=== PATIENT | female | born 1940 | race Caucasian/White ===

== ENCOUNTER → 2017-01-02 | Outpatient (CLI) | payer MEDICARE ==
[~2017-01-02] MED LIST: AC500T; BISO1TAB6; BISO1TAB6 PO; CHOL10003 PO; CLD600T; CLOT15CR4 TP; FISH OIL 1,2001 EAC1 PO; FLUT16SP22 NS; IRB150T PO; IRBE75TA31; LVT.1T PO; MELO-195 PO; MULT-608 PO; PSYL425P3 PO; SIMV20TA3 PO; TOLTA4 PO
--- NOTE | 2017-01-02 17:57 | Diagnostic Imaging Report ---
Bilateral screening mammogram The current study was also evaluated with a Computer Aided Detection (CAD) system. INDICATION: Screening. No current complaints stated on the questionnaire. COMPARISON: 12/02/15. FINDINGS: The breasts are composed of scattered fibroglandular densities. There are scattered benign-appearing calcifications. Allowing for technique and positional differences, no suspicious change is seen. IMPRESSION: No significant change. ACR BI-RADS Category 2: Benign findings. Result letter will be mailed to the patient. Note: At least 10% of breast cancer is not imaged by mammography. Dictated by: Dictated on workstation # [id number]
== END ==
LOC: RAD 09:44
PROVIDERS: ATTEND Family Medicine
DX: Z12.31 Encounter for screening mammogram for malignant neoplasm of breast (principal)
CPT/HCPCS: 77067

== ENCOUNTER → 2017-05-03 | Outpatient (CLI) | payer MEDICARE ==
--- NOTE | 2017-05-03 10:40 | Diagnostic Imaging Report ---
INDICATION: Right knee pain AP, oblique, and lateral views of the right knee are obtained and compared with 05/28/09. There is marked medial and lateral joint space narrowing with osteophyte formation as well as patellofemoral joint space narrowing and osteophyte formation. There is no acute fracture or overt joint effusion. These changes have markedly progressed compared with 05/28/09. IMPRESSION: Advanced osteoarthritic change of right knee as described above involving all 3 compartments. No acute bony abnormality. Dictated by: Dictated on workstation # [id number]
== END ==
LOC: RAD 08:27
PROVIDERS: ATTEND Family Medicine
DX: M17.11 Unilateral primary osteoarthritis, right knee (principal)
CPT/HCPCS: 73562

== ENCOUNTER 2017-10-26 19:05 | Inpatient (IN) | payer MEDICARE ==
[~2017-10-26] VITALS: Ht 175.3 cm; Wt 109.3 kg
--- OUTSIDE RECORDS SUMMARY | 2017-10-26 19:11 | XMS REPORT | CCD ---
Author Author [facility] Organization [facility] Address [address] [place] [address] Phone Care Team Providers Care Design Engineering Manager Name Role Phone PP Unavailable CCM Unavailable Summary Purpose Interface Exchange Insurance Providers Payer name Policy type / Coverage type Covered alliance party ID Effective Begin Date Effective End Date WPS Medicare Part B Medicare Part B [id number] Unknown Unknown [facility] Medicare Part B [id number] Unknown Unknown Family history Son Diagnosis Age At Onset Cancer Unknown Father Diagnosis Age At Onset Heart disease Unknown Mother Diagnosis Age At Onset Atrial fibrillation Unknown Stroke Unknown Social History Social History Element Codes Description Effective Dates Marital status Unknown 12/16/2014 Number of children Unknown 1 daughter and 1 son of pancreatic CA at 6 12/16/2014 Employment Unknown Retired 12/16/[address]: 965064701 Has never smoked or chewed tobacco 12/16/[address]: 032403359 Never drinks alcohol 12/16/2014 Allergies, Adverse Reactions, Alerts Allergies, Adverse Reactions, Alerts data not found Past Medical History Illness Codes Condition Status Onset Date Resolved Date Atrophy of thyroid (acquired) ICD-9: 244.8 ICD-10: E03.4 Active 06/28/2016 Unknown Bilateral primary osteoarthritis of knee ICD-9: 715.16 ICD-10: M17.0 Active 06/28/2015 Unknown Essential (primary) hypertension ICD-9: 401.9 ICD-10: I10 Active 12/15/2014 Unknown Mixed hyperlipidemia ICD-9: 272.4 ICD-10: E78.2 Active 12/15/2014 Unknown Mixed hyperlipidemia ICD-9: 272.2 ICD-10: E78.2 Active 10/26/2016 Unknown Encounter for other screening for malignant neoplasm of breast ICD-9: V76.10 ICD-10: Z12.39 Active 10/26/2016 Unknown Hypothyroidism, unspecified ICD-9: 244.9 ICD-10: E03.9 Active 12/15/2014 Unknown Encounter for screening mammogram for malignant neoplasm of breast ICD-9: V76.12 ICD-10: Z12.31 Active 12/01/2015 Unknown Other obesity due to excess calories ICD-9: 278.00 ICD-10: E66.09 Active 03/26/2015 Unknown Encounter for follow-up examination after completed treatment for conditions other than malignant neoplasm ICD-9: V67.9 ICD-10: Z09 Active 07/14/2015 Unknown Fall (on)(from) sidewalk curb, subsequent encounter ICD-9: V58.89 ICD-10: W10.1XXD Active 07/14/2015 Unknown Multiple fractures of ribs, right side, subsequent encounter for fracture with routine healing ICD-9: V54.19 ICD-10: S22.41XD Active 07/14/2015 Unknown 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 ICD-9: V65.3 Active 03/26/2015 Unknown OBESITY ICD-9: 278.00 Active 03/26/2015 Unknown Hyperlipidemia Unknown Active 12/16/2014 Unknown Hypertension Unknown Active 12/16/2014 Unknown Hypothryroidism Unknown Active 12/16/2014 Unknown Osteoarthritis Unknown Active 12/16/2014 Unknown ESSENTIAL HYPERTENSION ICD-9: 401.9 Active 12/15/2014 Unknown HYPERLIPIDEMIA ICD-9: 272.4 Active 12/15/2014 Unknown HYPOTHYROIDISM ICD-9: 244.9 Active 12/15/2014 Unknown Osteoarthritis ICD-9: 715.90 Active 12/15/2014 Unknown URGE INCONTINENCE ICD- 9: 788.31 Active 12/15/2014 Unknown Problems Condition Codes Effective Dates Condition Status Atrophy of thyroid (acquired) ICD-9: 244.8 ICD-10: E03.4 06/28/2016 Active Bilateral primary osteoarthritis of knee ICD-9: 715.16 ICD-10: M17.0 06/28/2015 Active Essential (primary) hypertension ICD-9: 401.9 ICD-10: I10 12/15/2014 Active Mixed hyperlipidemia ICD-9: 272.4 ICD-10: E78.2 12/15/2014 Active Mixed hyperlipidemia ICD-9: 272.2 ICD-10: E78.2 10/26/2016 Active Encounter for other screening for malignant neoplasm of breast ICD-9: V76.10 ICD-10: Z12.39 10/26/2016 Active Hypothyroidism, unspecified ICD-9: 244.9 ICD-10: E03.9 12/15/2014 Active Encounter for screening mammogram for malignant neoplasm of breast ICD-9: V76.12 ICD-10: Z12.31 12/01/2015 Active Other obesity due to excess calories ICD-9: 278.00 ICD-10: E66.09 03/26/2015 Active Encounter for follow-up examination after completed treatment for conditions other than malignant neoplasm ICD-9: V67.9 ICD-10: Z09 07/14/2015 Active Fall (on)(from) sidewalk curb, subsequent encounter ICD-9: V58.89 ICD-10: W10.1XXD 07/14/2015 Active Multiple fractures of ribs, right side, subsequent encounter for fracture with routine healing ICD-9: V54.19 ICD-10: S22.41XD 07/14/2015 Active 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 ICD-9: V65.3 03/26/2015 Active OBESITY ICD-9: 278.00 03/26/2015 Active Hyperlipidemia Unknown 12/16/2014 Active Hypertension Unknown 12/16/2014 Active Hypothryroidism Unknown 12/16/2014 Active Osteoarthritis Unknown 12/16/2014 Active ESSENTIAL HYPERTENSION ICD-9: 401.9 12/15/2014 Active HYPERLIPIDEMIA ICD-9: 272.4 12/15/2014 Active HYPOTHYROIDISM ICD-9: 244.9 12/15/2014 Active Osteoarthritis ICD-9: 715.90 12/15/2014 Active URGE INCONTINENCE ICD- 9: 788.31 12/15/2014 Active Medications Medication Codes Instructions Start Date Stop Date Status Fill Instructions Mobic 15 mg tablet RxNorm: 231618 1 Tablet(s) PO daily 201708/22/2018 Active Ziac 10 mg-6.25 mg tablet RxNorm: 059182 Tablet(s) TAKE ONE (1) TABLET BY MOUTH DAILY 08/02/2017 07/27/2018 Active levothyroxine 100 mcg tablet RxNorm: 011777 TAKE 1 TABLET BY MOUTH DAILY 07/10/2017 01/05/2018 Active Generic For:*SYNTHROID 100 MCG TABLET 07/10/2017 8:08:24 AM Avapro 75 mg tablet RxNorm: 330952 1 Tablet(s) PO daily 201607/04/2018 Active Detrol LA 4 mg capsule,extended release RxNorm: 871081 1 Capsule(s) PO daily 06/27/2017 06/21/2018 Active levothyroxine 100 mcg tablet RxNorm: 309145 1 Tablet(s) PO daily 01/17/2017 07/09/2017 Inactive Ziac 10 mg-6.25 mg tablet RxNorm: 098356 Tablet(s) TAKE ONE (1) TABLET BY MOUTH DAILY 06/29/2016 06/23/2017 Inactive Mobic 15 mg tablet RxNorm: 830933 1 Tablet(s) PO daily 201506/23/2017 Inactive Avapro 75 mg tablet RxNorm: 277957 1 Tablet(s) PO daily 201506/23/2017 Inactive Detrol LA 4 mg capsule,extended release RxNorm: 912584 1 Capsule(s) PO daily 06/29/2016 06/23/2017 Inactive levothyroxine 100 mcg tablet RxNorm: 161092 1 Tablet(s) PO daily 06/29/2016 12/25/2016 Inactive Lipitor 20 mg tablet RxNorm: 196802 1 Tablet(s) PO daily 201511/03/2015 Inactive Lipitor 20 mg tablet RxNorm: 025495 1 Tablet(s) PO daily 201511/03/2015 Inactive Lipitor 20 mg tablet RxNorm: 114920 1 Tablet(s) PO daily 201502/28/2016 Inactive DC SIMVASTATIN Ziac 10 mg-6.25 mg tablet RxNorm: 912688 TAKE ONE (1) TABLET BY MOUTH DAILY 08/17/2015 06/28/2016 Inactive Generic For:ZIAC 10-6.25 MG TABLET N O T I C E PRESCRIPTION PREVIOUSLY AUTHORIZED BY DOCTOR:MARLIN MARKS prednisone 10 mg tablet RxNorm: 837290 1 Tablet(s) PO daily 08/01/2015 Inactive Mobic 15 mg tablet RxNorm: 850070 1 Tablet(s) PO daily 201406/22/2016 Inactive Detrol LA 4 mg capsule,extended release RxNorm: 288777 1 Capsule(s) PO daily 1 Capsule, 1 time per Day 06/29/20152015 Inactive Avapro 75 mg tablet RxNorm: 235129 1 Tablet(s) PO daily 201406/28/2016 Inactive [SAVINGS FOR NON-COVERED DRUGS -- BIN:401206, PCN: ASPROD1, Group: XXXXX, ID # XXXXXXX, Questions: . THIS IS NOT INSURANCE.] levothyroxine 100 mcg tablet RxNorm: 813325 1 Tablet(s) PO daily 06/29/2015 06/28/2016 Inactive levothyroxine 100 mcg tablet RxNorm: 490337 1 Tablet(s) PO daily 05/01/2015 06/28/2015 Inactive Detrol LA 4 mg capsule,extended release RxNorm: 557896 1 Capsule(s) PO daily 1 Capsule, 1 time per Day 01/09/20152014 Inactive Avapro 75 mg tablet RxNorm: 403004 1 Tablet(s) PO daily 201406/28/2015 Inactive [SAVINGS FOR NON-COVERED DRUGS -- BIN:380921, PCN: ASPROD1, Group: XXXXX, ID # XXXXXXX, Questions: . THIS IS NOT INSURANCE.] Celebrex 200 mg capsule RxNorm: 196628 1 Capsule(s) PO daily 12/21/2014 Inactive [SAVINGS FOR NON-COVERED DRUGS -- BIN:186570, PCN: ASPROD1, Group: XXXXX , ID# [id number], Questions: . THIS IS NOT INSURANCE.] Ziac 10 mg-6.25 mg tablet RxNorm: 378017 1 Tablet(s) PO daily 12/16/2014 08/16/2015 Inactive [SAVINGS FOR NON-COVERED DRUGS -- BIN:512521, PCN: ASPROD1, Group: XXXXX, ID# XXXXXXX, Questions: . THIS IS NOT INSURANCE.] Avapro 75 mg tablet RxNorm: 304005 1 Tablet(s) PO daily 201412/16/2014 Inactive [SAVINGS FOR NON-COVERED DRUGS -- BIN:906195, PCN: ASPROD1, Group: XXXXX, ID # XXXXXXX, Questions: . THIS IS NOT INSURANCE.] multivitamin oral RxNorm: 63215 oral No Start Date Active Vitamin D3 1,000 unit capsule RxNorm: 087363 1 Capsule(s) PO daily No Start Date Active Tylenol Extra Strength 500 mg tablet RxNorm: 349181 Tablet(s) PO as needed No Start Date Active Avapro 150 mg tablet RxNorm: 758905 1 Tablet(s) PO daily No Start Date 12/15/2014 Inactive simvastatin 20 mg tablet RxNorm: 784812 1 Tablet(s) PO daily No Start Date 11/03/2015 Inactive levothyroxine 100 mcg tablet RxNorm: 236505 1 Tablet(s) PO daily No Start Date 06/28/2016 Inactive Ziac 10 mg-6.25 mg tablet RxNorm: 942410 1/2 Tablet(s) PO daily No Start Date 12/15/2014 Inactive Detrol LA 4 mg capsule,extended release RxNorm: 681754 1 Capsule(s) PO as needed No Start Date 01/09/2015 Inactive Mobic 15 mg tablet RxNorm: 024893 1 Tablet(s) PO daily No Start Date 12/15/2014 Inactive Flexeril 5 mg tablet RxNorm: 893786 1 Tablet(s) PO QHS No Start Date 02/28/2016 Inactive Medication Administered No Medication Administered data Immunizations Vaccine Codes Date Status Influenza CVX: 141 05/24/2017 completed Influenza CVX: 141 06/15/2015 completed Pneumococcal CVX: 133 06/15/2015 completed Assessments Condition Codes Effective Dates Mixed hyperlipidemia ICD-10: E78.2 ICD-9: 272.4 04/26/2017 Bilateral primary osteoarthritis of knee ICD-10: M17.0 ICD-9: 715.16 04/26/2017 Essential (primary) hypertension ICD-10: I10 ICD-9: 401.9 04/26/2017 Atrophy of thyroid (acquired) ICD-10: E03.4 ICD-9: 244.8 04/26/2017 Mixed hyperlipidemia ICD-10: E78.2 ICD-9: 272.2 04/24/2017 Encounter for other screening for malignant neoplasm of breast ICD-10: Z12.39 ICD-9: V76.10 10/26/2016 Hypothyroidism, unspecified ICD-10: E03.9 ICD-9: 244.9 02/29/2016 Encounter for screening mammogram for malignant neoplasm of breast ICD-10: Z12.31 ICD-9: V76.12 12/02/2015 Other obesity due to excess calories ICD-10: E66.09 ICD-9: 278.00 10/27/2015 Fall (on)(from) sidewalk curb, subsequent encounter ICD-10: W10.1XXD ICD-9: V58.89 07/15/2015 Multiple fractures of ribs, right side, subsequent encounter for fracture with routine healing ICD-10: S22.41XD ICD-9: V54.19 07/15/2015 Encounter for follow-up examination after completed treatment for conditions other than malignant neoplasm ICD-10: Z09 ICD-9: V67.9 07/15/2015 HYPOTHYROIDISM ICD-9: 244.9 03/27/2015 OBESITY ICD-9: 278.00 03/27/2015 OSTEOARTH NOS-UNSPEC ICD-9: 715.90 2014 ESSENTIAL HYPERTENSION ICD-9: 401.9 03/27 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 ICD-9: V65.3 HYPERLIPIDEMIA ICD-9: 272.4 12/16/2014 URGE INCONTINENCE ICD-9: 788.31 2014 Reason For Visit Reason For Visit Effective Dates Notes hypothyroid 04/26/2017 hypothyroid 10/26/2016 hypothyroid 06/29/2016 hypothyroid 02/29/2016 hypothyroid 10/27/2015 Hospital Follow Up 07/15/2015 knee pain 06/29/2015 urinary frequency 03/27/2015 urinary frequency 12/16/2014 Results Observation Observation Code Item Item Code Result Date Lipid Ord30 CHOL 186 mg/dL 09/04/2017 Lipid Ord30 HDL 38.0 mg/dl 09/04/2017 Lipid Ord30 TRIG 272 mg/dL 09/04/2017 Lipid Ord30 LDL 94 mg/dL 09/04/2017 Lipid Ord30 C/HDL 4.9 Ratio 09/04/2017 Cbc With Differential Ord2 WBC 5.90 K/ul 09/04/2017 Cbc With Differential Ord2 RBC 4.72 M/ul 09/04/2017 Cbc With Differential Ord2 HGB 14.0 g/dl 09/04/2017 Cbc With Differential Ord2 Neut% 59.0 % 09/04/2017 Cbc With Differential Ord2 HCT 43.4 % 09/04/2017 Cbc With Differential Ord2 MCV 91.9 fl 09/04/2017 Cbc With Differential Ord2 Lymph% 24.9 % 09/04/2017 Cbc With Differential Ord2 MCH 29.7 pg 09/04/2017 Cbc With Differential Ord2 Craven% 9.0 % 09/04/2017 Cbc With Differential Ord2 MCHC 32.3 pg 09/04/2017 Cbc With Differential Ord2 Eos% 6.8 % 09/04/2017 Cbc With Differential Ord2 PLT 194 K/ul 09/04/2017 Cbc With Differential Ord2 Baso% 0.3 % 09/04/2017 Cbc With Differential Ord2 RDW 14.3 % 09/04/2017 Cbc With Differential Ord2 Neut ABS# 3.48 K/ul 09/04/2017 Cbc With Differential Ord2 Lymph ABS# 1.47 K/ul 09/04/2017 Cbc With Differential Ord2 [place] ABS# 0.5 K/ul 09/04/2017 Cbc With Differential Ord2 Eos ABS# 0.4 K/ul 09/04/2017 Cbc With Differential Ord2 Baso ABS# 0.0 K/ul 09/04/2017 Comp Metabolic Sgy823 NA 138 mEq/L 09/04/2017 Comp Metabolic Isc420 K 4.8 mEq/L 09/04/2017 Comp Metabolic Ysz662 CL 103 mEq/L 09/04/2017 Comp Metabolic Kop756 CO2 24.0 mEq/L 09/04/2017 Comp Metabolic Onx198 ANION GAP 16 09/04/2017 Comp Metabolic Lli971 GLUCOSE 104 mg/dL 09/04/2017 Comp Metabolic Wsg034 Creat 1.2 mg/dL 09/04/2017 Comp Metabolic Hwn628 eGFR 45 ml/min/1.73m2 09/04/2017 Comp Metabolic Wio252 BUN 28 mg/dL 09/04/2017 Comp Metabolic Ais825 B/C Ratio 23.0 Ratio 09/04/2017 Comp Metabolic Csy413 CALCIUM 9.5 mg/dL 09/04/2017 Comp Metabolic Zff293 ALK PHOS 85 U/L 09/04/2017 Comp Metabolic Gqd050 AST(SGOT) 20 U/L 09/04/2017 Comp Metabolic Jsf478 ALT(SGPT) 12 U/L 09/04/2017 Comp Metabolic Cep168 BILI T 0.5 mg/dL 09/04/2017 Comp Metabolic Fvb071 ALBUMIN 4.2 g/dL 09/04/2017 Comp Metabolic Tko627 TPRO 6.7 g/dL 09/04/2017 Comp Metabolic Mky062 GLOB 2.5 g/dL 09/04/2017 Comp Metabolic Gig291 A/G Ratio 1.7 Ratio 09/04/2017 Comp Metabolic Gsq487 Osmo 281 mOsmo 09/04/2017 Tsh Ord6 hTSH II 1.74 uIU/mL 09/04/2017 Tsh Ord6 hTSH II 1.90 uIU/mL 04/25/2017 Cbc With Differential Ord2 WBC 6.54 K/ul 04/25/2017 Cbc With Differential Ord2 RBC 4.67 M/ul 04/25/2017 Cbc With Differential Ord2 HGB 13.9 g/dl 04/25/2017 Cbc With Differential Ord2 HCT 43.3 % 04/25/2017 Cbc With Differential Ord2 Neut% 63.0 % 04/25/2017 Cbc With Differential Ord2 MCV 92.7 fl 04/25/2017 Cbc With Differential Ord2 Lymph% 22.6 % 04/25/2017 Cbc With Differential Ord2 MCH 29.8 pg 04/25/2017 Cbc With Differential Ord2 Craven% 8.6 % 04/25/2017 Cbc With Differential Ord2 MCHC 32.1 pg 04/25/2017 Cbc With Differential Ord2 Eos% 5.5 % 04/25/2017 Cbc With Differential Ord2 Baso% 0.3 % 04/25/2017 Cbc With Differential Ord2 PLT 214 K/ul 04/25/2017 Cbc With Differential Ord2 Neut ABS# 4.12 K/ul 04/25/2017 Cbc With Differential Ord2 RDW 14.9 % 04/25/2017 Cbc With Differential Ord2 Lymph ABS# 1.48 K/ul 04/25/2017 Cbc With Differential Ord2 [place] ABS# 0.6 K/ul 04/25/2017 Cbc With Differential Ord2 Eos ABS# 0.4 K/ul 04/25/2017 Cbc With Differential Ord2 Baso ABS# 0.0 K/ul 04/25/2017 Free T4 Fkt903 FREE T4 1.21 ng/dL 04/25/2017 Comp Metabolic Cdc445 NA 141 mEq/L 04/25/2017 Comp Metabolic Ius189 K 5.1 mEq/L 04/25/2017 Comp Metabolic Haz734 CL 107 mEq/L 04/25/2017 Comp Metabolic Vpq414 CO2 23.0 mEq/L 04/25/2017 Comp Metabolic Wql530 ANION GAP 16 04/25/2017 Comp Metabolic Udv996 GLUCOSE 108 mg/dL 04/25/2017 Comp Metabolic Yub867 Creat 1.2 mg/dL 04/25/2017 Comp Metabolic Cku854 eGFR 47 ml/min/1.73m2 04/25/2017 Comp Metabolic Tgn394 BUN 34 mg/dL 04/25/2017 Comp Metabolic Kmv994 B/C Ratio 29.1 Ratio 04/25/2017 Comp Metabolic Anw727 CALCIUM 9.5 mg/dL 04/25/2017 Comp Metabolic Sme991 ALK PHOS 83 U/L 04/25/2017 Comp Metabolic Sdw071 AST(SGOT) 19 U/L 04/25/2017 Comp Metabolic Zxl612 ALT(SGPT) 12 U/L 04/25/2017 Comp Metabolic Dow657 BILI T 0.4 mg/dL 04/25/2017 Comp Metabolic Zqn120 ALBUMIN 4.2 g/dL 04/25/2017 Comp Metabolic Vgi351 TPRO 6.6 g/dL 04/25/2017 Comp Metabolic Fbw678 GLOB 2.4 g/dL 04/25/2017 Comp Metabolic Ixe884 A/G Ratio 1.8 Ratio 04/25/2017 Comp Metabolic Wav580 Osmo 289 mOsmo 04/25/2017 Lipid Ord30 CHOL 181 mg/dL 04/25/2017 Lipid Ord30 HDL 35.0 mg/dl 04/25/2017 Lipid Ord30 TRIG 257 mg/dL 04/25/2017 Lipid Ord30 LDL 95 mg/dL 04/25/2017 Lipid Ord30 C/HDL 5.2 Ratio 04/25/2017 Tsh Ord6 hTSH II 2.24 uIU/mL 10/25/2016 Comp Metabolic Obf172 NA 138 mEq/L 10/25/2016 Comp Metabolic Xyj882 K 4.8 mEq/L 10/25/2016 Comp Metabolic Amc540 CL 102 mEq/L 10/25/2016 Comp Metabolic Tqn672 CO2 27.0 mEq/L 10/25/2016 Comp Metabolic Qlu167 ANION GAP 14 10/25/2016 Comp Metabolic Bkc770 GLUCOSE 117 mg/dL 10/25/2016 Comp Metabolic Ezp991 Creat 1.1 mg/dL 10/25/2016 Comp Metabolic Rpq201 eGFR 51 ml/min/1.73m2 10/25/2016 Comp Metabolic Ifj016 BUN 34 mg/dL 10/25/2016 Comp Metabolic Jon206 B/C Ratio 30.9 Ratio 10/25/2016 Comp Metabolic Qob672 CALCIUM 9.8 mg/dL 10/25/2016 Comp Metabolic Zzg273 ALK PHOS 80 U/L 10/25/2016 Comp Metabolic Uic352 AST(SGOT) 21 U/L 10/25/2016 Comp Metabolic Hkv152 ALT(SGPT) 15 U/L 10/25/2016 Comp Metabolic Dll495 BILI T 0.7 mg/dL 10/25/2016 Comp Metabolic Jeq411 ALBUMIN 4.6 g/dL 10/25/2016 Comp Metabolic Xcu369 TPRO 7.0 g/dL 10/25/2016 Comp Metabolic Wzz475 GLOB 2.4 g/dL 10/25/2016 Comp Metabolic Cfq052 A/G Ratio 1.9 Ratio 10/25/2016 Comp Metabolic Tfj825 Osmo 284 mOsmo 10/25/2016 Free T4 Wcg270 FREE T4 1.21 ng/dL 10/25/2016 Cbc With Differential Ord2 WBC 6.38 K/ul 10/25/2016 Cbc With Differential Ord2 RBC 5.07 M/ul 10/25/2016 Cbc With Differential Ord2 HGB 15.5 g/dl 10/25/2016 Cbc With Differential Ord2 HCT 46.5 % 10/25/2016 Cbc With Differential Ord2 Neut% 63.2 % 10/25/2016 Cbc With Differential Ord2 MCV 91.7 fl 10/25/2016 Cbc With Differential Ord2 Lymph% 20.8 % 10/25/2016 Cbc With Differential Ord2 MCH 30.6 pg 10/25/2016 Cbc With Differential Ord2 Craven% 10.0 % 10/25/2016 Cbc With Differential Ord2 Eos% 5.5 % 10/25/2016 Cbc With Differential Ord2 MCHC 33.3 pg 10/25/2016 Cbc With Differential Ord2 PLT 208 K/ul 10/25/2016 Cbc With Differential Ord2 Baso% 0.5 % 10/25/2016 Cbc With Differential Ord2 RDW 14.0 % 10/25/2016 Cbc With Differential Ord2 Neut ABS# 4.03 K/ul 10/25/2016 Cbc With Differential Ord2 Lymph ABS# 1.33 K/ul 10/25/2016 Cbc With Differential Ord2 [place] ABS# 0.6 K/ul 10/25/2016 Cbc With Differential Ord2 Eos ABS# 0.4 K/ul 10/25/2016 Cbc With Differential Ord2 Baso ABS# 0.0 K/ul 10/25/2016 Lipid Ord30 CHOL 205 mg/dL 10/25/2016 Lipid Ord30 HDL 41.0 mg/dl 10/25/2016 Lipid Ord30 TRIG 209 mg/dL 10/25/2016 Lipid Ord30 LDL 122 mg/dL 10/25/2016 Lipid Ord30 C/HDL 5.0 Ratio 10/25/2016 Cbc With Differential Ord2 WBC 5.97 K/ul 02/25/2016 Cbc With Differential Ord2 RBC 4.96 M/ul 02/25/2016 Cbc With Differential Ord2 HGB 15.1 g/dl 02/25/2016 Cbc With Differential Ord2 Neut% 58.8 % 02/25/2016 Cbc With Differential Ord2 HCT 45.4 % 02/25/2016 Cbc With Differential Ord2 MCV 91.5 fl 02/25/2016 Cbc With Differential Ord2 Lymph% 26.5 % 02/25/2016 Cbc With Differential Ord2 MCH 30.4 pg 02/25/2016 Cbc With Differential Ord2 Craven% 9.4 % 02/25/2016 Cbc With Differential Ord2 MCHC 33.3 pg 02/25/2016 Cbc With Differential Ord2 Eos% 5.0 % 02/25/2016 Cbc With Differential Ord2 PLT 227 K/ul 02/25/2016 Cbc With Differential Ord2 Baso% 0.3 % 02/25/2016 Cbc With Differential Ord2 RDW 13.9 % 02/25/2016 Cbc With Differential Ord2 Neut ABS# 3.51 K/ul 02/25/2016 Cbc With Differential Ord2 Lymph ABS# 1.58 K/ul 02/25/2016 Cbc With Differential Ord2 [place] ABS# 0.6 K/ul 02/25/2016 Cbc With Differential Ord2 Eos ABS# 0.3 K/ul 02/25/2016 Cbc With Differential Ord2 Baso ABS# 0.0 K/ul 02/25/2016 Tsh Ord6 hTSH II 2.05 uIU/mL 02/25/2016 Comp Metabolic Ene163 NA 139 mEq/L 02/25/2016 Comp Metabolic Dxf566 K 4.8 mEq/L 02/25/2016 Comp Metabolic Fkf971 CL 102 mEq/L 02/25/2016 Comp Metabolic Qdn508 CO2 28.0 mEq/L 02/25/2016 Comp Metabolic Ujn207 ANION GAP 14 02/25/2016 Comp Metabolic Akz587 GLUCOSE 107 mg/dL 02/25/2016 Comp Metabolic Res590 Creat 1.0 mg/dL 02/25/2016 Comp Metabolic Cts546 eGFR 55 ml/min/1.73m2 02/25/2016 Comp Metabolic Dxe008 BUN 29 mg/dL 02/25/2016 Comp Metabolic Gui623 B/C Ratio 28.2 Ratio 02/25/2016 Comp Metabolic Vbu480 CALCIUM 9.7 mg/dL 02/25/2016 Comp Metabolic Mtj488 ALK PHOS 72 U/L 02/25/2016 Comp Metabolic Tfn473 AST(SGOT) 20 U/L 02/25/2016 Comp Metabolic Siy992 ALT(SGPT) 16 U/L 02/25/2016 Comp Metabolic Hhg612 BILI T 0.6 mg/dL 02/25/2016 Comp Metabolic Zjm523 ALBUMIN 4.5 g/dL 02/25/2016 Comp Metabolic Yti524 TPRO 6.8 g/dL 02/25/2016 Comp Metabolic Juw378 GLOB 2.4 g/dL 02/25/2016 Comp Metabolic Agn853 A/G Ratio 1.9 Ratio 02/25/2016 Comp Metabolic Jub009 Osmo 284 mOsmo 02/25/2016 Lipid Ord30 CHOL 214 mg/dL 10/28/2015 Lipid Ord30 HDL 40.0 mg/dl 10/28/2015 Lipid Ord30 TRIG 150 mg/dL 10/28/2015 Lipid Ord30 LDL 144 mg/dL 10/28/2015 Lipid Ord30 C/HDL 5.4 Ratio 10/28/2015 Tsh Ord6 hTSH II 2.37 uIU/mL 10/28/2015 Cbc With Differential Ord2 WBC 5.86 K/ul 10/28/2015 Cbc With Differential Ord2 RBC 5.08 M/ul 10/28/2015 Cbc With Differential Ord2 HGB 15.1 g/dl 10/28/2015 Cbc With Differential Ord2 Neut% 58.1 % 10/28/2015 Cbc With Differential Ord2 HCT 45.8 % 10/28/2015 Cbc With Differential Ord2 Lymph% 27.1 % 10/28/2015 Cbc With Differential Ord2 MCV 90.2 fl 10/28/2015 Cbc With Differential Ord2 MCH 29.7 pg 10/28/2015 Cbc With Differential Ord2 Craven% 8.7 % 10/28/2015 Cbc With Differential Ord2 Eos% 5.8 % 10/28/2015 Cbc With Differential Ord2 MCHC 33.0 pg 10/28/2015 Cbc With Differential Ord2 PLT 214 K/ul 10/28/2015 Cbc With Differential Ord2 Baso% 0.3 % 10/28/2015 Cbc With Differential Ord2 RDW 14.0 % 10/28/2015 Cbc With Differential Ord2 Neut ABS# 3.40 K/ul 10/28/2015 Cbc With Differential Ord2 Lymph ABS# 1.59 K/ul 10/28/2015 Cbc With Differential Ord2 [place] ABS# 0.5 K/ul 10/28/2015 Cbc With Differential Ord2 Eos ABS# 0.3 K/ul 10/28/2015 Cbc With Differential Ord2 Baso ABS# 0.0 K/ul 10/28/2015 Cbc With Differential Ord2 New Analyzer Notice Please note new ref ranges starting 08-26-2015 due to implemntation of new five part differential hematolgy analyzer. 10/28/2015 Comp Metabolic Czk417 NA 138 mEq/L 10/28/2015 Comp Metabolic Yhq760 K 4.4 mEq/L 10/28/2015 Comp Metabolic Mvv150 CL 103 mEq/L 10/28/2015 Comp Metabolic Tqa462 CO2 24.0 mEq/L 10/28/2015 Comp Metabolic Pdc358 ANION GAP 15 10/28/2015 Comp Metabolic Ddr805 GLUCOSE 105 mg/dL 10/28/2015 Comp Metabolic Tzb851 Creat 1.1 mg/dL 10/28/2015 Comp Metabolic Vqn868 eGFR 53 ml/min/1.73m2 10/28/2015 Comp Metabolic Zdh543 BUN 31 mg/dL 10/28/2015 Comp Metabolic Pdz406 B/C Ratio 29.0 Ratio 10/28/2015 Comp Metabolic Ewy060 CALCIUM 9.6 mg/dL 10/28/2015 Comp Metabolic Daf155 ALK PHOS 83 U/L 10/28/2015 Comp Metabolic Ryy165 AST(SGOT) 19 U/L 10/28/2015 Comp Metabolic Vbk660 ALT(SGPT) 16 U/L 10/28/2015 Comp Metabolic Xjg206 BILI T 0.6 mg/dL 10/28/2015 Comp Metabolic Sws017 ALBUMIN 4.4 g/dL 10/28/2015 Comp Metabolic Lzs750 TPRO 7.0 g/dL 10/28/2015 Comp Metabolic Tdc403 GLOB 2.6 g/dL 10/28/2015 Comp Metabolic Lsl774 A/G Ratio 1.7 Ratio 10/28/2015 Comp Metabolic Tho180 Osmo 283 mOsmo 10/28/2015 Free T4 Sij383 FREE T4 1.18 ng/dL 10/28/2015 Review of Systems System Result Effective Dates Constitutional No fatigue 04/26/2017 Constitutional No fever 04/26/2017 Constitutional No insomnia 04/26/2017 Eyes No eye discharge 04/26/2017 Eyes No eye erythema 04/26/2017 Ears/Nose/Throat/Neck No headache 2016 Cardiovascular No chest pain/pressure Cardiovascular No edema 04/26/2017 Cardiovascular No near-syncope/dizziness 04/26/2017 Cardiovascular No syncope 04/26/2017 Respiratory No productive sputum 2016 Respiratory No chest congestion 2016 Respiratory No chest tightness 2016 Respiratory No cough 04/26/2017 Respiratory No dyspnea 04/26/2017 Gastrointestinal No abdominal pain 2016 Gastrointestinal No constipation 2016 Gastrointestinal No diarrhea 04/26/2017 Genitourinary/Nephrology No breast complaint 04/26/2017 Genitourinary/Nephrology No dysuria 04/26 Genitourinary/Nephrology No hematuria Genitourinary/Nephrology No urinary urgency 04/26/2017 Genitourinary/Nephrology No vaginal discharge 04/26/2017 Musculoskeletal stiffness 04/26/2017 Musculoskeletal arthralgia(s) 04/26/2017 Musculoskeletal No joint complaint 2016 Dermatologic No rash 04/26/2017 Dermatologic No scar 04/26/2017 Neurologic No alteration of consciousness 04/26/2017 Psychiatric No anxiety 04/26/2017 Psychiatric No depression 04/26/2017 Constitutional No fatigue 10/26/2016 Constitutional No fever 10/26/2016 Constitutional No insomnia 10/26/2016 Eyes No eye discharge 10/26/2016 Eyes No eye erythema 10/26/2016 Ears/Nose/Throat/Neck No headache 2016 Cardiovascular No chest pain/pressure Cardiovascular No edema 10/26/2016 Cardiovascular No near-syncope/dizziness 10/26/2016 Cardiovascular No syncope 10/26/2016 Respiratory No productive sputum 2016 Respiratory No chest congestion 2016 Respiratory No chest tightness 2016 Respiratory No cough 10/26/2016 Respiratory No dyspnea 10/26/2016 Gastrointestinal No abdominal pain 2016 Gastrointestinal No constipation 2016 Gastrointestinal No diarrhea 10/26/2016 Genitourinary/Nephrology No breast complaint 10/26/2016 Genitourinary/Nephrology No dysuria 10/26 Genitourinary/Nephrology No hematuria Genitourinary/Nephrology No urinary urgency 10/26/2016 Genitourinary/Nephrology No vaginal discharge 10/26/2016 Musculoskeletal stiffness 10/26/2016 Musculoskeletal arthralgia(s) 10/26/2016 Musculoskeletal No joint complaint 2016 Dermatologic No rash 10/26/2016 Dermatologic No scar 10/26/2016 Neurologic No alteration of consciousness 10/26/2016 Psychiatric No anxiety 10/26/2016 Psychiatric No depression 10/26/2016 Constitutional No recent illness 2015 Constitutional No fatigue 06/29/2016 Constitutional No fever 06/29/2016 Constitutional No insomnia 06/29/2016 Eyes No eye discharge 06/29/2016 Eyes No eye erythema 06/29/2016 Ears/Nose/Throat/Neck No headache 2015 Cardiovascular No chest pain/pressure Cardiovascular No edema 06/29/2016 Cardiovascular No near-syncope/dizziness 06/29/2016 Cardiovascular No syncope 06/29/2016 Respiratory No productive sputum 2015 Respiratory No chest congestion 2015 Respiratory No chest tightness 2015 Respiratory No cough 06/29/2016 Respiratory No dyspnea 06/29/2016 Gastrointestinal No abdominal pain 2015 Gastrointestinal No constipation 2015 Gastrointestinal No diarrhea 06/29/2016 Genitourinary/Nephrology No breast complaint 06/29/2016 Genitourinary/Nephrology No dysuria 06/29 Genitourinary/Nephrology No hematuria Genitourinary/Nephrology No urinary urgency 06/29/2016 Genitourinary/Nephrology No vaginal discharge 06/29/2016 Musculoskeletal stiffness 06/29/2016 Musculoskeletal arthralgia(s) 06/29/2016 Musculoskeletal No joint complaint 2015 Dermatologic No rash 06/29/2016 Dermatologic No scar 06/29/2016 Neurologic No alteration of consciousness 06/29/2016 Psychiatric No anxiety 06/29/2016 Psychiatric No depression 06/29/2016 Constitutional No fatigue 02/29/2016 Constitutional No fever 02/29/2016 Constitutional No insomnia 02/29/2016 Eyes No eye discharge 02/29/2016 Eyes No eye erythema 02/29/2016 Ears/Nose/Throat/Neck No headache 2015 Cardiovascular No chest pain/pressure Cardiovascular No edema 02/29/2016 Cardiovascular No near-syncope/dizziness 02/29/2016 Cardiovascular No syncope 02/29/2016 Respiratory No productive sputum 2015 Respiratory No chest congestion 2015 Respiratory No chest tightness 2015 Respiratory No cough 02/29/2016 Respiratory No dyspnea 02/29/2016 Gastrointestinal No abdominal pain 2015 Gastrointestinal No constipation 2015 Gastrointestinal No diarrhea 02/29/2016 Genitourinary/Nephrology No breast complaint 02/29/2016 Genitourinary/Nephrology No dysuria 02/28 Genitourinary/Nephrology No hematuria Genitourinary/Nephrology No urinary urgency 02/29/2016 Genitourinary/Nephrology No vaginal discharge 02/29/2016 Musculoskeletal stiffness 02/29/2016 Musculoskeletal arthralgia(s) 02/29/2016 Musculoskeletal No joint complaint 2015 Dermatologic No rash 02/29/2016 Dermatologic No scar 02/29/2016 Neurologic No alteration of consciousness 02/29/2016 Psychiatric No anxiety 02/29/2016 Psychiatric No depression 02/29/2016 Constitutional No recent illness 2015 Constitutional No fatigue 10/27/2015 Constitutional No fever 10/27/2015 Constitutional No insomnia 10/27/2015 Eyes No eye discharge 10/27/2015 Eyes No eye erythema 10/27/2015 Ears/Nose/Throat/Neck No headache 2015 Cardiovascular No chest pain/pressure Cardiovascular No edema 10/27/2015 Cardiovascular No near-syncope/dizziness 10/27/2015 Cardiovascular No syncope 10/27/2015 Respiratory No productive sputum 2015 Respiratory No chest congestion 2015 Respiratory No chest tightness 2015 Respiratory No cough 10/27/2015 Respiratory No dyspnea 10/27/2015 Gastrointestinal No abdominal pain 2015 Gastrointestinal No constipation 2015 Gastrointestinal No diarrhea 10/27/2015 Genitourinary/Nephrology No breast complaint 10/27/2015 Genitourinary/Nephrology No dysuria 10/26 Genitourinary/Nephrology No hematuria Genitourinary/Nephrology No urinary urgency 10/27/2015 Genitourinary/Nephrology No vaginal discharge 10/27/2015 Musculoskeletal No joint complaint 2015 Dermatologic No rash 10/27/2015 Dermatologic No scar 10/27/2015 Neurologic No alteration of consciousness 10/27/2015 Psychiatric No anxiety 10/27/2015 Psychiatric No depression 10/27/2015 Musculoskeletal stiffness 10/27/2015 Musculoskeletal arthralgia(s) 10/27/2015 Constitutional No fatigue 07/15/2015 Constitutional No fever 07/15/2015 Constitutional No insomnia 07/15/2015 Eyes No eye discharge 07/15/2015 Eyes No eye erythema 07/15/2015 Ears/Nose/Throat/Neck No headache 2014 Cardiovascular No chest pain/pressure 09/2014 Cardiovascular No edema 07/15/2015 Cardiovascular No near-syncope/dizziness 07/15/2015 Respiratory No productive sputum 2014 Respiratory No chest congestion 2014 Respiratory No chest tightness 2014 Respiratory No cough 07/15/2015 Respiratory No dyspnea 07/15/2015 Gastrointestinal No abdominal pain 2014 Gastrointestinal No constipation 2014 Gastrointestinal No diarrhea 07/15/2015 Dermatologic No rash 07/15/2015 Dermatologic No scar 07/15/2015 Neurologic No alteration of consciousness 07/15/2015 Psychiatric No anxiety 07/15/2015 Psychiatric No depression 07/15/2015 Cardiovascular No syncope 07/15/2015 Cardiovascular No dyspnea 07/15/2015 Musculoskeletal bone fracture 07/15/2015 Dermatologic ecchymosis 07/15/2015 Neurologic No dizziness 07/15/2015 Neurologic No headache 07/15/2015 Neurologic No mental status change 2014 Neurologic No weakness 07/15/2015 Neurologic No vision change 07/15/2015 Neurologic No speech difficulties 2014 Constitutional No fatigue 06/29/2015 Constitutional No fever 06/29/2015 Constitutional No insomnia 06/29/2015 Eyes No eye discharge 06/29/2015 Eyes No eye erythema 06/29/2015 Ears/Nose/Throat/Neck No headache 2014 Cardiovascular No chest pain/pressure Cardiovascular No edema 06/29/2015 Cardiovascular No near-syncope/dizziness 06/29/2015 Cardiovascular No syncope 06/29/2015 Respiratory No productive sputum 2014 Respiratory No chest congestion 2014 Respiratory No chest tightness 2014 Respiratory No cough 06/29/2015 Respiratory No dyspnea 06/29/2015 Gastrointestinal No abdominal pain 2014 Gastrointestinal No constipation 2014 Gastrointestinal No diarrhea 06/29/2015 Genitourinary/Nephrology No breast complaint 06/29/2015 Genitourinary/Nephrology No dysuria 06/29 Genitourinary/Nephrology No hematuria Genitourinary/Nephrology No urinary urgency 06/29/2015 Genitourinary/Nephrology No vaginal discharge 06/29/2015 Musculoskeletal No joint complaint 2014 Dermatologic No rash 06/29/2015 Dermatologic No scar 06/29/2015 Neurologic No alteration of consciousness 06/29/2015 Psychiatric No anxiety 06/29/2015 Psychiatric No depression 06/29/2015 Constitutional No fatigue 03/27/2015 Constitutional No fever 03/27/2015 Constitutional No insomnia 03/27/2015 Eyes No eye discharge 03/27/2015 Eyes No eye erythema 03/27/2015 Ears/Nose/Throat/Neck No headache 2014 Cardiovascular No chest pain/pressure Cardiovascular No edema 03/27/2015 Cardiovascular No near-syncope/dizziness 03/27/2015 Cardiovascular No syncope 03/27/2015 Respiratory No productive sputum 2014 Respiratory No chest congestion 2014 Respiratory No chest tightness 2014 Respiratory No cough 03/27/2015 Respiratory No dyspnea 03/27/2015 Gastrointestinal No abdominal pain 2014 Gastrointestinal No constipation 2014 Gastrointestinal No diarrhea 03/27/2015 Genitourinary/Nephrology No breast complaint 03/27/2015 Genitourinary/Nephrology No dysuria 03/27 Genitourinary/Nephrology No hematuria Genitourinary/Nephrology No urinary urgency 03/27/2015 Genitourinary/Nephrology No vaginal discharge 03/27/2015 Musculoskeletal No joint complaint 2014 Dermatologic No rash 03/27/2015 Dermatologic No scar 03/27/2015 Neurologic No alteration of consciousness 03/27/2015 Psychiatric No anxiety 03/27/2015 Psychiatric No depression 03/27/2015 Constitutional No fatigue 12/16/2014 Constitutional No fever 12/16/2014 Constitutional No insomnia 12/16/2014 Eyes No eye discharge 12/16/2014 Eyes No eye erythema 12/16/2014 Ears/Nose/Throat/Neck No headache 2014 Cardiovascular No chest pain/pressure 12/2014 Cardiovascular No edema 12/16/2014 Cardiovascular No near-syncope/dizziness 12/16/2014 Cardiovascular No syncope 12/16/2014 Respiratory No productive sputum 2014 Respiratory No chest congestion 2014 Respiratory No chest tightness 2014 Respiratory No cough 12/16/2014 Respiratory No dyspnea 12/16/2014 Gastrointestinal No abdominal pain 2014 Gastrointestinal No constipation 2014 Gastrointestinal No diarrhea 12/16/2014 Genitourinary/Nephrology No breast complaint 12/16/2014 Genitourinary/Nephrology No dysuria 12/16 Genitourinary/Nephrology No hematuria 12/2014 Genitourinary/Nephrology No urinary urgency 12/16/2014 Genitourinary/Nephrology No vaginal discharge 12/16/2014 Musculoskeletal No joint complaint 2014 Neurologic No alteration of consciousness 12/16/2014 Psychiatric No anxiety 12/16/2014 Psychiatric No depression 12/16/2014 Dermatologic No rash 12/16/2014 Dermatologic No scar 12/16/2014 Physical Exam Exam Name System Name Item Name Status Result Effective Dates Notes Full Exam - General 1994 Constitutional general appearance Development: well developed 04/26/2017 None Full Exam - General 1994 Constitutional general appearance Development: appears stated age 0904/26/2017 None Full Exam - General 1994 Constitutional general appearance Hygiene/Attention to Grooming: good hygiene 04/26/2017 None Full Exam - General 1994 Eyes conjunctiva /eyelids Overall: conjunctiva clear 04/26/2017 None Full Exam - General 1994 Eyes conjunctiva /eyelids Overall: cornea clear 04/26/2017 None Full Exam - General 1994 Eyes conjunctiva /eyelids Overall: eyelids normal 04/26/2017 None Full Exam - General 1994 Eyes pupils and irises Overall: pupils equal, round, reactive to light and accomodation 04/26/2017 None Full Exam - General 1994 Ears/Nose/Throat otoscopic exam Overall: external auditory canals clear 04/26/2017 None Full Exam - General 1994 Ears/Nose/Throat otoscopic exam Overall: tympanic membranes clear 04/26/2017 None Full Exam - General 1994 Ears/Nose/Throat lips/teeth/gingiva Overall: benign lips 04/26/2017 None Full Exam - General 1994 Ears/Nose/Throat lips/teeth/gingiva Overall: normal dentition 04/26/2017 None Full Exam - General 1994 Ears/Nose/Throat oral cavity/pharynx/larynx Overall: oral mucosa clear 04/26/2017 None Full Exam - General 1994 Ears/Nose/Throat oral cavity/pharynx/larynx Overall: oropharyngeal mucosa clear 04/26/2017 None Full Exam - General 1994 Ears/Nose/Throat oral cavity/pharynx/larynx Overall: hypopharynx benign 04/26/2017 None Full Exam - General 1994 Ears/Nose/Throat oral cavity/pharynx/larynx Overall: no masses 04/26/2017 None Full Exam - General 1994 Respiratory auscultation Overall: breath sounds clear bilaterally 04/26/2017 None Full Exam - General 1994 Respiratory respiratory effort/rhythm Overall: no retractions 04/26/2017 None Full Exam - General 1994 Respiratory respiratory effort/rhythm Overall: normal rate 04/26/2017 None Full Exam - General 1994 Cardiovascular extremities Overall: no clubbing 04/26/2017 None Full Exam - General 1994 Cardiovascular extremities Edema present: pitting 04/26/2017 None Full Exam - General 1994 Cardiovascular extremities Edema present: severity 1+ - 4 +: 2+ 04/26/2017 None Full Exam - General 1994 Cardiovascular auscultation of heart Overall: regular rate 04/26/2017 None Full Exam - General 1994 Cardiovascular auscultation of heart Overall: normal heart sounds 04/26/2017 None Full Exam - General 1994 Abdomen abdominal exam Overall: no tenderness 04/26/2017 None Full Exam - General 1994 Abdomen abdominal exam Overall: normal bowel sounds 04/26/2017 None Full Exam - General 1994 Musculoskeletal lower extremity Palpation - knee: crepitus 04/26/2017 None Full Exam - General 1994 Neurologic deep tendon reflexes Overall: deep tendon reflexes intact 04/26/2017 None Full Exam - General 1994 Neurologic cranial nerves Overall: crainial nerves 2 - 12 grossly intact 04/26/2017 None Full Exam - General 1994 Psychiatric orientation/consciousness Overall: oriented to person, place and time 04/26/2017 None Full Exam - General 1994 Psychiatric mood and affect Overall: normal mood and affect 04/26/2017 None Full Exam - General 1994 Lymphatic neck nodes Overall: anterior cervical chain benign 04/26/2017 None Full Exam - General 1994 Lymphatic neck nodes Overall: posterior cervical chain benign 04/26/2017 None Full Exam - General 1994 Cardiovascular inspection of carotid pulses Overall: strong, bilaterally equal, no bruits 04/26/2017 None Full Exam - General 1994 Constitutional general appearance Development: well developed 10/26/2016 None Full Exam - General 1994 Constitutional general appearance Development: appears stated age 0310/26/2016 None Full Exam - General 1994 Constitutional general appearance Hygiene/Attention to Grooming: good hygiene 10/26/2016 None Full Exam - General 1994 Eyes conjunctiva /eyelids Overall: conjunctiva clear 10/26/2016 None Full Exam - General 1994 Eyes conjunctiva /eyelids Overall: cornea clear 10/26/2016 None Full Exam - General 1994 Eyes conjunctiva /eyelids Overall: eyelids normal 10/26/2016 None Full Exam - General 1994 Eyes pupils and irises Overall: pupils equal, round, reactive to light and accomodation 10/26/2016 None Full Exam - General 1994 Ears/Nose/Throat otoscopic exam Overall: external auditory canals clear 10/26/2016 None Full Exam - General 1994 Ears/Nose/Throat otoscopic exam Overall: tympanic membranes clear 10/26/2016 None Full Exam - General 1994 Ears/Nose/Throat lips/teeth/gingiva Overall: benign lips 10/26/2016 None Full Exam - General 1994 Ears/Nose/Throat lips/teeth/gingiva Overall: normal dentition 10/26/2016 None Full Exam - General 1994 Ears/Nose/Throat oral cavity/pharynx/larynx Overall: oral mucosa clear 10/26/2016 None Full Exam - General 1994 Ears/Nose/Throat oral cavity/pharynx/larynx Overall: oropharyngeal mucosa clear 10/26/2016 None Full Exam - General 1994 Ears/Nose/Throat oral cavity/pharynx/larynx Overall: hypopharynx benign 10/26/2016 None Full Exam - General 1994 Ears/Nose/Throat oral cavity/pharynx/larynx Overall: no masses 10/26/2016 None Full Exam - General 1994 Respiratory auscultation Overall: breath sounds clear bilaterally 10/26/2016 None Full Exam - General 1994 Respiratory respiratory effort/rhythm Overall: no retractions 10/26/2016 None Full Exam - General 1994 Respiratory respiratory effort/rhythm Overall: normal rate 10/26/2016 None Full Exam - General 1994 Cardiovascular extremities Overall: no clubbing 10/26/2016 None Full Exam - General 1994 Cardiovascular extremities Edema present: pitting 10/26/2016 None Full Exam - General 1994 Cardiovascular extremities Edema present: severity 1+ - 4 +: 2+ 10/26/2016 None Full Exam - General 1994 Cardiovascular auscultation of heart Overall: regular rate 10/26/2016 None Full Exam - General 1994 Cardiovascular auscultation of heart Overall: normal heart sounds 10/26/2016 None Full Exam - General 1994 Abdomen abdominal exam Overall: no tenderness 10/26/2016 None Full Exam - General 1994 Abdomen abdominal exam Overall: normal bowel sounds 10/26/2016 None Full Exam - General 1994 Musculoskeletal lower extremity Palpation - knee: crepitus 10/26/2016 None Full Exam - General 1994 Integument inspection of skin Overall: few scattered moles, no gross abnormalities 10/26/2016 None Full Exam - General 1994 Neurologic deep tendon reflexes Overall: deep tendon reflexes intact 10/26/2016 None Full Exam - General 1994 Neurologic cranial nerves Overall: crainial nerves 2 - 12 grossly intact 10/26/2016 None Full Exam - General 1994 Psychiatric orientation/consciousness Overall: oriented to person, place and time 10/26/2016 None Full Exam - General 1994 Psychiatric mood and affect Overall: normal mood and affect 10/26/2016 None Full Exam - General 1994 Constitutional general appearance Development: well developed 06/29/2016 None Full Exam - General 1994 Constitutional general appearance Development: appears stated age 1106/29/2016 None Full Exam - General 1994 Constitutional general appearance Hygiene/Attention to Grooming: good hygiene 06/29/2016 None Full Exam - General 1994 Eyes conjunctiva /eyelids Overall: conjunctiva clear 06/29/2016 None Full Exam - General 1994 Eyes conjunctiva /eyelids Overall: cornea clear 06/29/2016 None Full Exam - General 1994 Eyes conjunctiva /eyelids Overall: eyelids normal 06/29/2016 None Full Exam - General 1994 Eyes pupils and irises Overall: pupils equal, round, reactive to light and accomodation 06/29/2016 None Full Exam - General 1994 Ears/Nose/Throat otoscopic exam Overall: external auditory canals clear 06/29/2016 None Full Exam - General 1994 Ears/Nose/Throat otoscopic exam Overall: tympanic membranes clear 06/29/2016 None Full Exam - General 1994 Ears/Nose/Throat lips/teeth/gingiva Overall: benign lips 06/29/2016 None Full Exam - General 1994 Ears/Nose/Throat lips/teeth/gingiva Overall: normal dentition 06/29/2016 None Full Exam - General 1994 Ears/Nose/Throat oral cavity/pharynx/larynx Overall: oral mucosa clear 06/29/2016 None Full Exam - General 1994 Ears/Nose/Throat oral cavity/pharynx/larynx Overall: oropharyngeal mucosa clear 06/29/2016 None Full Exam - General 1994 Ears/Nose/Throat oral cavity/pharynx/larynx Overall: hypopharynx benign 06/29/2016 None Full Exam - General 1994 Ears/Nose/Throat oral cavity/pharynx/larynx Overall: no masses 06/29/2016 None Full Exam - General 1994 Respiratory auscultation Overall: breath sounds clear bilaterally 06/29/2016 None Full Exam - General 1994 Respiratory respiratory effort/rhythm Overall: no retractions 06/29/2016 None Full Exam - General 1994 Respiratory respiratory effort/rhythm Overall: normal rate 06/29/2016 None Full Exam - General 1994 Cardiovascular extremities Overall: no clubbing 06/29/2016 None Full Exam - General 1994 Cardiovascular extremities Edema present: pitting 06/29/2016 None Full Exam - General 1994 Cardiovascular extremities Edema present: severity 1+ - 4 +: 2+ 06/29/2016 None Full Exam - General 1994 Cardiovascular auscultation of heart Overall: regular rate 06/29/2016 None Full Exam - General 1994 Cardiovascular auscultation of heart Overall: normal heart sounds 06/29/2016 None Full Exam - General 1994 Abdomen abdominal exam Overall: no tenderness 06/29/2016 None Full Exam - General 1994 Abdomen abdominal exam Overall: normal bowel sounds 06/29/2016 None Full Exam - General 1994 Musculoskeletal lower extremity Palpation - knee: crepitus 06/29/2016 None Full Exam - General 1994 Integument inspection of skin Overall: few scattered moles, no gross abnormalities 06/29/2016 None Full Exam - General 1994 Neurologic deep tendon reflexes Overall: deep tendon reflexes intact 06/29/2016 None Full Exam - General 1994 Neurologic cranial nerves Overall: crainial nerves 2 - 12 grossly intact 06/29/2016 None Full Exam - General 1994 Psychiatric orientation/consciousness Overall: oriented to person, place and time 06/29/2016 None Full Exam - General 1994 Psychiatric mood and affect Overall: normal mood and affect 06/29/2016 None Full Exam - General 1994 Constitutional general appearance Development: well developed 02/29/2016 None Full Exam - General 1994 Constitutional general appearance Development: appears stated age 0702/29/2016 None Full Exam - General 1994 Constitutional general appearance Hygiene/Attention to Grooming: good hygiene 02/29/2016 None Full Exam - General 1994 Eyes conjunctiva /eyelids Overall: conjunctiva clear 02/29/2016 None Full Exam - General 1994 Eyes conjunctiva /eyelids Overall: cornea clear 02/29/2016 None Full Exam - General 1994 Eyes conjunctiva /eyelids Overall: eyelids normal 02/29/2016 None Full Exam - General 1994 Eyes pupils and irises Overall: pupils equal, round, reactive to light and accomodation 02/29/2016 None Full Exam - General 1994 Ears/Nose/Throat otoscopic exam Overall: external auditory canals clear 02/29/2016 None Full Exam - General 1994 Ears/Nose/Throat otoscopic exam Overall: tympanic membranes clear 02/29/2016 None Full Exam - General 1994 Ears/Nose/Throat lips/teeth/gingiva Overall: benign lips 02/29/2016 None Full Exam - General 1994 Ears/Nose/Throat lips/teeth/gingiva Overall: normal dentition 02/29/2016 None Full Exam - General 1994 Ears/Nose/Throat oral cavity/pharynx/larynx Overall: oral mucosa clear 02/29/2016 None Full Exam - General 1994 Ears/Nose/Throat oral cavity/pharynx/larynx Overall: oropharyngeal mucosa clear 02/29/2016 None Full Exam - General 1994 Ears/Nose/Throat oral cavity/pharynx/larynx Overall: hypopharynx benign 02/29/2016 None Full Exam - General 1994 Ears/Nose/Throat oral cavity/pharynx/larynx Overall: no masses 02/29/2016 None Full Exam - General 1994 Respiratory auscultation Overall: breath sounds clear bilaterally 02/29/2016 None Full Exam - General 1994 Respiratory respiratory effort/rhythm Overall: no retractions 02/29/2016 None Full Exam - General 1994 Respiratory respiratory effort/rhythm Overall: normal rate 02/29/2016 None Full Exam - General 1994 Cardiovascular extremities Overall: no clubbing 02/29/2016 None Full Exam - General 1994 Cardiovascular extremities Edema present: pitting 02/29/2016 None Full Exam - General 1994 Cardiovascular extremities Edema present: severity 1+ - 4 +: 2+ 02/29/2016 None Full Exam - General 1994 Cardiovascular auscultation of heart Overall: regular rate 02/29/2016 None Full Exam - General 1994 Cardiovascular auscultation of heart Overall: normal heart sounds 02/29/2016 None Full Exam - General 1994 Abdomen abdominal exam Overall: no tenderness 02/29/2016 None Full Exam - General 1994 Abdomen abdominal exam Overall: normal bowel sounds 02/29/2016 None Full Exam - General 1994 Musculoskeletal lower extremity Palpation - knee: crepitus 02/29/2016 None Full Exam - General 1994 Integument inspection of skin Overall: few scattered moles, no gross abnormalities 02/29/2016 None Full Exam - General 1994 Neurologic deep tendon reflexes Overall: deep tendon reflexes intact 02/29/2016 None Full Exam - General 1994 Neurologic cranial nerves Overall: crainial nerves 2 - 12 grossly intact 02/29/2016 None Full Exam - General 1994 Psychiatric orientation/consciousness Overall: oriented to person, place and time 02/29/2016 None Full Exam - General 1994 Psychiatric mood and affect Overall: normal mood and affect 02/29/2016 None Full Exam - General 1994 Constitutional general appearance Development: well developed 10/27/2015 None Full Exam - General 1994 Constitutional general appearance Development: appears stated age 0310/27/2015 None Full Exam - General 1994 Constitutional general appearance Hygiene/Attention to Grooming: good hygiene 10/27/2015 None Full Exam - General 1994 Eyes conjunctiva /eyelids Overall: conjunctiva clear 10/27/2015 None Full Exam - General 1994 Eyes conjunctiva /eyelids Overall: cornea clear 10/27/2015 None Full Exam - General 1994 Eyes conjunctiva /eyelids Overall: eyelids normal 10/27/2015 None Full Exam - General 1994 Eyes pupils and irises Overall: pupils equal, round, reactive to light and accomodation 10/27/2015 None Full Exam - General 1994 Ears/Nose/Throat otoscopic exam Overall: external auditory canals clear 10/27/2015 None Full Exam - General 1994 Ears/Nose/Throat otoscopic exam Overall: tympanic membranes clear 10/27/2015 None Full Exam - General 1994 Ears/Nose/Throat lips/teeth/gingiva Overall: benign lips 10/27/2015 None Full Exam - General 1994 Ears/Nose/Throat lips/teeth/gingiva Overall: normal dentition 10/27/2015 None Full Exam - General 1994 Ears/Nose/Throat oral cavity/pharynx/larynx Overall: oral mucosa clear 10/27/2015 None Full Exam - General 1994 Ears/Nose/Throat oral cavity/pharynx/larynx Overall: oropharyngeal mucosa clear 10/27/2015 None Full Exam - General 1994 Ears/Nose/Throat oral cavity/pharynx/larynx Overall: hypopharynx benign 10/27/2015 None Full Exam - General 1994 Ears/Nose/Throat oral cavity/pharynx/larynx Overall: no masses 10/27/2015 None Full Exam - General 1994 Respiratory auscultation Overall: breath sounds clear bilaterally 10/27/2015 None Full Exam - General 1994 Respiratory respiratory effort/rhythm Overall: no retractions 10/27/2015 None Full Exam - General 1994 Respiratory respiratory effort/rhythm Overall: normal rate 10/27/2015 None Full Exam - General 1994 Cardiovascular extremities Overall: no clubbing 10/27/2015 None Full Exam - General 1994 Cardiovascular extremities Edema present: pitting 10/27/2015 None Full Exam - General 1994 Cardiovascular extremities Edema present: severity 1+ - 4 +: 2+ 10/27/2015 None Full Exam - General 1994 Cardiovascular auscultation of heart Overall: regular rate 10/27/2015 None Full Exam - General 1994 Cardiovascular auscultation of heart Overall: normal heart sounds 10/27/2015 None Full Exam - General 1994 Abdomen abdominal exam Overall: no tenderness 10/27/2015 None Full Exam - General 1994 Abdomen abdominal exam Overall: normal bowel sounds 10/27/2015 None Full Exam - General 1994 Musculoskeletal lower extremity Palpation - knee: crepitus 10/27/2015 None Full Exam - General 1994 Integument inspection of skin Overall: few scattered moles, no gross abnormalities 10/27/2015 None Full Exam - General 1994 Neurologic deep tendon reflexes Overall: deep tendon reflexes intact 10/27/2015 None Full Exam - General 1994 Neurologic cranial nerves Overall: crainial nerves 2 - 12 grossly intact 10/27/2015 None Full Exam - General 1994 Psychiatric orientation/consciousness Overall: oriented to person, place and time 10/27/2015 None Full Exam - General 1994 Psychiatric mood and affect Overall: normal mood and affect 10/27/2015 None Full Exam - General 1994 Constitutional general appearance Development: well developed 07/15/2015 None Full Exam - General 1994 Constitutional general appearance Development: appears stated age 1207/15/2015 None Full Exam - General 1994 Constitutional general appearance Hygiene/Attention to Grooming: good hygiene 07/15/2015 None Full Exam - General 1994 Eyes conjunctiva /eyelids Overall: conjunctiva clear 07/15/2015 None Full Exam - General 1994 Eyes conjunctiva /eyelids Overall: cornea clear 07/15/2015 None Full Exam - General 1994 Eyes conjunctiva /eyelids Overall: eyelids normal 07/15/2015 None Full Exam - General 1994 Eyes pupils and irises Overall: pupils equal, round, reactive to light and accomodation 07/15/2015 None Full Exam - General 1994 Ears/Nose/Throat otoscopic exam Overall: external auditory canals clear 07/15/2015 None Full Exam - General 1994 Ears/Nose/Throat otoscopic exam Overall: tympanic membranes clear 07/15/2015 None Full Exam - General 1994 Ears/Nose/Throat lips/teeth/gingiva Overall: benign lips 07/15/2015 None Full Exam - General 1994 Ears/Nose/Throat lips/teeth/gingiva Overall: normal dentition 07/15/2015 None Full Exam - General 1994 Ears/Nose/Throat oral cavity/pharynx/larynx Overall: oral mucosa clear 07/15/2015 None Full Exam - General 1994 Ears/Nose/Throat oral cavity/pharynx/larynx Overall: oropharyngeal mucosa clear 07/15/2015 None Full Exam - General 1994 Ears/Nose/Throat oral cavity/pharynx/larynx Overall: no masses 07/15/2015 None Full Exam - General 1994 Respiratory auscultation Overall: breath sounds clear bilaterally 07/15/2015 None Full Exam - General 1994 Respiratory respiratory effort/rhythm Overall: no retractions 07/15/2015 None Full Exam - General 1994 Respiratory respiratory effort/rhythm Overall: normal rate 07/15/2015 None Full Exam - General 1994 Cardiovascular extremities Overall: no clubbing 07/15/2015 None Full Exam - General 1994 Cardiovascular auscultation of heart Overall: regular rate 07/15/2015 None Full Exam - General 1994 Cardiovascular auscultation of heart Overall: normal heart sounds 07/15/2015 None Full Exam - General 1994 Abdomen abdominal exam Overall: no tenderness 07/15/2015 None Full Exam - General 1994 Abdomen abdominal exam Overall: normal bowel sounds 07/15/2015 None Full Exam - General 1994 Neurologic cranial nerves Overall: crainial nerves 2 - 12 grossly intact 07/15/2015 None Full Exam - General 1994 Psychiatric orientation/consciousness Overall: oriented to person, place and time 07/15/2015 None Full Exam - General 1994 Psychiatric mood and affect Overall: normal mood and affect 07/15/2015 None Full Exam - General 1994 Integument inspection of skin Pigmentation: ecchymosis 07/15/2015 right hand, post fall, healing Full Exam - General 1994 Integument inspection of skin Rash/Lesions: skin tear 07/15/2015 right knee, scabbed over, healing Full Exam - General 1994 Constitutional general appearance Development: well developed 06/29/2015 None Full Exam - General 1994 Constitutional general appearance Development: appears stated age 1106/29/2015 None Full Exam - General 1994 Constitutional general appearance Hygiene/Attention to Grooming: good hygiene 06/29/2015 None Full Exam - General 1994 Eyes conjunctiva /eyelids Overall: conjunctiva clear 06/29/2015 None Full Exam - General 1994 Eyes conjunctiva /eyelids Overall: cornea clear 06/29/2015 None Full Exam - General 1994 Eyes conjunctiva /eyelids Overall: eyelids normal 06/29/2015 None Full Exam - General 1994 Eyes pupils and irises Overall: pupils equal, round, reactive to light and accomodation 06/29/2015 None Full Exam - General 1994 Ears/Nose/Throat otoscopic exam Overall: external auditory canals clear 06/29/2015 None Full Exam - General 1994 Ears/Nose/Throat otoscopic exam Overall: tympanic membranes clear 06/29/2015 None Full Exam - General 1994 Ears/Nose/Throat lips/teeth/gingiva Overall: benign lips 06/29/2015 None Full Exam - General 1994 Ears/Nose/Throat lips/teeth/gingiva Overall: normal dentition 06/29/2015 None Full Exam - General 1994 Ears/Nose/Throat oral cavity/pharynx/larynx Overall: oral mucosa clear 06/29/2015 None Full Exam - General 1994 Ears/Nose/Throat oral cavity/pharynx/larynx Overall: oropharyngeal mucosa clear 06/29/2015 None Full Exam - General 1994 Ears/Nose/Throat oral cavity/pharynx/larynx Overall: hypopharynx benign 06/29/2015 None Full Exam - General 1994 Ears/Nose/Throat oral cavity/pharynx/larynx Overall: no masses 06/29/2015 None Full Exam - General 1994 Respiratory auscultation Overall: breath sounds clear bilaterally 06/29/2015 None Full Exam - General 1994 Respiratory respiratory effort/rhythm Overall: no retractions 06/29/2015 None Full Exam - General 1994 Respiratory respiratory effort/rhythm Overall: normal rate 06/29/2015 None Full Exam - General 1994 Cardiovascular extremities Overall: no clubbing 06/29/2015 None Full Exam - General 1994 Cardiovascular extremities Edema present: pitting 06/29/2015 None Full Exam - General 1994 Cardiovascular extremities Edema present: severity 1+ - 4 +: 2+ 06/29/2015 None Full Exam - General 1994 Cardiovascular auscultation of heart Overall: regular rate 06/29/2015 None Full Exam - General 1994 Cardiovascular auscultation of heart Overall: normal heart sounds 06/29/2015 None Full Exam - General 1994 Abdomen abdominal exam Overall: no tenderness 06/29/2015 None Full Exam - General 1994 Abdomen abdominal exam Overall: normal bowel sounds 06/29/2015 None Full Exam - General 1994 Musculoskeletal lower extremity Palpation - knee: crepitus 06/29/2015 None Full Exam - General 1994 Integument inspection of skin Overall: few scattered moles, no gross abnormalities 06/29/2015 None Full Exam - General 1994 Neurologic deep tendon reflexes Overall: deep tendon reflexes intact 06/29/2015 None Full Exam - General 1994 Neurologic cranial nerves Overall: crainial nerves 2 - 12 grossly intact 06/29/2015 None Full Exam - General 1994 Psychiatric orientation/consciousness Overall: oriented to person, place and time 06/29/2015 None Full Exam - General 1994 Psychiatric mood and affect Overall: normal mood and affect 06/29/2015 None Full Exam - General 1994 Constitutional general appearance Development: well developed 03/27/2015 None Full Exam - General 1994 Constitutional general appearance Development: appears stated age 0803/27/2015 None Full Exam - General 1994 Constitutional general appearance Hygiene/Attention to Grooming: good hygiene 03/27/2015 None Full Exam - General 1994 Eyes conjunctiva /eyelids Overall: conjunctiva clear 03/27/2015 None Full Exam - General 1994 Eyes conjunctiva /eyelids Overall: cornea clear 03/27/2015 None Full Exam - General 1994 Eyes conjunctiva /eyelids Overall: eyelids normal 03/27/2015 None Full Exam - General 1994 Eyes pupils and irises Overall: pupils equal, round, reactive to light and accomodation 03/27/2015 None Full Exam - General 1994 Ears/Nose/Throat otoscopic exam Overall: external auditory canals clear 03/27/2015 None Full Exam - General 1994 Ears/Nose/Throat otoscopic exam Overall: tympanic membranes clear 03/27/2015 None Full Exam - General 1994 Ears/Nose/Throat lips/teeth/gingiva Overall: benign lips 03/27/2015 None Full Exam - General 1994 Ears/Nose/Throat lips/teeth/gingiva Overall: normal dentition 03/27/2015 None Full Exam - General 1994 Ears/Nose/Throat oral cavity/pharynx/larynx Overall: oral mucosa clear 03/27/2015 None Full Exam - General 1994 Ears/Nose/Throat oral cavity/pharynx/larynx Overall: oropharyngeal mucosa clear 03/27/2015 None Full Exam - General 1994 Ears/Nose/Throat oral cavity/pharynx/larynx Overall: hypopharynx benign 03/27/2015 None Full Exam - General 1994 Ears/Nose/Throat oral cavity/pharynx/larynx Overall: no masses 03/27/2015 None Full Exam - General 1994 Respiratory auscultation Overall: breath sounds clear bilaterally 03/27/2015 None Full Exam - General 1994 Respiratory respiratory effort/rhythm Overall: no retractions 03/27/2015 None Full Exam - General 1994 Respiratory respiratory effort/rhythm Overall: normal rate 03/27/2015 None Full Exam - General 1994 Cardiovascular extremities Overall: no clubbing 03/27/2015 None Full Exam - General 1994 Cardiovascular extremities Edema present: pitting 03/27/2015 None Full Exam - General 1994 Cardiovascular extremities Edema present: severity 1+ - 4 +: 2+ 03/27/2015 None Full Exam - General 1994 Cardiovascular auscultation of heart Overall: regular rate 03/27/2015 None Full Exam - General 1994 Cardiovascular auscultation of heart Overall: normal heart sounds 03/27/2015 None Full Exam - General 1994 Abdomen abdominal exam Overall: no tenderness 03/27/2015 None Full Exam - General 1994 Abdomen abdominal exam Overall: normal bowel sounds 03/27/2015 None Full Exam - General 1994 Musculoskeletal lower extremity Palpation - knee: crepitus 03/27/2015 None Full Exam - General 1994 Integument inspection of skin Overall: few scattered moles, no gross abnormalities 03/27/2015 None Full Exam - General 1994 Neurologic deep tendon reflexes Overall: deep tendon reflexes intact 03/27/2015 None Full Exam - General 1994 Neurologic cranial nerves Overall: crainial nerves 2 - 12 grossly intact 03/27/2015 None Full Exam - General 1994 Psychiatric orientation/consciousness Overall: oriented to person, place and time 03/27/2015 None Full Exam - General 1994 Psychiatric mood and affect Overall: normal mood and affect 03/27/2015 None Full Exam - General 1994 Constitutional general appearance Development: appears stated age 0512/16/2014 None Full Exam - General 1994 Constitutional general appearance Development: well developed 12/16/2014 None Full Exam - General 1994 Constitutional general appearance Hygiene/Attention to Grooming: good hygiene 12/16/2014 None Full Exam - General 1994 Eyes conjunctiva /eyelids Overall: conjunctiva clear 12/16/2014 None Full Exam - General 1994 Eyes conjunctiva /eyelids Overall: cornea clear 12/16/2014 None Full Exam - General 1994 Eyes conjunctiva /eyelids Overall: eyelids normal 12/16/2014 None Full Exam - General 1994 Eyes pupils and irises Overall: pupils equal, round, reactive to light and accomodation 12/16/2014 None Full Exam - General 1994 Ears/Nose/Throat otoscopic exam Overall: external auditory canals clear 12/16/2014 None Full Exam - General 1994 Ears/Nose/Throat otoscopic exam Overall: tympanic membranes clear 12/16/2014 None Full Exam - General 1994 Ears/Nose/Throat lips/teeth/gingiva Overall: benign lips 12/16/2014 None Full Exam - General 1994 Ears/Nose/Throat lips/teeth/gingiva Overall: normal dentition 12/16/2014 None Full Exam - General 1994 Ears/Nose/Throat oral cavity/pharynx/larynx Overall: hypopharynx benign 12/16/2014 None Full Exam - General 1994 Ears/Nose/Throat oral cavity/pharynx/larynx Overall: no masses 12/16/2014 None Full Exam - General 1994 Ears/Nose/Throat oral cavity/pharynx/larynx Overall: oral mucosa clear 12/16/2014 None Full Exam - General 1994 Ears/Nose/Throat oral cavity/pharynx/larynx Overall: oropharyngeal mucosa clear 12/16/2014 None Full Exam - General 1994 Respiratory auscultation Overall: breath sounds clear bilaterally 12/16/2014 None Full Exam - General 1994 Respiratory respiratory effort/rhythm Overall: no retractions 12/16/2014 None Full Exam - General 1994 Respiratory respiratory effort/rhythm Overall: normal rate 12/16/2014 None Full Exam - General 1994 Cardiovascular extremities Overall: no clubbing 12/16/2014 None Full Exam - General 1994 Cardiovascular auscultation of heart Overall: normal heart sounds 12/16/2014 None Full Exam - General 1994 Cardiovascular auscultation of heart Overall: regular rate 12/16/2014 None Full Exam - General 1994 Abdomen abdominal exam Overall: no tenderness 12/16/2014 None Full Exam - General 1994 Abdomen abdominal exam Overall: normal bowel sounds 12/16/2014 None Full Exam - General 1994 Integument inspection of skin Overall: few scattered moles, no gross abnormalities 12/16/2014 None Full Exam - General 1994 Neurologic deep tendon reflexes Overall: deep tendon reflexes intact 12/16/2014 None Full Exam - General 1994 Neurologic cranial nerves Overall: crainial nerves 2 - 12 grossly intact 12/16/2014 None Full Exam - General 1994 Psychiatric orientation/consciousness Overall: oriented to person, place and time 12/16/2014 None Full Exam - General 1994 Psychiatric mood and affect Overall: normal mood and affect 12/16/2014 None Full Exam - General 1994 Musculoskeletal lower extremity Palpation - knee: crepitus 12/16/2014 None Full Exam - General 1994 Cardiovascular extremities Edema present: pitting 12/16/2014 None Full Exam - General 1994 Cardiovascular extremities Edema present: severity 1+ - 4 +: 2+ 12/16/2014 None Procedures Procedure Codes Date URINALYSIS NONAUTO W/O SCOPE CPT-4: 19909 10/26/2016 Vital Signs Date Vital 04/26/2017 Blood Pressure 1: 128/82 Code : 8480-6 BMI: 38.3 Code : 26777-4 Heart Rate 1 : 76 bpm Height: 5'8" SpO2: 97% Weight: 252 lbs 10/26/2016 Blood Pressure 1: 150/78 Code : 8480-6 Blood Pressure 1: 132/72 Code: 8480-6 BMI: 39.4 Code: 75582-9 Heart Rate 1: 73 bpm Height: 5'8" SpO2: 98% Weight: 259 lbs 06/29/2016 Blood Pressure 1: 110/76 Code : 8480-6 BMI: 39.4 Code : 24687-6 Heart Rate 1 : 60 bpm Height: 5'8" SpO2: 97% Weight: 259 lbs 02/29/2016 Blood Pressure 1: 156/84 Code : 8480-6 Blood Pressure 1: 135/75 Code: 8480-6 BMI: 39.5 Code: 52489-9 Heart Rate 1: 71 bpm Height: 5'8" SpO2: 97% Weight: 260 lbs 10/27/2015 Blood Pressure 1: 132/82 Code : 8480-6 BMI: 38.3 Code : 16149-3 Heart Rate 1 : 70 bpm Height: 5'8" SpO2: 96% Weight: 252 lbs 07/15/2015 Blood Pressure 1: 142/80 Code : 8480-6 Heart Rate 1: 64 bpm Height: 5'8" SpO2: 97% Weight: 06/29/2015 Blood Pressure 1: 138/80 Code : 8480-6 BMI: 40.3 Code : 26115-7 Heart Rate 1 : 76 bpm Height: 5'8" SpO2: 93% Weight: 265 lbs 03/27/2015 Blood Pressure 1: 140/88 Code : 8480-6 BMI: 39.5 Code : 80237-2 Heart Rate 1 : 70 bpm Height: 5'8" SpO2: 97% Weight: 260 lbs 12/16/2014 Blood Pressure 1: 130/88 Code : 8480-6 BMI: 40.6 Code : 53241-0 Heart Rate 1 : 64 bpm Height: 5'8" Weight: 267 lbs Functional Status No Functional Status data History of Present Illness Symptom Name Status Result Effective Date Notes hypothyroid Onset and Resolution ongoing 04/26/2017 None hypothyroid Alleviating Factors medication 04/26/2017 None hyperlipidemia Onset and Resolution gradual in onset 04/26/2017 None hyperlipidemia Onset and Resolution ongoing 04/26/2017 None hyperlipidemia Onset of Symptom during adulthood 04/26/2017 None hyperlipidemia Exacerbating Factors diet 04/26/2017 None hypertension Onset and Resolution ongoing 04/26/2017 None hypertension Onset of Symptom during adulthood 04/26/2017 None hypertension Blood Pressure Values patient checking blood pressure at home - did not bring in readings 04/26/2017 None hypertension Alleviating Factors medication 04/26/2017 None hypertension Pertinent Findings Denies dizziness 04/26/2017 None hypertension Pertinent Findings Denies dyspnea 04/26/2017 None hypertension Pertinent Findings edema 04/26/2017 mildly hypertension Quality primary hypertension 04/26/2017 None hyperlipidemia Quality increased TG 04/26/2017 None hypothyroid Onset and Resolution ongoing 10/26/2016 None hypothyroid Alleviating Factors medication 10/26/2016 None hyperlipidemia Onset and Resolution gradual in onset 10/26/2016 None hyperlipidemia Onset and Resolution ongoing 10/26/2016 None hyperlipidemia Onset of Symptom during adulthood 10/26/2016 None hyperlipidemia Exacerbating Factors diet 10/26/2016 None hypertension Onset and Resolution ongoing 10/26/2016 None hypertension Onset of Symptom during adulthood 10/26/2016 None hypertension Alleviating Factors medication 10/26/2016 None hypertension Pertinent Findings dizziness 10/26/2016 occasionally if she stands up too quickly hypertension Pertinent Findings Denies dyspnea 10/26/2016 None hypertension Pertinent Findings edema 10/26/2016 mildly if she eats too much sodium hypertension Blood Pressure Values patient checking blood pressure at home - did not bring in readings 10/26/2016 -Checks occasionally hypothyroid Onset and Resolution ongoing 06/29/2016 None hypothyroid Alleviating Factors medication 06/29/2016 None hyperlipidemia Onset and Resolution gradual in onset 06/29/2016 None hyperlipidemia Onset and Resolution ongoing 06/29/2016 None hyperlipidemia Onset of Symptom during adulthood 06/29/2016 None hyperlipidemia Exacerbating Factors diet 06/29/2016 None urinary incontinence Quality stable 06/29/2016 None urinary incontinence Onset and Resolution ongoing 06/29/2016 None urinary incontinence Onset of Symptom during adulthood 06/29/2016 None urinary incontinence Pertinent Findings Denies bladder pain 06/29/2016 None hypertension Onset and Resolution ongoing 06/29/2016 None hypertension Onset of Symptom during adulthood 06/29/2016 None hypertension Blood Pressure Values not checking blood pressure at home 06/29/2016 None hypertension Alleviating Factors medication 06/29/2016 None hypertension Pertinent Findings Denies dizziness 06/29/2016 None hypertension Pertinent Findings Denies dyspnea 06/29/2016 None hypertension Pertinent Findings Denies edema 06/29/2016 None hypothyroid Onset and Resolution ongoing 02/29/2016 None hypothyroid Alleviating Factors medication 02/29/2016 None hyperlipidemia Onset and Resolution ongoing 02/29/2016 None hyperlipidemia Onset of Symptom during adulthood 02/29/2016 None hyperlipidemia Exacerbating Factors diet 02/29/2016 None urinary incontinence Quality stable 02/29/2016 None urinary incontinence Onset and Resolution ongoing 02/29/2016 None urinary incontinence Onset of Symptom during adulthood 02/29/2016 None urinary incontinence Pertinent Findings Denies bladder pain 02/29/2016 None hyperlipidemia Onset and Resolution gradual in onset 02/29/2016 None urinary incontinence Onset and Resolution ongoing 10/27/2015 None urinary incontinence Onset of Symptom during adulthood 10/27/2015 None urinary incontinence Quality stable 10/27/2015 None urinary incontinence Pertinent Findings Denies bladder pain 10/27/2015 None hypothyroid Onset and Resolution ongoing 10/27/2015 None hypothyroid Alleviating Factors medication 10/27/2015 None hyperlipidemia Onset and Resolution ongoing 10/27/2015 None hyperlipidemia Onset of Symptom during adulthood 10/27/2015 None hyperlipidemia Alleviating Factors medication 10/27/2015 None hyperlipidemia Exacerbating Factors diet 10/27/2015 None Hospital Follow Up _ Other: fall 07/15/2015 None Hospital Follow Up Onset of Symptom 1 weeks ago 07/15/2015 None Hospital Follow Up Onset and Resolution sudden in onset 07/15/2015 None Hospital Follow Up Mechanism of injury moderate energy 07/15/2015 None Hospital Follow Up Pertinent Findings pain 07/15/2015 None knee pain Location on the left 06/29/2015 None knee pain Location on the right 06/29/2015 None knee pain Quality dull pain 06/29/2015 aching- all over legs. Reports arthritis in knees knee pain Pertinent Findings pain with movement 06/29/2015 None urinary frequency Pertinent Findings Denies bladder pain 03/27/2015 None urinary frequency Pertinent Findings Denies pelvic pain 03/27/2015 None knee pain Location on the left 03/27/2015 None knee pain Location on the right 03/27/2015 None knee pain Quality dull pain 03/27/2015 aching- all over legs. Reports arthritis in knees knee pain Pertinent Findings pain with movement 03/27/2015 None urinary frequency Onset and Resolution ongoing 03/27/2015 None urinary frequency Onset of Symptom 2 weeks ago 12/16/2014 None urinary frequency Pertinent Findings Denies bladder pain 12/16/2014 None urinary frequency Pertinent Findings Denies pelvic pain 12/16/2014 None knee pain Location on the left 12/16/2014 None knee pain Location on the right 12/16/2014 None knee pain Quality dull pain 12/16/2014 aching- all over legs. Reports arthritis in knees knee pain Pertinent Findings pain with movement 12/16/2014 None Advance Directives No Advance Directive data Encounters Encounter Performer Location Codes Date ([id number]) [id number] EST. PATIENT, LEVEL IV Diagnosis: Essential (primary) hypertension[ICD10: I10] Diagnosis: Mixed hyperlipidemia[ICD10: E78.2] Diagnosis: Atrophy of thyroid (acquired)[ICD10: E03.4] Diagnosis: Bilateral primary osteoarthritis of knee[ICD10: M17.0] Heaven Luis MD, [facility] CPT-4: 34128 04/26/2017 ([id number]) [id number] EST. PATIENT, LEVEL IV Diagnosis: Essential (primary) hypertension[ICD10: I10] Diagnosis: Bilateral primary osteoarthritis of knee[ICD10: M17.0] Diagnosis: Encounter for other screening for malignant neoplasm of breast[ICD10 : Z12.39] Diagnosis: Mixed hyperlipidemia[ICD10: E78.2] Diagnosis: Atrophy of thyroid (acquired)[ICD10: E03.4] Heaven Luis MD, [facility] CPT-4: 79810 10/26/2016 ([id number]) [id number] EST. PATIENT, LEVEL IV Diagnosis: Essential (primary) hypertension[ICD10: I10] Diagnosis: Atrophy of thyroid (acquired)[ICD10: E03.4] Diagnosis: Mixed hyperlipidemia[ICD10: E78.2] Heaven Luis MD, [facility] CPT-4: 80108 06/29/2016 ([id number]) [id number] EST. PATIENT, LEVEL IV Diagnosis: Hypothyroidism, unspecified[ICD10: E03.9] Diagnosis: Mixed hyperlipidemia[ICD10: E78.2] Diagnosis: Essential (primary) hypertension[ICD10: I10] Heaven Luis MD, [facility] CPT-4: 51141 02/29/2016 ([id number]) [id number] EST. PATIENT, LEVEL IV Diagnosis: Essential (primary) hypertension[ICD10: I10] Diagnosis: Mixed hyperlipidemia[ICD10: E78.2] Diagnosis: Hypothyroidism, unspecified[ICD10: E03.9] Diagnosis: Other obesity due to excess calories[ICD10: E66.09] Heaven Luis MD, [facility] CPT-4: 17277 10/27/2015 ([id number]) CALC BMI ABV UP TIM F/U Diagnosis: [ICD9: ] Diagnosis: [ICD9: ] Diagnosis: [ICD9: ] Diagnosis: [ICD9: ] Heaven Luis MD, [facility] CPT-4: G8417 10/27/2015 [id number] EST. PATIENT, LEVEL III Diagnosis: Fall (on)(from) sidewalk curb, subsequent encounter[ICD10: W10.1XXD] Diagnosis: Multiple fractures of ribs, right side, subsequent encounter for fracture with routine healing[ICD10: S22.41XD] Diagnosis: Encounter for follow-up examination after completed treatment for conditions other than malignant neoplasm[ICD10: Z09] [facility] CPT-4: 82315 07/15/2015 ([id number]) [id number] EST. PATIENT, LEVEL IV Diagnosis: Hypothyroidism, unspecified[ICD10: E03.9] Diagnosis: Essential (primary) hypertension[ICD10: I10] Diagnosis: Bilateral primary osteoarthritis of knee[ICD10: M17.0] [facility] CPT-4: 87594 06/29/2015 ([id number]) [id number] EST. 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] [facility] CPT-4: 12585 03/27/2015 ([id number]) CALC BMI ABV UP TIM F/U Diagnosis: [ICD9: ] Diagnosis: [ICD9: ] Diagnosis: [ICD9: ] Diagnosis: [ICD9: ] Diagnosis: [ICD9: ] [facility] CPT-4: G8417 03/27/2015 ([id number]) OFFICE/OUTPATIENT VISIT NEW Diagnosis: ESSENTIAL HYPERTENSION[ICD9: 401.9] Diagnosis: HYPERLIPIDEMIA[ICD9: 272.4] Diagnosis: HYPOTHYROIDISM[ICD9: 244.9] Diagnosis: URGE INCONTINENCE[ICD9: 788.31] Diagnosis: Osteoarthritis[ICD9: 715.90] [facility] CPT- 4: 22961 12/16/2014 Plan of Care Planned Activity Notes Codes Status Date Appointment: [facility] WPtel: [address] [place], [place] [id number] (15 min) Moderate 08/30/2017 Visit Plan: Hypertension - well controlled - continue with current medications, continue with no added salt diet. Pt has been encouraged to exercise daily. The pt has been advised to call the office if there are any acute concerns about change in blood pressure readings at home. OA of Knees - pt to have xrays of knees today. Hypothyroidism - pt with chronic hypothyroidism , continue with current medication, will monitor pt to signs or symptoms of lack of adequate supplementation. Pt is to continue with current dose of medication unless directed otherwise. Check labs at regular intervals wither q 3 months or q 6 months based on previous levels of control. Hyperlipidemia - pt has been counseled about appropriate diet, exercise, and need for low fat food choices. I have discussed the need for the patient to take medications as prescribed. If the patient has negative side effects from the medication, they are to CALL the office and not abruptly discontinue the medication without discussion with a practitioner in the office. We will check labs in 3-6 months for follow up on the patient's chronic medical problem and to assure normal liver response to medications. 04/26/2017 Appointment: [facility] WPtel: [address] [place], [place] [id number] (15 min) Moderate 04/26/2017 Patient Education: Patient Medication Summary Completed 04/26/2017 Patient Education: Obesity Completed 04/26/2017 Patient Education: Patient Medication Summary Completed 04/24/2017 Visit Plan: Hypertension - well controlled - continue with current medications, continue with no added salt diet. Pt has been encouraged to exercise daily. The pt has been advised to call the office if there are any acute concerns about change in blood pressure readings at home. Hyperlipidemia - pt has been counseled about appropriate diet, exercise, and need for low fat food choices. I have discussed the need for the patient to take medications as prescribed. If the patient has negative side effects from the medication, they are to CALL the office and not abruptly discontinue the medication without discussion with a practitioner in the office. We will check labs in 3-6 months for follow up on the patient's chronic medical problem and to assure normal liver response to medications. Hypothyroidism - pt with chronic hypothyroidism, continue with current medication, will monitor pt to signs or symptoms of lack of adequate supplementation. Pt is to continue with current dose of medication unless directed otherwise. Check labs at regular intervals wither q 3 months or q 6 months based on previous levels of control. 10/26/2016 [facility]ment[phone] [id number] (15 min) Moderate 10/26/2016 Patient Education: Patient Medication Summary Completed 10/26/2016 Patient Education: Obesity Completed 10/26/2016 Visit Plan: Hypertension - well controlled - continue with current medications, continue with no added salt diet. Pt has been encouraged to exercise daily. The pt has been advised to call the office if there are any acute concerns about change in blood pressure readings at home. Hypothyroidism - pt with chronic hypothyroidism, continue with current medication, will monitor pt to signs or symptoms of lack of adequate supplementation. Pt is to continue with current dose of medication unless directed otherwise. Check labs at regular intervals wither q 3 months or q 6 months based on previous levels of control. Generalized Arthritis - continue with Mobic. 06/29/2016 [facility]ment: [phone] [id number] (15 min) Moderate 06/29/2016 Patient Education: Patient Medication Summary Completed 06/29/2016 Patient Education: Obesity Completed 06/29/2016 Visit Plan: Hypertension - well controlled - continue with current medications, continue with no added salt diet. Pt has been encouraged to exercise daily. The pt has been advised to call the office if there are any acute concerns about change in blood pressure readings at home. Hypothyroidism - pt with chronic hypothyroidism, continue with current medication, will monitor pt to signs or symptoms of lack of adequate supplementation. Pt is to continue with current dose of medication unless directed otherwise. Check labs at regular intervals wither q 3 months or q 6 months based on previous levels of control. Hyperlipidemia - pt has been counseled about appropriate diet, exercise, and need for low fat food choices. I have discussed the need for the patient to take medications as prescribed. If the patient has negative side effects from the medication, they are to CALL the office and not abruptly discontinue the medication without discussion with a practitioner in the office. We will check labs in 3-6 months for follow up on the patient's chronic medical problem and to assure normal liver response to medications. 02/29/2016 [facility]ment: [phone] [id number] (15 min) Moderate 02/29/2016 Patient Education: Patient Medication Summary Completed 02/29/2016 Patient Education: Obesity Completed 02/29/2016 Patient Education: Hypertension Completed 02/29/2016 Patient Education: Patient Medication Summary Completed 12/02/2015 Visit Plan: Hypertension - well controlled - continue with current medications, continue with no added salt diet. Pt has been encouraged to exercise daily. The pt has been advised to call the office if there are any acute concerns about change in blood pressure readings at home. Hypothyroidism - pt with chronic hypothyroidism, continue with current medication, will monitor pt to signs or symptoms of lack of adequate supplementation. Pt is to continue with current dose of medication unless directed otherwise. Check labs at regular intervals wither q 3 months or q 6 months based on previous levels of control. Urge incontinence -Pt has urge incontinence - the patient has been counseled about potential triggers for increase in sensation of the urgency - the pt has been counseled to avoid caffeinated products, spicy products, and to urinate every 2-3 hours to prevent the incontinence associated with the urgency. Pt is to continue with current treatment plan and call if symptoms worsen. Obesity - chronic issue with this patient. The pt has been counseled about diet changes, calorie restriction, and need to exercise. Pt will RTC in one month for weight check. 10/27/2015 Appointment: [phone] [id number] (15 min) Moderate 10/27/2015 Patient Education: Patient Medication Summary Completed 10/27/2015 Patient Education: Obesity Completed 10/27/2015 Patient Education: Hypertension Completed 10/27/2015 Care Plan: BMI Above normal followup SELF-MGMT EDUC & TRAIN 1 PT Ordered 2015 Visit Plan: pt was stepping down off a curb using the car for balance, but her hand slipped and she fell to the ground on her right side. Pt fractured ribs on the right side. Pt was seen at [facility] and given Flexeril and Prednisone. Deep breathing discussed with pt to prevent pneumonia. Pt has bruising to right hand from fall which is fading. Abraision to right knee which is scabbed and healing well. Pt to notify clinic if symptoms do not improve or if they worsen, or with other concerns. 07/15/2015 Visit Plan: pt was stepping down off a curb using the car for balance, but her hand slipped and she fell to the ground on her right side. Pt fractured ribs on the right side. Pt was seen at [facility] and given Flexeril and Prednisone. Deep breathing discussed with pt to prevent pneumonia. Pt has bruising to right hand from fall which is fading. Abraision to right knee which is scabbed and healing well. Pt to notify clinic if symptoms do not improve or if they worsen, or with other concerns. 07/15/2015 Appointment: [facility]Ptel: [phone] [id number] [place] (15 min) Moderate 07/15/2015 Patient Education: Patient Medication Summary Completed 07/15/2015 Visit Plan: Hypertension - well controlled - continue with current medications, continue with no added salt diet. Pt has been encouraged to exercise daily. The pt has been advised to call the office if there are any acute concerns about change in blood pressure readings at home. Hypothyroidism - pt with chronic hypothyroidism, continue with current medication, will monitor pt to signs or symptoms of lack of adequate supplementation. Pt is to continue with current dose of medication unless directed otherwise. Check labs at regular intervals wither q 3 months or q 6 months based on previous levels of control. OA- rx for meloxicam prevnar 13 and high risk flu shot at [facility] in June 2015 06/29/2015 Visit Plan: Hypertension - well controlled - continue with current medications, continue with no added salt diet. Pt has been encouraged to exercise daily. The pt has been advised to call the office if there are any acute concerns about change in blood pressure readings at home. Hypothyroidism - pt with chronic hypothyroidism, continue with current medication, will monitor pt to signs or symptoms of lack of adequate supplementation. Pt is to continue with current dose of medication unless directed otherwise. Check labs at regular intervals wither q 3 months or q 6 months based on previous levels of control. OA- rx for meloxicam prevnar 13 and high risk flu shot at [facility] in June 2015 06/29/2015 Appointment: [facility] [phone] [id number] [place] (15 min) Moderate 06/29/2015 Patient Education: Patient Medication Summary Completed 06/29/2015 Patient Education: Hypertension Completed 06/29/2015 Visit Plan: Hypertension - well controlled - continue with current medications, continue with no added salt diet. Pt has been encouraged to exercise daily. The pt has been advised to call the office if there are any acute concerns about change in blood pressure readings at home. Hypothyroidism - pt with chronic hypothyroidism, continue with current medication, will monitor pt to signs or symptoms of lack of adequate supplementation. Pt is to continue with current dose of medication unless directed otherwise. Check labs at regular intervals wither q 3 months or q 6 months based on previous levels of control. Obesity - chronic issue with this patient. The pt has been counseled about diet changes, calorie restriction, and need to exercise. Pt will RTC in one month for weight check. Arthritis- occasionally uncontrolled symptoms- recommend pt to take antiinflammatory as directed for pain control. Use tylenol for break through pain symptoms. 03/27/2015 Appointment: [facility] WPtel: [address] [place], [place] [id number] Follow up 03/27/2015 Patient Education: Patient Medication Summary Completed 03/27/2015 Patient Education: Hypertension Completed 03/27/2015 Patient Education: .Amazing charts Diabetic meal planning guide Completed 03/27 Visit Plan: Hypertension - well controlled - continue with current medications, continue with no added salt diet. Pt has been encouraged to exercise daily. The pt has been advised to call the office if there are any acute concerns about change in blood pressure readings at home. Urge incontinence -Pt has urge incontinence - the patient has been counseled about potential triggers for increase in sensation of the urgency - the pt has been counseled to avoid caffinated products, spicy products, and to urinate every 2- 3 hours to prevent the incontinence associated with the urgency. Pt is to continue with current treatment plan and call if symptoms worsen. Hypothyroidism - pt with chronic hypothyroidism, continue with current medication, will monitor pt to signs or symptoms of lack of adequate supplementation. Pt is to continue with current dose of medication unless directed otherwise. Check labs at regular intervals wither q 3 months or q 6 months based on previous levels of control. Arthritis- occasionally uncontrolled symptoms- recommend pt to take antiinflammatory as directed for pain control. Use tylenol for break through pain symptoms.Arthritis- occasionally uncontrolled symptoms- recommend pt to take antiinflammatory as directed for pain control. Use tylenol for break through pain symptoms. samples of celebrex given to patient 200mg daily x 9 days Hyperlipidemia - pt has been counseled about appropriate diet, exercise, and need for low fat food choices. I have discussed the need for the patient to take medications as prescribed. If the patient has negative side effects from the medication, they are to CALL the office and not abruptly discontinue the medication without discussion with a practitioner in the office. We will check labs in 3-6 months for follow up on the patient's chronic medical problem and to assure normal liver response to medications. 12/16/2014 Appointment: [facility] WPtel[id number] [place] [facility] New Patient 12/16/2014 Patient Education: Patient Medication Summary Completed 12/16/2014 Patient Education: Hypertension Completed 12/16/2014 Instructions Comment . Hypertension - well controlled - continue with current medications, continue with no added salt diet. Pt has been encouraged to exercise daily. The pt has been advised to call the office if there are any acute concerns about change in blood pressure readings at home. Hypothyroidism - pt with chronic hypothyroidism, continue with current medication, will monitor pt to signs or symptoms of lack of adequate supplementation. Pt is to continue with current dose of medication unless directed otherwise. Check labs at regular intervals wither q 3 months or q 6 months based on previous levels of control. Urge incontinence -Pt has urge incontinence - the patient has been counseled about potential triggers for increase in sensation of the urgency - the pt has been counseled to avoid caffeinated products, spicy products, and to urinate every 2-3 hours to prevent the incontinence associated with the urgency. Pt is to continue with current treatment plan and call if symptoms worsen. Obesity - chronic issue with this patient. The pt has been counseled about diet changes, calorie restriction, and need to exercise. Pt will RTC in one month for weight check. . Hypertension - well controlled - continue with current medications, continue with no added salt diet. Pt has been encouraged to exercise daily. The pt has been advised to call the office if there are any acute concerns about change in blood pressure readings at home. Hypothyroidism - pt with chronic hypothyroidism, continue with current medication, will monitor pt to signs or symptoms of lack of adequate supplementation. Pt is to continue with current dose of medication unless directed otherwise. Check labs at regular intervals wither q 3 months or q 6 months based on previous levels of control. OA- rx for meloxicam prevnar 13 and high risk flu shot at [facility] in June 2015 . Hypertension - well controlled - continue with current medications, continue with no added salt diet. Pt has been encouraged to exercise daily. The pt has been advised to call the office if there are any acute concerns about change in blood pressure readings at home. Hypothyroidism - pt with chronic hypothyroidism, continue with current medication, will monitor pt to signs or symptoms of lack of adequate supplementation. Pt is to continue with current dose of medication unless directed otherwise. Check labs at regular intervals wither q 3 months or q 6 months based on previous levels of control. OA- rx for meloxicam prevnar 13 and high risk flu shot at [facility] in June 2015 . Hypertension - well controlled - continue with current medications, continue with no added salt diet. Pt has been encouraged to exercise daily. The pt has been advised to call the office if there are any acute concerns about change in blood pressure readings at home. Hypothyroidism - pt with chronic hypothyroidism, continue with current medication, will monitor pt to signs or symptoms of lack of adequate supplementation. Pt is to continue with current dose of medication unless directed otherwise. Check labs at regular intervals wither q 3 months or q 6 months based on previous levels of control. Hyperlipidemia - pt has been counseled about appropriate diet, exercise, and need for low fat food choices. I have discussed the need for the patient to take medications as prescribed. If the patient has negative side effects from the medication, they are to CALL the office and not abruptly discontinue the medication without discussion with a practitioner in the office. We will check labs in 3-6 months for follow up on the patient's chronic medical problem and to assure normal liver response to medications. . Hypertension - well controlled - continue with current medications, continue with no added salt diet. Pt has been encouraged to exercise daily. The pt has been advised to call the office if there are any acute concerns about change in blood pressure readings at home. Hypothyroidism - pt with chronic hypothyroidism, continue with current medication, will monitor pt to signs or symptoms of lack of adequate supplementation. Pt is to continue with current dose of medication unless directed otherwise. Check labs at regular intervals wither q 3 months or q 6 months based on previous levels of control. Generalized Arthritis - continue with Mobic. chem 7 and lipids in 4 months . Hypertension - well controlled - continue with current medications, continue with no added salt diet. Pt has been encouraged to exercise daily. The pt has been advised to call the office if there are any acute concerns about change in blood pressure readings at home. OA of Knees - pt to have xrays of knees today. Hypothyroidism - pt with chronic hypothyroidism, continue with current medication, will monitor pt to signs or symptoms of lack of adequate supplementation. Pt is to continue with current dose of medication unless directed otherwise. Check labs at regular intervals wither q 3 months or q 6 months based on previous levels of control. Hyperlipidemia - pt has been counseled about appropriate diet, exercise, and need for low fat food choices. I have discussed the need for the patient to take medications as prescribed. If the patient has negative side effects from the medication, they are to CALL the office and not abruptly discontinue the medication without discussion with a practitioner in the office. We will check labs in 3-6 months for follow up on the patient's chronic medical problem and to assure normal liver response to medications. start the detrol LA start glucosamine/chondroiton liquid daily for joints take the celebrex samples - call if the pain improves on the celebrex - we can send a rx to your pharmacy if this medication helps the pain better than your mobic - hold mobic while taking the celebrex . Hypertension - well controlled - continue with current medications, continue with no added salt diet. Pt has been encouraged to exercise daily. The pt has been advised to call the office if there are any acute concerns about change in blood pressure readings at home. Urge incontinence -Pt has urge incontinence - the patient has been counseled about potential triggers for increase in sensation of the urgency - the pt has been counseled to avoid caffinated products, spicy products, and to urinate every 2-3 hours to prevent the incontinence associated with the urgency. Pt is to continue with current treatment plan and call if symptoms worsen. Hypothyroidism - pt with chronic hypothyroidism, continue with current medication, will monitor pt to signs or symptoms of lack of adequate supplementation. Pt is to continue with current dose of medication unless directed otherwise. Check labs at regular intervals wither q 3 months or q 6 months based on previous levels of control. Arthritis- occasionally uncontrolled symptoms- recommend pt to take antiinflammatory as directed for pain control. Use tylenol for break through pain symptoms.Arthritis- occasionally uncontrolled symptoms- recommend pt to take antiinflammatory as directed for pain control. Use tylenol for break through pain symptoms. samples of celebrex given to patient 200mg daily x 9 days Hyperlipidemia - pt has been counseled about appropriate diet, exercise, and need for low fat food choices. I have discussed the need for the patient to take medications as prescribed. If the patient has negative side effects from the medication, they are to CALL the office and not abruptly discontinue the medication without discussion with a practitioner in the office. We will check labs in 3-6 months for follow up on the patient's chronic medical problem and to assure normal liver response to medications. . Hypertension - well controlled - continue with current medications, continue with no added salt diet. Pt has been encouraged to exercise daily. The pt has been advised to call the office if there are any acute concerns about change in blood pressure readings at home. Hypothyroidism - pt with chronic hypothyroidism, continue with current medication, will monitor pt to signs or symptoms of lack of adequate supplementation. Pt is to continue with current dose of medication unless directed otherwise. Check labs at regular intervals wither q 3 months or q 6 months based on previous levels of control. Obesity - chronic issue with this patient. The pt has been counseled about diet changes, calorie restriction, and need to exercise. Pt will RTC in one month for weight check. Arthritis- occasionally uncontrolled symptoms- recommend pt to take antiinflammatory as directed for pain control. Use tylenol for break through pain symptoms. fish oil - omega red one pill twice daily . Hypertension - well controlled - continue with current medications, continue with no added salt diet. Pt has been encouraged to exercise daily. The pt has been advised to call the office if there are any acute concerns about change in blood pressure readings at home. Hyperlipidemia - pt has been counseled about appropriate diet, exercise, and need for low fat food choices. I have discussed the need for the patient to take medications as prescribed. If the patient has negative side effects from the medication, they are to CALL the office and not abruptly discontinue the medication without discussion with a practitioner in the office. We will check labs in 3-6 months for follow up on the patient's chronic medical problem and to assure normal liver response to medications. Hypothyroidism - pt with chronic hypothyroidism, continue with current medication, will monitor pt to signs or symptoms of lack of adequate supplementation. Pt is to continue with current dose of medication unless directed otherwise. Check labs at regular intervals wither q 3 months or q 6 months based on previous levels of control. . pt was stepping down off a curb using the car for balance , but her hand slipped and she fell to the ground on her right side. Pt fractured ribs on the right side. Pt was seen at [facility] and given Flexeril and Prednisone. Deep breathing discussed with pt to prevent pneumonia. Pt has bruising to right hand from fall which is fading. Abraision to right knee which is scabbed and healing well. Pt to notify clinic if symptoms do not improve or if they worsen, or with other concerns. . pt was stepping down off a curb using the car for balance , but her hand slipped and she fell to the ground on her right side. Pt fractured ribs on the right side. Pt was seen at [facility] and given Flexeril and Prednisone. Deep breathing discussed with pt to prevent pneumonia. Pt has bruising to right hand from fall which is fading. Abraision to right knee which is scabbed and healing well. Pt to notify clinic if symptoms do not improve or if they worsen, or with other concerns.
--- OUTSIDE RECORDS SUMMARY | 2017-10-26 19:13 | XMS REPORT | CCD ---
Author Author [facility] Organization [facility] Address [address] [place] [address] Phone Care Team Providers Care Customer Service Dispatcher Name Role Phone PP Unavailable CCM Unavailable Summary Purpose Interface Exchange Insurance Providers Payer name Policy type / Coverage type Covered libertarian ID Effective Begin Date Effective End Date WPS Medicare Part B Medicare Part B [id number] Unknown Unknown [facility] Medicare Part B [id number] Unknown Unknown Family history Son Diagnosis Age [...] Unknown Retired 12/16/[address]: 730360020 Has never smoked or chewed tobacco 12/16/[address]: 800226858 Never drinks alcohol 12/16/2014 Allergies, Adverse Reactions, [...] V54.19 ICD-10: S22.41XD Active 07/14/2015 Unknown 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.3 Active 03/26/2015 Unknown OBESITY ICD-9: [...] ICD-9: V54.19 ICD-10: S22.41XD 07/14/2015 Active 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.3 03/26/2015 Active OBESITY ICD-9: 278.00 [...] Fill Instructions Mobic 15 mg tablet RxNorm: 318156 1 Tablet(s) PO daily 201708/22/2018 Active Ziac 10 mg-6.25 mg tablet RxNorm: 211809 Tablet(s) TAKE ONE (1) TABLET BY MOUTH DAILY 08/02/2017 07/27/2018 Active levothyroxine 100 mcg tablet RxNorm: 278055 TAKE 1 TABLET BY MOUTH DAILY 07/10/2017 01/05/2018 Active Generic For:*SYNTHROID 100 MCG TABLET 07/10/2017 8:08:24 AM Avapro 75 mg tablet RxNorm: 310183 1 Tablet(s) PO daily 201607/04/2018 Active Detrol LA 4 mg capsule,extended release RxNorm: 684039 1 Capsule(s) PO daily 06/27/2017 06/21/2018 Active levothyroxine 100 mcg tablet RxNorm: 750863 1 Tablet(s) PO daily 01/17/2017 07/09/2017 Inactive Ziac 10 mg-6.25 mg tablet RxNorm: 976412 Tablet(s) TAKE ONE (1) TABLET BY MOUTH DAILY 06/29/2016 06/23/2017 Inactive Mobic 15 mg tablet RxNorm: 316161 1 Tablet(s) PO daily 201506/23/2017 Inactive Avapro 75 mg tablet RxNorm: 945101 1 Tablet(s) PO daily 201506/23/2017 Inactive Detrol LA 4 mg capsule,extended release RxNorm: 858130 1 Capsule(s) PO daily 06/29/2016 06/23/2017 Inactive levothyroxine 100 mcg tablet RxNorm: 237513 1 Tablet(s) PO daily 06/29/2016 12/25/2016 Inactive Lipitor 20 mg tablet RxNorm: 572700 1 Tablet(s) PO daily 201511/03/2015 Inactive Lipitor 20 mg tablet RxNorm: 117451 1 Tablet(s) PO daily 201511/03/2015 Inactive Lipitor 20 mg tablet RxNorm: 500542 1 Tablet(s) PO daily 201502/28/2016 Inactive DC SIMVASTATIN Ziac 10 mg-6.25 mg tablet RxNorm: 399298 TAKE ONE (1) TABLET BY MOUTH DAILY 08/17/2015 06/28/2016 Inactive Generic For:ZIAC 10-6.25 MG TABLET N O T I C E PRESCRIPTION PREVIOUSLY AUTHORIZED BY DOCTOR:MARLIN MARKS prednisone 10 mg tablet RxNorm: 142798 1 Tablet(s) PO daily 08/01/2015 Inactive Mobic 15 mg tablet RxNorm: 560837 1 Tablet(s) PO daily 201406/22/2016 Inactive Detrol LA 4 mg capsule,extended release RxNorm: 472263 1 Capsule(s) PO daily 1 Capsule, 1 time per Day 06/29/20152015 Inactive Avapro 75 mg tablet RxNorm: 968657 1 Tablet(s) PO daily 201406/28/2016 Inactive [SAVINGS FOR NON-COVERED DRUGS -- BIN:843007, PCN: ASPROD1, Group: XXXXX, ID # XXXXXXX, Questions: . THIS IS NOT INSURANCE.] levothyroxine 100 mcg tablet RxNorm: 680571 1 Tablet(s) PO daily 06/29/2015 06/28/2016 Inactive levothyroxine 100 mcg tablet RxNorm: 407924 1 Tablet(s) PO daily 05/01/2015 06/28/2015 Inactive Detrol LA 4 mg capsule,extended release RxNorm: 958615 1 Capsule(s) PO daily 1 Capsule, 1 time per Day 01/09/20152014 Inactive Avapro 75 mg tablet RxNorm: 505847 1 Tablet(s) PO daily 201406/28/2015 Inactive [SAVINGS FOR NON-COVERED DRUGS -- BIN:215312, PCN: ASPROD1, Group: XXXXX, ID # XXXXXXX, Questions: . THIS IS NOT INSURANCE.] Celebrex 200 mg capsule RxNorm: 413461 1 Capsule(s) PO daily 12/21/2014 Inactive [SAVINGS FOR NON-COVERED DRUGS -- BIN:398879, PCN: ASPROD1, Group: XXXXX , ID# XXXXXXX, Questions: . THIS IS NOT INSURANCE.] Ziac 10 mg-6.25 mg tablet RxNorm: 723638 1 Tablet(s) PO daily 12/16/2014 08/16/2015 Inactive [SAVINGS FOR NON-COVERED DRUGS -- BIN:902306, PCN: ASPROD1, Group: XXXXX, ID# XXXXXXX, Questions: . THIS IS NOT INSURANCE.] Avapro 75 mg tablet RxNorm: 948043 1 Tablet(s) PO daily 201412/16/2014 Inactive [SAVINGS FOR NON-COVERED DRUGS -- BIN:708935, PCN: ASPROD1, Group: XXXXX, ID # XXXXXXX, Questions: . THIS IS NOT INSURANCE.] multivitamin oral RxNorm: 45870 oral No Start Date Active Vitamin D3 1,000 unit capsule RxNorm: 283339 1 Capsule(s) PO daily No Start Date Active Tylenol Extra Strength 500 mg tablet RxNorm: 431887 Tablet(s) PO as needed No Start Date Active Avapro 150 mg tablet RxNorm: 058678 1 Tablet(s) PO daily No Start Date 12/15/2014 Inactive simvastatin 20 mg tablet RxNorm: 729269 1 Tablet(s) PO daily No Start Date 11/03/2015 Inactive levothyroxine 100 mcg tablet RxNorm: 429051 1 Tablet(s) PO daily No Start Date 06/28/2016 Inactive Ziac 10 mg-6.25 mg tablet RxNorm: 241173 1/2 Tablet(s) PO daily No Start Date 12/15/2014 Inactive Detrol LA 4 mg capsule,extended release RxNorm: 058260 1 Capsule(s) PO as needed No Start Date 01/09/2015 Inactive Mobic 15 mg tablet RxNorm: 151297 1 Tablet(s) PO daily No Start Date 12/15/2014 Inactive Flexeril 5 mg tablet RxNorm: 067329 1 Tablet(s) PO QHS No Start Date 02/28/2016 Inactive Medication Administered No Medication Administered data Immunizations Vaccine Codes Date Status Influenza CVX: 141 05/24/2017 completed Influenza CVX: 141 06/15/2015 completed Pneumococcal CVX: 133 06/15/2015 completed Assessments Condition Codes Effective Dates Bilateral primary osteoarthritis of knee ICD-10: M17.0 ICD-9: 715.16 04/26/2017 Essential (primary) hypertension ICD-10: I10 ICD-9: 401.9 04/26/2017 Atrophy of thyroid (acquired) ICD-10: E03.4 ICD-9: 244.8 04/26/2017 Mixed hyperlipidemia ICD-10: E78.2 ICD-9: 272.4 04/26/2017 Mixed hyperlipidemia ICD-10: E78.2 ICD-9: 272.2 [...] subsequent encounter ICD-10: W10.1XXD ICD-9: V58.89 07/15/2015 Encounter for follow-up examination after completed treatment for conditions other than malignant neoplasm ICD-10: Z09 ICD-9: V67.9 07/15/2015 Multiple fractures of ribs, right side, subsequent encounter for fracture with routine healing ICD-10: S22.41XD ICD-9: V54.19 07/15/2015 OBESITY ICD-9: 278.00 03/27/2015 ESSENTIAL HYPERTENSION ICD-9: 401.9 03/27 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.3 OSTEOARTH NOS-UNSPEC ICD-9: 715.90 2014 HYPOTHYROIDISM ICD-9: 244.9 03/27/2015 URGE INCONTINENCE ICD-9: 788.31 2014 HYPERLIPIDEMIA ICD-9: 272.4 12/16/2014 Reason For Visit Reason For Visit Effective Dates Notes hypothyroid 04/26/2017 hypothyroid 10/26/2016 hypothyroid 06/29/2016 hypothyroid 02/29/2016 hypothyroid 10/27/2015 Hospital Follow Up 07/15/2015 knee pain 06/29/2015 urinary frequency 03/27/2015 urinary frequency 12/16/2014 Results Observation Observation Code Item Item Code Result Date Tsh Ord6 hTSH II 1.90 uIU/mL 04/25/2017 [...] 22.6 % 04/25/2017 Cbc With Differential Ord2 [place]% 8.6 % 04/25/2017 Cbc With Differential Ord2 MCH 29.8 pg 04/25/2017 Cbc With Differential Ord2 MCHC 32.1 pg 04/25/2017 Cbc With Differential Ord2 Eos% 5.5 % 04/25/2017 Cbc With Differential Ord2 Baso% 0.3 % 04/25/2017 Cbc With Differential Ord2 PLT 214 K/ul 04/25/2017 Cbc With Differential Ord2 RDW 14.9 % 04/25/2017 Cbc With Differential Ord2 Neut ABS# 4.12 K/ul 04/25/2017 Cbc With Differential Ord2 Lymph ABS# 1.48 K/ul 04/25/2017 Cbc With Differential Ord2 [place] ABS# 0.6 K/ul 04/25/2017 Cbc With Differential Ord2 Eos ABS# 0.4 K/ul 04/25/2017 Cbc With Differential Ord2 Baso ABS# 0.0 K/ul 04/25/2017 Free T4 Icl526 FREE T4 1.21 ng/dL 04/25/2017 Lipid Ord30 CHOL 181 mg/dL 04/25/2017 Lipid Ord30 HDL 35.0 mg/dl 04/25/2017 Lipid Ord30 TRIG 257 mg/dL 04/25/2017 Lipid Ord30 LDL 95 mg/dL 04/25/2017 Lipid Ord30 C/HDL 5.2 Ratio 04/25/2017 Comp Metabolic Yno257 NA 141 mEq/L 04/25/2017 Comp Metabolic Erc228 K 5.1 mEq/L 04/25/2017 Comp Metabolic Xbx026 CL 107 mEq/L 04/25/2017 Comp Metabolic Tbs080 CO2 23.0 mEq/L 04/25/2017 Comp Metabolic Lbm004 ANION GAP 16 04/25/2017 Comp Metabolic Ert225 GLUCOSE 108 mg/dL 04/25/2017 Comp Metabolic Bnf658 Creat 1.2 mg/dL 04/25/2017 Comp Metabolic Frb528 eGFR 47 ml/min/1.73m2 04/25/2017 Comp Metabolic Csg341 BUN 34 mg/dL 04/25/2017 Comp Metabolic Tle654 B/C Ratio 29.1 Ratio 04/25/2017 Comp Metabolic Xcz587 CALCIUM 9.5 mg/dL 04/25/2017 Comp Metabolic Dvd238 ALK PHOS 83 U/L 04/25/2017 Comp Metabolic Nqj852 AST(SGOT) 19 U/L 04/25/2017 Comp Metabolic Qcu064 ALT(SGPT) 12 U/L 04/25/2017 Comp Metabolic Ofm168 BILI T 0.4 mg/dL 04/25/2017 Comp Metabolic Kef357 ALBUMIN 4.2 g/dL 04/25/2017 Comp Metabolic Kqy899 TPRO 6.6 g/dL 04/25/2017 Comp Metabolic Qyn934 GLOB 2.4 g/dL 04/25/2017 Comp Metabolic Udp878 A/G Ratio 1.8 Ratio 04/25/2017 Comp Metabolic Phv546 Osmo 289 mOsmo 04/25/2017 Cbc With Differential Ord2 WBC 6.38 K/ul 10/25/2016 Cbc With Differential Ord2 RBC 5.07 M/ul 10/25/2016 Cbc With Differential Ord2 HGB 15.5 g/dl 10/25/2016 Cbc With Differential Ord2 Neut% 63.2 % 10/25/2016 Cbc With Differential Ord2 HCT 46.5 % 10/25/2016 Cbc With Differential Ord2 MCV 91.7 fl 10/25/2016 Cbc With Differential Ord2 Lymph% 20.8 % 10/25/2016 Cbc With Differential Ord2 [place]% 10.0 % 10/25/2016 Cbc With Differential Ord2 MCH 30.6 pg 10/25/2016 Cbc With Differential Ord2 MCHC 33.3 pg 10/25/2016 Cbc With Differential Ord2 Eos% 5.5 % 10/25/2016 Cbc With Differential Ord2 PLT 208 K/ul 10/25/2016 Cbc With Differential Ord2 Baso% 0.5 % 10/25/2016 Cbc With Differential Ord2 RDW 14.0 % 10/25/2016 Cbc With Differential Ord2 Neut ABS# 4.03 K/ul 10/25/2016 Cbc With Differential Ord2 Lymph ABS# 1.33 K/ul 10/25/2016 Cbc With Differential Ord2 [place] ABS# 0.6 K/ul 10/25/2016 Cbc With Differential Ord2 Eos ABS# 0.4 K/ul 10/25/2016 Cbc With Differential Ord2 Baso ABS# 0.0 K/ul 10/25/2016 Comp Metabolic Dqs741 NA 138 mEq/L 10/25/2016 Comp Metabolic Kry187 K 4.8 mEq/L 10/25/2016 Comp Metabolic Uvx564 CL 102 mEq/L 10/25/2016 Comp Metabolic Fmf865 CO2 27.0 mEq/L 10/25/2016 Comp Metabolic Sfy981 ANION GAP 14 10/25/2016 Comp Metabolic Khb133 GLUCOSE 117 mg/dL 10/25/2016 Comp Metabolic Ksg215 Creat 1.1 mg/dL 10/25/2016 Comp Metabolic Jkp902 eGFR 51 ml/min/1.73m2 10/25/2016 Comp Metabolic Vdw752 BUN 34 mg/dL 10/25/2016 Comp Metabolic Ojo822 B/C Ratio 30.9 Ratio 10/25/2016 Comp Metabolic Tgn218 CALCIUM 9.8 mg/dL 10/25/2016 Comp Metabolic Fyf304 ALK PHOS 80 U/L 10/25/2016 Comp Metabolic Buu867 AST(SGOT) 21 U/L 10/25/2016 Comp Metabolic Nwo472 ALT(SGPT) 15 U/L 10/25/2016 Comp Metabolic Ddf807 BILI T 0.7 mg/dL 10/25/2016 Comp Metabolic Qud607 ALBUMIN 4.6 g/dL 10/25/2016 Comp Metabolic Yhb804 TPRO 7.0 g/dL 10/25/2016 Comp Metabolic Wwl048 GLOB 2.4 g/dL 10/25/2016 Comp Metabolic Bdl837 A/G Ratio 1.9 Ratio 10/25/2016 Comp Metabolic Sve527 Osmo 284 mOsmo 10/25/2016 Tsh Ord6 hTSH II 2.24 uIU/mL 10/25/2016 Lipid Ord30 CHOL 205 mg/dL 10/25/2016 Lipid Ord30 HDL 41.0 mg/dl 10/25/2016 Lipid Ord30 TRIG 209 mg/dL 10/25/2016 Lipid Ord30 LDL 122 mg/dL 10/25/2016 Lipid Ord30 C/HDL 5.0 Ratio 10/25/2016 Free T4 Dpn640 FREE T4 1.21 ng/dL 10/25/2016 Comp Metabolic Pwi394 NA 139 mEq/L 02/25/2016 Comp Metabolic Wwe925 K 4.8 mEq/L 02/25/2016 Comp Metabolic Jvi028 CL 102 mEq/L 02/25/2016 Comp Metabolic Dvs020 CO2 28.0 mEq/L 02/25/2016 Comp Metabolic Ghn996 ANION GAP 14 02/25/2016 Comp Metabolic Dhe341 GLUCOSE 107 mg/dL 02/25/2016 Comp Metabolic Wqi788 Creat 1.0 mg/dL 02/25/2016 Comp Metabolic Bfi020 eGFR 55 ml/min/1.73m2 02/25/2016 Comp Metabolic Cdq600 BUN 29 mg/dL 02/25/2016 Comp Metabolic Zqy219 B/C Ratio 28.2 Ratio 02/25/2016 Comp Metabolic Wau965 CALCIUM 9.7 mg/dL 02/25/2016 Comp Metabolic Uzj107 ALK PHOS 72 U/L 02/25/2016 Comp Metabolic Ruz797 AST(SGOT) 20 U/L 02/25/2016 Comp Metabolic Hvr937 ALT(SGPT) 16 U/L 02/25/2016 Comp Metabolic Egk705 BILI T 0.6 mg/dL 02/25/2016 Comp Metabolic Miz998 ALBUMIN 4.5 g/dL 02/25/2016 Comp Metabolic Deb491 TPRO 6.8 g/dL 02/25/2016 Comp Metabolic Bla213 GLOB 2.4 g/dL 02/25/2016 Comp Metabolic Nas804 A/G Ratio 1.9 Ratio 02/25/2016 Comp Metabolic Znn017 Osmo 284 mOsmo 02/25/2016 Tsh Ord6 hTSH II 2.05 uIU/mL 02/25/2016 Cbc With Differential Ord2 WBC 5.97 K/ul 02/25/2016 Cbc With Differential Ord2 RBC 4.96 M/ul 02/25/2016 Cbc With Differential Ord2 HGB 15.1 g/dl 02/25/2016 Cbc With Differential Ord2 HCT 45.4 % 02/25/2016 Cbc With Differential Ord2 Neut% 58.8 % 02/25/2016 Cbc With Differential Ord2 MCV 91.5 fl 02/25/2016 Cbc With Differential Ord2 Lymph% 26.5 % 02/25/2016 Cbc With Differential Ord2 MCH 30.4 pg 02/25/2016 Cbc With Differential Ord2 [place]% 9.4 % 02/25/2016 Cbc With Differential Ord2 Eos% 5.0 % 02/25/2016 Cbc With Differential Ord2 MCHC 33.3 pg 02/25/2016 Cbc With Differential Ord2 Baso% 0.3 % 02/25/2016 Cbc With Differential Ord2 PLT 227 K/ul 02/25/2016 Cbc With Differential Ord2 Neut ABS# 3.51 K/ul 02/25/2016 Cbc With Differential Ord2 RDW 13.9 % 02/25/2016 Cbc With Differential Ord2 Lymph ABS# 1.58 K/ul 02/25/2016 Cbc With Differential Ord2 [place] ABS# 0.6 K/ul 02/25/2016 Cbc With Differential Ord2 Eos ABS# 0.3 K/ul 02/25/2016 Cbc With Differential Ord2 Baso ABS# 0.0 K/ul 02/25/2016 Lipid Ord30 CHOL 214 mg/dL 10/28/2015 Lipid Ord30 HDL 40.0 mg/dl 10/28/2015 Lipid Ord30 TRIG 150 mg/dL 10/28/2015 Lipid Ord30 LDL 144 mg/dL 10/28/2015 Lipid Ord30 C/HDL 5.4 Ratio 10/28/2015 Comp Metabolic Iqq526 NA 138 mEq/L 10/28/2015 Comp Metabolic Xyp139 K 4.4 mEq/L 10/28/2015 Comp Metabolic Aqy375 CL 103 mEq/L 10/28/2015 Comp Metabolic Kjt146 CO2 24.0 mEq/L 10/28/2015 Comp Metabolic Ojn263 ANION GAP 15 10/28/2015 Comp Metabolic Fma883 GLUCOSE 105 mg/dL 10/28/2015 Comp Metabolic Dqo486 Creat 1.1 mg/dL 10/28/2015 Comp Metabolic Fwt458 eGFR 53 ml/min/1.73m2 10/28/2015 Comp Metabolic Ymp460 BUN 31 mg/dL 10/28/2015 Comp Metabolic Kog443 B/C Ratio 29.0 Ratio 10/28/2015 Comp Metabolic Xkp752 CALCIUM 9.6 mg/dL 10/28/2015 Comp Metabolic Cpt922 ALK PHOS 83 U/L 10/28/2015 Comp Metabolic Aeb398 AST(SGOT) 19 U/L 10/28/2015 Comp Metabolic Mmi220 ALT(SGPT) 16 U/L 10/28/2015 Comp Metabolic Lkl985 BILI T 0.6 mg/dL 10/28/2015 Comp Metabolic Thn729 ALBUMIN 4.4 g/dL 10/28/2015 Comp Metabolic Cqf492 TPRO 7.0 g/dL 10/28/2015 Comp Metabolic Gwg345 GLOB 2.6 g/dL 10/28/2015 Comp Metabolic Lnb339 A/G Ratio 1.7 Ratio 10/28/2015 Comp Metabolic Gzn087 Osmo 283 mOsmo 10/28/2015 Free T4 Qlx844 FREE T4 1.18 ng/dL 10/28/2015 Cbc With Differential Ord2 WBC 5.86 [...] 29.7 pg 10/28/2015 Cbc With Differential Ord2 [place]% 8.7 % 10/28/2015 Cbc With Differential Ord2 MCHC 33.0 pg 10/28/2015 Cbc With Differential Ord2 Eos% 5.8 % 10/28/2015 Cbc With Differential Ord2 PLT 214 K/ul 10/28/2015 Cbc With Differential Ord2 Baso% 0.3 % 10/28/2015 Cbc With Differential Ord2 Neut ABS# 3.40 K/ul 10/28/2015 Cbc With Differential Ord2 RDW 14.0 % 10/28/2015 Cbc With Differential Ord2 Lymph ABS# 1.59 K/ul 10/28/2015 Cbc With Differential Ord2 [place] ABS# 0.5 K/ul 10/28/2015 Cbc With Differential Ord2 Eos ABS# 0.3 K/ul 10/28/2015 Cbc With Differential Ord2 Baso ABS# 0.0 K/ul 10/28/2015 Cbc With Differential Ord2 New Analyzer Notice Please note new ref ranges starting 08-26-2015 due to implemntation of new five part differential hematolgy analyzer. 10/28/2015 Tsh Ord6 hTSH II 2.37 uIU/mL 10/28/2015 Review of Systems System Result Effective [...] Codes Date URINALYSIS NONAUTO W/O SCOPE CPT-4: 52817 10/26/2016 Vital Signs Date Vital 04/26/2017 Blood Pressure 1: 128/82 Code : 8480-6 BMI: 38.3 Code : 07030-6 Heart Rate 1 : 76 bpm Height: 5'8" SpO2: 97% Weight: 252 lbs 10/26/2016 Blood Pressure 1: 132/72 Code : 8480-6 Blood Pressure 1: 150/78 Code: 8480-6 BMI: 39.4 Code: 03531-8 Heart Rate 1: 73 bpm Height: 5'8" SpO2: 98% Weight: 259 lbs 06/29/2016 Blood Pressure 1: 110/76 Code : 8480-6 BMI: 39.4 Code : 45375-3 Heart Rate 1 : 60 bpm Height: 5'8" SpO2: 97% Weight: 259 lbs 02/29/2016 Blood Pressure 1: 156/84 Code : 8480-6 Blood Pressure 1: 135/75 Code: 8480-6 BMI: 39.5 Code: 24187-3 Heart Rate 1: 71 bpm Height: 5'8" SpO2: 97% Weight: 260 lbs 10/27/2015 Blood Pressure 1: 132/82 Code : 8480-6 BMI: 38.3 Code : 93467-4 Heart Rate 1 : 70 bpm Height: 5'8" SpO2: 96% Weight: 252 lbs 07/15/2015 Blood Pressure 1: 142/80 Code : 8480-6 Heart Rate 1: 64 bpm Height: 5'8" SpO2: 97% Weight: 06/29/2015 Blood Pressure 1: 138/80 Code : 8480-6 BMI: 40.3 Code : 63397-6 Heart Rate 1 : 76 bpm Height: 5'8" SpO2: 93% Weight: 265 lbs 03/27/2015 Blood Pressure 1: 140/88 Code : 8480-6 BMI: 39.5 Code : 95547-4 Heart Rate 1 : 70 bpm Height: 5'8" SpO2: 97% Weight: 260 lbs 12/16/2014 Blood Pressure 1: 130/88 Code : 8480-6 BMI: 40.6 Code : 61537-8 Heart Rate 1 : 64 bpm Height: [...] data Encounters Encounter Performer Location Codes Date ([id number]) EST. PATIENT, LEVEL IV Diagnosis: Essential (primary) hypertension[ICD10: I10] Diagnosis: Mixed hyperlipidemia[ICD10: E78.2] Diagnosis: Atrophy of thyroid (acquired)[ICD10: E03.4] Diagnosis: Bilateral primary osteoarthritis of knee[ICD10: M17.0] [facility] CPT-4: 55524 04/26/2017 ([id number]) [id number] EST. PATIENT, LEVEL IV Diagnosis: Essential (primary) hypertension[ICD10: I10] Diagnosis: Bilateral primary osteoarthritis of knee[ICD10: M17.0] Diagnosis: Encounter for other screening for malignant neoplasm of breast[ICD10 : Z12.39] Diagnosis: Mixed hyperlipidemia[ICD10: E78.2] Diagnosis: Atrophy of thyroid (acquired)[ICD10: E03.4] [facility] CPT-4: 58217 10/26/2016 [id number]) [id number] EST. PATIENT, LEVEL IV Diagnosis: Essential (primary) hypertension[ICD10: I10] Diagnosis: Atrophy of thyroid (acquired)[ICD10: E03.4] Diagnosis: Mixed hyperlipidemia[ICD10: E78.2] [facility] CPT-4: 77444 06/29/2016 ([id number]) 29661 EST. PATIENT, LEVEL IV Diagnosis: Hypothyroidism, unspecified[ICD10: E03.9] Diagnosis: Mixed hyperlipidemia[ICD10: E78.2] Diagnosis: Essential (primary) hypertension[ICD10: I10] [facility] MD [facility] CPT-4: 73049 02/29/2016 ([id number]) 81795 EST. PATIENT, LEVEL IV Diagnosis: Essential (primary) hypertension[ICD10: I10] Diagnosis: Mixed hyperlipidemia[ICD10: E78.2] Diagnosis: Hypothyroidism, unspecified[ICD10: E03.9] Diagnosis: Other obesity due to excess calories[ICD10: E66.09] [facility] MD [facility] CPT-4: 35216 10/27/2015 ([id number]) CALC BMI ABV UP TIM F/U Diagnosis: [ICD9: ] Diagnosis: [ICD9: ] Diagnosis: [ICD9: ] Diagnosis: [ICD9: ] [facility] MD, [facility] CPT-4: G8417 10/27/2015 [id number] EST. PATIENT, LEVEL III Diagnosis: Fall (on)(from) sidewalk curb, subsequent encounter[ICD10: W10.1XXD] Diagnosis: Multiple fractures of ribs, right side, subsequent encounter for fracture with routine healing[ICD10: S22.41XD] Diagnosis: Encounter for follow-up examination after completed treatment for conditions other than malignant neoplasm[ICD10: Z09] Yu Luis MD, [facility] CPT-4: 34403 07/15/2015 ([id number]) 90815 EST. PATIENT, LEVEL IV Diagnosis: Hypothyroidism, unspecified[ICD10: E03.9] Diagnosis: Essential (primary) hypertension[ICD10: I10] Diagnosis: Bilateral primary osteoarthritis of knee[ICD10: M17.0] Heaven uLis MD, [facility] CPT-4: 73272 06/29/2015 ([id number]) 03074 EST. PATIENT, LEVEL IV Diagnosis: ESSENTIAL HYPERTENSION[ICD9: 401.9] Diagnosis: HYPOTHYROIDISM[ICD9: 244.9] Diagnosis: OSTEOARTH NOS-UNSPEC[ICD9: 715.90] Diagnosis: OBESITY[ICD9: 278.00] Diagnosis: 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[ICD9: V65.3] [facility] CPT-4: 29674 03/27/2015 ([id number]) CALC BMI ABV UP TIM F/U Diagnosis: [ICD9: ] Diagnosis: [ICD9: ] Diagnosis: [ICD9: ] Diagnosis: [ICD9: ] Diagnosis: [ICD9: ] [facility] CPT-4: G8417 03/27/2015 ([id number]) OFFICE/OUTPATIENT VISIT NEW Diagnosis: ESSENTIAL HYPERTENSION[ICD9: 401.9] Diagnosis: HYPERLIPIDEMIA[ICD9: 272.4] Diagnosis: HYPOTHYROIDISM[ICD9: 244.9] Diagnosis: URGE INCONTINENCE[ICD9: 788.31] Diagnosis: Osteoarthritis[ICD9: 715.90] [facility] CPT- 4: 33622 12/16/2014 Plan of Care Planned Activity Notes Codes Status Date Visit Plan: Hypertension - well controlled - [...] to medications. 04/26/2017 Appointment: [facility] Luis WPtel: [address] [place], [place] [id number] (15 min) Moderate 04/26/2017 Patient Education: Patient [...] of control. 10/26/2016 [facility] [phone] [facility] [place] (15 min) Moderate 10/26/2016 Patient Education: Patient [...] with Mobic. 06/29/2016 [facility]ment: [facility] [phone] [facility] [place] (15 min) Moderate 06/29/2016 Patient Education: Patient [...] to medications. 02/29/2016 Appointment: [facility] WPtel: [address] [place], [place] [phone] (15 min) Moderate 02/29/2016 Patient Education: Patient [...] weight check. 10/27/2015 Appointment: [facility] WPtel: [address] [place], [place] [phone] (15 min) Moderate 10/27/2015 Patient Education: Patient [...] the right side. Pt was seen at [facility] and given Flexeril and Prednisone. Deep breathing [...] the right side. Pt was seen at [facility] and given Flexeril and Prednisone. Deep breathing discussed with pt to prevent pneumonia. Pt has bruising to right hand from fall which is fading. Abraision to right knee which is scabbed and healing well. Pt to notify clinic if symptoms do not improve or if they worsen, or with other concerns. 07/15/2015 Appointment: Erin Hartman [phone] [place] (15 min) Moderate 07/15/2015 Patient Education: [...] 11 and high risk flu shot at [facility] in June 2015 06/29/2015 Visit Plan: [...] 13 and high risk flu shot at [facility] in June 2015 06/29/2015 Appointment: [facility] WPtel: [phone] [facility] (15 min) Moderate 06/29/2015 Patient Education: Patient [...] pain symptoms. 03/27/2015 [facility]ment: [facility] [phone] [phone] Follow up 03/27/2015 Patient Education: Patient Medication [...] to medications. 12/16/2014 [facility]ment: [facility] [place] ([place] New Patient 12/16/2014 Patient [...] [facility] . Hypertension - well [...] 13 and high risk flu shot at [facility] in June 2015 . Hypertension - well [...] the right side. Pt was seen at [facility] and given Flexeril and Prednisone. Deep breathing [...] the right side. Pt was seen at [facility] and given Flexeril and Prednisone. Deep breathing discussed with pt to prevent pneumonia. Pt has bruising to right hand from fall which is fading. Abraision to right knee which is scabbed and healing well. Pt to notify clinic if symptoms do not improve or if they worsen, or with other concerns.
[2017-10-26] MEDS ORDERED: NS IV 1000 ML 1,000 ML IV SCH (19:15)
--- OUTSIDE RECORDS SUMMARY | 2017-10-26 19:15 | XMS REPORT | CCD ---
Author Author [facility] Organization [facility] Address [address] [place] [address] Phone Care Team Providers Care Employee Health Nurse Name Role Phone PP Unavailable CCM Unavailable Summary Purpose Interface Exchange Insurance Providers Payer name Policy type / Coverage type Covered green party ID Effective Begin Date Effective End Date WPS Medicare Part B Medicare Part B [id number] Unknown Unknown [facility] Medicare Part B [id number] Unknown Unknown Family history Son Diagnosis Age [...] Unknown Retired 12/16/[address]: 965620666 Has never smoked or chewed tobacco 12/16/[address]: 404892620 Never drinks alcohol 12/16/2014 Allergies, Adverse Reactions, Alerts Allergies, Adverse Reactions, Alerts data not found Past Medical History Illness Codes Condition Status Onset Date Resolved Date Atrophy of thyroid (acquired) ICD-9: 244.8 ICD-10: E03.4 Active 06/28/2016 Unknown Essential (primary) hypertension ICD-9: 401.9 ICD-10: I10 Active 12/15/2014 Unknown Hypothyroidism, unspecified ICD-9: 244.9 ICD-10: E03.9 Active 12/15/2014 Unknown Mixed hyperlipidemia ICD-9: 272.2 ICD-10: E78.2 Active 10/26/2016 Unknown Pain in right knee ICD -9: 719.46 ICD-10: M25.561 Active 09/06/2017 Unknown Bilateral primary osteoarthritis of knee ICD-9: 715.16 ICD-10: M17.0 Active 06/28/2015 Unknown Mixed hyperlipidemia ICD-9: 272.4 ICD-10: E78.2 Active 12/15/2014 Unknown Encounter for other screening for malignant neoplasm of breast ICD-9: V76.10 ICD-10: Z12.39 Active 10/26/2016 Unknown Encounter for screening mammogram for malignant [...] V54.19 ICD-10: S22.41XD Active 07/14/2015 Unknown 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 Active 03/26/2015 Unknown OBESITY ICD-9: [...] (acquired) ICD-9: 244.8 ICD-10: E03.4 06/28/2016 Active Essential (primary) hypertension ICD-9: 401.9 ICD-10: I10 12/15/2014 Active Hypothyroidism, unspecified ICD-9: 244.9 ICD-10: E03.9 12/15/2014 Active Mixed hyperlipidemia ICD-9: 272.2 ICD-10: E78.2 10/26/2016 Active Pain in right knee ICD -9: 719.46 ICD-10: M25.561 09/06/2017 Active Bilateral primary osteoarthritis of knee ICD-9: 715.16 ICD-10: M17.0 06/28/2015 Active Mixed hyperlipidemia ICD-9: 272.4 ICD-10: E78.2 12/15/2014 Active Encounter for other screening for malignant neoplasm of breast ICD-9: V76.10 ICD-10: Z12.39 10/26/2016 Active Encounter for screening mammogram for malignant [...] ICD-9: V54.19 ICD-10: S22.41XD 07/14/2015 Active 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 03/26/2015 Active OBESITY ICD-9: 278.00 [...] Start Date Stop Date Status Fill Instructions gemfibrozil 600 mg tablet RxNorm: 321715 1 Tablet(s) PO BID 2018 Active Mobic 15 mg tablet RxNorm: 761886 1 Tablet(s) PO daily 201708/22/2018 Active Ziac 10 mg-6.25 mg tablet RxNorm: 038066 Tablet(s) TAKE ONE (1) TABLET BY MOUTH DAILY 08/02/2017 07/27/2018 Active levothyroxine 100 mcg tablet RxNorm: 007539 TAKE 1 TABLET BY MOUTH DAILY 07/10/2017 01/05/2018 Active Generic For:*SYNTHROID 100 MCG TABLET 07/10/2017 8:08:24 AM Avapro 75 mg tablet RxNorm: 354380 1 Tablet(s) PO daily 201607/04/2018 Active Detrol LA 4 mg capsule,extended release RxNorm: 003436 1 Capsule(s) PO daily 06/27/2017 06/21/2018 Active levothyroxine 100 mcg tablet RxNorm: 313999 1 Tablet(s) PO daily 01/17/2017 07/09/2017 Inactive Ziac 10 mg-6.25 mg tablet RxNorm: 648840 Tablet(s) TAKE ONE (1) TABLET BY MOUTH DAILY 06/29/2016 06/23/2017 Inactive Mobic 15 mg tablet RxNorm: 996205 1 Tablet(s) PO daily 201506/23/2017 Inactive Avapro 75 mg tablet RxNorm: 358100 1 Tablet(s) PO daily 201506/23/2017 Inactive Detrol LA 4 mg capsule,extended release RxNorm: 503929 1 Capsule(s) PO daily 06/29/2016 06/23/2017 Inactive levothyroxine 100 mcg tablet RxNorm: 776626 1 Tablet(s) PO daily 06/29/2016 12/25/2016 Inactive Lipitor 20 mg tablet RxNorm: 317111 1 Tablet(s) PO daily 201511/03/2015 Inactive Lipitor 20 mg tablet RxNorm: 453199 1 Tablet(s) PO daily 201511/03/2015 Inactive Lipitor 20 mg tablet RxNorm: 135821 1 Tablet(s) PO daily 201502/28/2016 Inactive DC SIMVASTATIN Ziac 10 mg-6.25 mg tablet RxNorm: 061757 TAKE ONE (1) TABLET BY MOUTH DAILY 08/17/2015 06/28/2016 Inactive Generic For:ZIAC 10-6.25 MG TABLET N O T I C E PRESCRIPTION PREVIOUSLY AUTHORIZED BY DOCTOR:MARLIN MARKS prednisone 10 mg tablet RxNorm: 091529 1 Tablet(s) PO daily 08/01/2015 Inactive Mobic 15 mg tablet RxNorm: 240613 1 Tablet(s) PO daily 201406/22/2016 Inactive Detrol LA 4 mg capsule,extended release RxNorm: 992958 1 Capsule(s) PO daily 1 Capsule, 1 time per Day 06/29/20152015 Inactive Avapro 75 mg tablet RxNorm: 207363 1 Tablet(s) PO daily 201406/28/2016 Inactive [SAVINGS FOR NON-COVERED DRUGS -- BIN:[id number], PCN: ASPROD1, Group: XXXXX, ID # XXXXXXX, Questions: . THIS IS NOT INSURANCE.] levothyroxine 100 mcg tablet RxNorm: 332535 1 Tablet(s) PO daily 06/29/2015 06/28/2016 Inactive levothyroxine 100 mcg tablet RxNorm: 976727 1 Tablet(s) PO daily 05/01/2015 06/28/2015 Inactive Detrol LA 4 mg capsule,extended release RxNorm: 116766 1 Capsule(s) PO daily 1 Capsule, 1 time per Day 01/09/20152014 Inactive Avapro 75 mg tablet RxNorm: 118003 1 Tablet(s) PO daily 201406/28/2015 Inactive [SAVINGS FOR NON-COVERED DRUGS -- BIN:[id number], PCN: ASPROD1, Group: XXXXX, ID # XXXXXXX, Questions: . THIS IS NOT INSURANCE.] Celebrex 200 mg capsule RxNorm: 442454 1 Capsule(s) PO daily 12/21/2014 Inactive [SAVINGS FOR NON-COVERED DRUGS -- BIN:222999, PCN: ASPROD1, Group: XXXXX , ID# XXXXXXX, Questions: . THIS IS NOT INSURANCE.] Ziac 10 mg-6.25 mg tablet RxNorm: 374302 1 Tablet(s) PO daily 12/16/2014 08/16/2015 Inactive [SAVINGS FOR NON-COVERED DRUGS -- BIN:525531, PCN: ASPROD1, Group: XXXXX, ID# XXXXXXX, Questions: . THIS IS NOT INSURANCE.] Avapro 75 mg tablet RxNorm: 164141 1 Tablet(s) PO daily 201412/16/2014 Inactive [SAVINGS FOR NON-COVERED DRUGS -- BIN:356431, PCN: ASPROD1, Group: XXXXX, ID # XXXXXXX, Questions: . THIS IS NOT INSURANCE.] multivitamin oral RxNorm: 49630 oral No Start Date Active Vitamin D3 1,000 unit capsule RxNorm: 439582 1 Capsule(s) PO daily No Start Date Active Tylenol Extra Strength 500 mg tablet RxNorm: 444471 Tablet(s) PO as needed No Start Date Active Avapro 150 mg tablet RxNorm: 944359 1 Tablet(s) PO daily No Start Date 12/15/2014 Inactive simvastatin 20 mg tablet RxNorm: 484254 1 Tablet(s) PO daily No Start Date 11/03/2015 Inactive levothyroxine 100 mcg tablet RxNorm: 424849 1 Tablet(s) PO daily No Start Date 06/28/2016 Inactive Ziac 10 mg-6.25 mg tablet RxNorm: 727393 1/2 Tablet(s) PO daily No Start Date 12/15/2014 Inactive Detrol LA 4 mg capsule,extended release RxNorm: 135034 1 Capsule(s) PO as needed No Start Date 01/09/2015 Inactive Mobic 15 mg tablet RxNorm: 538451 1 Tablet(s) PO daily No Start Date 12/15/2014 Inactive Flexeril 5 mg tablet RxNorm: 528400 1 Tablet(s) PO QHS No Start Date 02/28/2016 Inactive Medication Administered No Medication Administered data Immunizations Vaccine Codes Date Status Influenza CVX: 141 05/24/2017 completed Influenza CVX: 141 06/15/2015 completed Pneumococcal CVX: 133 06/15/2015 completed Assessments Condition Codes Effective Dates Mixed hyperlipidemia ICD-10: E78.2 ICD-9: 272.2 09/06/2017 Atrophy of thyroid (acquired) ICD-10: E03.4 ICD-9: 244.8 09/06/2017 Pain in right knee ICD-10: M25.561 ICD-9: 719.46 09/06/2017 Essential (primary) hypertension ICD-10: I10 ICD-9: 401.9 09/06/2017 Mixed hyperlipidemia ICD-10: E78.2 ICD-9: 272.4 04/26/2017 Bilateral primary osteoarthritis of knee ICD-10: M17.0 ICD-9: 715.16 04/26/2017 Encounter for other screening for malignant neoplasm [...] 2014 ESSENTIAL HYPERTENSION ICD-9: 401.9 03/27 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 HYPERLIPIDEMIA ICD-9: 272.4 12/16/2014 URGE INCONTINENCE ICD-9: 788.31 2014 Reason For Visit Reason For Visit Effective Dates Notes hypothyroid 09/06/2017 hypothyroid 04/26/2017 hypothyroid 10/26/2016 hypothyroid 06/29/2016 hypothyroid 02/29/2016 hypothyroid 10/27/2015 Hospital Follow Up 07/15/2015 knee pain 06/29/2015 urinary frequency 03/27/2015 urinary frequency 12/16/2014 Results Observation Observation Code Item Item Code Result Date Lipid Ord30 CHOL 186 mg/dL 09/04/2017 Lipid Ord30 HDL 38.0 mg/dl 09/04/2017 Lipid Ord30 TRIG 272 mg/dL 09/04/2017 Lipid Ord30 LDL 94 mg/dL 09/04/2017 Lipid Ord30 C/HDL 4.9 Ratio 09/04/2017 Free T4 Izv388 FREE T4 1.21 ng/dL 09/04/2017 Cbc With Differential Ord2 WBC 5.90 K/ul 09/04/2017 Cbc With Differential Ord2 RBC 4.72 M/ul 09/04/2017 Cbc With Differential Ord2 HGB 14.0 g/dl 09/04/2017 Cbc With Differential Ord2 HCT 43.4 % 09/04/2017 Cbc With Differential Ord2 Neut% 59.0 % 09/04/2017 Cbc With Differential Ord2 Lymph% 24.9 % 09/04/2017 Cbc With Differential Ord2 MCV 91.9 fl 09/04/2017 Cbc With Differential Ord2 Barnes% 9.0 % 09/04/2017 Cbc With Differential Ord2 MCH 29.7 pg 09/04/2017 Cbc With Differential Ord2 MCHC 32.3 pg 09/04/2017 Cbc With Differential Ord2 Eos% 6.8 % 09/04/2017 Cbc With Differential Ord2 Baso% 0.3 % 09/04/2017 Cbc With Differential Ord2 PLT 194 K/ul 09/04/2017 Cbc With Differential Ord2 RDW 14.3 % 09/04/2017 Cbc With Differential Ord2 Neut ABS# 3.48 K/ul 09/04/2017 Cbc With Differential Ord2 Lymph ABS# 1.47 K/ul 09/04/2017 Cbc With Differential Ord2 Barnes ABS# 0.5 K/ul 09/04/2017 Cbc With Differential Ord2 Eos ABS# 0.4 K/ul 09/04/2017 Cbc With Differential Ord2 Baso ABS# 0.0 K/ul 09/04/2017 Comp Metabolic Axa466 NA 138 mEq/L 09/04/2017 Comp Metabolic Nki184 K 4.8 mEq/L 09/04/2017 Comp Metabolic Nnk536 CL 103 mEq/L 09/04/2017 Comp Metabolic Pto396 CO2 24.0 mEq/L 09/04/2017 Comp Metabolic Bpw729 ANION GAP 16 09/04/2017 Comp Metabolic Hfq529 GLUCOSE 104 mg/dL 09/04/2017 Comp Metabolic Ajc416 Creat 1.2 mg/dL 09/04/2017 Comp Metabolic Stl061 eGFR 45 ml/min/1.73m2 09/04/2017 Comp Metabolic Wfw119 BUN 28 mg/dL 09/04/2017 Comp Metabolic Djq563 B/C Ratio 23.0 Ratio 09/04/2017 Comp Metabolic Cvj703 CALCIUM 9.5 mg/dL 09/04/2017 Comp Metabolic Sqw645 ALK PHOS 85 U/L 09/04/2017 Comp Metabolic Spg556 AST(SGOT) 20 U/L 09/04/2017 Comp Metabolic Dsu878 ALT(SGPT) 12 U/L 09/04/2017 Comp Metabolic Inq723 BILI T 0.5 mg/dL 09/04/2017 Comp Metabolic Irr006 ALBUMIN 4.2 g/dL 09/04/2017 Comp Metabolic Cfp500 TPRO 6.7 g/dL 09/04/2017 Comp Metabolic Kuq097 GLOB 2.5 g/dL 09/04/2017 Comp Metabolic Esp151 A/G Ratio 1.7 Ratio 09/04/2017 Comp Metabolic Qgy910 Osmo 281 mOsmo 09/04/2017 Tsh Ord6 hTSH II 1.74 uIU/mL 09/04/2017 Tsh Ord6 hTSH II 1.90 uIU/mL 04/25/2017 Cbc With Differential Ord2 WBC 6.54 K/ul 04/25/2017 Cbc With Differential Ord2 RBC 4.67 M/ul 04/25/2017 Cbc With Differential Ord2 HGB 13.9 g/dl 04/25/2017 Cbc With Differential Ord2 Neut% 63.0 % 04/25/2017 Cbc With Differential Ord2 HCT 43.3 % 04/25/2017 Cbc With Differential Ord2 MCV 92.7 fl 04/25/2017 Cbc With Differential Ord2 Lymph% 22.6 % 04/25/2017 Cbc With Differential Ord2 Barnes% 8.6 % 04/25/2017 Cbc With Differential Ord2 MCH 29.8 pg 04/25/2017 Cbc With Differential Ord2 Eos% 5.5 % 04/25/2017 Cbc With Differential Ord2 MCHC 32.1 pg 04/25/2017 Cbc With Differential Ord2 Baso% 0.3 % 04/25/2017 Cbc With Differential Ord2 PLT 214 K/ul 04/25/2017 Cbc With Differential Ord2 RDW 14.9 % 04/25/2017 Cbc With Differential Ord2 Neut ABS# 4.12 K/ul 04/25/2017 Cbc With Differential Ord2 Lymph ABS# 1.48 K/ul 04/25/2017 Cbc With Differential Ord2 Barnes ABS# 0.6 K/ul 04/25/2017 Cbc With Differential Ord2 Eos ABS# 0.4 K/ul 04/25/2017 Cbc With Differential Ord2 Baso ABS# 0.0 K/ul 04/25/2017 Free T4 Bpz720 FREE T4 1.21 ng/dL 04/25/2017 Comp Metabolic Str216 NA 141 mEq/L 04/25/2017 Comp Metabolic Tnk874 K 5.1 mEq/L 04/25/2017 Comp Metabolic Awr964 CL 107 mEq/L 04/25/2017 Comp Metabolic Kou218 CO2 23.0 mEq/L 04/25/2017 Comp Metabolic Jql186 ANION GAP 16 04/25/2017 Comp Metabolic Qxi769 GLUCOSE 108 mg/dL 04/25/2017 Comp Metabolic Utx728 Creat 1.2 mg/dL 04/25/2017 Comp Metabolic Kxp306 eGFR 47 ml/min/1.73m2 04/25/2017 Comp Metabolic Lvx963 BUN 34 mg/dL 04/25/2017 Comp Metabolic Gsw753 B/C Ratio 29.1 Ratio 04/25/2017 Comp Metabolic Eug597 CALCIUM 9.5 mg/dL 04/25/2017 Comp Metabolic Bll037 ALK PHOS 83 U/L 04/25/2017 Comp Metabolic Oyk760 AST(SGOT) 19 U/L 04/25/2017 Comp Metabolic Rgs271 ALT(SGPT) 12 U/L 04/25/2017 Comp Metabolic Ete518 BILI T 0.4 mg/dL 04/25/2017 Comp Metabolic Ydk793 ALBUMIN 4.2 g/dL 04/25/2017 Comp Metabolic Qjc613 TPRO 6.6 g/dL 04/25/2017 Comp Metabolic Spg623 GLOB 2.4 g/dL 04/25/2017 Comp Metabolic Idv341 A/G Ratio 1.8 Ratio 04/25/2017 Comp Metabolic Quk565 Osmo 289 mOsmo 04/25/2017 Lipid Ord30 CHOL 181 mg/dL 04/25/2017 Lipid Ord30 HDL 35.0 mg/dl 04/25/2017 Lipid Ord30 TRIG 257 mg/dL 04/25/2017 Lipid Ord30 LDL 95 mg/dL 04/25/2017 Lipid Ord30 C/HDL 5.2 Ratio 04/25/2017 Tsh Ord6 hTSH II 2.24 uIU/mL 10/25/2016 Comp Metabolic Qnu621 NA 138 mEq/L 10/25/2016 Comp Metabolic Tjl411 K 4.8 mEq/L 10/25/2016 Comp Metabolic Fob962 CL 102 mEq/L 10/25/2016 Comp Metabolic Dqg670 CO2 27.0 mEq/L 10/25/2016 Comp Metabolic Rmd737 ANION GAP 14 10/25/2016 Comp Metabolic Mdo360 GLUCOSE 117 mg/dL 10/25/2016 Comp Metabolic Cen358 Creat 1.1 mg/dL 10/25/2016 Comp Metabolic Byp551 eGFR 51 ml/min/1.73m2 10/25/2016 Comp Metabolic Wfn310 BUN 34 mg/dL 10/25/2016 Comp Metabolic Hhb328 B/C Ratio 30.9 Ratio 10/25/2016 Comp Metabolic Wtu361 CALCIUM 9.8 mg/dL 10/25/2016 Comp Metabolic Xxw234 ALK PHOS 80 U/L 10/25/2016 Comp Metabolic Veu313 AST(SGOT) 21 U/L 10/25/2016 Comp Metabolic Jir941 ALT(SGPT) 15 U/L 10/25/2016 Comp Metabolic Gku103 BILI T 0.7 mg/dL 10/25/2016 Comp Metabolic Ssz449 ALBUMIN 4.6 g/dL 10/25/2016 Comp Metabolic Rxk091 TPRO 7.0 g/dL 10/25/2016 Comp Metabolic Xtv751 GLOB 2.4 g/dL 10/25/2016 Comp Metabolic Zrr676 A/G Ratio 1.9 Ratio 10/25/2016 Comp Metabolic Qib365 Osmo 284 mOsmo 10/25/2016 Free T4 Ink971 FREE T4 1.21 ng/dL 10/25/2016 Cbc With Differential Ord2 WBC 6.38 K/ul 10/25/2016 Cbc With Differential Ord2 RBC 5.07 M/ul 10/25/2016 Cbc With Differential Ord2 HGB 15.5 g/dl 10/25/2016 Cbc With Differential Ord2 HCT 46.5 % 10/25/2016 Cbc With Differential Ord2 Neut% 63.2 % 10/25/2016 Cbc With Differential Ord2 Lymph% 20.8 % 10/25/2016 Cbc With Differential Ord2 MCV 91.7 fl 10/25/2016 Cbc With Differential Ord2 Barnes% 10.0 % 10/25/2016 Cbc With Differential Ord2 [...] 1.33 K/ul 10/25/2016 Cbc With Differential Ord2 Barnes ABS# 0.6 K/ul 10/25/2016 Cbc With Differential [...] 30.4 pg 02/25/2016 Cbc With Differential Ord2 Barnes% 9.4 % 02/25/2016 Cbc With Differential Ord2 MCHC 33.3 pg 02/25/2016 Cbc With Differential Ord2 Eos% 5.0 % 02/25/2016 Cbc With Differential Ord2 Baso% 0.3 % 02/25/2016 Cbc With Differential Ord2 PLT 227 K/ul 02/25/2016 Cbc With Differential Ord2 Neut ABS# 3.51 K/ul 02/25/2016 Cbc With Differential Ord2 RDW 13.9 % 02/25/2016 Cbc With Differential Ord2 Lymph ABS# 1.58 K/ul 02/25/2016 Cbc With Differential Ord2 Barnes ABS# 0.6 K/ul 02/25/2016 Cbc With Differential Ord2 Eos ABS# 0.3 K/ul 02/25/2016 Cbc With Differential Ord2 Baso ABS# 0.0 K/ul 02/25/2016 Tsh Ord6 hTSH II 2.05 uIU/mL 02/25/2016 Comp Metabolic Qxr940 NA 139 mEq/L 02/25/2016 Comp Metabolic Zft244 K 4.8 mEq/L 02/25/2016 Comp Metabolic Lvi412 CL 102 mEq/L 02/25/2016 Comp Metabolic Yoa825 CO2 28.0 mEq/L 02/25/2016 Comp Metabolic Omv498 ANION GAP 14 02/25/2016 Comp Metabolic Bdo526 GLUCOSE 107 mg/dL 02/25/2016 Comp Metabolic Qzk436 Creat 1.0 mg/dL 02/25/2016 Comp Metabolic Qek596 eGFR 55 ml/min/1.73m2 02/25/2016 Comp Metabolic Uou131 BUN 29 mg/dL 02/25/2016 Comp Metabolic Tmo964 B/C Ratio 28.2 Ratio 02/25/2016 Comp Metabolic Opr729 CALCIUM 9.7 mg/dL 02/25/2016 Comp Metabolic Xwq925 ALK PHOS 72 U/L 02/25/2016 Comp Metabolic Uzb188 AST(SGOT) 20 U/L 02/25/2016 Comp Metabolic Pin788 ALT(SGPT) 16 U/L 02/25/2016 Comp Metabolic Xgz611 BILI T 0.6 mg/dL 02/25/2016 Comp Metabolic Avu140 ALBUMIN 4.5 g/dL 02/25/2016 Comp Metabolic Mkt733 TPRO 6.8 g/dL 02/25/2016 Comp Metabolic Nfk434 GLOB 2.4 g/dL 02/25/2016 Comp Metabolic Wgk124 A/G Ratio 1.9 Ratio 02/25/2016 Comp Metabolic Aby084 Osmo 284 mOsmo 02/25/2016 Lipid Ord30 CHOL [...] 15.1 g/dl 10/28/2015 Cbc With Differential Ord2 HCT 45.8 % 10/28/2015 Cbc With Differential Ord2 Neut% 58.1 % 10/28/2015 Cbc With Differential Ord2 Lymph% 27.1 % 10/28/2015 Cbc With Differential Ord2 MCV 90.2 fl 10/28/2015 Cbc With Differential Ord2 Barnes% 8.7 % 10/28/2015 Cbc With Differential Ord2 MCH 29.7 pg 10/28/2015 Cbc With Differential Ord2 MCHC 33.0 pg 10/28/2015 Cbc With Differential Ord2 Eos% 5.8 % 10/28/2015 Cbc With Differential Ord2 PLT 214 K/ul 10/28/2015 Cbc With Differential Ord2 Baso% 0.3 % 10/28/2015 Cbc With Differential Ord2 Neut ABS# 3.40 K/ul 10/28/2015 Cbc With Differential Ord2 RDW 14.0 % 10/28/2015 Cbc With Differential Ord2 Lymph ABS# 1.59 K/ul 10/28/2015 Cbc With Differential Ord2 Barnes ABS# 0.5 K/ul 10/28/2015 Cbc With Differential Ord2 Eos ABS# 0.3 K/ul 10/28/2015 Cbc With Differential Ord2 Baso ABS# 0.0 K/ul 10/28/2015 Cbc With Differential Ord2 New Analyzer Notice Please note new ref ranges starting 08-26-2015 due to implemntation of new five part differential hematolgy analyzer. 10/28/2015 Comp Metabolic Ksg840 NA 138 mEq/L 10/28/2015 Comp Metabolic Qjb564 K 4.4 mEq/L 10/28/2015 Comp Metabolic Ick382 CL 103 mEq/L 10/28/2015 Comp Metabolic Zlc618 CO2 24.0 mEq/L 10/28/2015 Comp Metabolic Bcr430 ANION GAP 15 10/28/2015 Comp Metabolic Qmd177 GLUCOSE 105 mg/dL 10/28/2015 Comp Metabolic Fxq236 Creat 1.1 mg/dL 10/28/2015 Comp Metabolic Zud746 eGFR 53 ml/min/1.73m2 10/28/2015 Comp Metabolic Qol950 BUN 31 mg/dL 10/28/2015 Comp Metabolic Ubu507 B/C Ratio 29.0 Ratio 10/28/2015 Comp Metabolic Afa228 CALCIUM 9.6 mg/dL 10/28/2015 Comp Metabolic Yqn965 ALK PHOS 83 U/L 10/28/2015 Comp Metabolic Dcl620 AST(SGOT) 19 U/L 10/28/2015 Comp Metabolic Sdq823 ALT(SGPT) 16 U/L 10/28/2015 Comp Metabolic Oeu359 BILI T 0.6 mg/dL 10/28/2015 Comp Metabolic Qti689 ALBUMIN 4.4 g/dL 10/28/2015 Comp Metabolic Spn000 TPRO 7.0 g/dL 10/28/2015 Comp Metabolic Fjz846 GLOB 2.6 g/dL 10/28/2015 Comp Metabolic Ofg851 A/G Ratio 1.7 Ratio 10/28/2015 Comp Metabolic Tct736 Osmo 283 mOsmo 10/28/2015 Free T4 Rsi750 FREE T4 1.18 ng/dL 10/28/2015 Review of Systems System Result Effective Dates Constitutional No fatigue 09/06/2017 Constitutional No fever 09/06/2017 Constitutional No insomnia 09/06/2017 Eyes No eye discharge 09/06/2017 Eyes No eye erythema 09/06/2017 Ears/Nose/Throat/Neck No headache 2017 Cardiovascular No chest pain/pressure Cardiovascular No edema 09/06/2017 Cardiovascular No near-syncope/dizziness 09/06/2017 Cardiovascular No syncope 09/06/2017 Respiratory No productive sputum 2017 Respiratory No chest congestion 2017 Respiratory No chest tightness 2017 Respiratory No cough 09/06/2017 Respiratory No dyspnea 09/06/2017 Gastrointestinal No abdominal pain 2017 Gastrointestinal No constipation 2017 Gastrointestinal No diarrhea 09/06/2017 Genitourinary/Nephrology No breast complaint 09/06/2017 Genitourinary/Nephrology No dysuria 09/06 Genitourinary/Nephrology No hematuria Genitourinary/Nephrology No urinary urgency 09/06/2017 Genitourinary/Nephrology No vaginal discharge 09/06/2017 Musculoskeletal stiffness 09/06/2017 Musculoskeletal arthralgia(s) 09/06/2017 Musculoskeletal joint complaint 2017 Dermatologic No rash 09/06/2017 Dermatologic No scar 09/06/2017 Neurologic No alteration of consciousness 09/06/2017 Psychiatric No anxiety 09/06/2017 Psychiatric No depression 09/06/2017 Constitutional No fatigue 04/26/2017 Constitutional No fever [...] 1994 Constitutional general appearance Development: well developed 09/06/2017 None Full Exam - General 1994 Constitutional general appearance Development: appears stated age 0109/06/2017 None Full Exam - General 1994 Constitutional general appearance Hygiene/Attention to Grooming: good hygiene 09/06/2017 None Full Exam - General 1994 Eyes conjunctiva /eyelids Overall: conjunctiva clear 09/06/2017 None Full Exam - General 1994 Eyes conjunctiva /eyelids Overall: cornea clear 09/06/2017 None Full Exam - General 1994 Eyes conjunctiva /eyelids Overall: eyelids normal 09/06/2017 None Full Exam - General 1994 Eyes pupils and irises Overall: pupils equal, round, reactive to light and accomodation 09/06/2017 None Full Exam - General 1994 Ears/Nose/Throat otoscopic exam Overall: external auditory canals clear 09/06/2017 None Full Exam - General 1994 Ears/Nose/Throat otoscopic exam Overall: tympanic membranes clear 09/06/2017 None Full Exam - General 1994 Ears/Nose/Throat lips/teeth/gingiva Overall: benign lips 09/06/2017 None Full Exam - General 1994 Ears/Nose/Throat lips/teeth/gingiva Overall: normal dentition 09/06/2017 None Full Exam - General 1994 Ears/Nose/Throat oral cavity/pharynx/larynx Overall: oral mucosa clear 09/06/2017 None Full Exam - General 1994 Ears/Nose/Throat oral cavity/pharynx/larynx Overall: oropharyngeal mucosa clear 09/06/2017 None Full Exam - General 1994 Ears/Nose/Throat oral cavity/pharynx/larynx Overall: hypopharynx benign 09/06/2017 None Full Exam - General 1994 Ears/Nose/Throat oral cavity/pharynx/larynx Overall: no masses 09/06/2017 None Full Exam - General 1994 Respiratory auscultation Overall: breath sounds clear bilaterally 09/06/2017 None Full Exam - General 1994 Respiratory respiratory effort/rhythm Overall: no retractions 09/06/2017 None Full Exam - General 1994 Respiratory respiratory effort/rhythm Overall: normal rate 09/06/2017 None Full Exam - General 1994 Cardiovascular inspection of carotid pulses Overall: strong, bilaterally equal, no bruits 09/06/2017 None Full Exam - General 1994 Cardiovascular extremities Overall: no clubbing 09/06/2017 None Full Exam - General 1994 Cardiovascular extremities Edema present: pitting 09/06/2017 None Full Exam - General 1994 Cardiovascular extremities Edema present: severity 1+ - 4 +: 2+ 09/06/2017 None Full Exam - General 1994 Cardiovascular auscultation of heart Overall: regular rate 09/06/2017 None Full Exam - General 1994 Cardiovascular auscultation of heart Overall: normal heart sounds 09/06/2017 None Full Exam - General 1994 Abdomen abdominal exam Overall: no tenderness 09/06/2017 None Full Exam - General 1994 Abdomen abdominal exam Overall: normal bowel sounds 09/06/2017 None Full Exam - General 1994 Lymphatic neck nodes Overall: anterior cervical chain benign 09/06/2017 None Full Exam - General 1994 Lymphatic neck nodes Overall: posterior cervical chain benign 09/06/2017 None Full Exam - General 1994 Musculoskeletal lower extremity Palpation - knee: crepitus 09/06/2017 None Full Exam - General 1994 Neurologic deep tendon reflexes Overall: deep tendon reflexes intact 09/06/2017 None Full Exam - General 1994 Neurologic cranial nerves Overall: crainial nerves 2 - 12 grossly intact 09/06/2017 None Full Exam - General 1994 Psychiatric orientation/consciousness Overall: oriented to person, place and time 09/06/2017 None Full Exam - General 1994 Psychiatric mood and affect Overall: normal mood and affect 09/06/2017 None Full Exam - General 1994 Constitutional [...] Codes Date URINALYSIS NONAUTO W/O SCOPE CPT-4: 36143 10/26/2016 Vital Signs Date Vital 09/06/2017 Blood Pressure 1: 148/86 Code : 8480-6 BMI: 38.2 Code : 66851-6 Heart Rate 1 : 80 bpm Height: 5'8" SpO2: 99% Weight: 251 lbs 04/26/2017 Blood Pressure 1: 128/82 Code : 8480-6 BMI: 38.3 Code : 73842-9 Heart Rate 1 : 76 bpm Height: 5'8" SpO2: 97% Weight: 252 lbs 10/26/2016 Blood Pressure 1: 132/72 Code : 8480-6 Blood Pressure 1: 150/78 Code: 8480-6 BMI: 39.4 Code: 62022-5 Heart Rate 1: 73 bpm Height: 5'8" SpO2: 98% Weight: 259 lbs 06/29/2016 Blood Pressure 1: 110/76 Code : 8480-6 BMI: 39.4 Code : 31703-7 Heart Rate 1 : 60 bpm Height: 5'8" SpO2: 97% Weight: 259 lbs 02/29/2016 Blood Pressure 1: 156/84 Code : 8480-6 Blood Pressure 1: 135/75 Code: 8480-6 BMI: 39.5 Code: 69565-8 Heart Rate 1: 71 bpm Height: 5'8" SpO2: 97% Weight: 260 lbs 10/27/2015 Blood Pressure 1: 132/82 Code : 8480-6 BMI: 38.3 Code : 85283-9 Heart Rate 1 : 70 bpm Height: 5'8" SpO2: 96% Weight: 252 lbs 07/15/2015 Blood Pressure 1: 142/80 Code : 8480-6 Heart Rate 1: 64 bpm Height: 5'8" SpO2: 97% Weight: 06/29/2015 Blood Pressure 1: 138/80 Code : 8480-6 BMI: 40.3 Code : 23857-3 Heart Rate 1 : 76 bpm Height: 5'8" SpO2: 93% Weight: 265 lbs 03/27/2015 Blood Pressure 1: 140/88 Code : 8480-6 BMI: 39.5 Code : 68984-3 Heart Rate 1 : 70 bpm Height: 5'8" SpO2: 97% Weight: 260 lbs 12/16/2014 Blood Pressure 1: 130/88 Code : 8480-6 BMI: 40.6 Code : 23255-6 Heart Rate 1 : 64 bpm Height: 5'8" Weight: 267 lbs Functional Status No Functional Status data History of Present Illness Symptom Name Status Result Effective Date Notes hypothyroid Onset and Resolution ongoing 09/06/2017 None hypothyroid Alleviating Factors medication 09/06/2017 None hyperlipidemia Onset and Resolution gradual in onset 09/06/2017 None hyperlipidemia Onset and Resolution ongoing 09/06/2017 None hyperlipidemia Onset of Symptom during adulthood 09/06/2017 None hyperlipidemia Exacerbating Factors diet 09/06/2017 None hyperlipidemia Quality increased TG 09/06/2017 None hypertension Quality primary hypertension 09/06/2017 None hypertension Onset and Resolution ongoing 09/06/2017 None hypertension Onset of Symptom during adulthood 09/06/2017 None hypertension Blood Pressure Values patient checking blood pressure at home - did not bring in readings 09/06/2017 -Checks occasionally hypertension Alleviating Factors medication 09/06/2017 None hypertension Pertinent Findings Denies dizziness 09/06/2017 None hypertension Pertinent Findings Denies dyspnea 09/06/2017 None hypertension Pertinent Findings edema 09/06/2017 in her ankles at night hypothyroid Quality chronic 09/06/2017 None knee pain Location on the right 09/06/2017 None knee pain Quality chronic 09/06/2017 None knee pain Quality intermittent 09/06/2017 None knee pain Onset and Resolution gradual in onset 09/06/2017 None knee pain Exacerbating Factors weight bearing 09/06/2017 None hypothyroid Onset and Resolution ongoing 04/26/2017 None [...] data Encounters Encounter Performer Location Codes Date ([id number]) [id number] EST. PATIENT, LEVEL IV Diagnosis: Pain in right knee[ICD10: M25.561] Diagnosis: Essential (primary) hypertension[ICD10: I10] Diagnosis: Atrophy of thyroid (acquired)[ICD10: E03.4] Diagnosis: Mixed hyperlipidemia[ICD10: E78.2] Heaven Luis MD, [facility] CPT-4: 99929 09/06/2017 ([id number]) 42603 EST. PATIENT, LEVEL IV Diagnosis: Essential (primary) hypertension[ICD10: I10] Diagnosis: Mixed hyperlipidemia[ICD10: E78.2] Diagnosis: Atrophy of thyroid (acquired)[ICD10: E03.4] Diagnosis: Bilateral primary osteoarthritis of knee[ICD10: M17.0] Heaven Luis MD, [facility] CPT-4: 13285 04/26/2017 ([id number]) 77679 EST. PATIENT, LEVEL IV Diagnosis: Essential (primary) hypertension[ICD10: I10] Diagnosis: Bilateral primary osteoarthritis of knee[ICD10: M17.0] Diagnosis: Encounter for other screening for malignant neoplasm of breast[ICD10 : Z12.39] Diagnosis: Mixed hyperlipidemia[ICD10: E78.2] Diagnosis: Atrophy of thyroid (acquired)[ICD10: E03.4] Heaven Luis MD, [facility] CPT-4: 09821 10/26/2016 ([id number]) 84717 EST. PATIENT, LEVEL IV Diagnosis: Essential (primary) hypertension[ICD10: I10] Diagnosis: Atrophy of thyroid (acquired)[ICD10: E03.4] Diagnosis: Mixed hyperlipidemia[ICD10: E78.2] Heaven Luis MD, [facility] CPT-4: 67642 06/29/2016 ([id number]) 27812 EST. PATIENT, LEVEL IV Diagnosis: Hypothyroidism, unspecified[ICD10: E03.9] Diagnosis: Mixed hyperlipidemia[ICD10: E78.2] Diagnosis: Essential (primary) hypertension[ICD10: I10] Heaven Luis MD, [facility] CPT-4: 35239 02/29/2016 ([id number]) 41513 EST. PATIENT, LEVEL IV Diagnosis: Essential (primary) hypertension[ICD10: I10] Diagnosis: Mixed hyperlipidemia[ICD10: E78.2] Diagnosis: Hypothyroidism, unspecified[ICD10: E03.9] Diagnosis: Other obesity due to excess calories[ICD10: E66.09] [facility] CPT-4: 12348 10/27/2015 ([id number]) CALC BMI ABV UP TIM F/U Diagnosis: [ICD9: ] Diagnosis: [ICD9: ] Diagnosis: [ICD9: ] Diagnosis: [ICD9: ] [facility] CPT-4: G8417 10/27/2015 51202 EST. PATIENT, LEVEL III Diagnosis: Fall (on)(from) sidewalk curb, subsequent encounter[ICD10: W10.1XXD] Diagnosis: Multiple fractures of ribs, right side, subsequent encounter for fracture with routine healing[ICD10: S22.41XD] Diagnosis: Encounter for follow-up examination after completed treatment for conditions other than malignant neoplasm[ICD10: Z09] [facility] CPT-4: 21128 07/15/2015 ([id number]) 63297 EST. PATIENT, LEVEL IV Diagnosis: Hypothyroidism, unspecified[ICD10: E03.9] Diagnosis: Essential (primary) hypertension[ICD10: I10] Diagnosis: Bilateral primary osteoarthritis of knee[ICD10: M17.0] [facility] CPT-4: 56991 06/29/2015 ([id number]) 18757 EST. 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] [facility] CPT-4: 82583 03/27/2015 ([id number]) CALC BMI ABV UP TIM F/U Diagnosis: [ICD9: ] Diagnosis: [ICD9: ] Diagnosis: [ICD9: ] Diagnosis: [ICD9: ] Diagnosis: [ICD9: ] [facility] CPT-4: G8417 03/27/2015 ([id number]) OFFICE/OUTPATIENT VISIT NEW Diagnosis: ESSENTIAL HYPERTENSION[ICD9: 401.9] Diagnosis: HYPERLIPIDEMIA[ICD9: 272.4] Diagnosis: HYPOTHYROIDISM[ICD9: 244.9] Diagnosis: URGE INCONTINENCE[ICD9: 788.31] Diagnosis: Osteoarthritis[ICD9: 715.90] [facility] CPT- 4: 50433 12/16/2014 Plan of Care Planned Activity Notes Codes Status Date Visit Plan: Hypertension - well controlled - continue with current medications, continue with no added salt diet. Pt has been encouraged to exercise daily. The pt has been advised to call the office if there are any acute concerns about change in blood pressure readings at home. OA of Knees - referral to dr. araujo for evaluation - pt would benefit most from a surgical intervention. Hypothyroidism - pt with chronic hypothyroidism, continue [...] to assure normal liver response to medications. Triglycerides elevated- pt to start on gemfibrozil 600mg bid. 09/06/2017 Patient Education: Patient Medication Summary Completed 09/06/2017 Care Plan: Referral Order SNOMED-CT : [id number] Pending 09/06/2017 Appointment: Heaven Luis WPtel: [address] [place], [place] [id number] (15 min) Moderate 08/30/2017 Visit Plan: Hypertension [...] to medications. 04/26/2017 [facility] [address] [facility] ([facility] min) Moderate 04/26/2017 Patient Education: Patient [...] control. 10/26/2016 [facility] [phone] [facility] ([facility] min) Moderate 10/26/2016 Patient Education: [...] Mobic. 06/29/2016 [facility] [phone] [facility] (15 min) Moderate 06/29/2016 Patient Education: [...] to medications. 02/29/2016 [facility] [phone] [facility] (15 min) Moderate 02/29/2016 Patient Education: [...] weight check. 10/27/2015 Appointment: Heaven Luis WPtel: [address] [place], [place] [id number] (15 min) Moderate 10/27/2015 Patient Education: Patient [...] the right side. Pt was seen at [facility] and given Flexeril and Prednisone. Deep breathing [...] the right side. Pt was seen at [facility] and given Flexeril and Prednisone. Deep breathing discussed with pt to prevent pneumonia. Pt has bruising to right hand from fall which is fading. Abraision to right knee which is scabbed and healing well. Pt to notify clinic if symptoms do not improve or if they worsen, or with other concerns. 07/15/2015 Appointment: Erin Hartman WPtel: [phone] (15 min) Moderate 07/15/2015 Patient Education: Patient [...] 13 and high risk flu shot at [facility] in June 2015 06/29/2015 Visit Plan: [...] 13 and high risk flu shot at [facility] in June 2015 06/29/2015 [facility]ment: Heaven [facility] [phone] [facility] (15 min) Moderate 06/29/2015 Patient Education: Patient [...] break through pain symptoms. 03/27/2015 Appointment: Heaven uLis WPtel[facility] Follow up 03/27/2015 Patient Education: Patient [...] to medications. 12/16/2014 [facility]: [facility] [phone] [facility] [place] New Patient 12/16/2014 Patient Education: Patient Medication Summary Completed 12/16/2014 Patient Education: Hypertension Completed 12/16/2014 Referral: [facility] Referral Appointment Requested Instructions Comment . Hypertension - well controlled [...] 13 and high risk flu shot at [facility] in June 2015 . Hypertension - well [...] 13 and high risk flu shot at [facility] in June 2015 . Hypertension - well [...] control. Generalized Arthritis - continue with Mobic. . Hypertension - well controlled - continue with current medications, continue with no added salt diet. Pt has been encouraged to exercise daily. The pt has been advised to call the office if there are any acute concerns about change in blood pressure readings at home. OA of Knees - referral to dr. araujo for evaluation - pt would benefit most from a surgical intervention. Hypothyroidism - pt with chronic hypothyroidism, continue [...] to assure normal liver response to medications. Triglycerides elevated- pt to start on gemfibrozil 600mg bid. chem 7 and lipids in 4 months [...] the right side. Pt was seen at [facility] and given Flexeril and Prednisone. Deep breathing [...] the right side. Pt was seen at [facility] and given Flexeril and Prednisone. Deep breathing discussed with pt to prevent pneumonia. Pt has bruising to right hand from fall which is fading. Abraision to right knee which is scabbed and healing well. Pt to notify clinic if symptoms do not improve or if they worsen, or with other concerns.
--- OUTSIDE RECORDS SUMMARY | 2017-10-26 19:16 | XMS REPORT | Continuity of Care Document ---
Author Author [facility] Organization [facility] Address Unknown Phone Unavailable Allergies Active Description Code Type Severity Reaction Onset Reported/Identified Relationship to Patient Clinical Status Yes codeine [id number] Drug Allergy Mild "FEEL FUNNY" 05/28/2009 Yes meperidine [id number] Drug Allergy Mild VOMITING 05/28/2009 Yes morphine [id number] Drug Allergy Mild VOMITING 05/28/2009 Medications There is no data. Problems Date Dx Coded Attending Type Code Diagnosis Diagnosed By 07/09/2013 ANALISA MORRISSEY, FELISA Ross Ot 562.10 DIVERTICULOSIS COLON (W/O MENT OF HEMORR 07/09/2013 FELISA HAUSER MD Ot V76.51 SCREEN MAL NEOP-COLON 08/04/2014 SELINA MORRISSEY, MARLIN Collier Ot V76.12 01/23/2015 ANTELMO MORRISSEY, KATHLEEN Mendez Ot 733.00 12/02/2015 Ot V76.12 OTH SCREEN MAMMO-MALIGN NEOPLASM OF SHABBIR 12/02/2015 Ot V76.12 OTH SCREEN MAMMO-MALIGN NEOPLASM OF SHABBIR 12/02/2015 Ot V76.12 OTH SCREEN MAMMO-MALIGN NEOPLASM OF SHABBIR 12/02/2015 MARLIN MARKS MD Ot V76.12 OTH SCREEN MAMMO-MALIGN NEOPLASM OF SHABBIR 12/02/2015 ANALISA MORRISSEY, FELISA Ross Ot V72.84 EXAM PRE-OPERATIVE NOS 12/02/2015 MARLIN MARKS MD Ot V76.12 OTH SCREEN MAMMO-MALIGN NEOPLASM OF SHABBIR 12/02/2015 ANTELMO MORRISSEY, KATHLEEN Mendez Ot 733.00 OSTEOPOROSIS NOS 12/02/2015 KATHLEEN RODRIGES MD Ot Z12.31 ENCNTR SCREEN MAMMOGRAM FOR MALIGNANT NE 12/03/2015 KATHLEEN RODRIGES MD Ot Z12.31 ENCNTR SCREEN MAMMOGRAM FOR MALIGNANT NE 12/03/2015 KATHLEEN RODRIGES MD Ot Z12.31 ENCNTR SCREEN MAMMOGRAM FOR MALIGNANT NE 12/22/2015 KATHLEEN RODRIGES MD Ot Z12.31 ENCNTR SCREEN MAMMOGRAM FOR MALIGNANT NE 01/02/2017 KATHLEEN RODRIGES MD Ot Z12.31 ENCNTR SCREEN MAMMOGRAM FOR MALIGNANT NE 01/02/2017 KATHLEEN RODRIGES MD Ot Z12.31 ENCNTR SCREEN MAMMOGRAM FOR MALIGNANT NE 01/04/2017 KATHLEEN RODRIGES MD Ot Z12.31 ENCNTR SCREEN MAMMOGRAM FOR MALIGNANT NE 01/25/2017 KATHLEEN RODRIGES MD Ot Z12.31 ENCNTR SCREEN MAMMOGRAM FOR MALIGNANT NE 05/10/2017 KATHLEEN RODRIGES MD Ot M17.11 UNILATERAL PRIMARY OSTEOARTHRITIS, RIGHT 05/25/2017 KATHLEEN RODRIGES MD Ot M17.11 UNILATERAL PRIMARY OSTEOARTHRITIS, RIGHT 05/31/2017 KATHLEEN RODRIGES MD Ot M17.11 UNILATERAL PRIMARY OSTEOARTHRITIS, RIGHT Procedures There is no data. Results There is no data. Encounters ACCT No. Visit Date/Time Discharge Status Pt. Type Provider Facility Loc./Unit Complaint [id number] 05/03/2017 08:27:00 05/03/2017 23:59:59 CLS Outpatient KATHLEEN RODRIGES MD [facility] RAD M17.0 [id number] 01/02/2017 10:15:00 01/02/2017 23:59:59 CLS Outpatient KATHLEEN RODRIGES MD [facility] RAD SCREENING [id number] 12/02/2015 08:30:00 12/02/2015 23:59:59 CLS Outpatient KATHLEEN RODRIGES MD [facility] RAD [id number] 07/08/2015 14:25:00 07/08/2015 23:59:59 CLS Outpatient ALICIA THOMAS APRN [facility] QUICK [id number] 12/25/2014 08:09:00 12/25/2014 23:59:59 CLS Outpatient KATHLEEN RODRIGES MD [facility] RAD [id number] 07/07/2014 09:41:00 07/07/2014 23:59:59 CLS Outpatient MARLIN MARKS MD [facility] RAD [id number] 07/09/2013 07:29:00 07/09/2013 10:12:00 DIS Outpatient FELISA HAUSER MD [facility] SDC [id number] 07/04/2013 09:05:00 07/04/2013 23:59:59 CLS Outpatient SELINA MORRISSEY, MARLIN Collier [facility] RAD [id number] 07/04/2013 07:10:00 07/04/2013 23:59:59 CLS Outpatient FELISA HAUSER MD [facility] PREOP [id number] 10/26/2017 19:07:00 ACT Emergency YONY MORRISSEY, HÉCTOR Frank [facility] ER FALL [id number] 07/03/2012 08:41:00 Document Registration [id number] 06/23/2011 09:22:00 Document Registration [id number] 06/21/2010 09:14:00 Document Registration
--- NOTE | 2017-10-26 19:36 | ED General ---
General Chief Complaint: General Problems/Pain Stated Complaint: FALL Nursing Triage Note: PT TO ED 7 PER EMS FOR C/O WEAKNESS ONSET AFTER SLIDING OFF BED LAST NOC AT 2300 ONTO FLOOR. PT REPORTS SHE SAT/LAID ON THE FLOOR UNTIL HER FRIEND SHOWED UP THIS AFTERNOON AND CALLED EMS. PT DENIES ANY C/O PAIN, DENIES LOC AT THIS TIME. STATES SHE JUST COULDN'T GET UP OFF THE FLOOR DUE TO HER ARTHRITIS Nursing Sepsis Screen: No Definite Risk Source of Information: Patient Exam Limitations: No Limitations History of Present Illness Date Seen by Provider: Oct 26, 2017 Time Seen by Provider: 19:05 Initial Comments This 77-year-old woman presents to the emergency room via [facility] after having a fall in the home last night around 23:00. Patient simply slid off of her bed. She denies any blunt trauma. She has chronic weakness and debility/pain due to arthritis. She reports it is usual for her to be unable to get up on her own from the floor. She normally walks with a cane. She has a medical alarm but was not wearing it last night. A friend found her today and activated EMS. Patient feels like she is dehydrated and may have urinary tract infection. She has had some nausea without vomiting but no diarrhea. Pain started as her primary care provider. She denies any pain at this time. She has some slightly erythematous discoloration of the right side of her face and arm, presumably from lying on that side. Neck is nontender. Allergies and Home Medications Allergies Coded Allergies: codeine (Unverified Adverse Reaction, Mild, "FEEL FUNNY", 05/28/09) meperidine (Unverified Adverse Reaction, Mild, VOMITING, 05/28/09) morphine (Unverified Adverse Reaction, Mild, VOMITING, 05/28/09) Home Medications Bisoprol/Hydrochlorothiazide 1 Each Tablet, 1 TAB PO DAILY, (Reported) 10-6.25MG TABLET Cholecalciferol 1,000 Unit Tablet, 1,000 UNIT PO DAILY, (Reported) Clotrimazole/Betamet Diprop 15 Gm Cream.gm., TP BID, (Reported) Fluticasone Propionate 16 Gm Naspr, 1 SPRAY NS BID, (Reported) Irbesartan 150 Mg Tab, 150 MG PO DAILY, (Reported) Levothyroxine Sodium 100 Mcg Tablet, 100 MCG PO DAILY, (Reported) Meloxicam 15 Mg Tablet, 15 MG PO DAILY, (Reported) Multivitamins 1 Tab Tablet, 1 TAB PO DAILY, (Reported) [place]-3 Fatty Acids/Fish Oil 1 Each Capsule, 1,200 MG PO BID, (Reported) Psyllium Seed 425 Gm Powder, 1 TSP PO DAILY, (Reported) Simvastatin 20 Mg Tablet, 20 MG PO DAILY, (Reported) Tolterodine Tartrate 4 Mg Cap.sr.24h, 4 MG PO DAILY, (Reported) Patient Home Medication List Home Medication List Reviewed: Yes Constitutional: see HPI, No fever EENTM: see HPI Respiratory: no symptoms reported Cardiovascular: no symptoms reported Gastrointestinal: see HPI Genitourinary: see HPI : No Musculoskeletal: no symptoms reported Skin: see HPI Psychiatric/Neurological: No Symptoms Reported Hematologic/Lymphatic: No Symptoms Reported Past Xmrvxfn-Vwtsze-Gdqtgx Hx Patient Social History Alcohol Use: Denies Use Recreational Drug Use: No Smoking Status: Never a Smoker Recent Foreign Travel: No Contact w/Someone Who Travel: No Recent Infectious Disease Expo: No Recent Hopitalizations: No Physical Abuse: No Sexual Abuse: No Mistreated: No Fear: No Immunizations Up To Date Date of Pneumonia Vaccine: Jun 08, 2013 Surgeries History of Surgeries: Yes Surgeries: Gallbladder, Orthopedic (right prosthesis) Respiratory History of Respiratory Disorde: No Cardiovascular History of Cardiac Disorders: Yes Cardiac Disorders: Hypertension Neurological History of Neurological Disord: No Reproductive System : No Genitourinary History of Genitourinary Disor: Yes (Incontinencef) Gastrointestinal History of Gastrointestinal Di: Yes (GALLBLADDER) Musculoskeletal History of Musculoskeletal Dis: Yes Musculoskeletal Disorders: Arthritis Endocrine History of Endocrine Disorders: Yes Endocrine Disorders: Hypothyroidsim HEENT History of HEENT Disorders: No Cancer History of Cancer: No Psychosocial History of Psychiatric Problem: No Suicide Risk Score: 0 Integumentary History of Skin or Integumenta: No Family Medical History Significant Family History: Heart Disease, Stroke Physical Exam Vital Signs Vital Signs - First Documented 10/26/17 19:13 Temp 96.7 Pulse 87 Resp 18 B/P (MAP) 137/95 (109) Pulse Ox 96 O2 Delivery Room Air Capillary Refill : Less Than 3 Seconds General Appearance: No Apparent Distress, WD/WN HEENT: PERRL/EOMI, Other (oropharynx is very dry. Mild erythema to the right side of the face.) Neck: Non Tender, Other (slight torticollis to the left) Respiratory: Lungs Clear, Normal Breath Sounds, No Accessory Muscle Use, No Respiratory Distress Cardiovascular: Regular Rate, Rhythm, No Edema, No Murmur Gastrointestinal: Normal Bowel Sounds, Non Tender, Soft Genital/Rectal: Other (inner vulva and perineum are red (inflamed) and moist) Extremity: Non Tender, Swelling (chronic-appearing firm mild edema of the lower extremities.), Other (tenderness to the knees stated as chronic from arthritis. 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 II-XII Norm as Tested, Motor Weakness (generalized) Skin: Normal Color, Warm/Dry Progress/Results/Core Measures Suspected Sepsis Recent Fever Within 48 Hours: No Infection Criteria Present: None New/Unexplained Altered Menta: No Sepsis Screen: No Definite Risk Sepsis Diagnosis: SIRS Temperature:96.7 Pulse: 87 Respiratory Rate: 18 Laboratory Tests 10/26/17 19:38: White Blood Count 8.3 Blood Pressure 137 /95 Mean: 109 Laboratory Tests 10/26/17 19:38: Creatinine 1.03, Platelet Count 125L, Total Bilirubin 0.6 Results/Orders Lab Results Laboratory Tests Test 10/26/17 19:34 10/26/17 19:38 Range/Units Urine Color YELLOW Urine Clarity SLIGHTLY CLOUDY Urine pH 5 5-9 Urine Specific [place] 1.020 1.016-1.022 Urine Protein 2+ H NEGATIVE Urine Glucose (UA) NEGATIVE NEGATIVE Urine Ketones 3+ H NEGATIVE Urine Nitrite POSITIVE H NEGATIVE Urine Bilirubin NEGATIVE NEGATIVE Urine Urobilinogen NORMAL NORMAL MG/DL Urine Leukocyte Esterase 1+ H NEGATIVE Urine RBC (Auto) 5+ H NEGATIVE Urine RBC 10-25 H /HPF Urine WBC 5-10 H /HPF Urine Squamous Epithelial Cells 2-5 /HPF Urine Crystals NONE /LPF Urine Bacteria LARGE H /HPF Urine Casts PRESENT /LPF Urine Coarse Granular Casts 2-5 H /LPF Urine Mucus NEGATIVE /LPF Urine Culture Indicated YES White Blood Count 8.3 4.3-11.0 10^3/uL Red Blood Count 4.99 4.35-5.85 10^6/uL Hemoglobin 15.0 11.5-16.0 G/DL Hematocrit 44 35-52 % Mean Corpuscular Volume 87 80-99 FL Mean Corpuscular Hemoglobin 30 25-34 PG Mean Corpuscular Hemoglobin Concent 34 32-36 G/DL Red Cell Distribution Width 13.2 10.0-14.5 % Platelet Count 125 L 130-400 10^3/uL Mean Platelet Volume 9.5 7.4-10.4 FL Neutrophils (%) (Auto) 86 H 42-75 % Lymphocytes (%) (Auto) 7 L 12-44 % Monocytes (%) (Auto) 7 0-12 % Eosinophils (%) (Auto) 0 0-10 % Basophils (%) (Auto) 0 0-10 % Neutrophils # (Auto) 7.1 1.8-7.8 X 10^3 Lymphocytes # (Auto) 0.6 L 1.0-4.0 X 10^3 Monocytes # (Auto) 0.6 0.0-1.0 X 10^3 Eosinophils # (Auto) 0.0 0.0-0.3 10^3/uL Basophils # (Auto) 0.0 0.0-0.1 10^3/uL Neutrophils % (Manual) 90 % Lymphocytes % (Manual) 8 % Monocytes % (Manual) 2 % Eosinophils % (Manual) 0 % Basophils % (Manual) 0 % Band Neutrophils 0 % Blood Morphology Comment NORMAL Sodium Level 137 135-145 MMOL/L Potassium Level 4.4 3.6-5.0 MMOL/L Chloride Level 101 98-107 MMOL/L Carbon Dioxide Level 24 21-32 MMOL/L Anion Gap 12 5-14 MMOL/L Blood Urea Nitrogen 21 H 7-18 MG/DL Creatinine 1.03 0.60-1.30 MG/DL Estimat Glomerular Filtration Rate 52 BUN/Creatinine Ratio 20 Glucose Level 125 H 70-105 MG/DL Calcium Level 9.3 8.5-10.1 MG/DL Magnesium Level 1.7 L 1.8-2.4 MG/DL Total Bilirubin 0.6 0.1-1.0 MG/DL Aspartate Amino Transf (AST/SGOT) 65 H 5-34 U/L Alanine Aminotransferase (ALT/SGPT) 26 0-55 U/L Alkaline Phosphatase 77 40-136 U/L Total Creatine Kinase 1054 H 29-168 U/L Total Protein 6.9 6.4-8.2 GM/DL Albumin 4.1 3.2-4.5 GM/DL Thyroid Stimulating Hormone (TSH) 1.18 0.35-4.94 UIU/ML Free Thyroxine 1.52 H 0.70-1.48 NG/DL My Orders Orders - HÉCTOR BHAKTA MD Chest 1 View, Ap/Pa Only (10/26/17 19:15) Pelvis (10/26/17 19:15) Cbc With Automated Diff (10/26/17:15) Comprehensive Metabolic Panel (10/26/17:15) Creatine Kinase (10/26/17:15) Magnesium (10/26/17:15) Thyroid Stimulating Hormone (10/26/17:15) Ua Culture If Indicated (10/26/17:) Saline Lock/Iv-Start (10/26/17:15) Ns Iv 1000 Ml (Sodium Chloride 0.9%) (10/26/17 19:15) Free T4 (Free Thyroxine) (10/26/17:15) [place] Cath Insertion (10/26/17:15) Manual Differential (10/26/17 19:38) Urine Culture (10/26/17 19:34) Ceftriaxone Injection (Rocephin Injectio (10/26/17 20:00) Medications Given in ED Current Medications Medications Dose Ordered Sig/Imani Route Start Time Stop Time Status Last Admin Dose Admin Ceftriaxone Sodium 1000 mg/ Sodium Chloride 100 ml @ 200 mls/hr ONCE ONCE IV 10/26/17 20:00 10/26/17 20:29 DC 10/26/17 20:18 200 MLS/HR Vital Signs/I&O Vital Sign - Last 12Hours 10/26/17 19:13 Temp 96.7 Pulse 87 Resp 18 B/P (MAP) 137/95 (109) Pulse Ox 96 O2 Delivery Room Air Capillary Refill : Less Than 3 Seconds Blood Pressure Mean: 109 Progress Note #1: Time: 19:44 Progress Note She was seen and examined upon arrival. IV fluids were ordered along with labs and x-rays. The catheter was placed. Progress Note #2: Time: 20:59 Progress Note Case was discussed with Dr. Vo as trauma surgeon distribution spec. After review of mechanism of injury and workup findings, it was determined that he did not need to be consulted. Patient is receiving a 1 L normal saline bolus which will be followed up by normal saline at 150 mL per hour. She received Rocephin 1 g IV for urinary tract infection. Case was reviewed with Dr. Luis who agrees with inpatient admission for treatment of rhabdomyolysis, generalized weakness, and UTI. Diagnostic Imaging Diagonstic Imaging: Xray Plain Films/CT/US/NM/MRI: chest Comments Chest x-ray viewed by me and report reviewed. See report below: NAME: TRAVON CROW [facility] REC#: [id number] PT STATUS: REG ER : 1940 PHYSICIAN: HÉCTOR BHAKTA MD ADMIT DATE: 10/26/17/ER Draft Date of Exam:10/26/17 CHEST 1 VIEW, AP/PA ONLY INDICATION: Weakness, onset after sliding off bed last night at 2300 hours. Patient laid on floor all night. FINDINGS: Frontal view of the chest demonstrates the heart size at the upper limits of normal. The lungs are clear. The vascularity is normal. There are no pleural effusions. No fractures are seen. IMPRESSION: Negative chest. Dictated on workstation # [id number] Dict: 10/26/172036 Trans: 10/26/1720[address] [facility] [id number] Interpreted by: USHA HWANG MD Diagonstic Imaging: Xray Plain Films/CT/US/NM/MRI: pelvis Comments Pelvis x-ray viewed by me and report reviewed. See report below: NAME: TRAVON CROW [facility] REC#: [id number] PT STATUS: REG ER : 1940 PHYSICIAN: HÉCTOR BHAKTA MD ADMIT DATE: 10/26/17/ER Draft Date of Exam:10/26/17 PELVIS INDICATION: Weakness, onset after sliding off bed last night at 2300 hours. Patient laid on the floor until her friend showed up this afternoon and called EMS. FINDINGS: AP view of the pelvis demonstrates a right total hip with no evidence of fracture or loosening. Heterotopic calcifications are present. There is almost complete loss of joint space in the left hip. Degenerative changes are present in the lower lumbar spine. IMPRESSION: 1. Degenerative changes are present in the left hip and lumbar spine with postoperative changes to the right hip. 2. No acute findings are present. Dictated on workstation # [id number] Dict: 10/26/172034 Trans: 10/26/1720[address] [facility] [id number] Interpreted by: USHA HWANG MD Departure Communication (Admissions) Time/Spoke to Admitting Phy: 21:[address] Luis Impression Impression: Primary Impression: Rhabdomyolysis Qualified Codes: T79.6XXA - Traumatic ischemia of muscle, initial encounter Additional Impressions: Fall from bed Qualified Codes: W06.XXXA - Fall from bed, initial encounter Urinary tract infection Qualified Codes: N39.0 - Urinary tract infection, site not specified Generalized weakness Renal insufficiency Disposition: ADMITTED INPATIENT Condition: Improved Admissions Decision to Admit Reason: Admit from ER (General) Decision to Admit/Date: Oct 26, 2017 Time/Decision to Admit Time: 19:10 Departure-Patient Inst. Referrals: KATHLEEN LUIS MD (PCP/Family) Primary Care Physician HÉCTOR BHAKTA MD Oct 26, 2017 19:36
[2017-10-26 19:44] LABS: BILIRUBIN,URINE NEGATIVE (NEGATIVE); CLARITY,URINE SLIGHTLY CLOUDY; COLOR,URINE YELLOW; GLUCOSE, URINE (UA) NEGATIVE (NEGATIVE); KETONES,URINE 3+ (NEGATIVE); LEUKOCYTE ESTERASE ,URINE 1+ (NEGATIVE); NITRITE,URINE POSITIVE (NEGATIVE); PH,URINE 5 (5-9); PROTEIN,URINE 2+ (NEGATIVE); UROBILINOGEN,URINE NORMAL (NORMAL)
[2017-10-26 19:45] LABS: BASOPHILS % (AUTO) 0 % (0-10); EOSINOPHILS % (AUTO) 0 % (0-10); HEMATOCRIT 44 % (35-52); LYMPHOCYTES # (AUTO) 0.6 X 10^3 (1.0-4.0); LYMPHOCYTES % (AUTO) 7 % (12-44); MEAN CORPUSCULAR HEMOGLOBIN 30 PG (25-34); MEAN CORPUSCULAR HGB CONC 34 G/DL (32-36); MEAN CORPUSCULAR VOLUME 87 FL (80-99); MEAN PLATELET VOLUME 9.5 FL (7.4-10.4); MONOCYTES # (AUTO) 0.6 X 10^3 (0.0-1.0); MONOCYTES % (AUTO) 7 % (0-12); NEUTROPHILS # (AUTO) 7.1 X 10^3 (1.8-7.8); NEUTROPHILS % (AUTO) 86 % (42-75); PLATELET COUNT 125 10^3/uL (130-400); RED BLOOD COUNT 4.99 10^6/uL (4.35-5.85); RED CELL DISTRIBUTION WIDTH 13.2 % (10.0-14.5); WHITE BLOOD COUNT 8.3 10^3/uL (4.3-11.0)
[2017-10-26 19:53] LABS: BACTERIA,URINE LARGE /HPF
[2017-10-26] MEDS ORDERED: cefTRIAXone INJECTION 1,000 MG in NS (IVPB) 100 ML IV ONE (20:00)
[2017-10-26 20:02] LABS: ALBUMIN 4.1 GM/DL (3.2-4.5); BAND NEUTROPHILS 0 %; BASOPHILS % (MANUAL) 0 %; BILIRUBIN,TOTAL 0.6 MG/DL (0.1-1.0); CALCIUM 9.3 MG/DL (8.5-10.1); CREATININE SERUM 1.03 MG/DL (0.60-1.30); EOSINOPHILS % (MANUAL) 0 %; LYMPHOCYTES % (MANUAL) 8 %; MAGNESIUM 1.7 MG/DL (1.8-2.4); MONOCYTES % (MANUAL) 2 %; NEUTROPHILS % (MANUAL) 90 %; POTASSIUM 4.4 MMOL/L (3.6-5.0); RBC MORPH NORMAL; TOTAL PROTEIN 6.9 GM/DL (6.4-8.2)
[2017-10-26 20:22] LABS: FREE T4 (FREE THYROXINE) 1.52 NG/DL (0.70-1.48)
--- NOTE | 2017-10-26 20:39 | Diagnostic Imaging Report ---
INDICATION: Weakness, onset after sliding off bed last night at 2300 hours. Patient laid on floor all night. FINDINGS: Frontal view of the chest demonstrates the heart size at the upper limits of normal. The lungs are clear. The vascularity is normal. There are no pleural effusions. No fractures are seen. IMPRESSION: Negative chest. Dictated by: Dictated on workstation # [id number]
--- NOTE | 2017-10-26 20:57 | Diagnostic Imaging Report ---
INDICATION: Weakness, onset after sliding off bed last night at 2300 hours. Patient laid on the floor until her friend showed up this afternoon and called EMS. FINDINGS: AP view of the pelvis demonstrates a right total hip with no evidence of fracture or loosening. Heterotopic calcifications are present. There is almost complete loss of joint space in the left hip. Degenerative changes are present in the lower lumbar spine. IMPRESSION: 1. Degenerative changes are present in the left hip and lumbar spine with postoperative changes to the right hip. 2. No acute findings are present. Dictated by: Dictated on workstation # [id number]
--- OUTSIDE RECORDS SUMMARY | 2017-10-26 21:26 | XMS REPORT | Continuity of Care Document ---
Author Author [facility] Organization [facility] Address Unknown Phone Unavailable Allergies Active Description Code Type Severity Reaction Onset Reported/Identified Relationship to Patient Clinical Status Yes codeine [id number] Drug Allergy Mild "FEEL FUNNY" 05/28/2009 Yes meperidine [id number] Drug Allergy Mild VOMITING 05/28/2009 Yes morphine [id number] Drug Allergy Mild VOMITING 05/28/2009 Medications There [...] SCREEN MAMMOGRAM FOR MALIGNANT NE 12/03/2015 KATHLEEN RODIRGES MD Ot Z12.31 ENCNTR SCREEN MAMMOGRAM FOR MALIGNANT NE 12/03/2015 KATHLEEN RODRIGES MD Ot Z12.31 ENCNTR SCREEN MAMMOGRAM FOR MALIGNANT NE 12/22/2015 ANTELMO MORRISSEY, KATHLEEN A Ot Z12.31 ENCNTR SCREEN MAMMOGRAM FOR MALIGNANT NE 01/02/2017 ANTELMO MORRISSEY, KATHLEEN A Ot Z12.31 ENCNTR SCREEN MAMMOGRAM FOR MALIGNANT NE 01/02/2017 ANTELMO MORRISSEY, KATHLEEN Mendez Ot Z12.31 ENCNTR SCREEN MAMMOGRAM FOR MALIGNANT NE 01/04/2017 KATHLEEN RODRIGES MD Ot Z12.31 ENCNTR SCREEN MAMMOGRAM FOR MALIGNANT NE 01/25/2017 KATHLEEN RODRIGES MD Ot Z12.31 ENCNTR SCREEN MAMMOGRAM FOR MALIGNANT NE 05/10/2017 ANTELMO MORRISSEY, KATHLEEN Mendez Ot M17.11 UNILATERAL PRIMARY OSTEOARTHRITIS, RIGHT 05/25/2017 ANTELMO MORRISSEY, KATHLEEN Mendez Ot M17.11 UNILATERAL PRIMARY OSTEOARTHRITIS, RIGHT 05/31/2017 KATHLEEN RODRIGES MD Vanessa Ot M17.11 UNILATERAL PRIMARY OSTEOARTHRITIS, RIGHT Procedures There is no data. Results Test Result Range Complete urinalysis with reflex to culture - 10/26/17 19:34 Urine color determination YELLOW NRG Urine clarity determination SLIGHTLY CLOUDY NRG Urine pH measurement by test strip 5 5-9 Specific gravity of urine by test strip 1.020 1.016- 1.022 Urine protein assay by test strip, semi-quantitative 2+ NEGATIVE Urine glucose detection by automated test strip NEGATIVE NEGATIVE Erythrocytes detection in urine sediment by light microscopy 5+ NEGATIVE Urine ketones detection by automated test strip 3+ NEGATIVE Urine nitrite detection by test strip POSITIVE NEGATIVE Urine total bilirubin detection by test strip NEGATIVE NEGATIVE Urine urobilinogen measurement by automated test strip (mass/volume) NORMAL NORMAL Urine leukocyte esterase detection by dipstick 1+ NEGATIVE Automated urine sediment erythrocyte count by microscopy (number/high power field) [HPF] NRG Automated urine sediment leukocyte count by microscopy (number/high power field ) [HPF] NRG Bacteria detection in urine sediment by light microscopy LARGE NRG Squamous epithelial cells detection in urine sediment by light microscopy 2-5 NRG Crystals detection in urine sediment by light microscopy NONE NRG Casts detection in urine sediment by light microscopy PRESENT NRG Mucus detection in urine sediment by light microscopy NEGATIVE NRG Complete urinalysis with reflex to culture YES NRG Coarse granular casts detection in urine sediment by light microscopy 2-5 NRG Complete blood count (CBC) with automated white blood cell (WBC) differential - 10/26/17 19:38 Blood leukocytes automated count (number/volume) 8.3 10*3/uL 4.3-11.0 Blood erythrocytes automated count (number/volume) 4.99 10*6/uL 4.35-5.85 Venous blood hemoglobin measurement (mass/volume) 15.0 g/dL 11.5-16.0 Blood hematocrit (volume fraction) 44 % 35-52 Automated erythrocyte mean corpuscular volume 87 [foz_us] 80-99 Automated erythrocyte mean corpuscular hemoglobin (mass per erythrocyte) 30 pg 25-34 Automated erythrocyte mean corpuscular hemoglobin concentration measurement ( mass/volume) 34 g/dL 32-36 Automated erythrocyte distribution width ratio 13.2 % 10.0-14.5 Automated blood platelet count (count/volume) 125 10*3/uL 130-400 Automated blood platelet mean volume measurement 9.5 [foz_us] 7.4-10.4 Automated blood neutrophils/100 leukocytes 86 % 42-75 Automated blood lymphocytes/100 leukocytes 7 % 12-44 Blood monocytes/100 leukocytes 7 % 0-12 Automated blood eosinophils/100 leukocytes 0 % 0-10 Automated blood basophils/100 leukocytes 0 % 0-10 Blood neutrophils automated count (number/volume) 7.1 10*3 1.8-7.8 Blood lymphocytes automated count (number/volume) 0.6 10*3 1.0-4.0 Blood monocytes automated count (number/volume) 0.6 10*3 0.0-1.0 Automated eosinophil count 0.0 10*3/uL 0.0-0.3 Automated blood basophil count (count/volume) 0.0 10*3/uL 0.0-0.1 Comprehensive metabolic panel - 10/26/17 19:38 Serum or plasma sodium measurement (moles/volume) 137 mmol/L 135-145 Serum or plasma potassium measurement (moles/volume) 4.4 mmol/L 3.6-5.0 Serum or plasma chloride measurement (moles/volume) 101 mmol/L 98-107 Carbon dioxide 24 mmol/L 21-32 Serum or plasma anion gap determination (moles/volume) 12 mmol/L 5-14 Serum or plasma urea nitrogen measurement (mass/volume) 21 mg/dL 7-18 Serum or plasma creatinine measurement (mass/volume) 1.03 mg/dL 0.60-1.30 Serum or plasma urea nitrogen/creatinine mass ratio 20 NRG Serum or plasma creatinine measurement with calculation of estimated glomerular filtration rate 52 NRG Serum or plasma glucose measurement (mass/volume) 125 mg/dL 70-105 Serum or plasma calcium measurement (mass/volume) 9.3 mg/dL 8.5-10.1 Serum or plasma total bilirubin measurement (mass/volume) 0.6 mg/dL 0.1-1.0 Serum or plasma alkaline phosphatase measurement (enzymatic activity/volume) 77 U/L 40-136 Serum or plasma aspartate aminotransferase measurement (enzymatic activity/ volume) 65 U/L 5-34 Serum or plasma alanine aminotransferase measurement (enzymatic activity/volume ) 26 U/L 0-55 Serum or plasma protein measurement (mass/volume) 6.9 g/dL 6.4-8.2 Serum or plasma albumin measurement (mass/volume) 4.1 g/dL 3.2-4.5 Magnesium - 10/26/17 19:38 Magnesium 1.7 mg/dL 1.8-2.4 Serum or plasma creatine kinase measurement (enzymatic activity/volume) - 10/26 19:38 Serum or plasma creatine kinase measurement (enzymatic activity/volume) 1054 U/L 29-168 Blood manual differential performed detection - 10/26/17 19:38 Blood monocytes/100 leukocytes 2 % NRG Manual blood segmented neutrophils/100 leukocytes 90 % NRG Blood band neutrophils/100 leukocytes 0 % NRG Manual blood lymphocytes/100 leukocytes 8 % NRG Manual eosinophils/100 leukocytes in nose 0 % NRG Manual blood basophils/100 leukocytes 0 % NRG Blood erythrocyte morphology finding identification NORMAL NRG THYROID STIMULATING HORMONE - 10/26/17 19:38 THYROID STIMULATING HORMONE 1.18 u[iU]/mL 0.35-4.94 Serum or plasma thyroxine (T4) free measurement (mass/volume) - 10/26/17 19:38 Serum or plasma thyroxine (T4) free measurement (mass/volume) 1.52 ng/dL 0.70-1.48 Encounters ACCT No. Visit Date/Time Discharge Status Pt. Type Provider Facility Loc./Unit Complaint [id number] 05/03/2017 08:27:00 05/03/2017 23:59:59 [facility] Outpatient ANTELMO MORRISSEY, KATHLEEN Mendez [facility] M17.0 [id number] 01/02/2017 10:15:00 01/02/2017 23:59:59 CLS Outpatient KATHLEEN RODRIGES MD [facility] RAD SCREENING [id number] 12/02/2015 08:30:00 12/02/2015 23:59:59 CLS Outpatient KATHLEEN RODRIGES MD [facility] RAD [id number] 07/08/2015 14:25:00 07/08/2015 23:59:59 CLS Outpatient ALICIA THOMAS APRN [facility] QUICK [id number] 12/25/2014 08:09:00 12/25/2014 23:59:59 CLS Outpatient KATHLEEN RODRIGES MD [facility] RAD [id number] 07/07/2014 09:41:00 07/07/2014 23:59:59 CLS Outpatient MARLIN MARKS MD [facility] RAD [id number] 07/09/2013 07:29:00 07/09/2013 10:12:00 DIS Outpatient FELISA HAUSER MD [facility] [id number] 07/04/2013 09:05:00 07/04/2013 23:59:59 CLS Outpatient MARLIN MARKS MD [facility] RAD [id number] 07/04/2013 07:10:00 07/04/2013 23:59:59 CLS Outpatient FELISA HAUSER MD [facility] PREOP [id number] 10/26/2017 21:16:00 ACT Inpatient KATHLEEN RODRIGES MD [facility] 4TH FALL;UTI;WEAKNESS;RHABDOMYOLYSIS [id number] 07/03/2012 08:41:00 Document Registration [id number] 06/23/2011 09:22:00 Document Registration [id number] 06/21/2010 09:14:00 Document Registration
[2017-10-26 21:50] VITALS: BP 144/82
[2017-10-26] MEDS ORDERED: ONDANSETRON 4 MG/2 ML (SDV) Z0FRAN IV PRN (22:15)
[2017-10-26] MEDS ORDERED: CATHETER FLUSH 10 ML SYR IV PRN (22:15)
[2017-10-26] MEDS: NS IV 1000 ML 1,000 ML IV SCH (22:20)
[2017-10-27 00:04] VITALS: BP 140/70
[2017-10-27 04:40] VITALS: BP 141/71
[2017-10-27] MEDS: NS IV 1000 ML 1,000 ML IV SCH ×3 (05:15→18:52)
[2017-10-27 06:30] LABS: BASOPHILS % (AUTO) 0 % (0-10); EOSINOPHILS % (AUTO) 1 % (0-10); HEMATOCRIT 40 % (35-52); HEMOGLOBIN 13.5 G/DL (11.5-16.0); LYMPHOCYTES # (AUTO) 0.9 X 10^3 (1.0-4.0); LYMPHOCYTES % (AUTO) 14 % (12-44); MEAN CORPUSCULAR HEMOGLOBIN 30 PG (25-34); MEAN CORPUSCULAR HGB CONC 34 G/DL (32-36); MEAN CORPUSCULAR VOLUME 88 FL (80-99); MEAN PLATELET VOLUME 9.6 FL (7.4-10.4); MONOCYTES # (AUTO) 0.5 X 10^3 (0.0-1.0); MONOCYTES % (AUTO) 8 % (0-12); NEUTROPHILS # (AUTO) 4.6 X 10^3 (1.8-7.8); NEUTROPHILS % (AUTO) 77 % (42-75); PLATELET COUNT 122 10^3/uL (130-400); RED CELL DISTRIBUTION WIDTH 13.4 % (10.0-14.5)
[2017-10-27] MEDS: CATHETER FLUSH 10 ML SYR IV SCH ×3 (06:34→22:11)
[2017-10-27 06:50] LABS: BUN/CREATININE RATIO 23; CALCIUM 8.4 MG/DL (8.5-10.1); CARBON DIOXIDE 18 MMOL/L (21-32); CHLORIDE 105 MMOL/L (98-107); GFR ESTIMATED > 60; GLUCOSE 81 MG/DL (70-105); POTASSIUM 3.7 MMOL/L (3.6-5.0); SODIUM 138 MMOL/L (135-145)
[2017-10-27 08:00] VITALS: BP 167/52
[2017-10-27] MEDS ORDERED: TOLT4CAP13 PO (08:08)
[2017-10-27] MEDS ORDERED: IRBE75TA10 PO (08:08)
[2017-10-27] MEDS ORDERED: BISO1TAB6 PO (08:08)
[2017-10-27] MEDS ORDERED: MELO15TA39 PO (08:08)
[2017-10-27] MEDS ORDERED: LEVO100T7 PO (08:08)
[2017-10-27] MEDS ORDERED: MULT1TAB69 PO (08:14)
[2017-10-27] MEDS ORDERED: CHOL10007 PO (08:14)
--- NOTE | 2017-10-27 08:57 | History & Physicial ---
History of Present Illness History of Present Illness Reason for visit/HPI PT IS A 77 Y/O FEMALE WHO PRESENTED TO THE EMERGENCY DEPARTMENT AFTER HAVING FALLEN AT HOME AROUND 11PM - SHE REPORTS THAT SHE SLIPPED FROM HER BED, FELL TO THE FLOOR AND WAS NOT ABLE TO GET HERSELF UP OFF OF THE FLOOR. SHE DID NOT HAVE ON HER MEDIC-[employer]ERT [place] AND COULD NOT GET TO HER PHONE. SHE REPORTS THAT A FRIEND CHECKED ON HER AROUND 6PM ON MONDAY EVENING AND CALLED AN AMBULANCE TO GET HER TO THE HOSPITAL. TRAVON WAS FOUND TO HAVE RHABDOMYOLYSIS AND A UTI AND WAS THUS ADMITTED TO THE HOSPITAL FOR FURTHER MONITORING/TREATMENT/PLANNED THERAPY. Date of Admission Oct 26, 2017 at 21:16 Date Seen by Provider: Oct 27, 2017 Time Seen by Provider: 08:50 I consulted on this patient on 10/27/17 08:57 Attending Physician Kathleen Luis MD Admitting Physician Kathleen Luis MD Consult Allergies and Home Medications Allergies Coded Allergies: codeine (Unverified Adverse Reaction, Mild, "FEEL FUNNY", 05/28/09) meperidine (Unverified Adverse Reaction, Mild, VOMITING, 05/28/09) morphine (Unverified Adverse Reaction, Mild, VOMITING, 05/28/09) Home Medications Bisoprolol Fumarate/Hctz 1 Each Tablet, 1 TAB PO DAILY, (Reported) Cholecalciferol (Vitamin D3) 1,000 Unit Capsule, 1,000 UNIT PO DAILY, (Reported) Irbesartan 75 Mg Tablet, 75 MG PO DAILY, (Reported) Levothyroxine Sodium 100 Mcg Tablet, 100 MCG PO DAILY, (Reported) Meloxicam 15 Mg Tablet, 15 MG PO DAILY, (Reported) Multivitamin 1 Each Tablet, 1 TAB PO DAILY, (Reported) Tolterodine Tartrate 4 Mg Cap.er.24h, 4 MG PO DAILY, (Reported) Patient Home Medication List Home Medication List Reviewed: Yes Past Vtslwly-Ewpmgc-Wxikje Hx Patient Social History Marrital Status: Living Status: PT LIVES BY HERSELF - [facility] [place] IN [place] Employed/Student: retired Alcohol Use: Denies Use Recreational Drug Use: No Smoking Status: Never a Smoker 2nd Hand Smoke Exposure: No Physical Abuse Screen: No Sexual Abuse: No Recent Foreign Travel: No Contact w/other who traveled: No Recent Hopitalizations: No Recent Infectious Disease Expo: No Immunizations Up To Date Date of Pneumonia Vaccine: Jun 08, 2013 Date of Influenza Vaccine: Jun 27, 2018 Seasonal Allergies Seasonal Allergies: Yes Surgeries Yes Gallbladder, Orthopedic (right prosthesis) Respiratory No Currently Using CPAP: No Currently Using BIPAP: No Cardiovascular Yes Hypertension Neurological No Reproductive System : No Genitourinary Yes (Incontinence) Gastrointestinal Yes (GALLBLADDER) Musculoskeletal Yes Arthritis Endocrine History of Endocrine Disorders: Yes Endocrine Disorders: Hypothyroidsim HEENT History of HEENT Disorders: No Loss of Vision: Denies Hearing Impairment: Denies Cancer No Psychosocial History of Psychiatric Problem: No Integumentary History of Skin or Integumenta: Yes (SHINGLES IN AUGUST OF 2017) Reviewed Nursing Assessment Reviewed/Agree w Nursing PMH: Yes Family Medical History Significant Family History: Heart Disease, Hypertension, Psychiatric Problems ( DMENTIA), Stroke Family Hx: Arthritis 19 FATHER Cardiovascular disease 19 FATHER Completed stroke 19 MOTHER Dementia 19 FATHER G8 SISTER Hypertension 19 FATHER Respiratory disorder 19 FATHER Constitutional: No chills, No diaphoresis, No fever, malaise EENTM: No hoarseness, No mouth pain, No throat pain Respiratory: No cough, No dyspnea on exertion, No short of breath Cardiovascular: No edema Musculoskeletal: No back pain, joint pain (KNEE PAIN), muscle weakness Skin: no symptoms reported Psychiatric/Neurological: No Symptoms Reported, Weakness All Other Systems Reviewed Negative Unless Noted: Yes Physical Exam Vital Signs Vital Signs - First Documented 10/26/17 19:13 Temp 96.7 Pulse 87 Resp 18 B/P (MAP) 137/95 (109) Pulse Ox 96 O2 Delivery Room Air Capillary Refill : Less Than 3 Seconds General Appearance: No Apparent Distress, WD/WN Eyes: Bilateral Eye Normal Inspection, Bilateral Eye PERRL, Bilateral Eye EOMI HEENT: PERRL/EOMI, Pharynx Normal Neck: Full Range of Motion, Supple Respiratory: Chest Non Tender, Lungs Clear, Normal Breath Sounds Cardiovascular: Regular Rate, Rhythm Gastrointestinal: Normal Bowel Sounds, Non Tender, Soft Extremity: Normal Capillary Refill, No Calf Tenderness, No Pedal Edema Neurologic/Psychiatric: Alert, Oriented x3, No Motor/Sensory Deficits, Normal Mood/Affect Skin: Normal Color, Warm/Dry Lymphatic: No Adenopathy Assessment/Plan Assessment and Plan RHABDOMYOLYSIS - ACUTE FALL AT HOME UTI CHRONIC KNEE PAIN DUE TO OSTEOARTHRITIS GENERALIZED WEAKNESS HYPERTENSION SEASONAL ALLERGIES HYPOTHYROIDISM RHABDOMYOLYSIS - ACUTE DUE TO FALL AT HOME AND LYING ON THE FLOOR FOR OVER 20 HOURS UNABLE TO GET UP TO HELP HERSELF. I HAVE RECOMMENDED PT TO CONTINUE WITH FLUIDS, WILL CONTINUE TO CHECK CK LEVELS MONITOR IMPROVEMENTS IN RENAL FUNCTION AND CK. FALL AT HOME DUE TO CHRONIC KNEE PAIN DUE TO OSTEOARTHRITIS AND GENERALIZED WEAKNESS - I HAVE RECOMMENDED THERAPY WITH IRF EVAL. SHE WILL LIKELY NEED IRF FOR A WEEK TO 10 DAYS SHE LIVES AT HOME ALONE AND NEEDS TO HAVE IMPROVED FUNCTION PRIOR TO RETURN TO HOME. UTI - ON ROCEPHIN, CONTINUE WITH TREATMENT. HYPERTENSION - RESUME HOME MEDICATION. SEASONAL ALLERGIES - RX FOR FLONASE HYPOTHYROIDISM - RESUME HOME MEDICATION GI PROPHYLAXIS WITH PEPCID AND DVT PROPHYLAXIS WITH LOVENOX Problems: Admission Diagnosis RHABDOMYOLYSIS - ACUTE FALL AT HOME UTI CHRONIC KNEE PAIN DUE TO OSTEOARTHRITIS GENERALIZED WEAKNESS HYPERTENSION SEASONAL ALLERGIES HYPOTHYROIDISM Admission Status: Inpatient Order (span 2 midnights) Reason for Inpatient Admission: PT HAS ACUTE RHABDOMYOLYSIS, GENERALIZED WEAKNESS AND UTI - SHE WILL REQUIRE MORE THAN 2 MIDNIGHTS FOR HYDRATION TO KEEP RENAL FUNCTION STABLE BODY GOES THROUGH PROCESS OF RHABDOMYOLYSIS AND WILL LIKELY REQUIRE INPATIENT REHAB FOR STRENGTHENING PRIOR TO PT GOING HOME. Clinical Quality Measures DVT/VTE Risk/Contraindication: Risk Factor Score Per Nursin RFS Level Per Nursing on Admit: 4+=Very High KATHLEEN LUIS MD Oct 27, 2017 08:57
--- NOTE | 2017-10-27 09:53 | Physical Therapy Evaluation ---
PT Evaluation-General Medical Diagnosis Admission Date Oct 26, 2017 at 21:16 Medical Diagnosis: fall/UTI/rhabdomyelisis Onset Date: Oct 25, 2017 Therapy Diagnosis Therapy Diagnosis: generalized weakness/debility Height/Weight Height (Feet): 5 Height (Inches): 9.00 Weight (Pounds): 241 Weight (Ounces): 0.0 Precautions Precautions/Isolations: Fall Prevention Weight Bear Status Right Lower Extremity: Right Weight Bearing/Tolerated Left Lower Extremity: Left Weight Bearing/Tolerated Referral Physician: Janelle Reason for Referral: Evaluation/Treatment Medical History Pertinent Medical History: Arthritis, HTN, Hypothroidism Additional Medical History reports she use to go to [facility] for exercises but does not as much Current History ED secondary to slid off bed to floor and was on floor several hours Reviewed History: Yes Social History Home: Single Level Current Living Status: Alone Prior/Core FIM Prior Level of Function Functional Reserve Measure 0=Not Assessed/NA 4=Minimal Assistance 1=Total Assistance 5=Supervision or Setup 2=Maximal Assistance 6=Modified Reserve 3=Moderate Assistance 7=Complete Reserve Bed Mobility: 6 Transfers (B,C,W/C) (FIM): 6 Gait: 6 uses cane or FWW at home PT Evaluation-Current Subjective Patient agrees to PT. Pain Numeric Pain Scale: 3 Location: Right Location Body Site: Calf Pain Description: Ache, Acute Objective Patient Orientation: Normal For Age Problem Solving: Fair Attachments: Guaman Catheter, IV ROM/Strength ROM Lower Extremities bilateral LE WNL Strength Lower Extremities right knee flexion/extension 3+/5; hip flexion 3+/5; DF/PF 3+/5 left knee flexion/extension 3+/5; hip flexion 3+/5; DF/PF 3+/5 Integumentary/Posture Integumentary refer to nursing notes Bowel Incontinence: No Bladder Incontinence: No Posture kyphotic Neuromuscular (Tone, Coordination, Reflexes) grossly intact/very slow and methodical movement Sensory Vision: Wears Glasses Hearing: Functional Sensation Right Lower Extremit: Intact Sensation Left Lower Extremity: Intact Transfers Functional Reserve Measure 0=Not Assessed/NA 4=Minimal Assistance 1=Total Assistance 5=Supervision or Setup 2=Maximal Assistance 6=Modified Reserve 3=Moderate Assistance 7=Complete Reserve Transfers (B, C, W/C) (FIM): 4 Scootin Rollin Supine to/from Sit: 5 Sit to/from Stand: 4 assist with sit to stand with use of gait belt and elevated bed Gait Mode of Locomotion: Walk Anticipated Mode of Locomotion: Walk Gait (FIM): 5 Distance (FIM): 3=150 ft Distance: 150' Gait Level of Assist: 5 Gait Assistive Device: FWW Comments/Gait Description very slow, steady gait sequence Balance Sitting Static: Normal Sitting Dynamic: Normal Standing Static: Normal Standing Dynamic: Normal Assessment/Needs 77 y.o. female, will benefit from skilled PT to address functional strength and mobility to improve current LOF and to safely return to home or care facility at maximum LOF. Rehab Potential: Good Post Rehab Potential-Barriers: inactivity PLOF PT Longterm Goals Shrimp Cleaner Goals PT Longterm Goals Time Frame: Nov 10, 2017 Transfers (B,C,W/C) (FIM): 6 Gait (FIM): 6 Gait distance (FIM): 3=150 ft Distance: 200' Gait Level of Assist: 6 Gait Assistive Device: FWW PT Plan Problem List Problem List: Activity Tolerance, Functional Strength, Safety, Balance, Gait, Transfer, Bed Mobility Treatment/Plan Treatment Plan: Continue Plan of Care Treatment Plan: Bed Mobility, Education, Functional Activity Luci, Functional Strength, Gait, Safety, Therapeutic Exercise, Transfers Treatment Duration: Nov 10, 2017 Frequency: 6 times per week Estimated Hrs Per Day: .5 hour per day Patient and/or Family Agrees t: Yes Safety Risks/Education Patient Education: Safety Issues Teaching Recipient: Patient Teaching Methods: Discussion Response to Teaching: Verbalize Understanding Discharge Recommendations Therapy D/C Recommendations: Acute Rehab Time/GCodes Time In: 830 Time Out: 852 Total Billed Treatment Time: 22 Total Billed Treatment 1 visit EVMod 22 min SUSHANT SANCHEZ PT Oct 27, 2017 09:52
[2017-10-27] MEDS: LEVOTHYROXINE 100 MCG (LEVOTHROID) TAB PO SCH (10:41)
[2017-10-27] MEDS: IRBESARTAN 150 MG (AVAPRO) TAB PO SCH (10:42)
[2017-10-27 12:00] VITALS: BP 133/63
[2017-10-27] MEDS: FLUTICASONE NASAL SPRAY (FLONASE) 16 GM BTL NS SCH ×2 (12:36→22:12)
[2017-10-27] MEDS: ENOXAPARIN 40 MG/0.4 ML (LOVENOX) SYR SC SCH (14:41)
[2017-10-27 15:23] VITALS: BP 140/76
[2017-10-27 20:16] VITALS: BP 150/67
[2017-10-27] MEDS ORDERED: cefTRIAXone 1 GM/NS 100 ML IVPB IV SCH ×2 (21:00)
[2017-10-27] MEDS: FAMOTIDINE 20 MG (PEPCID) TABLET PO SCH (22:11)
[2017-10-28] VITALS (7 sets, daily range): BP systolic 145–184; BP diastolic 70–98
[2017-10-28] MEDS: NS IV 1000 ML 1,000 ML IV SCH ×2 (02:25→08:50)
[2017-10-28 05:05] LABS: HEMOGLOBIN 12.5 G/DL (11.5-16.0); MEAN PLATELET VOLUME 9.8 FL (7.4-10.4); RED BLOOD COUNT 4.25 10^6/uL (4.35-5.85); RED CELL DISTRIBUTION WIDTH 13.4 % (10.0-14.5); WHITE BLOOD COUNT 3.8 10^3/uL (4.3-11.0)
[2017-10-28] MEDS: CATHETER FLUSH 10 ML SYR IV SCH ×4 (06:00→20:58)
[2017-10-28] MEDS: LEVOTHYROXINE 100 MCG (LEVOTHROID) TAB PO SCH (06:02)
[2017-10-28 06:09] LABS: ALANINE AMINOTRANSFERASE 31 U/L (0-55); ALBUMIN 3.2 GM/DL (3.2-4.5); ALKALINE PHOSPHATASE 57 U/L (40-136); BILIRUBIN,TOTAL 0.3 MG/DL (0.1-1.0); BUN/CREATININE RATIO 23; CALCIUM 7.9 MG/DL (8.5-10.1); CARBON DIOXIDE 19 MMOL/L (21-32); CHLORIDE 110 MMOL/L (98-107); CREATINE KINASE 1024 U/L (29-168); CREATININE SERUM 0.83 MG/DL (0.60-1.30); GFR ESTIMATED > 60; GLUCOSE 94 MG/DL (70-105); POTASSIUM 3.6 MMOL/L (3.6-5.0); SODIUM 138 MMOL/L (135-145); TOTAL PROTEIN 5.2 GM/DL (6.4-8.2)
[2017-10-28] MEDS: FLUTICASONE NASAL SPRAY (FLONASE) 16 GM BTL NS SCH ×2 (08:49→20:51)
[2017-10-28] MEDS: IRBESARTAN 150 MG (AVAPRO) TAB PO SCH (08:49)
[2017-10-28] MEDS: FAMOTIDINE 20 MG (PEPCID) TABLET PO SCH ×2 (08:52→20:51)
[2017-10-28] MEDS: BISOPROLOL/HCTZ 10/6.25 MG (ZIAC) TAB PO SCH (09:07)
--- NOTE | 2017-10-28 09:26 | Physical Therapy Daily Note ---
PT Daily Note-Current Subjective Patient c/o increase left LE pain and elevated BP. RN and physician are aware. Pain Numeric Pain Scale: 7 Location: Left Location Body Site: Thigh Pain Description: Pressure Mental Status Patient Orientation: Normal For Age Attachments: Guaman Catheter, IV Transfers Functional Egan Measure 0=Not Assessed/NA 4=Minimal Assistance 1=Total Assistance 5=Supervision or Setup 2=Maximal Assistance 6=Modified Egan 3=Moderate Assistance 7=Complete IndependenceIRFPAI Quality Coding Scale 6 Independent with activity with or without an assistive device 5 Patient requires set up or clean up by helper. Patient completes activity by themselves 4 Supervision or touching assist (CGA). [place] provide cues , steadying assist 3 The helper provides less than half the effort to complete the activity 2 The helper provides more than half the effort to complete the activity 1 Dependent. The helper does all the effort to complete an activity 7 Patient refused to complete or attempt activity 9 The patient did not perform the activity before the current illness or injury 88 Not attempted due to Medical conditions or safety concerns Transfers (B, C, W/C) (FIM): 4 Scootin Rollin Supine to/from Sit: 4 Sit to/from Stand: 4 Bed to/from Chair: 4 Weight Bearing Right Lower Extremity: Right Weight Bearing/Tolerated Left Lower Extremity: Left Weight Bearing/Tolerated Gait Training Gait (FIM): 4 Distance (FIM): 3=150 ft Distance: 150' Gait Level of Assist: 4 Gait Persons Needed: 1 Gait Assistive Device: FWW shuffle gait sequence with no foot clearance. Assessment Bed mobility activity requires time due to pain and patient is edematous. Patient requires time to complete all functional tasks. Plan transfer to ARU next week. PT Triage Nurse Goals [facility] Goals PT [facility] Goals Time Frame: Nov 10, 2017 Transfers (B,C,W/C) (FIM): 6 Gait (FIM): 6 Gait distance (FIM): 3=150 ft Distance: 200' Gait Level of Assist: 6 Gait Assistive Device: FWW PT Plan Treatment/Plan Treatment Plan: Continue Plan of Care Treatment Plan: Bed Mobility, Education, Functional Activity Luci, Functional Strength, Gait, Safety, Therapeutic Exercise, Transfers Treatment Duration: Nov 10, 2017 Frequency: 6 times per week Estimated Hrs Per Day: .5 hour per day Patient and/or Family Agrees t: Yes Time/GCodes Time In: 855 Time Out: 919 Total Billed Treatment Time: 24 Total Billed Treatment 1 visit FA 10 min GT 14 min SUSHANT SANCHEZ PT Oct 28, 2017 09:26
[2017-10-28] MEDS ORDERED: ONDANSETRON 4 MG (ZOFRAN) ORAL DISSOLVE TAB PO PRN (10:30)
--- NOTE | 2017-10-28 10:30 | Progress Note-Hospitalist ---
Standard Progress Note Progress Notes/Assess & Plan Date Seen 10/28/17 Time Seen by Provider: 08:30 Assess & Plan/Chief Complaint Patient had just returned from walk with physical therapy. She reports some left thigh discomfort and believes this was the side she was laying on. She has an area of erythema without induration over the left elbow area she thinks her edema generalized low worse. She denies itching and after discussing catheter issues she is fearful about having it removed due to history of what sounds like overactive bladder with urge incontinence. She denies dysuria chest pain or increasing shortness of breath over baseline. RHABDOMYOLYSIS - ACUTE FALL AT HOME UTI CHRONIC KNEE PAIN DUE TO OSTEOARTHRITIS GENERALIZED WEAKNESS HYPERTENSION SEASONAL ALLERGIES HYPOTHYROIDISM RHABDOMYOLYSIS - considering relatively mild CPK elevation about the same as one would expect from an average ST segment elevation [place] doubt rhabdomyolysis. Renal function back to normal with significant extremity edema and loss of IV access in a lady who will be quite difficult to gain IV access on. Will DC IV and IV antibiotics. Prior to receiving her morning blood pressure medication and her blood pressure was in the 180/90 range. Considering this and normalization of renal function with increasing edema we'll give 1 dose of by mouth Lasix. The patient does have a morbilliform eruption with some areas of coalescence concerning for possible drug allergy. As far as I can tell only new medications Rocephin. Considering that her Escherichia coli is pansensitive and that she has lost IV access will switch to a nonpenicillin family antibiotic Macrobid as there is no evidence to suggest sepsis. We'll continue to monitor. Lastly the patient does have mild pancytopenia we'll continue to monitor CBCs FALL AT HOME DUE TO CHRONIC KNEE PAIN DUE TO OSTEOARTHRITIS AND GENERALIZED WEAKNESS - I HAVE RECOMMENDED THERAPY WITH IRF EVAL. SHE WILL LIKELY NEED IRF FOR A WEEK TO 10 DAYS SHE LIVES AT HOME ALONE AND NEEDS TO HAVE IMPROVED FUNCTION PRIOR TO RETURN TO HOME. UTI - ON ROCEPHIN, CONTINUE WITH TREATMENT. HYPERTENSION - RESUME HOME MEDICATION. SEASONAL ALLERGIES - RX FOR FLONASE HYPOTHYROIDISM - RESUME HOME MEDICATION GI PROPHYLAXIS WITH PEPCID AND DVT PROPHYLAXIS WITH LOVENOX Labs Laboratory Tests 10/26/17 19:38 10/27/17 06:12 10/28/17 04:30 Focused Exam Respiratory: Chest Non Tender, Lungs Clear, No Respiratory Distress, Decreased Breath Sounds (In bases only) Cardiovascular: Regular Rate, Rhythm, No Gallop, No JVD, No Murmur, Other ( Diffuse for extremity 2-3+ edema.) Skin: rash (Erythematous faint papular eruption over chest back with areas of coalescence right shoulder left elbow and forearm area no areas of induration or palpable abnormalities over her left thigh were patient complains of pain.) FELISA HAUSER MD Oct 28, 2017 10:30
[2017-10-28] MEDS: ENOXAPARIN 40 MG/0.4 ML (LOVENOX) SYR SC SCH (13:26)
[2017-10-28] MEDS ORDERED: FUROSEMIDE 40 MG (LASIX) TAB PO NR (16:39)
[2017-10-28] MEDS: ACETAMINOPHEN 500 MG TAB (TYLENOL) PO PRN (19:57)
[2017-10-28] MEDS: NITROFURANTOIN 100 MG (MACROBID) CAPSULE PO SCH (20:51)
[2017-10-29] VITALS (9 sets, daily range): BP systolic 140–228; BP diastolic 65–103
[2017-10-29] MEDS ORDERED: amLODIPine 5 MG (NORVASC) TAB ONE (01:13)
[2017-10-29] MEDS: ACETAMINOPHEN 500 MG TAB (TYLENOL) PO PRN ×2 (02:51→16:37)
[2017-10-29 04:57] LABS: HEMOGLOBIN 13.2 G/DL (11.5-16.0); MEAN PLATELET VOLUME 9.3 FL (7.4-10.4); RED BLOOD COUNT 4.4 10^6/uL (4.35-5.85); RED CELL DISTRIBUTION WIDTH 13.1 % (10.0-14.5); WHITE BLOOD COUNT 3.7 10^3/uL (4.3-11.0)
[2017-10-29 05:35] LABS: ALANINE AMINOTRANSFERASE 34 U/L (0-55); ALBUMIN 3.3 GM/DL (3.2-4.5); ALKALINE PHOSPHATASE 65 U/L (40-136); BILIRUBIN,TOTAL 0.5 MG/DL (0.1-1.0); BUN/CREATININE RATIO 17; CALCIUM 8.5 MG/DL (8.5-10.1); CARBON DIOXIDE 19 MMOL/L (21-32); CHLORIDE 107 MMOL/L (98-107); CREATINE KINASE 754 U/L (29-168); CREATININE SERUM 0.82 MG/DL (0.60-1.30); GFR ESTIMATED > 60; GLUCOSE 104 MG/DL (70-105); POTASSIUM 3.5 MMOL/L (3.6-5.0); SODIUM 137 MMOL/L (135-145); TOTAL PROTEIN 5.6 GM/DL (6.4-8.2)
[2017-10-29] MEDS: CATHETER FLUSH 10 ML SYR IV SCH ×3 (05:46→20:53)
[2017-10-29] MEDS: LEVOTHYROXINE 100 MCG (LEVOTHROID) TAB PO SCH (06:28)
[2017-10-29] MEDS: FLUTICASONE NASAL SPRAY (FLONASE) 16 GM BTL NS SCH ×2 (09:10→20:53)
[2017-10-29] MEDS: FAMOTIDINE 20 MG (PEPCID) TABLET PO SCH ×2 (09:14→20:52)
[2017-10-29] MEDS: NITROFURANTOIN 100 MG (MACROBID) CAPSULE PO SCH ×2 (09:14→20:52)
[2017-10-29] MEDS: BISOPROLOL/HCTZ 10/6.25 MG (ZIAC) TAB PO SCH (09:15)
[2017-10-29] MEDS: IRBESARTAN 150 MG (AVAPRO) TAB PO SCH (09:15)
--- NOTE | 2017-10-29 12:28 | Progress Note-Hospitalist ---
Subjective HPI/CC On Admission Date Seen by Provider: Oct 29, 2017 Time Seen by Provider: 11:00 Subjective/Events-last exam Patient feeling better voices no complaints but reports there has been small- volume vaginal bleeding. She reports that she has had this off and on for the last several years, it has been painless but increasing in amount. Per her recollection her only evaluation was by previous primary care provider and just entailed physical examination and was attributed to atrophic vaginitis. She reports no past history of hysterectomy. She reports no pelvic pain. Objective Exam Vital Signs Vital Signs Date Time Temp Pulse Resp B/P (MAP) Pulse Ox O2 Delivery O2 Flow Rate FiO2 10/26/17 19:13 96.7 87 18 137/95 (109) 96 Room Air Capillary Refill : Less Than 3 Seconds General Appearance: No Apparent Distress, Obese Respiratory: Lungs Clear, Normal Breath Sounds, No Accessory Muscle Use, No Respiratory Distress Cardiovascular: Regular Rate, Rhythm, No Gallop, No JVD, No Murmur Skin: Rash (Significantly improved today only minimal amount of erythema noted on the elbows symmetrically just below blood pressure cuff compression.) Results/Procedures Lab Laboratory Tests 10/29/17 04:35 Patient resulted labs reviewed. Assessment/Plan Assessment and Plan Assess & Plan/Chief Complaint . RHABDOMYOLYSIS - ACUTE FALL AT HOME UTI CHRONIC KNEE PAIN DUE TO OSTEOARTHRITIS GENERALIZED WEAKNESS HYPERTENSION SEASONAL ALLERGIES HYPOTHYROIDISM RHABDOMYOLYSIS - considering relatively mild CPK elevation about the same as one would expect from an average ST segment elevation [place] doubt rhabdomyolysis. Renal function back to normal with significant extremity edema and loss of IV access in a lady who will be quite difficult to gain IV access on. Will DC IV and IV antibiotics. Prior to receiving her morning blood pressure medication and her blood pressure was in the 180/90 range. Considering this and normalization of renal function with increasing edema we'll give 1 dose of by mouth Lasix. The patient does have a morbilliform eruption with some areas of coalescence concerning for possible drug allergy. As far as I can tell only new medications Rocephin. Considering that her Escherichia coli is pansensitive and that she has lost IV access will switch to a nonpenicillin family antibiotic Macrobid as there is no evidence to suggest sepsis. We'll continue to monitor. Lastly the patient does have mild pancytopenia we'll continue to monitor CBCs FALL AT HOME DUE TO CHRONIC KNEE PAIN DUE TO OSTEOARTHRITIS AND GENERALIZED WEAKNESS - I HAVE RECOMMENDED THERAPY WITH IRF EVAL. SHE WILL LIKELY NEED IRF FOR A WEEK TO 10 DAYS SHE LIVES AT HOME ALONE AND NEEDS TO HAVE IMPROVED FUNCTION PRIOR TO RETURN TO HOME. UTI -see above switched to Macrodantin stridor day. Will DC Guaman after discussion with the patient's with the addition of depends undergarments considering history of overactive bladder with urinary incontinence. HYPERTENSION -blood pressure was up last night and edema was decreasing. She had systolics as high as 200. 5 mg of amlodipine was given with a regular 5 mg at bedtime dose to follow. We will increase Avapro to 150 mg. Last blood pressure this morning was down to the 150 systolic range. If blood pressure continues to moderate with worsening edema with the addition of amlodipine may need to consider alternative therapy.. SEASONAL ALLERGIES - RX FOR FLONASE HYPOTHYROIDISM - RESUME HOME MEDICATION GI PROPHYLAXIS WITH PEPCID AND DVT PROPHYLAXIS WITH LOVENOX Clinical Quality Measures DVT/VTE Risk/Contraindication: Risk Factor Score Per Nursin RFS Level Per Nursing on Admit: 4+=Very High FELISA HAUSER MD Oct 29, 2017 12:28
[2017-10-29] MEDS: ENOXAPARIN 40 MG/0.4 ML (LOVENOX) SYR SC SCH (16:31)
[2017-10-29] MEDS: amLODIPine 5 MG (NORVASC) TAB PO SCH (20:53)
[2017-10-30] MEDS: ACETAMINOPHEN 500 MG TAB (TYLENOL) PO PRN ×3 (00:17→20:46)
[2017-10-30 00:54] VITALS: BP 152/80
[2017-10-30 04:16] VITALS: BP 148/85
[2017-10-30] MEDS: CATHETER FLUSH 10 ML SYR IV SCH (06:14)
[2017-10-30] MEDS: LEVOTHYROXINE 100 MCG (LEVOTHROID) TAB PO SCH (06:15)
[2017-10-30 07:15] LABS: ALANINE AMINOTRANSFERASE 42 U/L (0-55); ALBUMIN 3.8 GM/DL (3.2-4.5); ALKALINE PHOSPHATASE 70 U/L (40-136); BILIRUBIN,TOTAL 0.6 MG/DL (0.1-1.0); BUN/CREATININE RATIO 16; CALCIUM 8.8 MG/DL (8.5-10.1); CARBON DIOXIDE 25 MMOL/L (21-32); CHLORIDE 100 MMOL/L (98-107); CREATINE KINASE 553 U/L (29-168); CREATININE SERUM 0.83 MG/DL (0.60-1.30); GFR ESTIMATED > 60; GLUCOSE 119 MG/DL (70-105); POTASSIUM 3.5 MMOL/L (3.6-5.0); SODIUM 135 MMOL/L (135-145); TOTAL PROTEIN 6.2 GM/DL (6.4-8.2)
[2017-10-30 07:26] LABS: HEMOGLOBIN 14.9 G/DL (11.5-16.0); MEAN PLATELET VOLUME 9.4 FL (7.4-10.4); RED BLOOD COUNT 5.03 10^6/uL (4.35-5.85); RED CELL DISTRIBUTION WIDTH 12.9 % (10.0-14.5); WHITE BLOOD COUNT 3.8 10^3/uL (4.3-11.0)
[2017-10-30 08:00] VITALS: BP 147/75
[2017-10-30] MEDS: FAMOTIDINE 20 MG (PEPCID) TABLET PO SCH ×2 (09:27→20:43)
[2017-10-30] MEDS: NITROFURANTOIN 100 MG (MACROBID) CAPSULE PO SCH (09:27)
[2017-10-30] MEDS: IRBESARTAN 150 MG (AVAPRO) TAB PO SCH (09:28)
[2017-10-30] MEDS: BISOPROLOL/HCTZ 10/6.25 MG (ZIAC) TAB PO SCH (09:28)
[2017-10-30] MEDS: FLUTICASONE NASAL SPRAY (FLONASE) 16 GM BTL NS SCH ×2 (09:29→20:43)
--- NOTE | 2017-10-30 09:30 | Progress Note (SOAP) ---
Subjective Date Seen by Provider: Oct 30, 2017 Time Seen by Provider: 08:30 Subjective/Events-last exam PT REPORTS THAT SHE HAS BEEN HAVING VAGINAL BLEEDING OFF AN ON FOR A FEW YEARS - SHE STATES THAT THE BLEEDING WAS WORSE WITH THE CATHETER IN PLACE. SHE DENIES CHEST PAIN, SHORTNESS OF BREATH, ABDOMINAL PAIN. SHE REPORTS THAT SHE HAS PAIN WITH AMBULATION AND IS WEAK Review of Systems General: Fatigue HEENT: No Head Aches Pulmonary: No Dyspnea, No Cough Cardiovascular: No: Chest Pain, Palpitations Gastrointestinal: No: Nausea, Abdominal Pain Genitourinary: No Dysuria Musculoskeletal: leg pain Neurological: Weakness Objective Exam Vital Signs Date Time Temp Pulse Resp B/P (MAP) Pulse Ox O2 Delivery O2 Flow Rate FiO2 10/30/17 08:00 97.5 69 24 147/75 (99) 96 Room Air 10/30/17 04:16 97.9 62 19 148/85 (106) 96 Room Air 10/30/17 00:54 98.1 65 17 152/80 (104) 97 Room Air 10/29/17 19:56 98.5 73 20 140/67 (91) 96 Room Air 10/29/17 15:45 98.7 67 20 148/65 (92) 96 Room Air 10/29/17 12:00 98.5 65 20 147/67 (93) 96 Room Air I & O 10/30/17 07:00 Intake Total 1990 ml Output Total 1600 ml Balance 390 ml Capillary Refill : Less Than 3 Seconds General Appearance: No Apparent Distress, WD/WN HEENT: PERRL/EOMI, Pharynx Normal Neck: Full Range of Motion, Supple Respiratory: Chest Non Tender, Lungs Clear, Normal Breath Sounds Cardiovascular: Regular Rate, Rhythm Gastrointestinal: normal bowel sounds, soft Extremity: Normal Capillary Refill Neurologic/Psychiatric: Alert, Oriented x3, Normal Mood/Affect Skin: Warm/Dry Other comments VAGINAL EXAM - GROSSLY BLOODY WITH CASEOUS MATERIAL IN RIGHT GROIN Results Lab Laboratory Tests 10/30/17 06:35: Sodium Level 135, Potassium Level 3.5L, Chloride Level 100, Carbon Dioxide Level 25, Anion Gap 10, Blood Urea Nitrogen 13, Creatinine 0.83, Estimat Glomerular Filtration Rate > 60, BUN/Creatinine Ratio 16, Glucose Level 119H, Calcium Level 8.8, Total Bilirubin 0.6, Aspartate Amino Transf (AST/SGOT) 80H, Alanine Aminotransferase (ALT/SGPT) 42, Alkaline Phosphatase 70, Total Creatine Kinase 553H, Total Protein 6.2L, Albumin 3.8 10/30/17 07:15: White Blood Count 3.8L, Red Blood Count 5.03, Hemoglobin 14.9, Hematocrit 42, Mean Corpuscular Volume 84, Mean Corpuscular Hemoglobin 30, Mean Corpuscular Hemoglobin Concent 36, Red Cell Distribution Width 12.9, Platelet Count 130, Mean Platelet Volume 9.4 Microbiology 10/26/17 Urine Culture - Final, Complete Escherichia coli Proteus mirabilis Assessment/Plan Assessment/Plan Assess & Plan/Chief Complaint RHABDOMYOLYSIS - ACUTE FALL AT HOME UTI CHRONIC KNEE PAIN DUE TO OSTEOARTHRITIS GENERALIZED WEAKNESS HYPERTENSION SEASONAL ALLERGIES HYPOTHYROIDISM VAGINAL BLEEDING RHABDOMYOLYSIS - ACUTE DUE TO FALL AT HOME AND LYING ON THE FLOOR FOR OVER 20 HOURS UNABLE TO GET UP TO HELP HERSELF. IMPROVED SYMPTOMS - CONTINUE WITH SUPPORTIVE CARE - DISCUSSED WITH PT - WILL NEED INPT REHAB VERSUS [facility] FOR STRENGTHENING. FALL AT HOME DUE TO CHRONIC KNEE PAIN DUE TO OSTEOARTHRITIS AND GENERALIZED WEAKNESS - I HAVE RECOMMENDED THERAPY WITH IRF EVAL. SHE WILL LIKELY NEED IRF FOR A WEEK TO 10 DAYS SHE LIVES AT HOME ALONE AND NEEDS TO HAVE IMPROVED FUNCTION PRIOR TO RETURN TO HOME. UTI - ON MACROBID HYPERTENSION - RESUMED HOME MEDICATION. SEASONAL ALLERGIES - RX FOR FLONASE HYPOTHYROIDISM - RESUMED HOME MEDICATION VAGINAL BLEEDING - CHECK TRANSVAGINAL ULTRASOUND - STOP LOVENOX. GI PROPHYLAXIS WITH PEPCID AND DVT PROPHYLAXIS WITH LOVENOX Clinical Quality Measures Admission Status Admission Dx RHABDOMYOLYSIS - ACUTE FALL AT HOME UTI CHRONIC KNEE PAIN DUE TO OSTEOARTHRITIS GENERALIZED WEAKNESS HYPERTENSION SEASONAL ALLERGIES HYPOTHYROIDISM DVT/VTE Risk/Contraindication: Risk Factor Score Per Nursin RFS Level Per Nursing on Admit: 4+=Very High KATHLEEN RODRIGES MD Oct 30, 2017 09:30
--- NOTE | 2017-10-30 11:35 | Physical Therapy Daily Note ---
PT Daily Note-Current Subjective Patient continues to be slightly confused. Family is present. Pain Numeric Pain Scale: 5-Moderate Pain Location: Left Location Body Site: Thigh Pain Description: Ache Mental Status Patient Orientation: Person, Time Transfers Functional [place] Measure 0=Not Assessed/NA 4=Minimal Assistance 1=Total Assistance 5=Supervision or Setup 2=Maximal Assistance 6=Modified [place] 3=Moderate Assistance 7=Complete IndependenceIRFPAI Quality Coding Scale 6 Independent with activity with or without an assistive device 5 Patient requires set up or clean up by helper. Patient completes activity by themselves 4 Supervision or touching assist (CGA). [place] provide cues , steadying assist 3 The helper provides less than half the effort to complete the activity 2 The helper provides more than half the effort to complete the activity 1 Dependent. The helper does all the effort to complete an activity 7 Patient refused to complete or attempt activity 9 The patient did not perform the activity before the current illness or injury 88 Not attempted due to Medical conditions or safety concerns Transfers (B, C, W/C) (FIM): 3 Scootin Sit to/from Stand: 3 patient is retropulsive with sit to stand transfers requiring assistance and skilled verbal instruction for body place with transfers Weight Bearing Right Lower Extremity: Right Weight Bearing/Tolerated Left Lower Extremity: Left Weight Bearing/Tolerated Gait Training Gait (FIM): 2 Distance (FIM): 9=928-30 ft Distance: 130' Gait Level of Assist: 4 Gait Persons Needed: 1 Gait Assistive Device: FWW CGA for safety with patient increase in fatigue with activity Exercises Seated Therapy Exercises: Ankle pumps, Long arc quads, Hip flexion, Hip abd/add Seated Reps: 15 (2 sets) Assessment Patient is improving, however, slowly. Patient's daughter is present to discuss POC. Plan to transfer to ARU this week. PT Jail Goals Youth Minister Goals PT Jail Goals Time Frame: Nov 10, 2017 Transfers (B,C,W/C) (FIM): 6 Gait (FIM): 6 Gait distance (FIM): 3=150 ft Distance: 200' Gait Level of Assist: 6 Gait Assistive Device: FWW PT Plan Treatment/Plan Treatment Plan: Continue Plan of Care Treatment Plan: Bed Mobility, Education, Functional Activity Luci, Functional Strength, Gait, Safety, Therapeutic Exercise, Transfers Treatment Duration: Nov 10, 2017 Frequency: 6 times per week Estimated Hrs Per Day: .5 hour per day Patient and/or Family Agrees t: Yes Time/GCodes Time In: 1021 Time Out: 1044 Total Billed Treatment Time: 23 Total Billed Treatment 1 visit GT 15 min EX 8 min SUSHANT SANCHEZ PT Oct 30, 2017 11:34
[2017-10-30 12:00] VITALS: BP 179/78
[2017-10-30] MEDS ORDERED: cefTRIAXone INJECTION 1,000 MG in NS (IVPB) 100 ML IV SCH (15:45)
[2017-10-30 16:00] VITALS: BP 176/84
[2017-10-30] MEDS ORDERED: LIDOCAINE 1% INJ 20 ML (XYLOCAINE) VIAL INJ ONE (16:00)
[2017-10-30] MEDS ORDERED: cefTRIAXone 1 GM (ROCEPHIN) VIAL IM ONE (16:00)
[2017-10-30] MEDS ORDERED: IRBESARTAN 150 MG (AVAPRO) TAB PO NR (16:19)
--- NOTE | 2017-10-30 19:11 | Diagnostic Imaging Report ---
INDICATION: Postmenopausal bleeding. FINDINGS: The endometrium is abnormally thickened for a postmenopausal patient at 1.2 cm. There is no demonstrable myometrial mass or a fibroid. Color doppler evaluation does suggested some degree of abnormal vascularity to the endometrium at the lower uterine segment. Ovaries cannot be visualized. No adnexal lesion or free fluid identified. IMPRESSION: Thickened and likely at least partly abnormally vascularized endometrium, abnormal for postmenopausal state. No pelvic ascites. No adnexal lesion. No fibroid demonstrated. Dictated by: Dictated on workstation # [id number]
[2017-10-30 20:00] VITALS: BP 139/66
[2017-10-30] MEDS: amLODIPine 5 MG (NORVASC) TAB PO SCH (20:43)
[2017-10-31 00:07] VITALS: BP 175/74
[2017-10-31 04:03] VITALS: BP 174/73
[2017-10-31] MEDS: LEVOTHYROXINE 100 MCG (LEVOTHROID) TAB PO SCH (06:05)
[2017-10-31 08:00] VITALS: BP 187/79
[2017-10-31] MEDS: BISOPROLOL/HCTZ 10/6.25 MG (ZIAC) TAB PO SCH (08:00)
[2017-10-31] MEDS: FLUTICASONE NASAL SPRAY (FLONASE) 16 GM BTL NS SCH (08:00)
[2017-10-31] MEDS: FAMOTIDINE 20 MG (PEPCID) TABLET PO SCH (08:00)
--- NOTE | 2017-10-31 08:39 | Discharge Summary ---
Diagnosis/Chief Complaint Date of Admission Oct 26, 2017 at 21:16 Date of Discharge Discharge Date: Oct 31, 2017 Discharge Time: 08:30 Admission Diagnosis Admission Diagnosis RHABDOMYOLYSIS - ACUTE FALL AT HOME UTI CHRONIC KNEE PAIN DUE TO OSTEOARTHRITIS GENERALIZED WEAKNESS HYPERTENSION SEASONAL ALLERGIES HYPOTHYROIDISM VAGINAL BLEEDING Discharge Diagnosis RHABDOMYOLYSIS - ACUTE FALL AT HOME UTI CHRONIC KNEE PAIN DUE TO OSTEOARTHRITIS GENERALIZED WEAKNESS HYPERTENSION SEASONAL ALLERGIES HYPOTHYROIDISM VAGINAL BLEEDING Reason Hospital Visit PT IS A 77 Y/O FEMALE WHO PRESENTED TO THE EMERGENCY DEPARTMENT AFTER HAVING FALLEN AT HOME AROUND 11PM - SHE REPORTS THAT SHE SLIPPED FROM HER BED, FELL TO THE FLOOR AND WAS NOT ABLE TO GET HERSELF UP OFF OF THE FLOOR. SHE DID NOT HAVE ON HER MEDIC-ALERT BUTTON AND COULD NOT GET TO HER PHONE. SHE REPORTS THAT A FRIEND CHECKED ON HER AROUND 6PM ON MONDAY EVENING AND CALLED AN AMBULANCE TO GET HER TO THE HOSPITAL. TRAVON WAS FOUND TO HAVE RHABDOMYOLYSIS AND A UTI AND WAS THUS ADMITTED TO THE HOSPITAL FOR FURTHER MONITORING/TREATMENT/PLANNED THERAPY. Discharge Summary Discharge Physical Examination Allergies: Coded Allergies: codeine (Unverified Adverse Reaction, Mild, "FEEL FUNNY", 05/28/09) meperidine (Unverified Adverse Reaction, Mild, VOMITING, 05/28/09) morphine (Unverified Adverse Reaction, Mild, VOMITING, 05/28/09) Vitals & I&Os Vital Signs Date Time Temp Pulse Resp B/P (MAP) Pulse Ox O2 Delivery O2 Flow Rate FiO2 10/31/17 08:00 Room Air 10/31/17 08:00 97.7 69 20 187/79 (115) 92 General Appearance: Alert, Oriented X3, Cooperative HEENT: Atraumatic, PERRLA Respiratory: Clear to Auscultation Cardiovascular: Regular Rate Abdominal: Normal Bowel Sounds, Soft, Other (vaginal bleeding) Extremities: No Clubbing, Other (edema lower legs) Skin: Other (skin lesion on right elbow - yeast infection below right and left breast in groin as well) Neuro: Other (wide based gait) Psych/Mental Status: Mental Status NL, Mood NL Hospital Course RHABDOMYOLYSIS - ACUTE FALL AT HOME UTI CHRONIC KNEE PAIN DUE TO OSTEOARTHRITIS GENERALIZED WEAKNESS HYPERTENSION SEASONAL ALLERGIES HYPOTHYROIDISM VAGINAL BLEEDING RHABDOMYOLYSIS - ACUTE DUE TO FALL AT HOME AND LYING ON THE FLOOR FOR OVER 20 HOURS UNABLE TO GET UP TO HELP HERSELF. IMPROVED SYMPTOMS - CONTINUE WITH SUPPORTIVE CARE - DISCUSSED WITH PT - WILL NEED INPT REHAB VERSUS SENIOR LIVING FOR STRENGTHENING. FALL AT HOME DUE TO CHRONIC KNEE PAIN DUE TO OSTEOARTHRITIS AND GENERALIZED WEAKNESS - I HAVE RECOMMENDED THERAPY WITH IRF EVAL. SHE WILL LIKELY NEED IRF FOR A WEEK TO 10 DAYS SHE LIVES AT HOME ALONE AND NEEDS TO HAVE IMPROVED FUNCTION PRIOR TO RETURN TO HOME. UTI - ON MACROBID HYPERTENSION - RESUMED HOME MEDICATION. SEASONAL ALLERGIES - RX FOR FLONASE HYPOTHYROIDISM - RESUMED HOME MEDICATION VAGINAL BLEEDING - CHECKED TRANSVAGINAL ULTRASOUND - STOPPED LOVENOX. - CONSULT TO DR. HO WHEN PT IS ON INPATIENT REHAB GI PROPHYLAXIS WITH PEPCID AND DVT PROPHYLAXIS WITH LOVENOX Discharge Condition at discharge improved Instructions to patient/family Please see electronic discharge instructions given to patient. Discharge Medications Reviewed and agree with Discharge Medication list on patient's Discharge Instruction sheet Clinical Quality Measures DVT/VTE Risk/Contraindication: Risk Factor Score Per Nursin RFS Level Per Nursing on Admit: 4+=Very High KATHLEEN RODRIGES MD Oct 31, 2017 08:39
--- NOTE | 2017-10-31 08:40 | Discharge Summary ---
Diagnosis/Chief Complaint Date of Admission Oct 26, 2017 at 21:16 Date of Discharge Discharge Diagnosis SEE OTHER DC SUMMARY - THIS IS A DUPLICATE NOTE Reason Hospital Visit PT IS A 77 Y/O FEMALE WHO PRESENTED TO THE EMERGENCY DEPARTMENT AFTER HAVING FALLEN AT HOME AROUND 11PM - SHE REPORTS THAT SHE SLIPPED FROM HER BED, FELL TO THE FLOOR AND WAS NOT ABLE TO GET HERSELF UP OFF OF THE FLOOR. SHE DID NOT HAVE ON HER MEDIC-ALERT BUTTON AND COULD NOT GET TO HER PHONE. SHE REPORTS THAT A FRIEND CHECKED ON HER AROUND 6PM ON MONDAY EVENING AND CALLED AN AMBULANCE TO GET HER TO THE HOSPITAL. TRAVON WAS FOUND TO HAVE RHABDOMYOLYSIS AND A UTI AND WAS THUS ADMITTED TO THE HOSPITAL FOR FURTHER MONITORING/TREATMENT/PLANNED THERAPY. Discharge Summary Discharge Physical Examination Allergies: Coded Allergies: codeine (Unverified Adverse Reaction, Mild, "FEEL FUNNY", 05/28/09) meperidine (Unverified Adverse Reaction, Mild, VOMITING, 05/28/09) morphine (Unverified Adverse Reaction, Mild, VOMITING, 05/28/09) Vitals & I&Os Vital Signs Date Time Temp Pulse Resp B/P (MAP) Pulse Ox O2 Delivery O2 Flow Rate FiO2 10/31/17 08:00 Room Air 10/31/17 08:00 97.7 69 20 187/79 (284) 92 Hospital Course DUPLICATE NOTE - SEE FIRST DC SUMMARY Discharge Instructions to patient/family Please see electronic discharge instructions given to patient. Discharge Medications Reviewed and agree with Discharge Medication list on patient's Discharge Instruction sheet Clinical Quality Measures DVT/VTE Risk/Contraindication: Risk Factor Score Per Nursin RFS Level Per Nursing on Admit: 4+=Very High KATHLEEN RODRIGES MD Oct 31, 2017 08:40
[2017-10-31] MEDS ORDERED: AMLO5TAB2 PO (08:43)
[2017-10-31] MEDS ORDERED: IRBE150T26 PO (08:43)
[2017-10-31] MEDS ORDERED: ACET-77 PO (08:43)
[2017-10-31] MEDS ORDERED: FAMO20TA5 PO (08:43)
[2017-10-31] MEDS ORDERED: CEPH250C PO (08:43)
[2017-10-31] MEDS ORDERED: CEPHALEXIN 250 MG (KEFLEX) CAP PO SCH (09:00)
[2017-10-31] MEDS ORDERED: IRBESARTAN 150 MG (AVAPRO) TAB PO SCH (09:00)
[2017-10-31] MEDS ORDERED: IRBE75TA10 PO (11:11)
== END 2017-10-31 10:00 | DRG 565 ==
LOC: EDUNIT# 19:05 → ER 19:07 → 4TH 21:16 → EDPENDDISTM 10-31 08:30
PROVIDERS: ADMIT Family Medicine; ATTEND Family Medicine
DX: T79.6XXA Traumatic ischemia of muscle, initial encounter (principal); N39.0 Urinary tract infection, site not specified; B96.20 Unspecified Escherichia coli [E. coli] as the cause of diseases classified elsewhere; R53.1 Weakness; R60.0 Localized edema; N28.9 Disorder of kidney and ureter, unspecified; R21 Rash and other nonspecific skin eruption; N95.0 Postmenopausal bleeding; Z66 Do not resuscitate; I10 Essential (primary) hypertension; M17.0 Bilateral primary osteoarthritis of knee; E03.9 Hypothyroidism, unspecified; R32 Unspecified urinary incontinence; N32.81 Overactive bladder; J30.2 Other seasonal allergic rhinitis; W06.XXXA Fall from bed, initial encounter; Y92.003 Bedroom of unspecified non-institutional (private) residence as the place of occurrence of the external cause
CPT/HCPCS: 36415; 51702; 71045; 72170; 76830; 76856; 80048; 80053; 81000; 82550; 83735; 84439; 84443; 85007; 85025; 85027; 87077; 87088; 87186; 96361; 96365

== ENCOUNTER 2017-10-31 09:40 | Inpatient (IN) | payer MEDICARE ==
[~2017-10-31] VITALS: Ht 175.3 cm; Wt 105.7 kg
[~2017-10-31 09:40] MED LIST changes: +ACET-77 PO; +AMLO5TAB2 PO; +CEPH250C PO; +CHOL10007 PO; +FAMO20TA5 PO; +IRBE150T26 PO; +IRBE75TA10 PO; +LEVO100T7 PO; +MELO15TA39 PO; +MULT1TAB69 PO; +TOLT4CAP13 PO
[2017-10-31] MEDS ORDERED: ONDANSETRON 4 MG (ZOFRAN) ORAL DISSOLVE TAB PO PRN (10:15)
[2017-10-31 10:17] VITALS: BP 147/69
[2017-10-31] MEDS ORDERED: IRBE75TA10 PO (11:11)
--- NOTE | 2017-10-31 12:08 | Physical Therapy Evaluation ---
PT Evaluation-General Medical Diagnosis Admission Date Oct 31, 2017 at 09:50 Medical Diagnosis: UTI/rhabdomyelsis Onset Date: Oct 25, 2017 Therapy Diagnosis Therapy Diagnosis: generalized weakness/debility Height/Weight Height (Feet): 5 Height (Inches): 9.00 Weight (Pounds): 241 Weight (Ounces): 0.0 Precautions Precautions/Isolations: Fall Prevention, Standard Precautions Weight Bear Status Right Lower Extremity: Right Weight Bearing/Tolerated Left Lower Extremity: Left Weight Bearing/Tolerated Referral Physician: Rosas Reason for Referral: Evaluation/Treatment Medical History Pertinent Medical History: Arthritis, HTN, Hypothroidism Additional Medical History fall at home and was on floor for several hours Current History transfer to ARU for continued care Reviewed History: Yes Social History Home: Single Level Current Living Status: Alone Entry Into Home: Stairs With Railing PT Steps Into Home: 5 Prior/Core FIM Prior Level of Function Functional [place] Measure 0=Not Assessed/NA 4=Minimal Assistance 1=Total Assistance 5=Supervision or Setup 2=Maximal Assistance 6=Modified [place] 3=Moderate Assistance 7=Complete [place] Bed Mobility: 6 Transfers (B,C,W/C) (FIM): 6 Gait: 6 FWW or cane PT Evaluation-Current Subjective Patient agrees to PT. Pain Numeric Pain Scale: 5-Moderate Pain Location: Left Location Body Site: Thigh Pain Description: Ache Pt/Family Goals return to home or AL Objective Patient Orientation: Normal For Age Problem Solving: Fair ROM/Strength ROM Lower Extremities bilateral LE limited due to edema Strenght Lower Extremities right knee flexion/extension 3/5; hip flexion 3/5; DF/PF 3/5 left knee flexion/extension 3/5; hip flexion 3/5; DF/PF 3/5 Integumentary/Posture Integumentary refer to nursing notes Bowel Incontinence: No Bladder Incontinence: No Posture kyphotic Neuromuscular (Tone, Coordination, Reflexes) diminished coordination due to inactivity and weakness Sensory Vision: Functional Hearing: Functional Sensation Right Lower Extremit: Intact Sensation Left Lower Extremity: Intact Transfers Functional [place] Measure 0=Not Assessed/NA 4=Minimal Assistance 1=Total Assistance 5=Supervision or Setup 2=Maximal Assistance 6=Modified [place] 3=Moderate Assistance 7=Complete IndependenceIRFPAI Quality Coding Scale 6 Independent with activity with or without an assistive device 5 Patient requires set up or clean up by helper. Patient completes activity by themselves 4 Supervision or touching assist (CGA). [place] provide cues , steadying assist 3 The helper provides less than half the effort to complete the activity 2 The helper provides more than half the effort to complete the activity 1 Dependent. The helper does all the effort to complete an activity 7 Patient refused to complete or attempt activity 9 The patient did not perform the activity before the current illness or injury 88 Not attempted due to Medical conditions or safety concerns Transfers (B, C, W/C) (FIM): 3 Scootin Rollin Roll Left to Right (QC): 3 Supine to/from Sit: 3 Sit to/from Stand: 3 Sit to Lying (QC): 3 Lying to Sitting/Side of Bed(Q: 3 Sit to Stand (QC): 3 Chair/[id number]-[id number] Xfer(QC): 3 Car Transfer (QC): 3 patient is retropulsive with sit to stand Gait Does the Patient Walk?: Yes Mode of Locomotion: Walk Anticipated Mode of Locomotion: Walk Gait (FIM): 4 Distance (FIM): 3=150 ft Walk 10 feet (QC): 4 Walk 50 ft with 2 Turns(QC): 4 Walk 150 ft (QC): 4 Walking 10ft/uneven surface-QC: 4 Distance: 250' x 4 Gait Level of Assist: 4 Gait Persons Needed: 1 Gait Assistive Device: FWW Comments/Gait Description slow, shuffle gait sequence with minimal foot clearance Stairs Stairs (FIM): 1 #of Steps: 1 Level of Assist: 3 1 Step (curb) (QC): 3 4 Steps (QC): 88 Assistive Device: Walker 12 Steps (QC): 9 Balance Sitting Static: Normal Sitting Dynamic: Normal Standing Static: Fair Standing Dynamic: Fair Picking up an Object (QC): 3 Assessment/Needs 77 y.o. female, will benefit from skilled PT to address functional strength and mobility to improve current LOF and to safely return to home or AL at maximum LOF. Rehab Potential: Good PT Supervisor Claims Goals Correction Goals PT Correction Goals Time Frame: Nov 24, 2017 Transfers (B,C,W/C) (FIM): 6 Sit to Lying (QC): 6 Lying-Sitting on Side/Bed(QC): 6 Sit to Stand (QC): 6 Rollin Roll Left to Right (QC): 6 Chair/Cnr-ms-Ocfsw Xfer(QC): 6 Car Transfer (QC): 6 Does the Patient Walk: Yes Gait (FIM): 6 Gait distance (FIM): 3=150 ft Distance: 250' Walk 10 feet (QC): 6 Walk 10ft-Uneven Surface(QC): 6 Walk 50ft with 2 Turns (QC): 6 Walk 150 ft (QC): 6 Gait Level of Assist: 6 Gait Assistive Device: FWW Stairs (FIM): 5 # of Steps: 5 1 Step (curb) (QC): 5 4 Steps (QC): 5 12 Steps (QC): 9 Stairs Level Of Assist: 5 Picking up an Object (QC): 5 PT Plan Problem List Problem List: Activity Tolerance, Functional Strength, Safety, Balance, Gait, Transfer, Bed Mobility, ROM Treatment/Plan Treatment Plan: Continue Plan of Care Treatment Plan: Bed Mobility, Education, Functional Activity Luci, Functional Strength, Group Therapy, Gait, Safety, Therapeutic Exercise, Transfers Treatment Duration: Nov 24, 2017 Frequency: At least 5 of 7 days/Wk (IRF) Estimated Hrs Per Day: 1.5 hours per day Patient and/or Family Agrees t: Yes Safety Risks/Education Patient Education: Safety Issues Teaching Recipient: Patient Teaching Methods: Demonstration, Discussion Response to Teaching: Verbalize Understanding, Return Demonstration Discharge Recommendations Therapy D/C Recommendations: Assisted Living, Home Independently, Physical Therapy Home Care Time/GCodes Time In: 950 Time Out: 1050 Total Billed Treatment Time: 60 Total Billed Treatment 1 visit EVHighC 40 min EX 20 min SUSHANT SANCHEZ PT Oct 31, 2017 12:08
--- OUTSIDE RECORDS SUMMARY | 2017-10-31 12:22 | XMS REPORT | Continuity of Care Document ---
Author Author [facility] Organization [facility] Address Unknown Phone Unavailable Allergies Active Description Code Type Severity Reaction Onset Reported/Identified Relationship to Patient Clinical Status Yes codeine [id number] Drug Allergy Mild "FEEL FUNNY" 05/28/2009 Yes meperidine [id number] Drug Allergy Mild VOMITING 05/28/2009 Yes morphine [id number] Drug Allergy Mild VOMITING 05/28/2009 Medications There is no data. Problems Date Dx Coded Attending Type Code Diagnosis Diagnosed By 07/09/2013 NAALISA MORRISSEY, FELISA Ross Ot 562.10 DIVERTICULOSIS COLON [...] ENCNTR SCREEN MAMMOGRAM FOR MALIGNANT NE 12/22/2015 ANTEMLO MORRISSEY, KATHLEEN A Ot Z12.31 ENCNTR SCREEN MAMMOGRAM FOR MALIGNANT NE 01/02/2017 ANTELMO MORRISSEY, KATHLEEN A Ot Z12.31 ENCNTR SCREEN MAMMOGRAM FOR MALIGNANT NE 01/02/2017 ANTELMO MORRISSEY, KATHLEEN Vanessa Ot Z12.31 ENCNTR SCREEN MAMMOGRAM FOR MALIGNANT NE 01/04/2017 KATHLEEN RODRIGES MD A Ot Z12.31 ENCNTR SCREEN MAMMOGRAM FOR MALIGNANT NE 01/25/2017 KATHLEEN RODRIGES MD Ot Z12.31 ENCNTR SCREEN MAMMOGRAM FOR MALIGNANT NE 05/10/2017 ANTELMO MORRISSEY, KATHLEEN Mednez Ot M17.11 UNILATERAL PRIMARY OSTEOARTHRITIS, RIGHT 05/25/2017 [...] urine sediment by light microscopy 2-5 NRG Bacterial urine culture - 10/26/17 19:34 Bacterial urine culture [id number] NRG COLONY COUNT <10,000 NRG FTX;REPORTABLE SENSITIVITY REPORTED AT 0805, 10-29-17 [facility] URINE CULTURE RESULTS PLUS [facility] Bacterial susceptibility panel - 10/26/17 19:34 Gentamicin susceptibility test by minimum inhibitory concentration < = NRG Trimethoprim/sulfamethoxazole susceptibility test by minimum inhibitoryconcentration S NRG Ampicillin susceptibility test by minimum inhibitory concentration < = NRG Tobramycin susceptibility test by minimum inhibitory concentration < = NRG Cefazolin susceptibility test by minimum inhibitory concentration < = NRG Ceftriaxone susceptibility test by minimum inhibitory concentration <= NRG Ampicillin/sulbactam susceptibility test by minimum inhibitory concentration <= NRG Piperacillin/tazobactam susceptibility test by minimum inhibitory concentration S NRG Ciprofloxacin susceptibility test by minimum inhibitory concentration <= NRG Meropenem susceptibility test by minimum inhibitory concentration < = NRG Nitrofurantoin susceptibility test by minimum inhibitory concentration <= NRG Aztreonam susceptibility test by minimum inhibitory concentration < = NRG Extended spectrum beta lactamase (ESBL) producing bacteria susceptibility test by minimum inhibitory concentration - [facility] Bacterial susceptibility panel - 10/26/17 19:34 Gentamicin susceptibility test by minimum inhibitory concentration < = NRG Trimethoprim/sulfamethoxazole susceptibility test by minimum inhibitoryconcentration S NRG Ampicillin susceptibility test by minimum inhibitory concentration < = NRG Tobramycin susceptibility test by minimum inhibitory concentration < = NRG Cefazolin susceptibility test by minimum inhibitory concentration < = NRG Ceftriaxone susceptibility test by minimum inhibitory concentration <= NRG Ampicillin/sulbactam susceptibility test by minimum inhibitory concentration <= NRG Piperacillin/tazobactam susceptibility test by minimum inhibitory concentration S NRG Ciprofloxacin susceptibility test by minimum inhibitory concentration <= NRG Meropenem susceptibility test by minimum inhibitory concentration 0.5 NRG Nitrofurantoin susceptibility test by minimum inhibitory concentration 128 NRG Aztreonam susceptibility test by minimum inhibitory concentration < = NRG Complete blood count (CBC) with automated [...] (T4) free measurement (mass/volume) 1.52 ng/dL 0.70-1.48 Complete blood count (CBC) with automated white blood cell (WBC) differential - 10/27/17 06:12 Blood leukocytes automated count (number/volume) 6.0 10*3/uL 4.3-11.0 Blood erythrocytes automated count (number/volume) 4.50 10*6/uL 4.35-5.85 Venous blood hemoglobin measurement (mass/volume) 13.5 g/dL 11.5-16.0 Blood hematocrit (volume fraction) 40 % 35-52 Automated erythrocyte mean corpuscular volume 88 [foz_us] 80-99 Automated erythrocyte mean corpuscular hemoglobin (mass per erythrocyte) 30 pg 25-34 Automated erythrocyte mean corpuscular hemoglobin concentration measurement ( mass/volume) 34 g/dL 32-36 Automated erythrocyte distribution width ratio 13.4 % 10.0-14.5 Automated blood platelet count (count/volume) 122 10*3/uL 130-400 Automated blood platelet mean volume measurement 9.6 [foz_us] 7.4-10.4 Automated blood neutrophils/100 leukocytes 77 % 42-75 Automated blood lymphocytes/100 leukocytes 14 % 12-44 Blood monocytes/100 leukocytes 8 % 0-12 Automated blood eosinophils/100 leukocytes 1 % 0-10 Automated blood basophils/100 leukocytes 0 % 0-10 Blood neutrophils automated count (number/volume) 4.6 10*3 1.8-7.8 Blood lymphocytes automated count (number/volume) 0.9 10*3 1.0-4.0 Blood monocytes automated count (number/volume) 0.5 10*3 0.0-1.0 Automated eosinophil count 0.0 10*3/uL 0.0-0.3 Automated blood basophil count (count/volume) 0.0 10*3/uL 0.0-0.1 Whole blood basic metabolic panel - 10/27/17 06:12 Serum or plasma sodium measurement (moles/volume) 138 mmol/L 135-145 Serum or plasma potassium measurement (moles/volume) 3.7 mmol/L 3.6-5.0 Serum or plasma chloride measurement (moles/volume) 105 mmol/L 98-107 Carbon dioxide 18 mmol/L 21-32 Serum or plasma anion gap determination (moles/volume) 15 mmol/L 5-14 Serum or plasma urea nitrogen measurement (mass/volume) 18 mg/dL 7-18 Serum or plasma creatinine measurement (mass/volume) 0.80 mg/dL 0.60-1.30 Serum or plasma urea nitrogen/creatinine mass ratio 23 NRG Serum or plasma creatinine measurement with calculation of estimated glomerular filtration rate > NRG Serum or plasma glucose measurement (mass/volume) 81 mg/dL 70-105 Serum or plasma calcium measurement (mass/volume) 8.4 mg/dL 8.5-10.1 Serum or plasma creatine kinase measurement (enzymatic activity/volume) - 10/27 06:12 Serum or plasma creatine kinase measurement (enzymatic activity/volume) 1353 U/L 29-168 Automated blood complete blood count (hemogram) panel - 10/28/17 04:30 Blood leukocytes automated count (number/volume) 3.8 10*3/uL 4.3-11.0 Blood erythrocytes automated count (number/volume) 4.25 10*6/uL 4.35-5.85 Venous blood hemoglobin measurement (mass/volume) 12.5 g/dL 11.5-16.0 Blood hematocrit (volume fraction) 38 % 35-52 Automated erythrocyte mean corpuscular volume 88 [foz_us] 80-99 Automated erythrocyte mean corpuscular hemoglobin (mass per erythrocyte) 29 pg 25-34 Automated erythrocyte mean corpuscular hemoglobin concentration measurement ( mass/volume) 33 g/dL 32-36 Automated erythrocyte distribution width ratio 13.4 % 10.0-14.5 Automated blood platelet count (count/volume) 119 10*3/uL 130-400 Automated blood platelet mean volume measurement 9.8 [foz_us] 7.4-10.4 Comprehensive metabolic panel - 10/28/17 04:30 Serum or plasma sodium measurement (moles/volume) 138 mmol/L 135-145 Serum or plasma potassium measurement (moles/volume) 3.6 mmol/L 3.6-5.0 Serum or plasma chloride measurement (moles/volume) 110 mmol/L 98-107 Carbon dioxide 19 mmol/L 21-32 Serum or plasma anion gap determination (moles/volume) 9 mmol/L 5-14 Serum or plasma urea nitrogen measurement (mass/volume) 19 mg/dL 7-18 Serum or plasma creatinine measurement (mass/volume) 0.83 mg/dL 0.60-1.30 Serum or plasma urea nitrogen/creatinine mass ratio 23 NRG Serum or plasma creatinine measurement with calculation of estimated glomerular filtration rate > NRG Serum or plasma glucose measurement (mass/volume) 94 mg/dL 70-105 Serum or plasma calcium measurement (mass/volume) 7.9 mg/dL 8.5-10.1 Serum or plasma total bilirubin measurement (mass/volume) 0.3 mg/dL 0.1-1.0 Serum or plasma alkaline phosphatase measurement (enzymatic activity/volume) 57 U/L 40-136 Serum or plasma aspartate aminotransferase measurement (enzymatic activity/ volume) 78 U/L 5-34 Serum or plasma alanine aminotransferase measurement (enzymatic activity/volume ) 31 U/L 0-55 Serum or plasma protein measurement (mass/volume) 5.2 g/dL 6.4-8.2 Serum or plasma albumin measurement (mass/volume) 3.2 g/dL 3.2-4.5 Serum or plasma creatine kinase measurement (enzymatic activity/volume) - 10/28 04:30 Serum or plasma creatine kinase measurement (enzymatic activity/volume) 1024 U/L 29-168 Automated blood complete blood count (hemogram) panel - 10/29/17 04:35 Blood leukocytes automated count (number/volume) 3.7 10*3/uL 4.3-11.0 Blood erythrocytes automated count (number/volume) 4.40 10*6/uL 4.35-5.85 Venous blood hemoglobin measurement (mass/volume) 13.2 g/dL 11.5-16.0 Blood hematocrit (volume fraction) 37 % 35-52 Automated erythrocyte mean corpuscular volume 84 [foz_us] 80-99 Automated erythrocyte mean corpuscular hemoglobin (mass per erythrocyte) 30 pg 25-34 Automated erythrocyte mean corpuscular hemoglobin concentration measurement ( mass/volume) 36 g/dL 32-36 Automated erythrocyte distribution width ratio 13.1 % 10.0-14.5 Automated blood platelet count (count/volume) 106 10*3/uL 130-400 Automated blood platelet mean volume measurement 9.3 [foz_us] 7.4-10.4 Comprehensive metabolic panel - 10/29/17 04:35 Serum or plasma sodium measurement (moles/volume) 137 mmol/L 135-145 Serum or plasma potassium measurement (moles/volume) 3.5 mmol/L 3.6-5.0 Serum or plasma chloride measurement (moles/volume) 107 mmol/L 98-107 Carbon dioxide 19 mmol/L 21-32 Serum or plasma anion gap determination (moles/volume) 11 mmol/L 5-14 Serum or plasma urea nitrogen measurement (mass/volume) 14 mg/dL 7-18 Serum or plasma creatinine measurement (mass/volume) 0.82 mg/dL 0.60-1.30 Serum or plasma urea nitrogen/creatinine mass ratio 17 NRG Serum or plasma creatinine measurement with calculation of estimated glomerular filtration rate > NRG Serum or plasma glucose measurement (mass/volume) 104 mg/dL 70-105 Serum or plasma calcium measurement (mass/volume) 8.5 mg/dL 8.5-10.1 Serum or plasma total bilirubin measurement (mass/volume) 0.5 mg/dL 0.1-1.0 Serum or plasma alkaline phosphatase measurement (enzymatic activity/volume) 65 U/L 40-136 Serum or plasma aspartate aminotransferase measurement (enzymatic activity/ volume) 85 U/L 5-34 Serum or plasma alanine aminotransferase measurement (enzymatic activity/volume ) 34 U/L 0-55 Serum or plasma protein measurement (mass/volume) 5.6 g/dL 6.4-8.2 Serum or plasma albumin measurement (mass/volume) 3.3 g/dL 3.2-4.5 Serum or plasma creatine kinase measurement (enzymatic activity/volume) - 10/29 04:35 Serum or plasma creatine kinase measurement (enzymatic activity/volume) 754 U/L 29-168 Encounters ACCT No. Visit Date/Time Discharge Status Pt. Type Provider Facility Loc./Unit Complaint [id number] 05/03/2017 08:27:00 05/03/2017 23:59:59 CLS Outpatient KATHLEEN RODRIGES MD [facility] RAD M17.0 [id number] 01/02/2017 10:15:00 01/02/2017 23:59:59 CLS Outpatient KATHLEEN RODRIGES MD [facility] RAD SCREENING [id number] 12/02/2015 08:30:00 12/02/2015 23:59:59 CLS Outpatient KATHLEEN RODRIGES MD [facility] RAD [id number] 07/08/2015 14:25:00 07/08/2015 23:59:59 CLS Outpatient ALICIA THOMAS APRN [facility] QUICK [id number] 12/25/2014 08:09:00 12/25/2014 23:59:59 CLS Outpatient KATHLEEN RODRIGES MD [facility] RAD [id number] 07/07/2014 09:41:00 07/07/2014 23:59:59 CLS Outpatient MARLIN MARKS MD [facility] RAD [id number] 07/09/2013 07:29:00 07/09/2013 10:12:00 DIS Outpatient FELISA HAUSER MD [facility] [id number] 07/04/2013 09:05:00 07/04/2013 23:59:59 CLS Outpatient SELINA MORRISSEY MARLIN Collier [facility] RAD [id number] 07/04/2013 07:10:00 07/04/2013 23:59:59 CLS Outpatient FELISA HAUSER MD [facility] PREOP [id number] 10/26/2017 21:16:00 ACT Inpatient KATHLEEN RODRIGES MD [facility] 4TH FALL;UTI;WEAKNESS;RHABDOMYOLYSIS [id number] 07/03/2012 08:41:00 Document Registration [id number] 06/23/2011 09:22:00 Document Registration [id number] 06/21/2010 09:14:00 Document Registration [id number] 12/25/2014 08:10:41 ACT Document Registration [id number] 06/27/2017 09:07:58 06/27/2017 23:59:59 CLS Outpatient
--- NOTE | 2017-10-31 13:02 | ST Cognitive Linguistic Eval ---
Speech Evaluation-General Medical Diagnosis UTI/rhabdomyelsis Onset Date: Oct 25, 2017 Therapy Diagnosis Therapy Diagnosis: Cognitive Linguistic Skills WNL Precautions Precautions/Isolations: Fall Prevention, Standard Precautions Referral Referring Physician: Dr. Wesley Pillai Reason for Referral: Evaluation/Treatment Cognitive Evaluation Medical History Pertinent Medical History: Arthritis, HTN, Hypothroidism Current History The patient was admitted to [facility] following a fall. Upon admission, the patient was found to have a UTI. Reviewed History: Yes Social History Current Living Status: Alone Speech PLF-Current Status Prior Level of Function The patient denied any prior challenges with speech, language, or cognition. Subjective The patient was sitting upright in recliner upon entrance. The patient's daughter was present at bedside. The patient greeted the clinician and was agreeable to participation in the cognitive evaluation. To note, the patient's daughter stated, "The patient was a little loopy when she first got here but is doing much better now." The patient and daughter were asked by the clinician if they felt the confusion caused by the UTI had lifted and, if not, what areas were they noting difficulty. Per patient and daughter, they both believe the patient's cognition has returned to baseline. Language Eval: Auditory Comprehends Simple Yes/No Ques: Functional Indent/Objects Multiple [place]: Functional Ident/Pics in [place]: Functional Follows 1-Step Commands: Functional Follows Complex Directions: Functional Follows General Conversations: Functional Language Eval: Verbal Language Completes Spontaneous Greeting: Functional Produces Auto, Serial Info: Functional Imitates Simple Words/Phrases: Functional Word Finding: Functional Requests Basic Needs: Functional States Basic Personal Info: Functional Expresses Complex Ideas: Functional Cognitive Patient Orientation The patient was independently oriented to self, location, rationale for rehabilitation, month, day of week, date, and year. Objective Cognitive Domain Attention: WNL Memory: WNL Problem Solving: Functional Objective Impression The patient displayed cognitive linguistic skills appropriate for completion of ADL's. Additionally, the patient and the patient's daughter believe the patient' s cognition has returned to baseline from the confusion she was experiencing throughout her UTI diagnosis. The patient and daughter were encouraged to contact the clinician or staff if additional concerns arise in the future. Communication/Social Cognition Comprehension: 5 Expression: 6 Social Interaction: 6 Problem Solvin Memory: 5 Speech Patient Assess Expression of Ideas/Wants: Expression (4) Understanding [place] Content: Usually Understands (3) Brief Interview-Mental Status: Yes Repetition of Three Words: Three (3) Temporal Orientation: Year: Correct (3) Temporal Orientation: Month: Accurate within 5 days(2) Temporal Orientation: Day: Correct (1) Recall : Wear to say "Sock": Yes, no cue required (2) Recall : Color: Yes, no cue required (2) Recall : Bed: Yes,after cueing (1) Speech-Plan Treatment Plan Speech Therapy Treatment Plan: Discontinue ST Evaluation, only. Frequency: Modified Program (IRF) Estimated Hrs Per Day: Other Rehab Potential: Good Safety Risks/Education Teaching Recipient: Patient, Family Teaching Methods: Discussion Response to Teaching: Verbalize Understanding Education Topics Provided: Results, Recommendations, Plan of Care Time Speech Therapy Time In: 10:50 Speech Therapy Time Out: 11:05 Total Billed Time: 15 Billed Treatment Time 1, SREE CRAWFORD Oct 31, 2017 13:02
--- NOTE | 2017-10-31 13:18 | Occupational Therapy Eval ---
OT Evaluation-General/PLF Medical Diagnosis Admission Date Oct 31, 2017 at 09:50 Medical Diagnosis: UTI/rhabdomyelsis Onset Date: Oct 25, 2017 Therapy Diagnosis Therapy Diagnosis: decreased self care skills Height/Weight Height (Feet): 5 Height (Inches): 9.00 Weight (Pounds): 241 Weight (Ounces): 0.0 Precautions Precautions/Isolations: Fall Prevention, Standard Precautions Referral Physician: Rosas Medical History Pertinent Medical History: Arthritis, HTN, Hypothroidism Current History Pt fell at home and was on floor several hours Reviewed History: Yes Social History Home: Single Level Current Living Status: Alone Entry Into Home: Stairs With Railing Steps Into Home: 5 Pt and daughter state plan is for pt to move to [place] in February where she will live in an independent living apartment and will close to daughter. Would like pt to return home prior to move. ADL-Prior Level of Function ADL PLOF Comments Pt reports being independent with self care and mobility. Has FWW. Pt has someone who cleans the house twice a month. DME/Equipment: Bath Chair (doesn't currently use.), Grab Bars, Shower, Tall Toilet Drive Self: Yes OT Current Status Subjective Pt sitting in chair, agrees to therapy. Pt has no c/o pain. Mental Status/Objective Patient Orientation: Person, Place Current Glasses/Contacts: Yes Hearing Aids: No Dentures/Partials: No Hand Dominance: Right Upper Extremity ROM Decreased ROM right shoulder. Pt states this is secondary to prior injury. Remainder is grossly functional Upper Extremity Coordination Fair Upper Extremity Sensation Intact per pt report. Upper Extremity Strength grossly 4-/5 ADL-Treatment ADL-Current Pt agreeable to shower this morning. Sit to stand from recliner with moderate assistance and cues for technique. Gait to restroom with FWW, slow pace. Pt demonstrated ability to perform transfer to raised BSC with minimal assistance. Transfer to shower chair in walk in shower with minimal assistance using grab bars. Pt does require moderate assistance to stand from shower chair when transferring out of shower. Pt able to wash upper body and upper legs with set up, but requires assist for other areas. Don front fasten bra with minimal assistance to pull around back. Don pullover shirt with SBA. Pt states she uses a wireworker at home for LE dressing. Pt able to place right LE into pant leg with wireworker, but requires assist for left LE. Pt requires minimal assistance to pull pants up in back. Pt requires assist to don socks and shoes. Increased time required for ADL tasks. Pt sitting in recliner chair with needs met after session. Functional [place] Measure 0=Not Assessed/NA 4=Minimal Assistance 1=Total Assistance 5=Supervision or Setup 2=Maximal Assistance 6=Modified [place] 3=Moderate Assistance 7=Complete IndependenceIRFPAI Quality Coding Scale 6 Independent with activity with or without an assistive device 5 Patient requires set up or clean up by helper. Patient completes activity by themselves 4 Supervision or touching assist (CGA). [place] provide cues , steadying assist 3 The helper provides less than half the effort to complete the activity 2 The helper provides more than half the effort to complete the activity 1 Dependent. The helper does all the effort to complete an activity 7 Patient refused to complete or attempt activity 9 The patient did not perform the activity before the current illness or injury 88 Not attempted due to Medical conditions or safety concerns Bathing (FIM): 3 Shower/Bathe Self (QC): 3 Upper Body Dressing (FIM): 4 Upper Body Dressing (QC): 3 Lower Body Dressing (FIM): 3 Lower Body Dressing (QC): 3 On/Off Footwear (QC): 1 Toilet/Commode Transfer (FIM): 4 Toilet Transfer (QC): 3 Shower Transfer (FIM): 3 Education OT Patient Education: Rehab process Teaching Recipient: Patient Teaching Methods: Discussion Response to Teaching: Verbalize Understanding, Reinforcement Needed OT Short Term Goals Short Term Goals Time Frame: Nov 07, 2017 Bathing(FIM): 4 Upper Body Dressing(FIM): 5 Lower Body Dressing(FIM): 4 Toilet/Commode Transfer(FIM): 4 (CGA) Shower Transfer(FIM): 4 Additional Short Term Goals: 2-Verbalize Understanding, 3-ImproveStrength/Luci 1=Demonstrate adherence to instructed precautions during ADL tasks. 2=Patient will verbalize/demonstrate understanding of assistive devices/ modifications for ADL. 3=Patient will improve strength/tolerance for activity to enable patient to perform ADL's. OT Organizational Effectiveness Director Goals Organizational Effectiveness Director Goals Time Frame: Nov 21, 2017 Eating (FIM): 6 Eating (QC): 6 Groomin Oral Hygiene (QC): 6 Bathing(FIM): 5 Shower/Bathe Self (QC): 5 Upper Body Dressing(FIM): 6 Upper Body Dressing (QC): 6 Lower Body Dressing(FIM): 6 Lower Body Dressing (QC): 6 On/Off Footwear (QC): 6 Toileting(FIM): 6 Toileting Hygiene (QC): 6 Toilet/Commode Transfer(FIM): 6 Toilet/Commode Transfer (QC): 6 Shower Transfer(FIM): 5 Additional Goals: 2-Verbalize Understanding, 3-ImproveStrength/Luci 1=Demonstrate adherence to instructed precautions during ADL tasks. 2=Patient will verbalize/demonstrate understanding of assistive devices/ modifications for ADL. 3=Patient will improve strength/tolerance for activity to enable patient to perform ADL's. Goals established to promote increased functional independence and allow safe discharge plan. OT Education/Plan Problem List/Assessment Assessment: Decreased Activ Tolerance, Decreased UE Strength, Dependent Transfers, Impaired Funct Balance, Impaired I ADL's, Impaired Self-Care Skills Pt demonstrates decreased strength, ADL functioning, mobility, and activity tolerance. Pt to benefit from skilled OT intervention for ADL training, transfers, strengthening, and safety education. Discharge Recommendations Plan/Recommendations: Continue POC Treatment Plan/Plan of Care Patient would benefit from OT for education, treatment and training to promote independence in ADL's, mobility, safety and/or upper extremity function for ADL' s. Plan of Care: ADL Retraining, Functional Mobility, Group Exercise/Act as Ind, UE Funct Exercise/Act Treatment Duration: Nov 21, 2017 Frequency: 5 times per week Estimated Hrs Per Day: 1.5 hours per day Rehab Potential: Good Time/GCodes Start Time: 11:05 Stop Time: 12:15 Total Time Billed (hr/min): 70 Billed Treatment Time 1 visit, EVM(15minutes), ADLx4(55minutes) VIDYA KRAMER OT Oct 31, 2017 13:18
[2017-10-31] MEDS: CEPHALEXIN 250 MG (KEFLEX) CAP PO SCH ×3 (13:34→21:16)
--- NOTE | 2017-10-31 14:15 | Occupational Ther Daily Note ---
OT Current Status-Daily Note Subjective Pt alert, sitting in recliner. Pt agreed to therapy. Pt c/o pain and stiffness with L LE. Decreased pain and stiffness as pt ambulated around room. Mental Status/Objective Patient Orientation: Person, Place, Time, Situation Functional [place] Measure 0=Not Assessed/NA 4=Minimal Assistance 1=Total Assistance 5=Supervision or Setup 2=Maximal Assistance 6=Modified [place] 3=Moderate Assistance 7=Complete [place] ADL-Treatment Functional [place] Measure 0=Not Assessed/NA 4=Minimal Assistance 1=Total Assistance 5=Supervision or Setup 2=Maximal Assistance 6=Modified [place] 3=Moderate Assistance 7=Complete IndependenceIRFPAI Quality Coding Scale 6 Independent with activity with or without an assistive device 5 Patient requires set up or clean up by helper. Patient completes activity by themselves 4 Supervision or touching assist (CGA). [place] provide cues , steadying assist 3 The helper provides less than half the effort to complete the activity 2 The helper provides more than half the effort to complete the activity 1 Dependent. The helper does all the effort to complete an activity 7 Patient refused to complete or attempt activity 9 The patient did not perform the activity before the current illness or injury 88 Not attempted due to Medical conditions or safety concerns Grooming (FIM): 4 (Pt required CGA standing at sink with FWW. Pt was able to complete grooming. Pt requested to sit down in front of sink long-term through session.) Oral Hygiene (QC): 4 OT Short Term Goals Short Term Goals Time Frame: Nov 07, 2017 Bathing(FIM): 4 Upper Body Dressing(FIM): 5 Lower Body Dressing(FIM): 4 Toilet/Commode Transfer(FIM): 4 (CGA) Shower Transfer(FIM): 4 Additional Short Term Goals: 2-Verbalize Understanding, 3-ImproveStrength/Luci 1=Demonstrate adherence to instructed precautions during ADL tasks. 2=Patient will verbalize/demonstrate understanding of assistive devices/ modifications for ADL. 3=Patient will improve strength/tolerance for activity to enable patient to perform ADL's. OT Depalletizer Operator Goals Depalletizer Operator Goals Time Frame: Nov 21, 2017 Eating (FIM): 6 Eating (QC): 6 Groomin Oral Hygiene (QC): 6 Bathing(FIM): 5 Shower/Bathe Self (QC): 5 Upper Body Dressing(FIM): 6 Upper Body Dressing (QC): 6 Lower Body Dressing(FIM): 6 Lower Body Dressing (QC): 6 On/Off Footwear (QC): 6 Toileting(FIM): 6 Toileting Hygiene (QC): 6 Toilet/Commode Transfer(FIM): 6 Toilet/Commode Transfer (QC): 6 Shower Transfer(FIM): 5 Additional Goals: 2-Verbalize Understanding, 3-ImproveStrength/Luci 1=Demonstrate adherence to instructed precautions during ADL tasks. 2=Patient will verbalize/demonstrate understanding of assistive devices/ modifications for ADL. 3=Patient will improve strength/tolerance for activity to enable patient to perform ADL's. OT Education/Plan Problem List/Assessment Pt demonstrates decreased strength, ADL functioning, mobility, and activity tolerance. Pt to benefit from skilled OT intervention for ADL training, transfers, strengthening, and safety education. Discharge Recommendations Plan/Recommendations: Continue POC Treatment Plan/Plan of Care Patient would benefit from OT for education, treatment and training to promote independence in ADL's, mobility, safety and/or upper extremity function for ADL' s. Treatment Duration: Nov 21, 2017 Frequency: At least 5 of 7 days/Wk (IRF) Estimated Hrs Per Day: 1.5 hours per day Rehab Potential: Good Time/GCodes Start Time: 13:40 Stop Time: 14:05 Total Time Billed (hr/min): 25 Billed Treatment Time 1 visit-ADL 2 (25 min) ARYAN NAJERA Oct 31, 2017 14:15
--- NOTE | 2017-10-31 14:49 | Physical Therapy Daily Note ---
PT Daily Note-Current Subjective Patient is up in recliner and agrees to PT. Pain Numeric Pain Scale: 5-Moderate Pain Location: Left Location Body Site: Thigh Pain Description: Ache Mental Status Patient Orientation: Normal For Age Transfers Functional [place] Measure 0=Not Assessed/NA 4=Minimal Assistance 1=Total Assistance 5=Supervision or Setup 2=Maximal Assistance 6=Modified [place] 3=Moderate Assistance 7=Complete IndependenceIRFPAI Quality Coding Scale 6 Independent with activity with or without an assistive device 5 Patient requires set up or clean up by helper. Patient completes activity by themselves 4 Supervision or touching assist (CGA). [place] provide cues , steadying assist 3 The helper provides less than half the effort to complete the activity 2 The helper provides more than half the effort to complete the activity 1 Dependent. The helper does all the effort to complete an activity 7 Patient refused to complete or attempt activity 9 The patient did not perform the activity before the current illness or injury 88 Not attempted due to Medical conditions or safety concerns Transfers (B, C, W/C) (FIM): 3 Scootin Rollin Roll Left to Right (QC): 3 Supine to/from Sit: 3 Sit to/from Stand: 3 Sit to Lying (QC): 3 Sit to Stand (QC): 3 Chair/Mzm-kl-Ksfkq Xfer(QC): 3 Bed to/from Chair: 3 Weight Bearing Right Lower Extremity: Right Weight Bearing/Tolerated Left Lower Extremity: Left Weight Bearing/Tolerated Gait Training Does the Patient Walk?: Yes Gait (FIM): 5 Distance: 200' Walk 10 feet (QC): 5 Walk 50 ft with 2 Turns(QC): 5 Walk 150 ft (QC): 5 Gait Level of Assist: 5 Gait Persons Needed: 1 Gait Assistive Device: FWW slow, shuffle gait sequence Assessment Patient requires time to complete all functional tasks and returned to bed with needs met. PT Etymology Teacher Goals Etymology Teacher Goals PT Etymology Teacher Goals Time Frame: Nov 24, 2017 Transfers (B,C,W/C) (FIM): 6 Sit to Lying (QC): 6 Lying-Sitting on Side/Bed(QC): 6 Sit to Stand (QC): 6 Rollin Roll Left to Right (QC): 6 Chair/Cvw-wy-Mcodj Xfer(QC): 6 Car Transfer (QC): 6 Does the Patient Walk: Yes Gait (FIM): 6 Gait distance (FIM): 3=150 ft Distance: 250' Walk 10 feet (QC): 6 Walk 10ft-Uneven Surface(QC): 6 Walk 50ft with 2 Turns (QC): 6 Walk 150 ft (QC): 6 Gait Level of Assist: 6 Gait Assistive Device: FWW Stairs (FIM): 5 # of Steps: 5 1 Step (curb) (QC): 5 4 Steps (QC): 5 12 Steps (QC): 9 Stairs Level Of Assist: 5 Picking up an Object (QC): 5 PT Plan Treatment/Plan Treatment Plan: Continue Plan of Care Treatment Plan: Bed Mobility, Education, Functional Activity Luci, Functional Strength, Group Therapy, Gait, Safety, Therapeutic Exercise, Transfers Treatment Duration: Nov 24, 2017 Frequency: At least 5 of 7 days/Wk (IRF) Estimated Hrs Per Day: 1.5 hours per day Patient and/or Family Agrees t: Yes Time/GCodes Time In: 1430 Time Out: 1445 Total Billed Treatment Time: 15 Total Billed Treatment 1 visit FA 15 min SUSHANT SANCHEZ PT Oct 31, 2017 14:49
--- NOTE | 2017-10-31 17:24 | PM&R Post Admission Assessment ---
Post Admission Physician Asses The preadmission screen agrees with the post admission assessment that the patient is a good candidate for inpatient rehabilitation. The patient will have a comprehensive program of inpatient rehabilitation with a goal of maximizing level of functional independence prior to discharge home with family and HHC. The patient will have PT/OT ninety minutes per day, each discipline, five days a week for gait, strengthening, conditioning, balance, ADLs, any patient/family/caregiver training as necessary. Speech therapy to do cognitive assessment and treat as indicated. Rehabilitation nursing to assist with bowel, bladder, skin, wound care, medication administration, pain management. Bottle Carrier to assist with discharge planning, community reentry. SCD's for DVT prophylaxis. She appears to be well motivated to participate in three hours of therapy a day. She should be able to tolerate three hours of therapy a day from a medical standpoint. She should benefit from the three hours of therapy a day. She has a reasonable discharge plan, reasonable discharge rehabilitation goals and a supportive family. She has various comorbidities that need to be closely monitored with medications and treatments adjusted on a daily basis as needed. These include: HTN generalized OA Barriers to discharge for this patient who had been independent prior to this are for her to be modified independent to supervision for ADLs and mobility skills prior to discharge home with family and HHC, so as to lessen the burden of the caregivers. Risks for this patient include: 1. Fall 2. Fracture 3. DVT 4. Pulmonary embolism 5. Poorly controlled HTN 6. Skin breakdown 7. Contractures 8. Poorly controlled pain 9. Urinary retention 10. UTI 11. Respiratory infection 12. Aspiration [] Estimated Length of Stay: 14 days Prognosis: Rehab prognosis appears good for goal of discharge home with family and HHC modified independent to supervision for ADLs and mobility skills. IGC 15 Etiologic Dx Rhabdomyolysis MARIO NGUYEN MD Oct 31, 2017 17:24
[2017-10-31 17:25] VITALS: BP 128/76
--- NOTE | 2017-10-31 18:20 | HISTORY AND PHYSICAL ---
DATE OF SERVICE: 10/31/2017 CHIEF COMPLAINT: Difficulty with walking. 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 The family did not find her later she developed rhabdomyolysis with a total creatinine kinase of 1054. UA was abnormal. She was found to have UTI. She was admitted by PCP, Dr. Luis for further assessment and management. She was provided with IV antibiotics and switched over to p.o. antibiotics and IV fluids. Her renal function returned to normal. Therapies were begun and she was felt to be appropriate for inpatient rehabilitation unit. The patient is hoping to relocate to [place] to be near her family upon discharge. She has been modified independent prior to this, but did not always use her walker or a cane. Currently, she is min assist for gait with front wheeled walker, mod assist for transfers. She is mod assist for bathing, min assist for upper body dressing, mod assist for lower body dressing. PAST MEDICAL HISTORY: Osteoarthritis, hypothyroidism, on replacement, hypertension, UTI with incontinence. PAST SURGICAL HISTORY: Cholecystectomy, right total hip replacement. ALLERGIES: CODEINE, MEPERIDINE, MORPHINE. FAMILY HISTORY: Arthritis. SOCIAL HISTORY: She is , had been living alone, was independent, has supportive family nearby. She hopes to move to [place] to be near family in February, but hopes to go home from here. REVIEW OF SYSTEMS: A 10-point review of systems is significant for hip and knee pain. MEDICATIONS: Ziac 6.25 mg 1 tablet p.o. daily, Avapro 150 mg p.o. daily, Mobic 15 mg p.o. daily, vitamin D3 1000 units p.o. daily, multivitamins with minerals 1 tablet p.o. daily, levothyroxine 100 mcg p.o. daily, Pepcid 20 mg p.o. b.i.d., Flonase 1 spray each nostril b.i.d., Norvasc 10 mg p.o. at bedtime, Detrol LA 4 mg p.o. at bedtime, Keflex 500 mg p.o. q.i.d., Tylenol 1000 mg p.o. q. 6 hours p.r.n. mild pain, Zofran 4 mg p.o. q. 6 hours p.r.n. nausea and vomiting. PHYSICAL EXAMINATION: GENERAL: Significant for a pleasant, somewhat obese female, appearing somewhat younger than her stated age, sitting in chair, in no acute distress. VITAL SIGNS: She is afebrile. Pulse 75, respirations 18, blood pressure 147/69, O2 sat 94% on room air. HEENT: Vision, speech and hearing are grossly intact. No oral lesion is noted. NECK: Supple without mass. HEART: Regular rhythm. CHEST: Clear. ABDOMEN: Soft, nontender. Bowel sounds present. Obese. EXTREMITIES: Trace edema, both ankles. No calf tenderness. MUSCULOSKELETAL: She has functional active range of motion in all four extremities. NEUROLOGIC: Cognition is grossly intact. Sensation is grossly intact to touch. Strength is limited somewhat due to peripheral edema. Knee flexion and extension 3/5, hip flexion 3/5, dorsi flexion and plantar flexion 3/5. She is set up for eating and grooming. Min assist for upper body dressing, mod assist for lower body dressing and toilet transfers. She has decreased range of motion of the right shoulder, which the patient states is secondary to prior injury. Remainder is grossly functional. Upper extremity coordination is fair. Upper extremity strength is grossly 4-/5. IMPRESSION: 1. General debilitation secondary to fall with resulting rhabdomyolysis with generalized weakness and decline in her functional independence. 2. Urinary tract infection, under treatment. 3. Hypertension, controlled with medication. 4. Osteoarthritis of the knees. 5. Status post right total hip replacement for osteoarthritis. 6. Hypothyroidism, on replacement. PLAN: The patient will have a comprehensive program of inpatient rehabilitation goal of maximizing level of functional independence prior to discharge home with family and home health services with essential move to [place] to be closer to her family. The patient will have PT and OT 90 minutes per day, 5 days a week as outlined in post-admission physician evaluation. Please see that document for further details. The patient will have speech therapy assessment and treated as indicated. Rehabilitation nursing to assist with bowel, bladder, skin care, medication administration, pain management. human services instructor to assist with discharge planning and community reentry. Follow up with Dr. Luis, PCP as per her schedule. Continue present medications, therapy with cardiac and fall precautions. SCDs for DVT prophylaxis. ESTIMATED LENGTH OF STAY: 14 days. PROGNOSIS: Rehab prognosis appears good for discharging to home, modified independent supervision for ADLs and mobility skills. DIET: Regular. CODE STATUS: DNR. Job ID: [id number] DocumentID: [id number] Dictated Date: 10/31/2017 17:20:29 [employer] Goods Press Hand Date: 10/31/2017 18:20:26 Dictated By: MARIO NGUYEN MD MTDD
[2017-10-31] MEDS: FLUTICASONE NASAL SPRAY (FLONASE) 16 GM BTL NS SCH (21:15)
[2017-10-31] MEDS: FAMOTIDINE 20 MG (PEPCID) TABLET PO SCH (21:16)
[2017-10-31] MEDS: TOLTERODINE LA 4 MG (DETROL) CAP PO SCH (21:16)
[2017-10-31] MEDS: amLODIPine 10 MG (NORVASC) TAB PO SCH (21:16)
[2017-11-01 05:54] VITALS: BP 161/63
[2017-11-01] MEDS: LEVOTHYROXINE 100 MCG (LEVOTHROID) TAB PO SCH (06:44)
[2017-11-01] MEDS: MULTIVIT W/MINERALS TAB (THERAGRAN M) PO SCH (06:44)
[2017-11-01] MEDS: VITAMIN D3 1,000 UNITS (CHOLECALCIFEROL) TABLET PO SCH (06:44)
--- NOTE | 2017-11-01 08:27 | Physical Therapy Daily Note ---
PT Daily Note-Current Subjective Pt. in bed upon arrival and states "can you fix this? its too tight" pt. confused and pointing to the bed controls on the rail of the bed and when questioned further cannot explain what she really means. Pt. agrees to up in for therapies , to toilet , walking exercise etc. Pain Numeric Pain Scale: 4 Location: Left Location Body Site: Back Pain Description: Ache Appearance rigid, slow movement initiation Mental Status Patient Orientation: Confused Transfers Functional [place] Measure 0=Not Assessed/NA 4=Minimal Assistance 1=Total Assistance 5=Supervision or Setup 2=Maximal Assistance 6=Modified [place] 3=Moderate Assistance 7=Complete IndependenceIRFPAI Quality Coding Scale 6 Independent with activity with or without an assistive device 5 Patient requires set up or clean up by helper. Patient completes activity by themselves 4 Supervision or touching assist (CGA). [place] provide cues , steadying assist 3 The helper provides less than half the effort to complete the activity 2 The helper provides more than half the effort to complete the activity 1 Dependent. The helper does all the effort to complete an activity 7 Patient refused to complete or attempt activity 9 The patient did not perform the activity before the current illness or injury 88 Not attempted due to Medical conditions or safety concerns Transfers (B, C, W/C) (FIM): 2 Scootin Rollin Supine to/from Sit: 2 Sit to/from Stand: 3 Bed to/from Chair: 4 Weight Bearing Right Lower Extremity: Right Weight Bearing/Tolerated Left Lower Extremity: Left Weight Bearing/Tolerated Gait Training Does the Patient Walk?: Yes Gait (FIM): 4 Distance (FIM): 3=150 ft Gait Level of Assist: 4 Gait Persons Needed: 1 Gait Assistive Device: FWW runs walker into objects, needs cues for direction etc. Exercises Supine Ex: Ankle pumps (HC stretches 4 x 10s), Quad Set, Rolling, Glut sets, Heel Slides (asist), Scooting (asist), Hip abd/add (ssist) Supine Reps: 12 Seated Therapy Exercises: Sit to stand, Hip flexion Seated Reps: 5 Treatments mod to max assist to doff urine soaked clothing and brief. mod to max assist to dilshad fresh brief and hosp gown. up in recliner after for breakfast. Assessment Current Status: Fair Progress confused, slow initiation of movement PT Halfway Goals Bunk Assembler Goals PT Bunk Assembler Goals Time Frame: Nov 24, 2017 Transfers (B,C,W/C) (FIM): 6 Sit to Lying (QC): 6 Lying-Sitting on Side/Bed(QC): 6 Sit to Stand (QC): 6 Rollin Roll Left to Right (QC): 6 Chair/Dbw-rs-Igbvw Xfer(QC): 6 Car Transfer (QC): 6 Does the Patient Walk: Yes Gait (FIM): 6 Gait distance (FIM): 3=150 ft Distance: 250' Walk 10 feet (QC): 6 Walk 10ft-Uneven Surface(QC): 6 Walk 50ft with 2 Turns (QC): 6 Walk 150 ft (QC): 6 Gait Level of Assist: 6 Gait Assistive Device: FWW Stairs (FIM): 5 # of Steps: 5 1 Step (curb) (QC): 5 4 Steps (QC): 5 12 Steps (QC): 9 Stairs Level Of Assist: 5 Picking up an Object (QC): 5 PT Plan Treatment/Plan Treatment Plan: Continue Plan of Care Treatment Plan: Bed Mobility, Education, Functional Activity Luci, Functional Strength, Group Therapy, Gait, Safety, Therapeutic Exercise, Transfers Treatment Duration: Nov 24, 2017 Frequency: At least 5 of 7 days/Wk (IRF) Estimated Hrs Per Day: 1.5 hours per day Patient and/or Family Agrees t: Yes Safety Risks/Education Patient Education: Gait Training, Transfer Techniques, Correct Positioning, Disease Process, Safety Issues Teaching Recipient: Patient Teaching Methods: Demonstration, Discussion Response to Teaching: Verbalize Understanding, Return Demonstration, Reinforcement Needed Time/GCodes Time In: 740 Time Out: 825 Total Billed Treatment Time: 45 Total Billed Treatment 1,FA15m,EX15m,GT15m G Codes Necessary: CHRISTINA Key ACCOUNT PLANNER Nov 01, 2017 08:27
--- NOTE | 2017-11-01 09:07 | PM & R (SOAP) Progress Note ---
Subjective Time Seen by Provider: 08:30 Subjective/Events-last exam Patient was seen in her room this AM.Patient mod assist for transfers Objective Exam Last Set of Vital Signs Vital Signs Date Time Temp Pulse Resp B/P (MAP) Pulse Ox O2 Delivery O2 Flow Rate FiO2 11/01/17 05:54 97.0 72 21 161/63 (95) 94 Room Air Capillary Refill : I&O Intake and Output 11/01/17 00:00 Intake Total 450 ml Balance 450 ml Intake Oral 450 ml # Voids 2 # Urine Diapers 1 Daily Weight Change Unsure General: Alert, Cooperative HEENT: Atraumatic, PERRLA, EOMI, Mucous Memb Moist/[place] Neck: Supple, No JVD Lungs: Clear to Auscultation Heart: Regular Rate Abdomen: Normal Bowel Sounds, Soft, No Tenderness Extremities: No Edema Neuro: Other (Generalized weakness confusion) Assessment/Plan Assessment General debil s/p fall Confusion may be related to UTI UTI under treatment OA both kness Prior RT THR for OA HTN controlled Hypothyroidism on replacement Plan Continue PT/OT Will f/u re ST assessment monitor confusion and do further studies as indicated F/U with PCP Team Conference to be held later today-See report for full functional update and POC and ELOS Check Labs See orders. MARIO NGUYEN MD Nov 01, 2017 09:07
[2017-11-01] MEDS: IRBESARTAN 150 MG (AVAPRO) TAB PO SCH (09:40)
[2017-11-01] MEDS: CEPHALEXIN 250 MG (KEFLEX) CAP PO SCH ×4 (09:40→20:03)
[2017-11-01] MEDS: FAMOTIDINE 20 MG (PEPCID) TABLET PO SCH ×2 (09:40→20:03)
[2017-11-01] MEDS: MELOXICAM 7.5 MG (MOBIC) TABLET PO SCH (09:40)
[2017-11-01] MEDS: BISOPROLOL/HCTZ 10/6.25 MG (ZIAC) TAB PO SCH (09:40)
[2017-11-01] MEDS: FLUTICASONE NASAL SPRAY (FLONASE) 16 GM BTL NS SCH ×2 (09:41→20:05)
--- NOTE | 2017-11-01 10:13 | Occupational Ther Daily Note ---
OT Current Status-Daily Note Subjective Pt alert, sitting in recliner eating breakfast. Pt agreed to therapy. C/o L LE being sore. Mental Status/Objective Patient Orientation: Person, Confused Functional [place] Measure 0=Not Assessed/NA 4=Minimal Assistance 1=Total Assistance 5=Supervision or Setup 2=Maximal Assistance 6=Modified [place] 3=Moderate Assistance 7=Complete [place] ADL-Treatment Pt agreed to shower today. Pt takes increased time to complete all tasks due to slow motion and confusion. Mod A for sit to stand. Pt ambulated to bathroom using FWW with CGA. Pt requires reminders for where to go. Pt transferred onto/off of toilet with mod A for sit to stand using grabbars and BSC. Started shower and discovered there was no hot water so pt completed sponge bath. Pt able to reach upper body, buttocks and billy area. Did not attempt lower legs. Pt was able to use transportation aide to don pants/briefs. CGA to stand and hike pants over hips. Pt attempts to hike pants down over hips for toileting though does not clear pants past upper thighs and requires assist to push down to clear clothing from toilet. Assist to slide feet in to slip on shoes. Pt then is incontinent of bowel and transfers back to toilet and states that she is finished without further bowel movement. Pt cleanses self though inefficiently, ORDOÑEZ assist to make sure pt is clean. Pt ambulates to sink to complete grooming in sitting. Pt able to complete by self in sitting. Throughout therapy, pt has started conversations and unable to find words to describe what she is wanting to say or starting from a previous conversation that has not been with ORDOÑEZ. Pt unable to state where she was or what type of building she was in. After therapy, pt sitting in recliner with call light/ phone in reach. Nrsg present in room. Functional [place] Measure 0=Not Assessed/NA 4=Minimal Assistance 1=Total Assistance 5=Supervision or Setup 2=Maximal Assistance 6=Modified [place] 3=Moderate Assistance 7=Complete IndependenceIRFPAI Quality Coding Scale 6 Independent with activity with or without an assistive device 5 Patient requires set up or clean up by helper. Patient completes activity by themselves 4 Supervision or touching assist (CGA). [place] provide cues , steadying assist 3 The helper provides less than half the effort to complete the activity 2 The helper provides more than half the effort to complete the activity 1 Dependent. The helper does all the effort to complete an activity 7 Patient refused to complete or attempt activity 9 The patient did not perform the activity before the current illness or injury 88 Not attempted due to Medical conditions or safety concerns Grooming (FIM): 5 Oral Hygiene (QC): 5 Bathing (FIM): 4 Shower/Bathe Self (QC): 3 Upper Body (FIM): 4 (Pt was able to get shirt over head then forgot to pull shirt down over stomach and back.) Upper Body Dressing (QC): 3 Lower Body Dressing (FIM): 4 Lower Body Dressing (QC): 3 On/Off Footwear (QC): 2 Toileting (FIM): 3 Toileting Hygiene (QC): 3 Toilet/Commode Transfer (FIM): 4 Toilet Transfer (QC): 4 Shower Transfer(FIM): 4 OT Short Term Goals Short Term Goals Time Frame: Nov 07, 2017 Bathing(FIM): 4 Upper Body Dressing(FIM): 5 Lower Body Dressing(FIM): 4 Toilet/Commode Transfer(FIM): 4 (CGA) Shower Transfer(FIM): 4 Additional Short Term Goals: 2-Verbalize Understanding, 3-ImproveStrength/Luci 1=Demonstrate adherence to instructed precautions during ADL tasks. 2=Patient will verbalize/demonstrate understanding of assistive devices/ modifications for ADL. 3=Patient will improve strength/tolerance for activity to enable patient to perform ADL's. OT Glass Scullion Goals Glass Scullion Goals Time Frame: Nov 21, 2017 Eating (FIM): 6 Eating (QC): 6 Groomin Oral Hygiene (QC): 6 Bathing(FIM): 5 Shower/Bathe Self (QC): 5 Upper Body Dressing(FIM): 6 Upper Body Dressing (QC): 6 Lower Body Dressing(FIM): 6 Lower Body Dressing (QC): 6 On/Off Footwear (QC): 6 Toileting(FIM): 6 Toileting Hygiene (QC): 6 Toilet/Commode Transfer(FIM): 6 Toilet/Commode Transfer (QC): 6 Shower Transfer(FIM): 5 Additional Goals: 2-Verbalize Understanding, 3-ImproveStrength/Luci 1=Demonstrate adherence to instructed precautions during ADL tasks. 2=Patient will verbalize/demonstrate understanding of assistive devices/ modifications for ADL. 3=Patient will improve strength/tolerance for activity to enable patient to perform ADL's. OT Education/Plan Problem List/Assessment Pt demonstrates decreased strength, ADL functioning, mobility, and activity tolerance. Pt to benefit from skilled OT intervention for ADL training, transfers, strengthening, and safety education. Discharge Recommendations Plan/Recommendations: Continue POC Treatment Plan/Plan of Care Patient would benefit from OT for education, treatment and training to promote independence in ADL's, mobility, safety and/or upper extremity function for ADL' s. Plan of Care: ADL Retraining, Functional Mobility, Group Exercise/Act as Ind, UE Funct Exercise/Act Treatment Duration: Nov 21, 2017 Frequency: At least 5 of 7 days/Wk (IRF) Estimated Hrs Per Day: 1.5 hours per day Rehab Potential: Good Time/GCodes Start Time: 08:30 Stop Time: 10:00 Total Time Billed (hr/min): 90 Billed Treatment Time 1 visit-ADL 6 (90 min) ARYAN NAJERA Nov 01, 2017 10:13
--- NOTE | 2017-11-01 10:47 | Consultation ---
History of Present Illness History of Present Illness Patient Consulted On(hannah/time) 11/01/17 10:41 Date Seen by Provider: Nov 01, 2017 Time Seen by Provider: 10:42 Reason for Visit: Fall at home, medically stable now in Inpatient Rehab History of Present Illness I was consulted yesterday by Dr. Luis(PCP) for finding on this admission of vaginal bleeding. The patient today reports that it has been very light, but going on for several months. Reports that it has worsened since starting blood thinners. Dr. Luis had gotten an US Pelvis on her admission, which showed > 1cm thickness of the endometrium. I was consulted at that point to evaluated. Allergies and Home Medications Allergies Coded Allergies: codeine (Unverified Adverse Reaction, Mild, "FEEL FUNNY", 05/28/09) meperidine (Unverified Adverse Reaction, Mild, VOMITING, 05/28/09) morphine (Unverified Adverse Reaction, Mild, VOMITING, 05/28/09) Home Medications Bisoprolol Fumarate/Hctz 1 Each Tablet, 1 TAB PO DAILY, (Reported) Cholecalciferol (Vitamin D3) 1,000 Unit Capsule, 1,000 UNIT PO DAILY, (Reported) Irbesartan 75 Mg Tablet, 75 MG PO DAILY, (Reported) Levothyroxine Sodium 100 Mcg Tablet, 100 MCG PO DAILY, (Reported) Meloxicam 15 Mg Tablet, 15 MG PO DAILY, (Reported) Multivitamin 1 Each Tablet, 1 TAB PO DAILY, (Reported) Tolterodine Tartrate 4 Mg Cap.er.24h, 4 MG PO DAILY, (Reported) Patient Home Medication List Home Medication List Reviewed: Yes Past Ekifcau-Nehdwe-Wsdejk Hx Patient Social History Alcohol Use: Denies Use Recreational Drug Use: No Smoking Status: Never a Smoker 2nd Hand Smoke Exposure: No Recent Foreign Travel: No Contact w/Someone Who Travel: No Recent Infectious Disease Expo: No Recent Hopitalizations: No Immunizations Up To Date Date of Pneumonia Vaccine: Jun 08, 2013 Date of Influenza Vaccine: Jun 27, 2017 Seasonal Allergies Seasonal Allergies: Yes Surgeries History of Surgeries: Yes Surgeries: Gallbladder, Orthopedic Respiratory History of Respiratory Disorde: No Currently Using CPAP: No Currently Using BIPAP: No Cardiovascular History of Cardiac Disorders: Yes Cardiac Disorders: Hypertension Neurological History of Neurological Disord: No Genitourinary History of Genitourinary Disor: Yes (Incontinence) Gastrointestinal History of Gastrointestinal Di: Yes (GALLBLADDER) Musculoskeletal History of Musculoskeletal Dis: Yes Musculoskeletal Disorders: Arthritis Endocrine History of Endocrine Disorders: Yes Endocrine Disorders: Hypothyroidsim HEENT History of HEENT Disorders: No Loss of Vision: Denies Hearing Impairment: Denies Cancer History of Cancer: No Psychosocial History of Psychiatric Problem: No Integumentary History of Skin or Integumenta: Yes (SHINGLES IN AUGUST OF 2017) Family Medical History Significant Family History: Heart Disease, Hypertension, Psychiatric Problems, Stroke Family Medial History: Arthritis 19 FATHER Cardiovascular disease 19 FATHER Completed stroke 19 MOTHER Dementia 19 FATHER G8 SISTER Hypertension 19 FATHER Respiratory disorder 19 FATHER Review of Systems-General Constitutional: see HPI EENTM: see HPI Respiratory: see HPI Cardiovascular: see HPI Gastrointestinal: see HPI Genitourinary: see HPI Skin: see HPI Psychiatric/Neurological: See HPI All Other Systems Reviewed Negative Unless Noted: Yes Physical Exam-General Problems Physical Exam Vital Signs Vital Signs - First Documented 10/31/17 10:17 Temp 96.8 Pulse 75 Resp 18 B/P (MAP) 147/69 (95) Pulse Ox 94 O2 Delivery Room Air Capillary Refill : General Appearance: WD/WN HEENT: PERRL/EOMI Neck: non-tender Cardiovascular: regular rate, rhythm Genital/Rectal: other (small amount of bleeding noted from cervix. EMB collected using pipelle, and allis for retraction of cervix.) Neurologic/Psychiatric: alert, normal mood/affect Skin: normal color, warm/dry Assessment/Plan Assessment/Plan Admission Diagnosis/Plan DIagnosis: 77 yo female with PMB Thickened endometrium p: EMB done today Will follow up with DR. Luis and patient with result Admission Status: Inpatient Order (span 2 midnights) (Inpatient rehab) Reason for Inpatient Admission: See medical admission note Clinical Quality Measures DVT/VTE Risk/Contraindication: Risk Factor Score Per Nursin RFS Level Per Nursing on Admit: 2=Moderate JORGE HO DO Nov 01, 2017 10:47 am
[2017-11-01 12:04] LABS: BASOPHILS % (AUTO) 0 % (0-10); EOSINOPHILS # (AUTO) 0.1 10^3/uL (0.0-0.3); EOSINOPHILS % (AUTO) 1 % (0-10); HEMATOCRIT 45 % (35-52); HEMOGLOBIN 14.9 G/DL (11.5-16.0); LYMPHOCYTES # (AUTO) 0.8 X 10^3 (1.0-4.0); LYMPHOCYTES % (AUTO) 8 % (12-44); MEAN CORPUSCULAR HEMOGLOBIN 29 PG (25-34); MEAN CORPUSCULAR HGB CONC 33 G/DL (32-36); MEAN CORPUSCULAR VOLUME 88 FL (80-99); MEAN PLATELET VOLUME 9.7 FL (7.4-10.4); MONOCYTES # (AUTO) 0.7 X 10^3 (0.0-1.0); MONOCYTES % (AUTO) 7 % (0-12); NEUTROPHILS # (AUTO) 8.6 X 10^3 (1.8-7.8); NEUTROPHILS % (AUTO) 84 % (42-75); PLATELET COUNT 195 10^3/uL (130-400); RED BLOOD COUNT 5.13 10^6/uL (4.35-5.85); WHITE BLOOD COUNT 10.2 10^3/uL (4.3-11.0)
[2017-11-01 12:25] LABS: ALBUMIN 4.1 GM/DL (3.2-4.5); BILIRUBIN,TOTAL 0.6 MG/DL (0.1-1.0); CALCIUM 9.3 MG/DL (8.5-10.1); CREATININE SERUM 1.06 MG/DL (0.60-1.30); POTASSIUM 3.7 MMOL/L (3.6-5.0); TOTAL PROTEIN 6.9 GM/DL (6.4-8.2)
--- NOTE | 2017-11-01 14:36 | ST Cognitive Linguistic Eval ---
Speech Evaluation-General Medical Diagnosis UTI/rhabdomyelsis Onset Date: Oct 25, 2017 Therapy Diagnosis Therapy Diagnosis: Mild to Moderate Cognitive Deficit/Confusion Precautions Precautions/Isolations: Fall Prevention, Standard Precautions Referral Referring Physician: Dr. Wesley Pillai Reason for Referral: Evaluation/Treatment Cognitive Re-Evaluation Medical History Pertinent Medical History: Arthritis, HTN, Hypothroidism Current History The patient was recently admitted to [facility] following diagnosis of a UTI. The patient was recently evaluated by Speech pathology and did not demonstrate significant confusion or cognitive deficits, however, due to the reports of increased disorientation on the acute floor, the clinician agreed to monitor the patient. During the AM hours of this date, staff and clinicians began to note increased confusion. Due to this, speech pathology will complete a re-evaluation. Reviewed History: Yes Social History Current Living Status: Alone Speech PLF-Current Status Prior Level of Function The patient denied any prior challenges with speech, language, or cognition. The day prior, the patient complete cognitive task with ease, not displaying noted cognitive deficits from the acute floor. On this date, the patient's intermittent confusion has returned. Subjective The patient was seated upright in chair upon entrance. The patient greeted the clinician and appeared to recognize her from the previous date. As the clinician explained the rationale for her visit, the patient nodded and agreed to the return of some disorientation. The patient's daughter was present at bedside who agreed the patient's confusion has returned on this date. Language Eval: Auditory Indent/Objects Multiple [place]: Functional Ident/Pics in Multiple [place]: Functional Follows 1-Step Commands: Mild Follows Complex Directions: Moderate Follows General Conversations: Moderate The patient demonstrated increased processing time, as well as, the necessity of repetition for complete comprehension of conversational exchanges. Language Eval: Verbal Language Word Finding: Moderate (The patient demonstrated circumlocution on this date, talking around the word or task in attempts to decrease focus on her inability to complete tasks.) States Basic Personal Info: Mild Expresses Complex Ideas: Moderate Cognitive Patient Orientation The patient was not oriented to year, day of week, or date at this time. The patient stated her location was [place] (which is correct), however, elevated her intonation in a question format. Objective Cognitive Domain Attention: Mild (The patient required redirection to tasks and questions, as well as, prompts for alertness.) Memory: Moderate (The patient was unable to recall single items following a five minute delay.) Problem Solving: Moderate Objective Impression The patient demonstrated a mild to moderate cognitive impairment on this date, most notably in the areas of memory, orientation, and construction rep. Communication/Social Cognition Comprehension: 3 Expression: 3 Social Interaction: 3 Problem Solvin Memory: 2 Speech Patient Assess Expression of Ideas/Wants: Expression (4) Understanding [place] Content: Usually Understands (3) Brief Interview-Mental Status: Yes Repetition of Three Words: Three (3) Temporal Orientation: Year: Correct (3) Temporal Orientation: Month: Accurate within 5 days(2) Temporal Orientation: Day: Correct (1) Recall : Wear to say "Sock": Yes, no cue required (2) Recall : Color: Yes, no cue required (2) Recall : Bed: Yes,after cueing (1) Speech Short Term Goals Short Term Goals Short Term Goals 1. The patient will recall orientation information independently and with the use of an external aid. 2. The patient will recall and demonstrate two functional word finding strategies with 80% accuracy and mild clinician verbal cueing. 3. The patient will recall two functional memory strategies for use at home, independently. 4. The patient will demonstrate 80% accuracy with functional safety problem solving. Time Frame-STG: Two Weeks Speech Agricultural Crop Farm Manager Goals Agricultural Crop Farm Manager Goals 1. The patient will demonstrate improved cognitive linguistic skills for increased safety and function of ADL's. Time Frame: Three Weeks Comprehension: 4 Expression: 4 Social Interaction: 4 Problem Solvin Memory: 3 Speech-Plan Treatment Plan Speech Therapy Treatment Plan: Continue Plan of Care Continue skilled speech pathology for improved problem solving. Treatment Duration: Nov 22, 2017 Frequency: Modified Program (IRF) (Four to five times per week) Estimated Hrs Per Day: Other Rehab Potential: Fair Safety Risks/Education Teaching Recipient: Patient, Family Teaching Methods: Discussion Response to Teaching: Reinforcement Needed Education Topics Provided: Results, Recommendations Time Speech Therapy Time In: 14:15 Speech Therapy Time Out: 14:30 Total Billed Time: 15 Billed Treatment Time 1, ZEINAB WEISSSREE Nov 01, 2017 14:35
--- NOTE | 2017-11-01 14:59 | Therapy Group Daily Note ---
Therapy Daily Group Note Patient Education Topic Other List Below Exercises LE Seated Exercise, UE Exercise Other/Notes Pt ambulated with CGA using FWW to OT/PT group. Group consisted of introductions (name, place living, "Remember when..."), socialization, pt led UE /LE seated exercises, education on work simplification and energy conservation. Pt introduced self appropriately and actively listened to peers introduce themselves. Pt verbalized understanding of educational topics and adaptive equipment that was introduced. Pt contributed to conversations throughout therapy and was attentive to peers opinions. Pt required verbal cues to participate in seated exercises. Pt fatigued easily and fell asleep during group multiple times. After group, pt sitting in recliner in room with family. Call light/phone in reach. All needs met in room. Start Time: 13:00 Stop Time: 14:20 Total Billed Treatment Time: 80 Total Billed Treatment 1-GRP ARYAN NAJERA Nov 01, 2017 14:59
--- NOTE | 2017-11-01 16:36 | Diagnostic Imaging Report ---
INDICATION: Confusion status post fall. TECHNIQUE: Noncontrast brain CT is performed and compared with 05/28/2009. FINDINGS: There are diffuse atrophic changes. There are patchy low-density changes throughout the deep white matter compatible with chronic ischemic change. There is no acute hemorrhage or mass effect. There is no subdural or epidural collection. Calvarial windows are unremarkable. IMPRESSION: Atrophic changes and chronic changes in deep white matter. No acute intracranial abnormality. Dictated by: Dictated on workstation # [id number]
[2017-11-01 18:00] VITALS: BP 131/75
[2017-11-01] MEDS: TOLTERODINE LA 4 MG (DETROL) CAP PO SCH (20:03)
[2017-11-01] MEDS: amLODIPine 10 MG (NORVASC) TAB PO SCH (20:03)
[2017-11-02] MEDS: VITAMIN D3 1,000 UNITS (CHOLECALCIFEROL) TABLET PO SCH (05:46)
[2017-11-02] MEDS: LEVOTHYROXINE 100 MCG (LEVOTHROID) TAB PO SCH (05:46)
[2017-11-02] MEDS: MULTIVIT W/MINERALS TAB (THERAGRAN M) PO SCH (05:46)
[2017-11-02 05:55] VITALS: BP 165/83
--- NOTE | 2017-11-02 08:59 | Physical Therapy Daily Note ---
PT Daily Note-Current Subjective Pt. up in chair, agrees to rx. States " I am not resisting, I just cant do it" Pain Numeric Pain Scale: 4 Location: Right Location Body Site: Hip Pain Description: Ache Comment: with activity Mental Status Patient Orientation: Confused Transfers Functional [place] Measure 0=Not Assessed/NA 4=Minimal Assistance 1=Total Assistance 5=Supervision or Setup 2=Maximal Assistance 6=Modified [place] 3=Moderate Assistance 7=Complete IndependenceIRFPAI Quality Coding Scale 6 Independent with activity with or without an assistive device 5 Patient requires set up or clean up by helper. Patient completes activity by themselves 4 Supervision or touching assist (CGA). [place] provide cues , steadying assist 3 The helper provides less than half the effort to complete the activity 2 The helper provides more than half the effort to complete the activity 1 Dependent. The helper does all the effort to complete an activity 7 Patient refused to complete or attempt activity 9 The patient did not perform the activity before the current illness or injury 88 Not attempted due to Medical conditions or safety concerns Transfers (B, C, W/C) (FIM): 3 Scootin Rollin Supine to/from Sit: 3 Sit to/from Stand: 4 (with higher surface) Weight Bearing Right Lower Extremity: Right Weight Bearing/Tolerated Left Lower Extremity: Left Weight Bearing/Tolerated Gait Training Does the Patient Walk?: Yes Gait (FIM): 4 Distance (FIM): 3=150 ft (175x2) Gait Assistive Device: FWW needs instruction for foot clearance, feet shuffle, pt. veers right with walker and needs near constant instruction to correct Exercises Supine Ex: Bridging, Ankle pumps, Rolling, Heel Slides, Short Arc Quads, Scooting, Straight leg raise, Hip abd/add Supine Reps: 15 (very slow and requires assist for all exercise) Treatments toileted with mod assist for removing soiled brief and donning new, max to mod assist to dilshad robe Assessment Current Status: Fair Progress does not follow commands, easily distracted, poor sequencing, difficulty initiating movement PT Residential Goals Residential Goals PT Welding Foreman Goals Time Frame: Nov 24, 2017 Transfers (B,C,W/C) (FIM): 6 Sit to Lying (QC): 6 Lying-Sitting on Side/Bed(QC): 6 Sit to Stand (QC): 6 Rollin Roll Left to Right (QC): 6 Chair/Hyc-wn-Kdjmb Xfer(QC): 6 Car Transfer (QC): 6 Does the Patient Walk: Yes Gait (FIM): 6 Gait distance (FIM): 3=150 ft Distance: 250' Walk 10 feet (QC): 6 Walk 10ft-Uneven Surface(QC): 6 Walk 50ft with 2 Turns (QC): 6 Walk 150 ft (QC): 6 Gait Level of Assist: 6 Gait Assistive Device: FWW Stairs (FIM): 5 # of Steps: 5 1 Step (curb) (QC): 5 4 Steps (QC): 5 12 Steps (QC): 9 Stairs Level Of Assist: 5 Picking up an Object (QC): 5 PT Plan Treatment/Plan Treatment Plan: Continue Plan of Care Treatment Plan: Bed Mobility, Education, Functional Activity Luci, Functional Strength, Group Therapy, Gait, Safety, Therapeutic Exercise, Transfers Treatment Duration: Nov 24, 2017 Frequency: At least 5 of 7 days/Wk (IRF) Estimated Hrs Per Day: 1.5 hours per day Patient and/or Family Agrees t: Yes Safety Risks/Education Patient Education: Gait Training, Transfer Techniques, Correct Positioning, Safety Issues Teaching Recipient: Patient Teaching Methods: Demonstration, Discussion Response to Teaching: Verbalize Understanding, Return Demonstration, Reinforcement Needed Time/GCodes Time In: 800 Time Out: 900 Total Billed Treatment Time: 60 Total Billed Treatment 1,FA25m,GT20m,EX15m G Codes Necessary: CHRISTINA Key MUSIC WRITER Nov 02, 2017 08:59
--- NOTE | 2017-11-02 09:31 | Occupational Ther Daily Note ---
OT Current Status-Daily Note Subjective Pt alert, sitting in recliner. Pt agreed to therapy. No c/o pain at this time. Mental Status/Objective Patient Orientation: Person, Confused Functional Hardy Measure 0=Not Assessed/NA 4=Minimal Assistance 1=Total Assistance 5=Supervision or Setup 2=Maximal Assistance 6=Modified Hardy 3=Moderate Assistance 7=Complete Hardy ADL-Treatment Pt required assistance with sequencing throughout therapy session. Pt had difficulty with problem solving, i.e. bra was twisted while donning, using opposite foot to doff shoe, donning pants backward. Functional Hardy Measure 0=Not Assessed/NA 4=Minimal Assistance 1=Total Assistance 5=Supervision or Setup 2=Maximal Assistance 6=Modified Hardy 3=Moderate Assistance 7=Complete IndependenceIRFPAI Quality Coding Scale 6 Independent with activity with or without an assistive device 5 Patient requires set up or clean up by helper. Patient completes activity by themselves 4 Supervision or touching assist (CGA). [place] provide cues , steadying assist 3 The helper provides less than half the effort to complete the activity 2 The helper provides more than half the effort to complete the activity 1 Dependent. The helper does all the effort to complete an activity 7 Patient refused to complete or attempt activity 9 The patient did not perform the activity before the current illness or injury 88 Not attempted due to Medical conditions or safety concerns Grooming (FIM): 6 (Sitting at sink, pt is able to complete oral care and brushing hair. Declined to apply makeup.) Oral Hygiene (QC): 6 Bathing (FIM): 4 (Using grabbars, hand held shower and shower bench pt is able to cleanse upper body, upper legs and billy area. Pt does not attempt to cleanse buttocks or lower legs.) Shower/Bathe Self (QC): 3 Upper Body (FIM): 4 (Pt is able to initiate donning/doffing clothing. Pt unable to problem solve when clothing items get caught on wrist bands or twisted to finish dressing.) Upper Body Dressing (QC): 3 Lower Body Dressing (FIM): 3 (Pt does use intellectual property paralegal to don/doff clothing. Pt has difficulty with manipulating clothing over feet or when pants get twisted. Pt is able to hike pants over hips with SBA.) Lower Body Dressing (QC): 3 On/Off Footwear (QC): 2 Shower Transfer(FIM): 5 (Verbal cues to sequence shower transfer. Pt is able to complete transfer using grabbars, FWW and shower bench.) OT Short Term Goals Short Term Goals Time Frame: Nov 07, 2017 Bathing(FIM): 4 Upper Body Dressing(FIM): 5 Lower Body Dressing(FIM): 4 Toilet/Commode Transfer(FIM): 4 (CGA) Shower Transfer(FIM): 4 Additional Short Term Goals: 2-Verbalize Understanding, 3-ImproveStrength/Luci 1=Demonstrate adherence to instructed precautions during ADL tasks. 2=Patient will verbalize/demonstrate understanding of assistive devices/ modifications for ADL. 3=Patient will improve strength/tolerance for activity to enable patient to perform ADL's. OT Mcc Goals Environmental Research Project Manager Goals Time Frame: Nov 21, 2017 Eating (FIM): 6 Eating (QC): 6 Groomin Oral Hygiene (QC): 6 Bathing(FIM): 5 Shower/Bathe Self (QC): 5 Upper Body Dressing(FIM): 6 Upper Body Dressing (QC): 6 Lower Body Dressing(FIM): 6 Lower Body Dressing (QC): 6 On/Off Footwear (QC): 6 Toileting(FIM): 6 Toileting Hygiene (QC): 6 Toilet/Commode Transfer(FIM): 6 Toilet/Commode Transfer (QC): 6 Shower Transfer(FIM): 5 Comprehension(FIM): 4 Expression (FIM): 4 Social Interaction(FIM): 4 Problem Solving(FIM): 3 Memory(FIM): 3 Additional Goals: 2-Verbalize Understanding, 3-ImproveStrength/Luci 1=Demonstrate adherence to instructed precautions during ADL tasks. 2=Patient will verbalize/demonstrate understanding of assistive devices/ modifications for ADL. 3=Patient will improve strength/tolerance for activity to enable patient to perform ADL's. OT Education/Plan Problem List/Assessment Pt demonstrates decreased strength, ADL functioning, mobility, and activity tolerance. Pt to benefit from skilled OT intervention for ADL training, transfers, strengthening, and safety education. Discharge Recommendations Plan/Recommendations: Continue POC Treatment Plan/Plan of Care Patient would benefit from OT for education, treatment and training to promote independence in ADL's, mobility, safety and/or upper extremity function for ADL' s. Plan of Care: ADL Retraining, Functional Mobility, Group Exercise/Act as Ind, UE Funct Exercise/Act Treatment Duration: Nov 21, 2017 Frequency: At least 5 of 7 days/Wk (IRF) Estimated Hrs Per Day: 1.5 hours per day Rehab Potential: Fair Time/GCodes Start Time: 09:00 Stop Time: 10:30 Total Time Billed (hr/min): 90 Billed Treatment Time 1 visit-ADL 6 (90 min) ARYAN NAJERA Nov 02, 2017 09:31
[2017-11-02] MEDS: BISOPROLOL/HCTZ 10/6.25 MG (ZIAC) TAB PO SCH (09:42)
[2017-11-02] MEDS: FAMOTIDINE 20 MG (PEPCID) TABLET PO SCH ×2 (09:42→19:43)
[2017-11-02] MEDS: CEPHALEXIN 250 MG (KEFLEX) CAP PO SCH ×4 (09:42→19:43)
[2017-11-02] MEDS: IRBESARTAN 150 MG (AVAPRO) TAB PO SCH (09:42)
[2017-11-02] MEDS: MELOXICAM 7.5 MG (MOBIC) TABLET PO SCH (09:43)
[2017-11-02] MEDS: FLUTICASONE NASAL SPRAY (FLONASE) 16 GM BTL NS SCH ×2 (09:43→19:44)
--- NOTE | 2017-11-02 11:09 | Speech Therapy Daily Note ---
Speech Daily Progress Note Subjective Date Seen by Provider: Nov 02, 2017 Time Seen by Provider: 10:30 The patient was seated upright in recliner upon entrance. The patient greeted the clinician and was agreeable to participation in the cognitive treatment session. The clinician discussed the patient's progress with the Occupational Therapist prior to completion of the session. Per OT and PT, the patient is continuing to demonstrate increased confusion. The patient's RN, Yael, agreed with this finding. Objective Orientation: The patient is extremely disoriented on this date. The patient is able to state the month, however, is unable to state a day of week, date, year, or location. The patient continues to report she is in [place] regardless of maximum clinician cueing. Additionally, the patient is unable to state the rationale for her rehabilitation or hospitalization and is unaware of her location. Sequencing: The patient was provided simple sequences to complete through three pictures. With maximum clinician cueing, the patient demonstrated poor accuracy. The patient is unaware of family members names, how many grandchildren she has, where her family lives, and the location of her daughter. The patient's daughter lives in [place] and has been present for much of the patient's stay. The patient insists to this clinician that her daughter lives in [place], [place] and is part of a band who is playing a concert this evening. The patient "talks around" questions, as well as, repeats the question back to the clinician while smiling and laughing. She initiates sentences, however, quickly loses track of her statement and point and will state, "well, I don't know." The patient's phone rang and she was unable to answer the call or recall the appropriate sequence for using the phone. The patient was unable to recall events of the morning. Assessment Assessment Current Status: Regressing Treatment Plan Continue Plan of Care Communication Comprehension: 2 Expression: 2 Social Cognition Social Interaction: 3 Problem Solvin Memory: 1 Speech Short Term Goals Short Term Goals Short Term Goals 1. The patient will recall orientation information independently and with the use of an external aid. 2. The patient will recall and demonstrate two functional word finding strategies with 80% accuracy and mild clinician verbal cueing. 3. The patient will recall two functional memory strategies for use at home, independently. 4. The patient will demonstrate 80% accuracy with functional safety problem solving. Time Frame-STG: Two Weeks Speech Pump Erector Helper Goals Jail Goals 1. The patient will demonstrate improved cognitive linguistic skills for increased safety and function of ADL's. Time Frame: Three Weeks Comprehension: 4 Expression: 4 Social Interaction: 4 Problem Solvin Memory: 3 Speech-Plan Treatment Plan Speech Therapy Treatment Plan: Continue Plan of Care Continue skilled speech pathology to target reduced confusion and improved orientation. Treatment Duration: Nov 22, 2017 Frequency: Modified Program (IRF) (Four to five times per week) Estimated Hrs Per Day: Other Rehab Potential: Fair Safety Risks/Education Teaching Recipient: Patient Teaching Methods: Discussion Response to Teaching: Unable to Comprehend Education Topics Provided: Orientation Strategies were discussed with the patient is detail. Additionally, the clinician shared concerns with the patient's RN re: increasing confusion. Time Speech Therapy Time In: 10:30 Speech Therapy Time Out: 11:00 Total Billed Time: 30 Billed Treatment Time Anastacia JEWELEDUAR ISELASREE ST Nov 02, 2017 11:09
--- NOTE | 2017-11-02 13:45 | Physical Therapy Daily Note ---
PT Daily Note-Current Subjective Pt. up in chair. Again needs many cues to stay on task and follow Pain Numeric Pain Scale: 4 Location: Left Location Body Site: Hip Pain Description: Ache Mental Status Patient Orientation: Confused Transfers Functional [place] Measure 0=Not Assessed/NA 4=Minimal Assistance 1=Total Assistance 5=Supervision or Setup 2=Maximal Assistance 6=Modified [place] 3=Moderate Assistance 7=Complete IndependenceIRFPAI Quality Coding Scale 6 Independent with activity with or without an assistive device 5 Patient requires set up or clean up by helper. Patient completes activity by themselves 4 Supervision or touching assist (CGA). [place] provide cues , steadying assist 3 The helper provides less than half the effort to complete the activity 2 The helper provides more than half the effort to complete the activity 1 Dependent. The helper does all the effort to complete an activity 7 Patient refused to complete or attempt activity 9 The patient did not perform the activity before the current illness or injury 88 Not attempted due to Medical conditions or safety concerns sit to stand all mod assist and repeated instruction for technique Weight Bearing Right Lower Extremity: Right Weight Bearing/Tolerated Left Lower Extremity: Left Weight Bearing/Tolerated Gait Training Gait Assistive Device: FWW 150x2 CGA and constant direction and cues so as not to hit objects with FWW Exercises NuStep Minutes: 10 NuStep Workload: 3 Assessment Current Status: Fair Progress movements all slow and labored with poor initiation PT Badger Distiller Operator Goals Jail Goals PT Badger Distiller Operator Goals Time Frame: Nov 24, 2017 Transfers (B,C,W/C) (FIM): 6 Sit to Lying (QC): 6 Lying-Sitting on Side/Bed(QC): 6 Sit to Stand (QC): 6 Rollin Roll Left to Right (QC): 6 Chair/Ruo-cx-Lyrke Xfer(QC): 6 Car Transfer (QC): 6 Does the Patient Walk: Yes Gait (FIM): 6 Gait distance (FIM): 3=150 ft Distance: 250' Walk 10 feet (QC): 6 Walk 10ft-Uneven Surface(QC): 6 Walk 50ft with 2 Turns (QC): 6 Walk 150 ft (QC): 6 Gait Level of Assist: 6 Gait Assistive Device: FWW Stairs (FIM): 5 # of Steps: 5 1 Step (curb) (QC): 5 4 Steps (QC): 5 12 Steps (QC): 9 Stairs Level Of Assist: 5 Picking up an Object (QC): 5 PT Plan Treatment/Plan Treatment Plan: Continue Plan of Care Treatment Plan: Bed Mobility, Education, Functional Activity Luci, Functional Strength, Group Therapy, Gait, Safety, Therapeutic Exercise, Transfers Treatment Duration: Nov 24, 2017 Frequency: At least 5 of 7 days/Wk (IRF) Estimated Hrs Per Day: 1.5 hours per day Patient and/or Family Agrees t: Yes Safety Risks/Education Patient Education: Gait Training, Transfer Techniques Teaching Recipient: Patient Teaching Methods: Demonstration, Discussion Response to Teaching: Verbalize Understanding, Return Demonstration, Reinforcement Needed Time/GCodes Time In: 1245 Time Out: 1315 Total Billed Treatment Time: 30 Total Billed Treatment 1,GT20m,EX10m G Codes Necessary: CHRISTINA Key AUTOMATION AND CONTROL ENGINEER Nov 02, 2017 13:45
[2017-11-02 18:00] VITALS: BP 126/84
[2017-11-02] MEDS: TOLTERODINE LA 4 MG (DETROL) CAP PO SCH (19:43)
[2017-11-02] MEDS: amLODIPine 10 MG (NORVASC) TAB PO SCH (19:43)
--- NOTE | 2017-11-02 19:43 | PM & R (SOAP) Progress Note ---
Subjective Time Seen by Provider: 19:30 Subjective/Events-last exam Patient was seen in her room this evening Remains confused but knows that it is october Patient Mod assist for transfers CT Head Nothing acute.Discussed case with DR Pierce covering for DR Luis Review of Systems Neurological: Confusion Objective Exam Last Set of Vital Signs Vital Signs Date Time Temp Pulse Resp B/P (MAP) Pulse Ox O2 Delivery O2 Flow Rate FiO2 11/02/17 18:00 97.7 70 18 126/84 (98) 97 Room Air Capillary Refill : I&O Intake and Output 11/02/17 00:00 Intake Total 900 ml Balance 900 ml Intake Oral 900 ml # Voids 5 # Bowel Movements 1 General: Alert, Cooperative HEENT: Atraumatic, PERRLA, EOMI, Mucous Memb Moist/[place] Neck: Supple, No JVD Lungs: Clear to Auscultation Heart: Regular Rate Abdomen: Normal Bowel Sounds, Soft, No Tenderness Extremities: No Edema Neuro: Other (Generalized weakness confusion) Results Lab Laboratory Tests 11/01/17 11:54: White Blood Count 10.2, Red Blood Count 5.13, Hemoglobin 14.9, Hematocrit 45, Mean Corpuscular Volume 88, Mean Corpuscular Hemoglobin 29, Mean Corpuscular Hemoglobin Concent 33, Red Cell Distribution Width 13.0, Platelet Count 195, Mean Platelet Volume 9.7, Neutrophils (%) (Auto) 84H, Lymphocytes (%) (Auto) 8L , Monocytes (%) (Auto) 7, Eosinophils (%) (Auto) 1, Basophils (%) (Auto) 0, Neutrophils # (Auto) 8.6H, Lymphocytes # (Auto) 0.8L, Monocytes # (Auto) 0.7, Eosinophils # (Auto) 0.1, Basophils # (Auto) 0.0, Sodium Level 136, Potassium Level 3.7, Chloride Level 98, Carbon Dioxide Level 26, Anion Gap 12, Blood Urea Nitrogen 19H, Creatinine 1.06, Estimat Glomerular Filtration Rate 50, BUN/ Creatinine Ratio 18, Glucose Level 138H, Calcium Level 9.3, Total Bilirubin 0.6 , Aspartate Amino Transf (AST/SGOT) 74H, Alanine Aminotransferase (ALT/SGPT) 48 , Alkaline Phosphatase 76, Total Protein 6.9, Albumin 4.1 Assessment/Plan Assessment General debil s/p fall Confusion may be related to UTI UTI under treatment OA both kness Prior RT THR for OA HTN controlled Hypothyroidism on replacement Plan Continue PT/OT Will f/u re ST assessment-appreciate thier reassessment monitor confusion and do further studies as indicated -Consider MRI F/U with PCP Team Conference held yesterday-See report for full functional update and POC and ELOS Checked Labs. MARIO NGUYEN MD Nov 02, 2017 19:43
--- NOTE | 2017-11-02 20:01 | Individualized Plan of Care ---
Individualized Plan of Care Rehab Nursing IPOC Order Admission Date Oct 31, 2017 at 09:50 Current Orders Orders Admission Order(Inpt,Obs,Sdc) (10/31/17 09:51) Admission Arrival Bed Request (10/31/17 09:50) Pt Evaluate/Treat Request (10/31/17 09:50) Request Ot Evaluate & Treat (10/31/17 09:51) Request For Cognitive Services (10/31/17 09:51) Code/Resuscitation (10/31/17 10:13) Activity As Ordered (10/31/17 10:13) Ambulate TID (10/31/17 10:13) Notify Physician (10/31/17 10:13) Nursing Communication (Ord) (10/31/17 10:13) Sequential Compression Device (10/31/17 10:13) Weight Bearing Status (10/31/17 10:13) General/Regular (10/31/17 Lunch) Acetaminophen Tablet (Tylenol Tablet) (10/31/17 10:15) Bisoprolol/Hctz Tablet 10/6.25 (Ziac 10/ (11/01/17 09:00) Cephalexin Capsule (Keflex Capsule) (10/31/17 13:00) Famotidine Tablet (Pepcid Tablet) (10/31/17 21:00) Fluticasone Nasal [place] (Flonase Nasal S (10/31/17 21:00) Irbesartan Tablet (Avapro Tablet) (11/01/17 09:00) Levothyroxine Tablet (Synthroid Tablet) (11/01/17 06:30) Ondansetron Oral Dissolve Tab (Zofran (10/31/17 10:15) Cholecalciferol Capsule/Tablet (Vitamin (11/01/17 07:00) Meloxicam Tablet (Mobic Tablet) (11/01/17 09:00) Therapeutic Multivitamin Tab (Vitamins, (11/01/17 07:00) Tolterodine La Capsule (Detrol La Capsul (10/31/17 21:00) Consult Physician (10/31/17 10:24) Amlodipine Tablet (Norvasc Tablet) (10/31/17 21:00) Consult Physician (10/31/17 10:37) Sequential Compression Device (10/31/17 11:50) Dvt/Vte Risk - Notifiy Physici 08 (10/31/17 11:50) Patient Visit (10/31/17 ) Speech Sound Lang Comp (10/31/17 ) Patient Visit (10/31/17 ) Pt Eval High Complexity (10/31/17 ) Gait Training, Ea 15 Min (10/31/17 ) Functional Activities, Ea 15 (10/31/17 ) Cbc With Automated Diff (11/01/17 10:00) Comprehensive Metabolic Panel (11/01/17 10:00) Request For Cognitive Services (11/01/17 09:33) Patient Visit (11/01/17 ) Speech Sound Lang Comp (11/01/17 ) Ct Head Wo (11/01/17 15:06) Patient Visit (11/01/17 ) Functional Activities, Ea 15 (11/01/17 ) Exercise Therap, Ea 15 Min (11/01/17 ) Gait Training, Ea 15 Min (11/01/17 ) Patient Visit (11/02/17 ) Treat. Speech/Lang/Voice (11/02/17 ) Patient Visit (11/02/17 ) Functional Activities, Ea 15 (11/02/17 ) Gait Training, Ea 15 Min (11/02/17 ) Exercise Therap, Ea 15 Min (11/02/17 ) Thyroid Stimulating Hormone (11/03/17 07:00) Other Nursing Orders: Monitor for increased confusion and Bladder incontinence /retention constip PT IPOC Problem List: Activity Tolerance, Functional Strength, Safety, Balance, Gait, Transfer, Bed Mobility, ROM Treatment Plan: Continue Plan of Care Bed Mobility, Education, Functional Activity Luci, Functional Strength, Group Therapy, Gait, Safety, Therapeutic Exercise, Transfers Treatment Duration: Nov 24, 2017 Frequency: At least 5 of 7 days/Wk (IRF) Estimated Hrs Per Day: 1.5 hours per day OT IPOC Problems: Decreased Activ Tolerance, Decreased UE Strength, Dependent Transfers , Impaired Funct Balance, Impaired I ADL's, Impaired Self-Care Skills OT Treatment, Training and Edu: Yes OT Problems Pt demonstrates decreased strength, ADL functioning, mobility, and activity tolerance. Pt to benefit from skilled OT intervention for ADL training, transfers, strengthening, and safety education. Plan of Care: ADL Retraining, Functional Mobility, Group Exercise/Act as Ind, UE Funct Exercise/Act Treatment Duration: Nov 21, 2017 Frequency: At least 5 of 7 days/Wk (IRF) Estimated Hrs Per Day: 1.[address] IPOC Speech Therapy Treatment Plan: Continue Plan of Care Treatment Duration: Nov 22, 2017 Frequency: Modified Program (IRF) (Four to five times per week) Estimated Hrs Per Day: Other Cleaner/Case Mgmt Cleaner/Case Managemen: Discharge Planning, Patient/Family Counseling Physician IPOC Medical Issues being managed closely and that require the 24 hour availability of a physician: Arthritic pain Increased confusion HTN Hypothyroidism OA both knees Endometrial thickening Medical Issues: Bowel/Bladder Function, DVT Prophylaxis, Falls Precautions, Fluid/Electrolyte/Nutrition Balance, Infection Protection, Pain Management, Other (List) (as per above) Brief Synthesis of Preadmission Screen, Post-Admission Evaluation, and Therapy Evaluations: 77 yo female who fell at home with resulting rhabdomyolyis and a decline in Funtional [place].Had been Modified Independent prior to this Currently with increased confusion but with negative CT Head UTI being treated Will check TSH Appreciate DR Dong note 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
[2017-11-03 05:52] VITALS: BP 158/71
[2017-11-03] MEDS: LEVOTHYROXINE 100 MCG (LEVOTHROID) TAB PO SCH (06:05)
[2017-11-03] MEDS: VITAMIN D3 1,000 UNITS (CHOLECALCIFEROL) TABLET PO SCH (06:05)
[2017-11-03] MEDS: MULTIVIT W/MINERALS TAB (THERAGRAN M) PO SCH (06:05)
[2017-11-03] MEDS: IRBESARTAN 150 MG (AVAPRO) TAB PO SCH (08:52)
[2017-11-03] MEDS: BISOPROLOL/HCTZ 10/6.25 MG (ZIAC) TAB PO SCH (08:53)
[2017-11-03] MEDS: FAMOTIDINE 20 MG (PEPCID) TABLET PO SCH ×2 (08:53→20:36)
[2017-11-03] MEDS: MELOXICAM 7.5 MG (MOBIC) TABLET PO SCH (08:53)
[2017-11-03] MEDS: CEPHALEXIN 250 MG (KEFLEX) CAP PO SCH ×4 (08:53→20:36)
[2017-11-03] MEDS: FLUTICASONE NASAL SPRAY (FLONASE) 16 GM BTL NS SCH ×2 (08:55→21:00)
--- NOTE | 2017-11-03 09:00 | Physical Therapy Daily Note ---
PT Daily Note-Current Subjective Pt. more confused. Does not know what type of building this is, what happened to her and not sure for awhile what her year was. Doesnt identify the clock in the room, thinks its afternoon. Pain Numeric Pain Scale: 4 Location: Left Location Body Site: Hip Pain Description: Ache Comment: c/o pain in LES with movement , more in LLE Mental Status Patient Orientation: Confused Transfers Functional [place] Measure 0=Not Assessed/NA 4=Minimal Assistance 1=Total Assistance 5=Supervision or Setup 2=Maximal Assistance 6=Modified [place] 3=Moderate Assistance 7=Complete IndependenceIRFPAI Quality Coding Scale 6 Independent with activity with or without an assistive device 5 Patient requires set up or clean up by helper. Patient completes activity by themselves 4 Supervision or touching assist (CGA). [place] provide cues , steadying assist 3 The helper provides less than half the effort to complete the activity 2 The helper provides more than half the effort to complete the activity 1 Dependent. The helper does all the effort to complete an activity 7 Patient refused to complete or attempt activity 9 The patient did not perform the activity before the current illness or injury 88 Not attempted due to Medical conditions or safety concerns Transfers (B, C, W/C) (FIM): 3 Scootin Rollin Sit to/from Stand: 3 Bed to/from Chair: 4 Weight Bearing Right Lower Extremity: Right Weight Bearing/Tolerated Left Lower Extremity: Left Weight Bearing/Tolerated Gait Training Does the Patient Walk?: Yes Gait (FIM): 4 Distance (FIM): 3=150 ft (165x2) Gait Level of Assist: 4 Gait Persons Needed: 1 Gait Assistive Device: FWW head down, shuffled gait, needs constant direction, runs in to items on right, veers right Wheelchair Training Does the Pt Use a Wheelchair?: No Stair Training unsafe to attempt Exercises Supine Ex: Bridging, Ankle pumps, Quad Set, Rolling, Glut sets, Heel Slides, Short Arc Quads, Scooting, Straight leg raise, Hip abd/add Supine Reps: 10 (all with assist, slow, resists) Seated Therapy Exercises: Ankle pumps, Sit to stand, Long arc quads, Hip flexion Seated Reps: 8 Assessment Current Status: Poor Progress confusion increased, funct mobility dependent for all PT Webmethods Consultant Goals Webmethods Consultant Goals PT Mcc Goals Time Frame: Nov 24, 2017 Transfers (B,C,W/C) (FIM): 6 Sit to Lying (QC): 6 Lying-Sitting on Side/Bed(QC): 6 Sit to Stand (QC): 6 Rollin Roll Left to Right (QC): 6 Chair/Jgm-iy-Wdtmu Xfer(QC): 6 Car Transfer (QC): 6 Does the Patient Walk: Yes Gait (FIM): 6 Gait distance (FIM): 3=150 ft Distance: 250' Walk 10 feet (QC): 6 Walk 10ft-Uneven Surface(QC): 6 Walk 50ft with 2 Turns (QC): 6 Walk 150 ft (QC): 6 Gait Level of Assist: 6 Gait Assistive Device: FWW Stairs (FIM): 5 # of Steps: 5 1 Step (curb) (QC): 5 4 Steps (QC): 5 12 Steps (QC): 9 Stairs Level Of Assist: 5 Picking up an Object (QC): 5 PT Plan Treatment/Plan Treatment Plan: Continue Plan of Care Treatment Plan: Bed Mobility, Education, Functional Activity Luci, Functional Strength, Group Therapy, Gait, Safety, Therapeutic Exercise, Transfers Treatment Duration: Nov 24, 2017 Frequency: At least 5 of 7 days/Wk (IRF) Estimated Hrs Per Day: 1.5 hours per day Patient and/or Family Agrees t: Yes Safety Risks/Education Patient Education: Gait Training, Transfer Techniques Teaching Recipient: Patient Teaching Methods: Demonstration, Discussion Response to Teaching: Verbalize Understanding, Return Demonstration, Reinforcement Needed Time/GCodes Time In: 755 Time Out: 855 Total Billed Treatment Time: 60 Total Billed Treatment 1,GT25m,FA15m,EX20m G Codes Necessary: CHRISTINA Key PTA Nov 03, 2017 09:00
--- NOTE | 2017-11-03 09:19 | Occupational Ther Daily Note ---
OT Current Status-Daily Note Subjective Pt alert, sitting in recliner. Pt agrees to therapy. Pt pleasant and states that she thinks that she is having difficulty finding her path. Decline in ability to problem solve and sequence simple ADL tasks. Discussed with physician and nrsg decline in pt's ability. Mental Status/Objective Patient Orientation: Person, Confused Functional [place] Measure 0=Not Assessed/NA 4=Minimal Assistance 1=Total Assistance 5=Supervision or Setup 2=Maximal Assistance 6=Modified [place] 3=Moderate Assistance 7=Complete [place] ADL-Treatment Pt was set up for sponge bath and dressing. Pt required verbal cues to stay on task throughout session. Pt would hold onto cleansing cloth and would need verbal prompting to initiate washing each area. Pt attempted to doff robe but unable to sequence to pull off shldrs and required cue to pull off of R UE, assist to doff. Pt then attempted to don bra, put it on backwards. Assist to don bra and hook it, pt was able to don bra during previous therapies. ORDOÑEZ handed pt shirt and pt attempted multiple time to don shirt through neck hole. ORDOÑEZ verbally cued pt on donning shirt, pt unable to process sequence, assist to don shirt was needed. Pt was able to doff shoes by self though assist to don shoes was needed. Pt required assist to don pants then pt was able to hike over hips with CGA in standing. Assist to open packages for breakfast after pt attempted. After therapy, pt sitting in recliner eating breakfast. Call light/ phone in reach. All needs met in room. Functional [place] Measure 0=Not Assessed/NA 4=Minimal Assistance 1=Total Assistance 5=Supervision or Setup 2=Maximal Assistance 6=Modified [place] 3=Moderate Assistance 7=Complete IndependenceIRFPAI Quality Coding Scale 6 Independent with activity with or without an assistive device 5 Patient requires set up or clean up by helper. Patient completes activity by themselves 4 Supervision or touching assist (CGA). [place] provide cues , steadying assist 3 The helper provides less than half the effort to complete the activity 2 The helper provides more than half the effort to complete the activity 1 Dependent. The helper does all the effort to complete an activity 7 Patient refused to complete or attempt activity 9 The patient did not perform the activity before the current illness or injury 88 Not attempted due to Medical conditions or safety concerns Eating (FIM): 5 Eating (QC): 5 Upper Body (FIM): 2 Upper Body Dressing (QC): 2 Lower Body Dressing (FIM): 2 Lower Body Dressing (QC): 2 On/Off Footwear (QC): 3 OT Short Term Goals Short Term Goals Time Frame: Nov 07, 2017 Bathing(FIM): 4 Upper Body Dressing(FIM): 5 Lower Body Dressing(FIM): 4 Toilet/Commode Transfer(FIM): 4 (CGA) Shower Transfer(FIM): 4 Additional Short Term Goals: 2-Verbalize Understanding, 3-ImproveStrength/Luci 1=Demonstrate adherence to instructed precautions during ADL tasks. 2=Patient will verbalize/demonstrate understanding of assistive devices/ modifications for ADL. 3=Patient will improve strength/tolerance for activity to enable patient to perform ADL's. OT Genetic Counselor Goals Mcfp Goals Time Frame: Nov 21, 2017 Eating (FIM): 6 Eating (QC): 6 Groomin Oral Hygiene (QC): 6 Bathing(FIM): 5 Shower/Bathe Self (QC): 5 Upper Body Dressing(FIM): 6 Upper Body Dressing (QC): 6 Lower Body Dressing(FIM): 6 Lower Body Dressing (QC): 6 On/Off Footwear (QC): 6 Toileting(FIM): 6 Toileting Hygiene (QC): 6 Toilet/Commode Transfer(FIM): 6 Toilet/Commode Transfer (QC): 6 Shower Transfer(FIM): 5 Comprehension(FIM): 4 Expression (FIM): 4 Social Interaction(FIM): 4 Problem Solving(FIM): 3 Memory(FIM): 3 Additional Goals: 2-Verbalize Understanding, 3-ImproveStrength/Luci 1=Demonstrate adherence to instructed precautions during ADL tasks. 2=Patient will verbalize/demonstrate understanding of assistive devices/ modifications for ADL. 3=Patient will improve strength/tolerance for activity to enable patient to perform ADL's. OT Education/Plan Problem List/Assessment Pt demonstrates decreased strength, ADL functioning, mobility, and activity tolerance. Pt to benefit from skilled OT intervention for ADL training, transfers, strengthening, and safety education. Discharge Recommendations Plan/Recommendations: Continue POC Treatment Plan/Plan of Care Patient would benefit from OT for education, treatment and training to promote independence in ADL's, mobility, safety and/or upper extremity function for ADL' s. Plan of Care: ADL Retraining, Functional Mobility, Group Exercise/Act as Ind, UE Funct Exercise/Act Treatment Duration: Nov 21, 2017 Frequency: At least 5 of 7 days/Wk (IRF) Estimated Hrs Per Day: 1.5 hours per day Rehab Potential: Fair Time/GCodes Start Time: 08:50 Stop Time: 09:50 Total Time Billed (hr/min): 60 Billed Treatment Time 1 visit-ADL 4 (60 min) ARYAN NAJERA Nov 03, 2017 09:19
--- NOTE | 2017-11-03 10:53 | PM & R (SOAP) Progress Note ---
Subjective Time Seen by Provider: 10:25 Subjective/Events-last exam Patient was seen in her room this AM remains pleasently confused.Discussed case with ST and OT and Nursing Dr Luis away this week -Will recheck u/a RN reports Patient incontinent may have to st cath.Patient mod assist for transfers.CT showed no acute d Review of Systems Neurological: Confusion Objective Exam Last Set of Vital Signs Vital Signs Date Time Temp Pulse Resp B/P (MAP) Pulse Ox O2 Delivery O2 Flow Rate FiO2 11/03/17 08:58 Room Air 11/03/17 05:52 97.3 74 20 158/71 (100) 95 Capillary Refill : I&O Intake and Output 11/03/17 00:00 Intake Total 1170 ml Balance 1170 ml Intake Oral 1170 ml # Voids 6 General: Alert, Cooperative HEENT: Atraumatic, PERRLA, EOMI, Mucous Memb Moist/[place] Neck: Supple, No JVD Lungs: Clear to Auscultation Heart: Regular Rate Abdomen: Normal Bowel Sounds, Soft, No Tenderness Extremities: No Edema Neuro: Other ( Confusion with rambling speech) Results Lab Laboratory Tests 11/01/17 11:54: White Blood Count 10.2, Red Blood Count 5.13, Hemoglobin 14.9, Hematocrit 45, Mean Corpuscular Volume 88, Mean Corpuscular Hemoglobin 29, Mean Corpuscular Hemoglobin Concent 33, Red Cell Distribution Width 13.0, Platelet Count 195, Mean Platelet Volume 9.7, Neutrophils (%) (Auto) 84H, Lymphocytes (%) (Auto) 8L , Monocytes (%) (Auto) 7, Eosinophils (%) (Auto) 1, Basophils (%) (Auto) 0, Neutrophils # (Auto) 8.6H, Lymphocytes # (Auto) 0.8L, Monocytes # (Auto) 0.7, Eosinophils # (Auto) 0.1, Basophils # (Auto) 0.0, Sodium Level 136, Potassium Level 3.7, Chloride Level 98, Carbon Dioxide Level 26, Anion Gap 12, Blood Urea Nitrogen 19H, Creatinine 1.06, Estimat Glomerular Filtration Rate 50, BUN/ Creatinine Ratio 18, Glucose Level 138H, Calcium Level 9.3, Total Bilirubin 0.6 , Aspartate Amino Transf (AST/SGOT) 74H, Alanine Aminotransferase (ALT/SGPT) 48 , Alkaline Phosphatase 76, Total Protein 6.9, Albumin 4.1 11/03/17 05:32: Thyroid Stimulating Hormone (TSH) 1.11 Assessment/Plan Assessment General debil s/p fall Confusion may be related to UTI-will recheck U/A and obtain MRI-See orders-TSH ordered will check UTI under treatment OA both kness Prior RT THR for OA HTN controlled Hypothyroidism on replacement Plan Continue PT/OT Will f/u re ST assessment-appreciate their reassessment monitor confusion and do further studies as indicated -see orders F/U with PCP Team Conference held 11-01-17-See report for full functional update and POC and ELOS Checked Labs.-TSH noted Discussed with RN-EMB positive DR Merrill INDIVIDUALIZED EDUCATION PLAN AIDE to f/u MARIO NGUYEN MD Nov 03, 2017 10:53
--- NOTE | 2017-11-03 11:29 | Speech Therapy Daily Note ---
Speech Daily Progress Note Subjective Date Seen by Provider: Nov 03, 2017 Time Seen by Provider: 10:30 The patient was seated upright, sleeping in the recliner upon entrance. The patient greeted the clinician and was agreeable to participation in the cognitive evaluation. The patient's breakfast tray was present and removed by the clinician. Objective The patient demonstrates significant confusion on this date, possibly worsening in comparison to the day prior. On this date the patient appeared somewhat aware of her deficit as she stated, "I do know I'm not thinking straight." Orientation: The patient was unaware of the month ("Oh probably the 4th or the 3rd or I don't know."), the year ("None of your business."), the city ("darned if I know."), or location ("Oh maybe a municipal building."). The patient laughs and repeats questions to the clinician, however, is unable to pull the accurate response. The patient does intermittently attempt to change the subject but is unable to complete a full thought or sentence. Immediate Recall: The patient stated she ate breakfast but was unable to state what items she consumed. The patient stated "well, I know I didn't have any cereal." The patient did eat cereal immediately prior to the speech session. Additionally, the patient stated "Yeah, I think I had some fruit. Sometimes we don't know what kind of fruit we had. We can eat all kinds of fruits." The patient continued non-specific explanations of fruit, however, was unable to recall she consumed a banana immediately prior to the session. The patient denied her fall at home or her presence in a hospital. Regardless of maximum redirection, repetition, and use of the in-room external aid (white board), the patient was unable to identify simple orientation information. The clinician is concerned of the patient's worsening cognition and encouraged a MRI for possible etiology. Assessment Assessment Current Status: Regressing Treatment Plan Continue Plan of Care Communication Comprehension: 1 Expression: 2 Social Cognition Social Interaction: 2 Problem Solvin Memory: 1 Speech Short Term Goals Short Term Goals Short Term Goals 1. The patient will recall orientation information independently and with the use of an external aid. 2. The patient will recall and demonstrate two functional word finding strategies with 80% accuracy and mild clinician verbal cueing. 3. The patient will recall two functional memory strategies for use at home, independently. 4. The patient will demonstrate 80% accuracy with functional safety problem solving. Time Frame-STG: Two Weeks Speech Mission Commander Goals Snf Goals 1. The patient will demonstrate improved cognitive linguistic skills for increased safety and function of ADL's. Time Frame: Three Weeks Comprehension: 4 Expression: 4 Social Interaction: 4 Problem Solvin Memory: 3 Speech-Plan Treatment Plan Speech Therapy Treatment Plan: Continue Plan of Care Continue skilled speech pathology to target immediate recall. Treatment Duration: Nov 22, 2017 Frequency: Modified Program (IRF) (Four to five times per week) Estimated Hrs Per Day: Other Rehab Potential: Fair Safety Risks/Education Teaching Recipient: Patient Teaching Methods: Discussion Response to Teaching: Unable to Comprehend Education Topics Provided: Results, Rationale for Treatment, Orientation Information Time Speech Therapy Time In: 10:30 Speech Therapy Time Out: 11:00 Total Billed Time: 30 Billed Treatment Time 1SOP[facility]IA [facility] Nov 03, 2017 11:29
[2017-11-03 14:35] LABS: BILIRUBIN,URINE NEGATIVE (NEGATIVE); CLARITY,URINE SLIGHTLY CLOUDY; COLOR,URINE YELLOW; GLUCOSE, URINE (UA) NEGATIVE (NEGATIVE); KETONES,URINE NEGATIVE (NEGATIVE); LEUKOCYTE ESTERASE ,URINE 3+ (NEGATIVE); NITRITE,URINE NEGATIVE (NEGATIVE); PH,URINE 5 (5-9); PROTEIN,URINE 2+ (NEGATIVE); UROBILINOGEN,URINE NORMAL (NORMAL)
[2017-11-03 14:58] LABS: BACTERIA,URINE MODERATE /HPF; RBC,URINE 50-100 /HPF; SQUAMOUS EPITHELIAL CELL,UR 0-2 /HPF; WBC,URINE 50-100 /HPF
--- NOTE | 2017-11-03 15:07 | Therapy Group Daily Note ---
Therapy Daily Group Note Patient Education Topic Home Safety Exercises LE Seated Exercise, UE Exercise Other/Notes Pt ambulated with FWW to OT/PT group in therapy gym. Group consisted of introductions (name, place living, "My favorite...."), socialization, education on home safety and home resources, home jeopardy game and pt led UE/LE seated exercise. Pt introduced self appropriately and actively listened to peers introductions. Pt contributed to discussions and conversations. Verbalized understanding of each educational topic with prompts. Increased fatigue, pt fell asleep during group multiple times. After therapy, pt lying in bed with call light/phone. All needs met in room. Start Time: 13:00 Stop Time: 14:10 Total Billed Treatment Time: 70 Total Billed Treatment 1-GRP ARYAN NAJERA Nov 03, 2017 15:07
[2017-11-03 17:16] VITALS: BP 117/56
--- NOTE | 2017-11-03 17:46 | Diagnostic Imaging Report ---
PROCEDURE: MR imaging of the brain without contrast. TECHNIQUE: Multiplanar, multisequence MR imaging of the brain was performed without contrast. INDICATION: Increased confusion. FINDINGS: There is prominence of the ventricles and sulci. There is some chronic microvascular ischemic disease. There are multiple tiny foci of diffusion restriction in the frontal lobes, parietal lobes, and occipital lobes bilaterally compatible with embolic CVA. There is no hydrocephalus. There is no midline shift. There is no intracranial mass, hemorrhage, or extra-axial fluid collection. There is mild mucosal thickening in the right frontal sinuses. Remaining sinuses are clear. The mastoid air cells are clear. The globes and intraorbital structures are unremarkable. The central arterial and dural venous sinus flow voids are preserved. 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 Atrophy and some chronic microvascular ischemic disease. Report was left on voice mail for Dr. Wesley Pillai at 5:40 p.m., and also faxed to him, by rodrick (for [facility]). Dictated by: Dictated on workstation # [id number]
[2017-11-03] MEDS: TOLTERODINE LA 4 MG (DETROL) CAP PO SCH (20:36)
[2017-11-03] MEDS: amLODIPine 10 MG (NORVASC) TAB PO SCH (20:36)
[2017-11-04] MEDS: VITAMIN D3 1,000 UNITS (CHOLECALCIFEROL) TABLET PO SCH (06:04)
[2017-11-04] MEDS: LEVOTHYROXINE 100 MCG (LEVOTHROID) TAB PO SCH (06:04)
[2017-11-04] MEDS: MULTIVIT W/MINERALS TAB (THERAGRAN M) PO SCH (06:04)
[2017-11-04 06:25] VITALS: BP 138/78
[2017-11-04] MEDS: CEPHALEXIN 250 MG (KEFLEX) CAP PO SCH ×4 (08:05→20:20)
[2017-11-04] MEDS: BISOPROLOL/HCTZ 10/6.25 MG (ZIAC) TAB PO SCH (08:05)
[2017-11-04] MEDS: MELOXICAM 7.5 MG (MOBIC) TABLET PO SCH (08:05)
[2017-11-04] MEDS: FAMOTIDINE 20 MG (PEPCID) TABLET PO SCH ×2 (08:05→20:20)
[2017-11-04] MEDS: IRBESARTAN 150 MG (AVAPRO) TAB PO SCH (08:05)
[2017-11-04] MEDS: FLUTICASONE NASAL SPRAY (FLONASE) 16 GM BTL NS SCH ×2 (08:06→20:23)
--- NOTE | 2017-11-04 13:06 | Physical Therapy Daily Note ---
PT Daily Note-Current Subjective Pt agreeable. Pt well known to this therapist at [facility]; significant confusion. Requires near constant cueing for sequencing, safety. Mental Status Patient Orientation: Person, Confused Transfers Functional [place] Measure 0=Not Assessed/NA 4=Minimal Assistance 1=Total Assistance 5=Supervision or Setup 2=Maximal Assistance 6=Modified [place] 3=Moderate Assistance 7=Complete IndependenceIRFPAI Quality Coding Scale 6 Independent with activity with or without an assistive device 5 Patient requires set up or clean up by helper. Patient completes activity by themselves 4 Supervision or touching assist (CGA). [place] provide cues , steadying assist 3 The helper provides less than half the effort to complete the activity 2 The helper provides more than half the effort to complete the activity 1 Dependent. The helper does all the effort to complete an activity 7 Patient refused to complete or attempt activity 9 The patient did not perform the activity before the current illness or injury 88 Not attempted due to Medical conditions or safety concerns Sit to/from Stand: 4 Sit to Stand (QC): 3 Weight Bearing Right Lower Extremity: Right Weight Bearing/Tolerated Left Lower Extremity: Left Weight Bearing/Tolerated Gait Training Does the Patient Walk?: Yes Gait (FIM): 4 Distance (FIM): 3=150 ft Distance: 150 Walk 10 feet (QC): 3 Walk 50 ft with 2 Turns(QC): 3 Walk 150 ft (QC): 3 Gait Level of Assist: 4 Gait Persons Needed: 1 Gait Assistive Device: FWW Pt requiring near constant cues for sequencing, safety. Running into multiple objects with FWW. Treatments Gait training with FWW. Returned to recliner with alarm activated. Assessment Current Status: Poor Progress Pt tolerated fair. Nonsensical speech, poor direction following, poor problem solving. PT Half-Way Goals Appellate Law Clerk Goals PT Half-Way Goals Time Frame: Nov 24, 2017 Transfers (B,C,W/C) (FIM): 6 Sit to Lying (QC): 6 Lying-Sitting on Side/Bed(QC): 6 Sit to Stand (QC): 6 Rollin Roll Left to Right (QC): 6 Chair/Kfl-li-Vgxuw Xfer(QC): 6 Car Transfer (QC): 6 Does the Patient Walk: Yes Gait (FIM): 6 Gait distance (FIM): 3=150 ft Distance: 250' Walk 10 feet (QC): 6 Walk 10ft-Uneven Surface(QC): 6 Walk 50ft with 2 Turns (QC): 6 Walk 150 ft (QC): 6 Gait Level of Assist: 6 Gait Assistive Device: FWW Stairs (FIM): 5 # of Steps: 5 1 Step (curb) (QC): 5 4 Steps (QC): 5 12 Steps (QC): 9 Stairs Level Of Assist: 5 Picking up an Object (QC): 5 PT Plan Problem List Problem List: Activity Tolerance, Functional Strength, Safety, Balance, Gait, Transfer, Bed Mobility Treatment/Plan Treatment Plan: Continue Plan of Care Treatment Plan: Bed Mobility, Education, Functional Activity Luci, Functional Strength, Group Therapy, Gait, Safety, Therapeutic Exercise, Transfers Treatment Duration: Nov 24, 2017 Frequency: At least 5 of 7 days/Wk (IRF) Estimated Hrs Per Day: 1.5 hours per day Patient and/or Family Agrees t: Yes Safety Risks/Education Patient Education: Gait Training Teaching Recipient: Patient Teaching Methods: Demonstration, Discussion Response to Teaching: Unable to Return Demonstration, Unable to Comprehend Discharge Recommendations Barriers to Progress confusion Time/GCodes Time In: 1242 Time Out: 1259 Total Billed Treatment Time: 17 Total Billed Treatment 1, Gt x 17 G Codes Necessary: TAMEKA Meng DPMonika Nov 04, 2017 13:06
--- NOTE | 2017-11-04 13:57 | Progress Note-Standard ---
Standard Progress Note Progress Notes/Assess & Plan Date Seen 11/04/17 Time Seen by Provider: 12:00 Assess & Plan/Chief Complaint Patient doing much better and overall has no pain Severe debility remains Had a visitor and she enjoyed talking to her No constipation Ready to eat lunch No fever, vital signs stable, chronically debilitated Regular rate and rhythm, clear to auscultation bilaterally No edema Severe debility requiring inpatient rehabilitation Falls Status post acute rhabdomyolysis Continue inpatient rehabilitation protocol MARIKA BOYD DO Nov 04, 2017 13:57
[2017-11-04 17:55] VITALS: BP 149/80
[2017-11-04] MEDS: TOLTERODINE LA 4 MG (DETROL) CAP PO SCH (20:20)
[2017-11-04] MEDS: amLODIPine 10 MG (NORVASC) TAB PO SCH (20:21)
[2017-11-05] MEDS: LEVOTHYROXINE 100 MCG (LEVOTHROID) TAB PO SCH (05:58)
[2017-11-05] MEDS: MULTIVIT W/MINERALS TAB (THERAGRAN M) PO SCH (05:58)
[2017-11-05] MEDS: VITAMIN D3 1,000 UNITS (CHOLECALCIFEROL) TABLET PO SCH (05:58)
[2017-11-05] MEDS: ACETAMINOPHEN 500 MG TAB (TYLENOL) PO PRN (05:59)
[2017-11-05 06:02] VITALS: BP 146/76
[2017-11-05] MEDS: BISOPROLOL/HCTZ 10/6.25 MG (ZIAC) TAB PO SCH (08:09)
[2017-11-05] MEDS: IRBESARTAN 150 MG (AVAPRO) TAB PO SCH (08:09)
[2017-11-05] MEDS: FAMOTIDINE 20 MG (PEPCID) TABLET PO SCH ×2 (08:09→20:11)
[2017-11-05] MEDS: CEPHALEXIN 250 MG (KEFLEX) CAP PO SCH (08:09)
[2017-11-05] MEDS: MELOXICAM 7.5 MG (MOBIC) TABLET PO SCH (08:09)
[2017-11-05] MEDS: FLUTICASONE NASAL SPRAY (FLONASE) 16 GM BTL NS SCH ×2 (08:10→20:11)
--- NOTE | 2017-11-05 13:33 | Progress Note-Standard ---
Standard Progress Note Progress Notes/Assess & Plan Date Seen 11/05/17 Time Seen by Provider: 12:30 Assess & Plan/Chief Complaint Patient's friend who is a Dr. White know why she is not on an aspirin and once a cardiology consultation so we'll leave that up to the primary care provider Dr. Luis who will return tomorrow Denies any pain but noticed the heels that are laying on the bed need heel protectors and she is agreeable for that Bowels are moving Eating and drinking well No fever, vital signs stable, chronically debilitated Regular rate and rhythm, clear to auscultation bilaterally No edema Severe debility requiring inpatient rehabilitation Falls Status post acute rhabdomyolysis High risk for heel pressure ulcers Continue inpatient rehabilitation protocol Heel protectors MARIKA BOYD DO Nov 05, 2017 13:33
[2017-11-05 18:00] VITALS: BP 110/54
[2017-11-05] MEDS: amLODIPine 10 MG (NORVASC) TAB PO SCH (20:11)
[2017-11-05] MEDS: TOLTERODINE LA 4 MG (DETROL) CAP PO SCH (20:11)
[2017-11-06] MEDS: MULTIVIT W/MINERALS TAB (THERAGRAN M) PO SCH (06:05)
[2017-11-06] MEDS: LEVOTHYROXINE 100 MCG (LEVOTHROID) TAB PO SCH (06:05)
[2017-11-06] MEDS: VITAMIN D3 1,000 UNITS (CHOLECALCIFEROL) TABLET PO SCH (06:05)
[2017-11-06 06:19] VITALS: BP 155/80
[2017-11-06 08:34] VITALS: BP 121/66
--- NOTE | 2017-11-06 08:44 | Occupational Ther Daily Note ---
OT Current Status-Daily Note Subjective Pt lying in bed eating breakfast. Pt leaning toward left side and did not correct even with verbal cues. Reoriented pt to place and time. During treatment pt was walking from bathroom to recliner and had to stop stating that "she felt like she was not able to make it". Pt made it to recliner took BP 3x' s, 98/68,101/68 and 99/68, Reported to nrsg. Pt having difficulty with finding words to finish sentences. Mental Status/Objective Patient Orientation: Person, Confused Functional [place] Measure 0=Not Assessed/NA 4=Minimal Assistance 1=Total Assistance 5=Supervision or Setup 2=Maximal Assistance 6=Modified [place] 3=Moderate Assistance 7=Complete [place] ADL-Treatment Pt required step by step directions throughout treatment session then at times required physical cues to manipulate clothing or to bathe. Pt ambulated to bathroom using FWW and required cues for where to go and which way to turn. Pt required direction to transfer into shower using FWW, grabbars and shower bench. Pt required verbal cues to initiate bathing each area and then assist to complete bathing/drying. Assist to don/doff clothing due to decreased ability to sequence manipulation of clothing with dressing. Pt was able to sit at sink to complete brushing teeth though did not wipe mouth. Pt has tendency to keep head bent down and turn chin toward L side. Pt was able to reach head to comb hair though inefficiently and assist to complete. Pt then ambulated back to recliner with 1 rest break. Set up pt's raisin bran and pt unable to find it on tray when placed in front of her, looked over it to the right. Able to take 2 bites then placed in lap and forgot it was there. Verbal cues to place back on tray. Pt had tendency to fall asleep at end of treatment while sitting in recliner. Nrsg notified of BP and continued change of mental status. Call light/phone in reach. All needs met in room. Functional [place] Measure 0=Not Assessed/NA 4=Minimal Assistance 1=Total Assistance 5=Supervision or Setup 2=Maximal Assistance 6=Modified [place] 3=Moderate Assistance 7=Complete IndependenceIRFPAI Quality Coding Scale 6 Independent with activity with or without an assistive device 5 Patient requires set up or clean up by helper. Patient completes activity by themselves 4 Supervision or touching assist (CGA). [place] provide cues , steadying assist 3 The helper provides less than half the effort to complete the activity 2 The helper provides more than half the effort to complete the activity 1 Dependent. The helper does all the effort to complete an activity 7 Patient refused to complete or attempt activity 9 The patient did not perform the activity before the current illness or injury 88 Not attempted due to Medical conditions or safety concerns Eating (FIM): 5 Grooming (FIM): 3 Oral Hygiene (QC): 3 Bathing (FIM): 2 Shower/Bathe Self (QC): 2 Upper Body (FIM): 2 Upper Body Dressing (QC): 2 Lower Body Dressing (FIM): 2 Lower Body Dressing (QC): 2 On/Off Footwear (QC): 2 Shower Transfer(FIM): 2 OT Short Term Goals Short Term Goals Time Frame: Nov 07, 2017 Bathing(FIM): 4 Upper Body Dressing(FIM): 5 Lower Body Dressing(FIM): 4 Toilet/Commode Transfer(FIM): 4 (CGA) Shower Transfer(FIM): 4 Additional Short Term Goals: 2-Verbalize Understanding, 3-ImproveStrength/Luci 1=Demonstrate adherence to instructed precautions during ADL tasks. 2=Patient will verbalize/demonstrate understanding of assistive devices/ modifications for ADL. 3=Patient will improve strength/tolerance for activity to enable patient to perform ADL's. OT Roll Tube Setter Goals Detention Goals Time Frame: Nov 21, 2017 Eating (FIM): 6 Eating (QC): 6 Groomin Oral Hygiene (QC): 6 Bathing(FIM): 5 Shower/Bathe Self (QC): 5 Upper Body Dressing(FIM): 6 Upper Body Dressing (QC): 6 Lower Body Dressing(FIM): 6 Lower Body Dressing (QC): 6 On/Off Footwear (QC): 6 Toileting(FIM): 6 Toileting Hygiene (QC): 6 Toilet/Commode Transfer(FIM): 6 Toilet/Commode Transfer (QC): 6 Shower Transfer(FIM): 5 Comprehension(FIM): 4 Expression (FIM): 4 Social Interaction(FIM): 4 Problem Solving(FIM): 3 Memory(FIM): 3 Additional Goals: 2-Verbalize Understanding, 3-ImproveStrength/Luci 1=Demonstrate adherence to instructed precautions during ADL tasks. 2=Patient will verbalize/demonstrate understanding of assistive devices/ modifications for ADL. 3=Patient will improve strength/tolerance for activity to enable patient to perform ADL's. OT Education/Plan Problem List/Assessment Pt demonstrates decreased strength, ADL functioning, mobility, and activity tolerance. Pt to benefit from skilled OT intervention for ADL training, transfers, strengthening, and safety education. Discharge Recommendations Plan/Recommendations: Continue POC Treatment Plan/Plan of Care Patient would benefit from OT for education, treatment and training to promote independence in ADL's, mobility, safety and/or upper extremity function for ADL' s. Plan of Care: ADL Retraining, Functional Mobility, Group Exercise/Act as Ind, UE Funct Exercise/Act Treatment Duration: Nov 21, 2017 Frequency: At least 5 of 7 days/Wk (IRF) Estimated Hrs Per Day: 1.5 hours per day Rehab Potential: Fair Time/GCodes Start Time: 07:00 Stop Time: 08:30 Total Time Billed (hr/min): 90 Billed Treatment Time 1 visit-ADL 6 (90 min) ARYAN NAJERA Nov 06, 2017 08:44
--- NOTE | 2017-11-06 09:03 | Consultation ---
History of Present Illness History of Present Illness Patient Consulted On(hannah/time) 11/06/17 09:02 Date Seen by Provider: Nov 06, 2017 Time Seen by Provider: 09:00 Reason for Visit: Fall at home, medically stable now in Inpatient Rehab History of Present Illness PT IS A 77 Y/O FEMALE WHO PRESENTED TO THE EMERGENCY DEPARTMENT AFTER HAVING FALLEN AT HOME AROUND 11PM - SHE REPORTS THAT SHE SLIPPED FROM HER BED, FELL TO THE FLOOR AND WAS NOT ABLE TO GET HERSELF UP OFF OF THE FLOOR. SHE DID NOT HAVE ON HER MEDIC-ALERT BUTTON AND COULD NOT GET TO HER PHONE. SHE REPORTS THAT A FRIEND CHECKED ON HER AROUND 6PM ON MONDAY EVENING AND CALLED AN AMBULANCE TO GET HER TO THE HOSPITAL. TRAVON WAS FOUND TO HAVE RHABDOMYOLYSIS AND A UTI AND WAS THUS ADMITTED TO THE HOSPITAL FOR FURTHER MONITORING/TREATMENT/PLANNED THERAPY. PT HAS HAD SOME INTERMITTENT CONFUSION WHILE ON THE MEDICAL FLOOR, TODAY ON MY EVALUATION - THE PT WAS SIGNIFICANTLY MORE CONFUSED THAN I HAD PREVIOUSLY SEEN HER. PER STAFF, SHE HAS HAD GOOD AND BAD DAYS - MRI OF HEAD WAS NEGATIVE FOR ACUTE EVENT. Allergies and Home Medications Allergies Coded Allergies: codeine (Unverified Adverse Reaction, Mild, "FEEL FUNNY", 05/28/09) meperidine (Unverified Adverse Reaction, Mild, VOMITING, 05/28/09) morphine (Unverified Adverse Reaction, Mild, VOMITING, 05/28/09) Home Medications Acetaminophen 500 Mg Tablet, 1,000 MG PO Q6H PRN for PAIN-MILD Prescribed by: MARIO NGUYEN on 11/07/171637 Amlodipine Besylate 10 Mg Tablet, 10 MG PO HS Prescribed by: MARIO NGUYEN on 11/07/17 163 Bisoprolol Fumarate/Hctz 1 Each Tablet, 1 TAB PO DAILY, (Reported) Cholecalciferol (Vitamin D3) 1,000 Unit Capsule, 1,000 UNIT PO DAILY, (Reported) Famotidine 20 Mg Tablet, 20 MG PO DAILY Prescribed by: MARIO NGUYEN on 11/07/171637 Fluticasone Propionate 16 Gm [place].susp, 0 SPRAY NS BID Prescribed by: MARIO NGUYEN on 11/07/171637 Irbesartan 150 Mg Tablet, 150 MG PO DAILY Prescribed by: MARIO NGUYEN on 11/07/171637 Levofloxacin 750 Mg Tablet, 750 MG PO Q48H Prescribed by: MARIO NGUYEN on 11/07/17 1638 Levothyroxine Sodium 100 Mcg Tablet, 100 MCG PO DAILY, (Reported) Meloxicam 15 Mg Tablet, 15 MG PO DAILY, (Reported) Multivitamin 1 Each Tablet, 1 TAB PO DAILY, (Reported) Tolterodine Tartrate 4 Mg Cap.er.24h, 4 MG PO DAILY, (Reported) Patient Home Medication List Home Medication List Reviewed: Yes Past [place]-Lswosq-Ftbpdq Hx Patient Social History Alcohol Use: Denies Use Recreational Drug Use: No Smoking Status: Never a Smoker 2nd Hand Smoke Exposure: No Recent Foreign Travel: No Contact w/Someone Who Travel: No Recent Infectious Disease Expo: No Recent Hopitalizations: No Immunizations Up To Date Date of Pneumonia Vaccine: Jun 08, 2013 Date of Influenza Vaccine: Jun 27, 2017 Seasonal Allergies Seasonal Allergies: Yes Surgeries History of Surgeries: Yes Surgeries: Gallbladder, Orthopedic Respiratory History of Respiratory Disorde: No Currently Using CPAP: No Currently Using BIPAP: No Cardiovascular History of Cardiac Disorders: Yes Cardiac Disorders: Hypertension Neurological History of Neurological Disord: No Genitourinary History of Genitourinary Disor: Yes (Incontinence) Gastrointestinal History of Gastrointestinal Di: Yes (GALLBLADDER) Musculoskeletal History of Musculoskeletal Dis: Yes Musculoskeletal Disorders: Arthritis Endocrine History of Endocrine Disorders: Yes Endocrine Disorders: Hypothyroidsim HEENT History of HEENT Disorders: No Loss of Vision: Denies Hearing Impairment: Denies Cancer History of Cancer: No Psychosocial History of Psychiatric Problem: No Integumentary History of Skin or Integumenta: Yes (SHINGLES IN AUGUST OF 2017) Reviewed Nursing Assessment Reviewed/Agree w Nursing PMH: Yes Family Medical History Significant Family History: Heart Disease, Hypertension, Psychiatric Problems, Stroke Family Medial History: Arthritis 19 FATHER Cardiovascular disease 19 FATHER Completed stroke 19 MOTHER Dementia 19 FATHER G8 SISTER Hypertension 19 FATHER Respiratory disorder 19 FATHER Review of Systems-General Constitutional: No chills, No fever, malaise EENTM: No blurred vision, No hoarseness, No throat pain Respiratory: No cough, No dyspnea on exertion, No short of breath Cardiovascular: No chest pain, No edema, No palpitations Gastrointestinal: No abdominal pain, No constipation, No diarrhea, No nausea, No vomiting Genitourinary: no symptoms reported Musculoskeletal: joint pain (BILATERAL KNEES), muscle weakness Skin: no symptoms reported Psychiatric/Neurological: Denies Anxiety, Weakness, Other (CONFUSION) Physical Exam-General Problems Physical Exam Vital Signs Vital Signs - First Documented 10/31/17 10:17 Temp 96.8 Pulse 75 Resp 18 B/P (MAP) 147/69 (95) Pulse Ox 94 O2 Delivery Room Air Capillary Refill : General Appearance: WD/WN, no apparent distress (CONFUSION APPARENT ON EXAM) Eyes: Bilateral Eye Normal Inspection, Bilateral Eye PERRL, Bilateral Eye EOMI HEENT: PERRL/EOMI, pharynx normal Neck: non-tender, supple, normal inspection Respiratory: chest non-tender, lungs clear, normal breath sounds Cardiovascular: regular rate, rhythm Gastrointestinal: normal bowel sounds, non tender, soft, no organomegaly, no pulsatile mass Rectal: deferred Extremities: normal range of motion, normal capillary refill Neurologic/Psychiatric: press offbearer II-XII nml as tested, alert, other (FLAT AFFECT, ORENTED TO PERSON, NOT PLACE OR TIME) Skin: warm/dry Assessment/Plan Assessment/Plan Admission Diagnosis/Plan RHABDOMYOLYSIS - ACUTE FALL AT HOME UTI CHRONIC KNEE PAIN DUE TO OSTEOARTHRITIS GENERALIZED WEAKNESS HYPERTENSION SEASONAL ALLERGIES HYPOTHYROIDISM VAGINAL BLEEDING RHABDOMYOLYSIS - ACUTE DUE TO FALL AT HOME AND LYING ON THE FLOOR FOR OVER 20 HOURS UNABLE TO GET UP TO HELP HERSELF. IMPROVED SYMPTOMS - CONTINUE WITH SUPPORTIVE CARE - DISCUSSED WITH PT - WILL NEED INPT REHAB VERSUS LONG-TERM FOR STRENGTHENING. FALL AT HOME DUE TO CHRONIC KNEE PAIN DUE TO OSTEOARTHRITIS AND GENERALIZED WEAKNESS - SHE WILL NEED CONTINUED INPT REHAB FOR STRENGTHENING - MONITOR COGNITIVE FUNCTION. UTI - ON ANTIBIOTICS HYPERTENSION - RESUMED HOME MEDICATION. SEASONAL ALLERGIES - RX FOR FLONASE HYPOTHYROIDISM - RESUMED HOME MEDICATION VAGINAL BLEEDING - BIOPSY SHOWED HIGH GRADE ENDOMETRIAL CARCINOMA Admission Status: Inpatient Order (span 2 midnights) Reason for Inpatient Admission: PT WAS ADMITTED TO INPT REHAB FOR THERAPY FOR AT LEAST A WEEK OF MANAGEMENT/STRENGTHENING Clinical Quality Measures DVT/VTE Risk/Contraindication: Risk Factor Score Per Nursin RFS Level Per Nursing on Admit: 2=Moderate KATHLEEN RODRIGES MD Nov 06, 2017 09:03
--- NOTE | 2017-11-06 09:35 | Speech Therapy Daily Note ---
Speech Daily Progress Note Subjective Date Seen by Provider: Nov 06, 2017 Time Seen by Provider: 08:30 The patient was seated upright in recliner upon entrance. The patient greeted the clinician and was agreeable to cognitive therapy, however, stated, "therapy ? I mean sure, I don't know." To note, the patient's primary care physician was present in the room. Dr. Luis stated she would order a urine collection and labs to further investigate the confusion. Objective The patient demonstrates severe confusion on this date which is slightly worse in comparison to the prior treatment session. The patient's session focused on orientation information and orientation strategies. On this date, the patient is unable to state her date of , the city her home is located or her current location. The patient responds with the following: Current City: [facility] City: [place] Location: [facility] Date of : "Well, I don't know. It's either the first of March or somewhere in April." Year: "Don't know, don't care." The patient consistently insists the clinician is part of the [facility] and furrows her brows when the clinician states her occupation and rationale for being present. Regardless of maximum cueing for orientation strategies, the patient is unable to locate her date of on her hospital wristband or the information at the whiteboard (external aid). Assessment Assessment Current Status: Regressing Treatment Plan Continue Plan of Care Communication Comprehension: 1 Expression: 1 Social Cognition Social Interaction: 1 Problem Solvin Memory: 1 Speech Short Term Goals Short Term Goals Short Term Goals 1. The patient will recall orientation information independently and with the use of an external aid. 2. The patient will recall and demonstrate two functional word finding strategies with 80% accuracy and mild clinician verbal cueing. 3. The patient will recall two functional memory strategies for use at home, independently. 4. The patient will demonstrate 80% accuracy with functional safety problem solving. Time Frame-STG: Two Weeks Speech Senior Care Goals Machine Stoppage Frequency Checker Goals 1. The patient will demonstrate improved cognitive linguistic skills for increased safety and function of ADL's. Time Frame: Three Weeks Comprehension: 4 Expression: 4 Social Interaction: 4 Problem Solvin Memory: 3 Speech-Plan Treatment Plan Speech Therapy Treatment Plan: Continue Plan of Care Continue skilled speech pathology to target orientation strategies. Treatment Duration: Nov 22, 2017 Frequency: Modified Program (IRF) (Four to five times per week) Estimated Hrs Per Day: Other Rehab Potential: Fair Safety Risks/Education Teaching Recipient: Patient Teaching Methods: Discussion Response to Teaching: Unable to Comprehend Education Topics Provided: Orientation Strategies Time Speech Therapy Time In: 08:30 Speech Therapy Time Out: 09:00 Total Billed Time: 30 Billed Treatment Time [address] Nov 06, 2017 09:35
[2017-11-06] MEDS: FLUTICASONE NASAL SPRAY (FLONASE) 16 GM BTL NS SCH ×2 (10:00→20:48)
[2017-11-06] MEDS: IRBESARTAN 150 MG (AVAPRO) TAB PO SCH (10:00)
[2017-11-06] MEDS: BISOPROLOL/HCTZ 10/6.25 MG (ZIAC) TAB PO SCH (10:00)
[2017-11-06] MEDS: MELOXICAM 7.5 MG (MOBIC) TABLET PO SCH (10:00)
[2017-11-06] MEDS: FAMOTIDINE 20 MG (PEPCID) TABLET PO SCH ×2 (10:00→20:47)
--- NOTE | 2017-11-06 10:07 | Physical Therapy Daily Note ---
PT Daily Note-Current Subjective Pt lying Supine in bed upon arrival. Pt agrees to PT/OT co-treat for showering and transfer practice. Pain Location: No Pain Reported Mental Status Patient Orientation: Person, Place, Time, Situation Transfers Functional Levy Measure 0=Not Assessed/NA 4=Minimal Assistance 1=Total Assistance 5=Supervision or Setup 2=Maximal Assistance 6=Modified Levy 3=Moderate Assistance 7=Complete IndependenceIRFPAI Quality Coding Scale 6 Independent with activity with or without an assistive device 5 Patient requires set up or clean up by helper. Patient completes activity by themselves 4 Supervision or touching assist (CGA). [place] provide cues , steadying assist 3 The helper provides less than half the effort to complete the activity 2 The helper provides more than half the effort to complete the activity 1 Dependent. The helper does all the effort to complete an activity 7 Patient refused to complete or attempt activity 9 The patient did not perform the activity before the current illness or injury 88 Not attempted due to Medical conditions or safety concerns Weight Bearing Right Lower Extremity: Right Weight Bearing/Tolerated Left Lower Extremity: Left Weight Bearing/Tolerated PT Director Day Care Center Goals Director Day Care Center Goals PT Director Day Care Center Goals Time Frame: Nov 24, 2017 Transfers (B,C,W/C) (FIM): 6 Sit to Lying (QC): 6 Lying-Sitting on Side/Bed(QC): 6 Sit to Stand (QC): 6 Rollin Roll Left to Right (QC): 6 Chair/Dwz-kx-Hsgiz Xfer(QC): 6 Car Transfer (QC): 6 Does the Patient Walk: Yes Gait (FIM): 6 Gait distance (FIM): 3=150 ft Distance: 250' Walk 10 feet (QC): 6 Walk 10ft-Uneven Surface(QC): 6 Walk 50ft with 2 Turns (QC): 6 Walk 150 ft (QC): 6 Gait Level of Assist: 6 Gait Assistive Device: FWW Stairs (FIM): 5 # of Steps: 5 1 Step (curb) (QC): 5 4 Steps (QC): 5 12 Steps (QC): 9 Stairs Level Of Assist: 5 Picking up an Object (QC): 5 PT Plan Treatment/Plan Treatment Plan: Bed Mobility, Education, Functional Activity Luci, Functional Strength, Group Therapy, Gait, Safety, Therapeutic Exercise, Transfers Treatment Duration: Nov 24, 2017 Frequency: At least 5 of 7 days/Wk (IRF) Estimated Hrs Per Day: 1.5 hours per day Patient and/or Family Agrees t: Yes COLTON MADISON PTA Nov 06, 2017 10:07
[2017-11-06 11:43] LABS: HEMOGLOBIN 14.7 G/DL (11.5-16.0); MEAN PLATELET VOLUME 10.1 FL (7.4-10.4); RED BLOOD COUNT 4.98 10^6/uL (4.35-5.85); RED CELL DISTRIBUTION WIDTH 13.2 % (10.0-14.5); WHITE BLOOD COUNT 10.1 10^3/uL (4.3-11.0)
[2017-11-06 12:02] LABS: ALBUMIN 4.1 GM/DL (3.2-4.5); BILIRUBIN,TOTAL 0.7 MG/DL (0.1-1.0); CALCIUM 9.5 MG/DL (8.5-10.1); CREATININE SERUM 1.52 MG/DL (0.60-1.30); POTASSIUM 3.9 MMOL/L (3.6-5.0); TOTAL PROTEIN 6.9 GM/DL (6.4-8.2)
--- NOTE | 2017-11-06 12:12 | Physical Therapy Daily Note ---
PT Daily Note-Current Subjective Pt sitting in recliner with LLE hanging off chair upon arrival. Pt agrees to PT. Pain Numeric Pain Scale: 3 Location: Left Location Body Site: Hip Pain Description: Ache Comment: Pt doesn't rate, based on facial grimace. Mental Status Patient Orientation: Person, Confused Transfers Functional [place] Measure 0=Not Assessed/NA 4=Minimal Assistance 1=Total Assistance 5=Supervision or Setup 2=Maximal Assistance 6=Modified [place] 3=Moderate Assistance 7=Complete IndependenceIRFPAI Quality Coding Scale 6 Independent with activity with or without an assistive device 5 Patient requires set up or clean up by helper. Patient completes activity by themselves 4 Supervision or touching assist (CGA). [place] provide cues , steadying assist 3 The helper provides less than half the effort to complete the activity 2 The helper provides more than half the effort to complete the activity 1 Dependent. The helper does all the effort to complete an activity 7 Patient refused to complete or attempt activity 9 The patient did not perform the activity before the current illness or injury 88 Not attempted due to Medical conditions or safety concerns Weight Bearing Right Lower Extremity: Right Weight Bearing/Tolerated Left Lower Extremity: Left Weight Bearing/Tolerated Exercises Supine Ex: Ankle pumps, Quad Set, Heel Slides, Straight leg raise, Hip abd/add Supine Reps: 20 Seated Therapy Exercises: Ankle pumps, Long arc quads, Hip flexion, Kicking activity Seated Reps: 15 Treatments Pt is very confused and has difficulty staying on track in the middle of conversion/loses words. Pt completes Supine & Seated Ex in recliner with rest breaks as needed. Lab draws blood to test as Dr Luis had asked for. Pt has difficulty understanding why she is receiving Therapy and doesn't believe it is being received as noted. PARTY PLAN DEMONSTRATOR explains/talks with pt as far as explanation of ARU and what she is currently receiving. Pt's family friend, Nancie that has been instructed by pt's daughter to assist as needed since daughter isn't local wants to discuss pt's progress and how the next few days will go until pt is discharged to relocate closer to daughter with increased confusion and medical symptoms. PARTY PLAN DEMONSTRATOR, Nancie & Mergers And Acquisitions Consultant discuss this and Mergers And Acquisitions Consultant will return with more information when received. Assessment Current Status: Poor Progress Pt needs redirection several times during tx and is not socially aware of what is going on with her medically. PT Steam Plant Records Clerk Goals Half-Way Goals PT Steam Plant Records Clerk Goals Time Frame: Nov 24, 2017 Transfers (B,C,W/C) (FIM): 6 Sit to Lying (QC): 6 Lying-Sitting on Side/Bed(QC): 6 Sit to Stand (QC): 6 Rollin Roll Left to Right (QC): 6 Chair/Ksq-xi-Dqpix Xfer(QC): 6 Car Transfer (QC): 6 Does the Patient Walk: Yes Gait (FIM): 6 Gait distance (FIM): 3=150 ft Distance: 250' Walk 10 feet (QC): 6 Walk 10ft-Uneven Surface(QC): 6 Walk 50ft with 2 Turns (QC): 6 Walk 150 ft (QC): 6 Gait Level of Assist: 6 Gait Assistive Device: FWW Stairs (FIM): 5 # of Steps: 5 1 Step (curb) (QC): 5 4 Steps (QC): 5 12 Steps (QC): 9 Stairs Level Of Assist: 5 Picking up an Object (QC): 5 PT Plan Problem List Problem List: Activity Tolerance, Functional Strength, Safety, Balance, Gait, Transfer, Bed Mobility, ROM Treatment/Plan Treatment Plan: Continue Plan of Care Treatment Plan: Bed Mobility, Education, Functional Activity Luci, Functional Strength, Group Therapy, Gait, Safety, Therapeutic Exercise, Transfers Treatment Duration: Nov 24, 2017 Frequency: At least 5 of 7 days/Wk (IRF) Estimated Hrs Per Day: 1.5 hours per day Patient and/or Family Agrees t: Yes Safety Risks/Education Patient Education: Correct Positioning, Safety Issues Teaching Recipient: Patient, Friend Teaching Methods: Discussion Response to Teaching: Verbalize Understanding, Reinforcement Needed Time/GCodes Time In: 1100 Time Out: 1200 Total Billed Treatment Time: 60 Total Billed Treatment 1, EX x2 (30m) & FA x2 (30m) COLTON MADISON PTA Nov 06, 2017 12:11
[2017-11-06 13:58] VITALS: BP 118/64
[2017-11-06 18:43] VITALS: BP 134/71
--- NOTE | 2017-11-06 19:40 | PM & R (SOAP) Progress Note ---
Subjective Time Seen by Provider: 19:35 Subjective/Events-last exam Patient was seen in her room this evening Discussed case with SW earlier today MRI Brain shows multiple emboli throughout cerebral hemispheres explaining her confusion Patients gaudencio is arranging for her mother to be transported to [place] near her home to have further eval and treatment at the [facility] Source of emboli uncertain,Patient mod assist for transfers Review of Systems Neurological: Confusion Objective Exam Last Set of Vital Signs Vital Signs Date Time Temp Pulse Resp B/P (MAP) Pulse Ox O2 Delivery O2 Flow Rate FiO2 11/06/17 18:43 69 18 134/71 (92) 96 Room Air 11/06/17 06:19 98.1 Capillary Refill : I&O Intake and Output 11/06/17 00:00 Intake Total 1160 ml Balance 1160 ml Intake Oral 1160 ml # Voids 7 General: Alert, Cooperative HEENT: Atraumatic, PERRLA, EOMI, Mucous Memb Moist/[place] Neck: Supple, No JVD Lungs: Clear to Auscultation Heart: Regular Rate Abdomen: Normal Bowel Sounds, Soft, No Tenderness Extremities: No Edema Neuro: Other ( Confusion with rambling speech) Results Lab Laboratory Tests 11/06/17 11:36: White Blood Count 10.1, Red Blood Count 4.98, Hemoglobin 14.7, Hematocrit 44, Mean Corpuscular Volume 88, Mean Corpuscular Hemoglobin 30, Mean Corpuscular Hemoglobin Concent 34, Red Cell Distribution Width 13.2, Platelet Count 204, Mean Platelet Volume 10.1, Sodium Level 140, Potassium Level 3.9, Chloride Level 101, Carbon Dioxide Level 30, Anion Gap 9, Blood Urea Nitrogen 42H, Creatinine 1.52H, Estimat Glomerular Filtration Rate 33, BUN/Creatinine Ratio 28 , Glucose Level 104, Calcium Level 9.5, Total Bilirubin 0.7, Aspartate Amino Transf (AST/SGOT) 35H, Alanine Aminotransferase (ALT/SGPT) 30, Alkaline Phosphatase 84, Total Creatine Kinase 51, Total Protein 6.9, Albumin 4.1 Microbiology 11/03/17 Urine Culture - Final, Complete NO GROWTH Assessment/Plan Assessment Embolic stroke multifocal of uncertain etiology General debil s/p fall Confusion may be related to UTI-will recheck U/A and obtain MRI-See orders-TSH ordered will check UTI under treatment OA both kness Prior RT THR for OA HTN controlled Hypothyroidism on replacement Plan Continue PT/OT/ST as tolerated F/U with PCP-Dr Luis Discharge to [place] for f/u care with the [facility] on 11-09-15 MARIO NGUYEN MD Nov 06, 2017 19:40
[2017-11-06] MEDS: amLODIPine 10 MG (NORVASC) TAB PO SCH (20:47)
[2017-11-06] MEDS: TOLTERODINE LA 4 MG (DETROL) CAP PO SCH (20:47)
[2017-11-06 21:17] LABS: BILIRUBIN,URINE NEGATIVE (NEGATIVE); CLARITY,URINE CLEAR; COLOR,URINE YELLOW; GLUCOSE, URINE (UA) NEGATIVE (NEGATIVE); KETONES,URINE NEGATIVE (NEGATIVE); LEUKOCYTE ESTERASE ,URINE 2+ (NEGATIVE); NITRITE,URINE NEGATIVE (NEGATIVE); PH,URINE 6.5 (5-9); PROTEIN,URINE 1+ (NEGATIVE); UROBILINOGEN,URINE NORMAL (NORMAL)
[2017-11-06 21:25] LABS: BACTERIA,URINE TRACE /HPF; SQUAMOUS EPITHELIAL CELL,UR 0-2 /HPF
[2017-11-07 05:58] VITALS: BP 155/71
[2017-11-07] MEDS: VITAMIN D3 1,000 UNITS (CHOLECALCIFEROL) TABLET PO SCH (06:26)
[2017-11-07] MEDS: LEVOTHYROXINE 100 MCG (LEVOTHROID) TAB PO SCH (06:26)
[2017-11-07] MEDS: MULTIVIT W/MINERALS TAB (THERAGRAN M) PO SCH (06:26)
[2017-11-07 08:22] VITALS: BP 106/67
--- NOTE | 2017-11-07 08:23 | PM & R (SOAP) Progress Note ---
Subjective Time Seen by Provider: 08:00 Subjective/Events-last exam Patient was seen in her room with OT this AM Patient CGA for gait with walker Appears less confused Discharge remains set for tomorrow to [place] with daughter Review of Systems Neurological: Weakness, Confusion Objective Exam Last Set of Vital Signs Vital Signs Date Time Temp Pulse Resp B/P (MAP) Pulse Ox O2 Delivery O2 Flow Rate FiO2 11/07/17 05:58 97.1 73 18 155/71 (99) 94 Room Air Capillary Refill : I&O Intake and Output 11/07/17 00:00 Intake Total 1040 ml Balance 1040 ml Intake Oral 1040 ml # Voids 7 # Bowel Movements 1 General: Alert, Cooperative HEENT: Atraumatic, PERRLA, EOMI, Mucous Memb Moist/[place] Neck: Supple, No JVD Lungs: Clear to Auscultation Heart: Regular Rate Abdomen: Normal Bowel Sounds, Soft, No Tenderness Extremities: No Edema Neuro: Other ( Confusion with rambling speech) Results Lab Laboratory Tests 11/06/17 11:36: White Blood Count 10.1, Red Blood Count 4.98, Hemoglobin 14.7, Hematocrit 44, Mean Corpuscular Volume 88, Mean Corpuscular Hemoglobin 30, Mean Corpuscular Hemoglobin Concent 34, Red Cell Distribution Width 13.2, Platelet Count 204, Mean Platelet Volume 10.1, Sodium Level 140, Potassium Level 3.9, Chloride Level 101, Carbon Dioxide Level 30, Anion Gap 9, Blood Urea Nitrogen 42H, Creatinine 1.52H, Estimat Glomerular Filtration Rate 33, BUN/Creatinine Ratio 28 , Glucose Level 104, Calcium Level 9.5, Total Bilirubin 0.7, Aspartate Amino Transf (AST/SGOT) 35H, Alanine Aminotransferase (ALT/SGPT) 30, Alkaline Phosphatase 84, Total Creatine Kinase 51, Total Protein 6.9, Albumin 4.1 11/06/17 21:05: Urine Color YELLOW, Urine Clarity CLEAR, Urine pH 6.5, Urine Specific [place] 1.015L, Urine Protein 1+H, Urine Glucose (UA) NEGATIVE, Urine Ketones NEGATIVE, Urine Nitrite NEGATIVE, Urine Bilirubin NEGATIVE, Urine Urobilinogen NORMAL, Urine Leukocyte Esterase 2+H, Urine RBC (Auto) 2+H, Urine RBC 5-10H, Urine WBC 5 -10H, Urine Squamous Epithelial Cells 0-2, Urine Crystals NONE, Urine Bacteria TRACE, Urine Casts NONE, Urine Mucus NEGATIVE, Urine Culture Indicated YES Microbiology 11/03/17 Urine Culture - Final, Complete NO GROWTH Assessment/Plan Assessment Embolic stroke multifocal of uncertain etiology General debil s/p fall Confusion may be related to UTI-will recheck U/A and obtain MRI-See orders-TSH ordered will check UTI under treatment OA both kness Prior RT THR for OA HTN controlled Hypothyroidism on replacement Plan Continue PT/OT/ST F/U with PCP-Dr Luis Discharge to [place] with daughter tomorrow 11-08-17 with f/u care with the [facility] MARIO NGUYEN MD Nov 07, 2017 08:23
[2017-11-07] MEDS: BISOPROLOL/HCTZ 10/6.25 MG (ZIAC) TAB PO SCH (08:25)
[2017-11-07] MEDS: FAMOTIDINE 20 MG (PEPCID) TABLET PO SCH (08:25)
[2017-11-07] MEDS: IRBESARTAN 150 MG (AVAPRO) TAB PO SCH (08:25)
[2017-11-07] MEDS: MELOXICAM 7.5 MG (MOBIC) TABLET PO SCH (08:26)
[2017-11-07] MEDS: FLUTICASONE NASAL SPRAY (FLONASE) 16 GM BTL NS SCH ×2 (08:59→21:50)
--- NOTE | 2017-11-07 09:30 | Speech Therapy Daily Note ---
Speech Daily Progress Note Subjective Date Seen by Provider: Nov 07, 2017 Time Seen by Provider: 08:30 The patient was seated upright in recliner upon entrance. The patient greeted the clinician appropriately, however, was confused to why she was completing cognitive therapy. The patient did state, "well, yeah, I guess things are a little muddled." Objective The patient continues to demonstrate severe confusion on this date. The patient' s session focused on orientation information and orientation strategies. On this date, the patient is unable to state her date of , the city her home is located or her current location. The patient responds with the following: Current City: "I don't know, I really don't know." Home City: [place], [place] Location: "Well, I guess I don't really know." Date of : The patient was unable to provide date of regardless of maximum prompting by the clinician to use her wristband for identification. When asked specifics (what year were you born, what month were you born), the patient was able to respond accurately. Year: "I don't know." Regardless of maximum cueing for orientation strategies, the patient is unable to locate information on the whiteboard (external aid) stating, "it doesn't make any sense." Additionally, the patient is unable to sequence how to take her medication and requires maximum prompting from the clinician and RN to take pills with her water. The patient was able to state her daughters name is "Veronika or Asha, either one really" and she lives in [place], [place]. The patient may be minimally improved in comparison to the prior session. Assessment Assessment Current Status: Poor Progress Treatment Plan Continue Plan of Care Communication Comprehension: 1 Expression: 1 Social Cognition Social Interaction: 1 Problem Solvin Memory: 1 Speech Short Term Goals Short Term Goals Short Term Goals 1. The patient will recall orientation information independently and with the use of an external aid. 2. The patient will recall and demonstrate two functional word finding strategies with 80% accuracy and mild clinician verbal cueing. 3. The patient will recall two functional memory strategies for use at home, independently. 4. The patient will demonstrate 80% accuracy with functional safety problem solving. Time Frame-STG: Two Weeks Speech Mcc Goals Chiropractic Neurologist Goals 1. The patient will demonstrate improved cognitive linguistic skills for increased safety and function of ADL's. Time Frame: Three Weeks Comprehension: 4 Expression: 4 Social Interaction: 4 Problem Solvin Memory: 3 Speech-Plan Treatment Plan Speech Therapy Treatment Plan: Continue Plan of Care Continue skilled speech pathology to target functional problem solving and orientation. Treatment Duration: Nov 22, 2017 Frequency: Modified Program (IRF) (Four to five times per week) Estimated Hrs Per Day: Other Rehab Potential: Poor Safety Risks/Education Teaching Recipient: Patient Teaching Methods: Discussion Response to Teaching: Unable to Comprehend Education Topics Provided: Orientation Strategies Time Speech Therapy Time In: 08:30 Speech Therapy Time Out: 09:00 Total Billed Time: 30 Billed Treatment Time 1SOPHIA ELIZABETH Nov 07, 2017 09:30
--- NOTE | 2017-11-07 11:03 | Therapy Team Discharge Summary ---
Therapy Discharge Summary Discharge Recommendations Date of Discharge Therapy D/C Recommendations: Assisted Living, Home Independently, Physical Therapy Home Care Occupational Therapy Decreased Activ Tolerance, Decreased UE Strength, Dependent Transfers, Impaired Funct Balance, Impaired I ADL's, Impaired Self-Care Skills Speech-Language Pathology The patient was admitted to [facility] with a diagnosis of debility and UTI. Upon admission, the patient displayed cognitive skills within normal limits, however, quickly regressed and began to demonstrate severe confusion. 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 Additionally, a biopsy revealed a endometrial CA. Skilled speech pathology focused on orientation information and strategies. The patient did not meet speech pathology goals and continues to display high levels of confusion with unknown etiology. At this time, the patient will discharge to detention in [place]. Continued speech pathology is recommended post discharge. PT Group Home Goals Group Home Goals PT Group Home Goals Time Frame: Nov 24, 2017 Transfers (B,C,W/C) (FIM): 6 Roll Left to Right (QC): 6 Sit to Lying (QC): 6 Lying-Sitting on Side/Bed(QC): 6 Sit to Stand (QC): 6 Chair/Suf-qs-Qxida Xfer(QC): 6 Car Transfer (QC): 6 Does the Patient Walk: Yes Gait (FIM): 6 Gait distance (FIM): 3=150 ft Distance: 250' Walk 10 feet (QC): 6 Walk 10ft-Uneven Surface(QC): 6 Walk 50ft with 2 Turns (QC): 6 Walk 150 ft (QC): 6 Gait Level of Assist: 6 Gait Assistive Device: FWW Stairs (FIM): 5 # of Steps: 5 1 Step (curb) (QC): 5 4 Steps (QC): 5 12 Steps (QC): 9 Stairs Level Of Assist: 5 Picking up an Object (QC): 5 OT Group Home Goals Group Home Goals Time Frame: Nov 21, 2017 Eating (FIM): 6 Eating (QC): 6 Oral Hygiene (QC): 6 Grooming(FIM): 6 Bathing(FIM): 5 Shower/Bathe Self (QC): 5 Upper Body Dressing(FIM): 6 Upper Body Dressing (QC): 6 Lower Body Dressing(FIM): 6 Lower Body Dressing (QC): 6 On/Off Footwear (QC): 6 Toileting(FIM): 6 Toileting Hygiene (QC): 6 Toilet/Commode Transfer(FIM): 6 Toilet/Commode Transfer (QC): 6 Shower Transfer(FIM): 5 Comprehension(FIM): 4 Expression (FIM): 4 Social Interaction(FIM): 4 Problem Solving(FIM): 3 Memory(FIM): 3 Additional Goals: 2-Verbalize Understanding, 3-ImproveStrength/Luci 1=Demonstrate adherence to instructed precautions during ADL tasks. 2=Patient will verbalize/demonstrate understanding of assistive devices/ modifications for ADL. 3=Patient will improve strength/tolerance for activity to enable patient to perform ADL's. Speech Launch Engineer Goals Launch Engineer Goals 1. The patient will demonstrate improved cognitive linguistic skills for increased safety and function of ADL's. Time Frame: Three Weeks Comprehension: 4 (NOT MET) Expression: 4 (NOT MET) Social Interaction: 4 (NOT MET) Problem Solvin (NOT MET) Memory: 3 (NOT MET) SREE WEISS Nov 07, 2017 11:03
--- NOTE | 2017-11-07 11:38 | Occupational Ther Daily Note ---
OT Current Status-Daily Note Subjective Pt alert, lying in bed. Pt agreed to therapy. Pt wanted to know where her daughter was and why she hadn't been here. SMITA explained that her daughter had been here and went back to [place] to get things ready for her to go be with her daughter. Pt stated "whatever" then "skipty do". Small wound on R buttocks, nrsg notified. Mental Status/Objective Patient Orientation: Person, Confused Functional [place] Measure 0=Not Assessed/NA 4=Minimal Assistance 1=Total Assistance 5=Supervision or Setup 2=Maximal Assistance 6=Modified [place] 3=Moderate Assistance 7=Complete [place] ADL-Treatment Functional [place] Measure 0=Not Assessed/NA 4=Minimal Assistance 1=Total Assistance 5=Supervision or Setup 2=Maximal Assistance 6=Modified [place] 3=Moderate Assistance 7=Complete IndependenceIRFPAI Quality Coding Scale 6 Independent with activity with or without an assistive device 5 Patient requires set up or clean up by helper. Patient completes activity by themselves 4 Supervision or touching assist (CGA). [place] provide cues , steadying assist 3 The helper provides less than half the effort to complete the activity 2 The helper provides more than half the effort to complete the activity 1 Dependent. The helper does all the effort to complete an activity 7 Patient refused to complete or attempt activity 9 The patient did not perform the activity before the current illness or injury 88 Not attempted due to Medical conditions or safety concerns Eating (FIM): 5 (Pt required assist to set up due to decreased initiation of task and pt demonstrating visual neglect toward L and lower quadrant.) Eating (QC): 5 Grooming (FIM): 4 (Pt is able to complete oral care though requires cues to wipe mouth after. Pt brushes front and sides of hair then assist for back.) Oral Hygiene (QC): 6 Bathing (FIM): 3 (Using shower bench, grabbars and hand held shower. Pt requires verbal cues to initiate bathing/drying. Pt opened shampoo then required assist to wet hair and shampoo. Pt was able to wash face and when directed bathed upper body. Assist to cleanse lower body and billy area/ buttocks. Pt is able to reach to buttocks though inefficient cleansing.) Bathing Location: L Arm, R Arm, L Upper Leg, R Upper Leg, Chest, Abdomen Shower/Bathe Self (QC): 3 Upper Body (FIM): 4 (After set up, pt able to thread R arm into bra then assist to bring behind and thread L arm. Assist to hook bra in front. When handed shirt pt unable to problem solve how to manipulate to don. With assist pt was able to don over L UE and head then assist to thread R UE through sleeve and pull down in back.) Upper Body Dressing (QC): 3 Lower Body Dressing (FIM): 3 (Assist to initiate donning. Assist to don/doff over feet then pt able to hike over hips in standing. Assist to position shoes then pt able to lift each foot to slide into shoe.) Lower Body Dressing (QC): 3 On/Off Footwear (QC): 3 Toileting (FIM): 3 (Pt is able to initiate hiking pants over hips then assist to pull down thighs. Pt is able to reach buttocks to cleanse though inefficient , assist to thoroughly clean area.) Toileting Hygiene (QC): 3 Toilet/Commode Transfer (FIM): 4 (Using grabbar and FWW, pt requires verbal cues for walker placement and directional cues to turn.) Toilet Transfer (QC): 3 Shower Transfer(FIM): 4 (Verbal cues and directional cues to position FWW and body.) Pt has difficulty with initiating ADL tasks. When it is a familiar routine pt is more successful with completing task though if difficulty with task arises pt is unable to problem solve issue. After therapy, pt sitting in recliner eating breakfast. Call light/phone in reach. All needs met in room. OT Short Term Goals Short Term Goals Time Frame: Nov 07, 2017 Bathing(FIM): 4 Upper Body Dressing(FIM): 5 Lower Body Dressing(FIM): 4 Toilet/Commode Transfer(FIM): 4 (CGA) Shower Transfer(FIM): 4 Additional Short Term Goals: 2-Verbalize Understanding, 3-ImproveStrength/Luci 1=Demonstrate adherence to instructed precautions during ADL tasks. 2=Patient will verbalize/demonstrate understanding of assistive devices/ modifications for ADL. 3=Patient will improve strength/tolerance for activity to enable patient to perform ADL's. OT Grommet Worker Goals Grommet Worker Goals Time Frame: Nov 21, 2017 Eating (FIM): 6 (not met) Eating (QC): 6 (not met) Groomin (not met) Oral Hygiene (QC): 6 (not met) Bathing(FIM): 5 (not met) Shower/Bathe Self (QC): 5 (not et) Upper Body Dressing(FIM): 6 (not met) Upper Body Dressing (QC): 6 (not met) Lower Body Dressing(FIM): 6 (not met) Lower Body Dressing (QC): 6 (not met) On/Off Footwear (QC): 6 (not met) Toileting(FIM): 6 (not met) Toileting Hygiene (QC): 6 (not met) Toilet/Commode Transfer(FIM): 6 (not met) Toilet/Commode Transfer (QC): 6 (not met) Shower Transfer(FIM): 5 (not met) Comprehension(FIM): 4 (NOT MET) Expression (FIM): 4 (NOT MET) Social Interaction(FIM): 4 (NOT MET) Problem Solving(FIM): 3 (NOT MET) Memory(FIM): 3 (NOT MET) Additional Goals: 2-Verbalize Understanding, 3-ImproveStrength/Luci 1=Demonstrate adherence to instructed precautions during ADL tasks. 2=Patient will verbalize/demonstrate understanding of assistive devices/ modifications for ADL. 3=Patient will improve strength/tolerance for activity to enable patient to perform ADL's. OT Education/Plan Problem List/Assessment Pt demonstrates decreased strength, ADL functioning, mobility, and activity tolerance. Pt to benefit from skilled OT intervention for ADL training, transfers, strengthening, and safety education. Discharge Recommendations Plan/Recommendations: Continue POC Treatment Plan/Plan of Care Patient would benefit from OT for education, treatment and training to promote independence in ADL's, mobility, safety and/or upper extremity function for ADL' s. Plan of Care: ADL Retraining, Functional Mobility, Group Exercise/Act as Ind, UE Funct Exercise/Act Treatment Duration: Nov 21, 2017 Frequency: At least 5 of 7 days/Wk (IRF) Estimated Hrs Per Day: 1.5 hours per day Rehab Potential: Poor Time/GCodes Start Time: 06:53 Stop Time: 08:10 Total Time Billed (hr/min): 77 Billed Treatment Time 1 visit-ADL 5 (77 min) ARYAN NAJERA Nov 07, 2017 11:38
--- NOTE | 2017-11-07 12:56 | Physical Therapy Daily Note ---
PT Daily Note-Current Subjective Pt sitting in recliner visiting with family upon arrival. Pt agrees to PT for FIM scoring for discharge tomorrow. Mental Status Patient Orientation: Person, Confused, Time Transfers Functional [place] Measure 0=Not Assessed/NA 4=Minimal Assistance 1=Total Assistance 5=Supervision or Setup 2=Maximal Assistance 6=Modified [place] 3=Moderate Assistance 7=Complete IndependenceIRFPAI Quality Coding Scale 6 Independent with activity with or without an assistive device 5 Patient requires set up or clean up by helper. Patient completes activity by themselves 4 Supervision or touching assist (CGA). [place] provide cues , steadying assist 3 The helper provides less than half the effort to complete the activity 2 The helper provides more than half the effort to complete the activity 1 Dependent. The helper does all the effort to complete an activity 7 Patient refused to complete or attempt activity 9 The patient did not perform the activity before the current illness or injury 88 Not attempted due to Medical conditions or safety concerns Transfers (B, C, W/C) (FIM): 1 Scootin Rollin Roll Left to Right (QC): 88 Supine to/from Sit: 2 Sit to/from Stand: 2 Sit to Lying (QC): 2 Sit to Stand (QC): 2 Chair/Ocg-en-Uracb Xfer(QC): 2 Bed to/from Chair: 2 Car Transfer (QC): 1 Weight Bearing Right Lower Extremity: Right Weight Bearing/Tolerated Left Lower Extremity: Left Weight Bearing/Tolerated Gait Training Does the Patient Walk?: Yes Gait (FIM): 2 Distance (FIM): 7=394-79 ft Distance: 100' Walk 10 feet (QC): 2 Walk 50 ft with 2 Turns(QC): 2 Walking 10ft/uneven surface-QC: 88 Gait Level of Assist: 2 Gait Persons Needed: 1 Gait Assistive Device: FWW FACILITIES PLANNER had to assist pt due to pt drifting R during ambulation. Pt is very confused and fatigues easily. Wheelchair Training Does the Pt Use a Wheelchair?: No Stair Training Stairs (FIM): 88 Pt is not able to attempt at this time due to confusion and social awareness. Balance Picking up an Object (QC): 88 Treatments Pt completes seated transfers at Mod-Max A, supine transfers/bed mobility at Mod A and ambulates using FWW at Mod A with redirection & VC over positioning and remaining within FWW. Pt attempts car transfer and is able to sit but cannot bring BLE around to lift into car. Pt didn't stairs or walk over varying surface or picking up object from floor due to safety concerns over pt' s confusion. Pt returned to room to rest in recliner at end of tx with all needs met. Assessment Current Status: Fair Progress Pt continues to remain confused during tx and needs several VC during ambulation for positioning & staying close to FWW. PT Financial Services Assistant Goals Financial Services Assistant Goals PT Financial Services Assistant Goals Time Frame: Nov 24, 2017 Transfers (B,C,W/C) (FIM): 6 Sit to Lying (QC): 6 Lying-Sitting on Side/Bed(QC): 6 Sit to Stand (QC): 6 Rollin Roll Left to Right (QC): 6 Chair/Xzd-fd-Tkkjc Xfer(QC): 6 Car Transfer (QC): 6 Does the Patient Walk: Yes Gait (FIM): 6 Gait distance (FIM): 3=150 ft Distance: 250' Walk 10 feet (QC): 6 Walk 10ft-Uneven Surface(QC): 6 Walk 50ft with 2 Turns (QC): 6 Walk 150 ft (QC): 6 Gait Level of Assist: 6 Gait Assistive Device: FWW Stairs (FIM): 5 # of Steps: 5 1 Step (curb) (QC): 5 4 Steps (QC): 5 12 Steps (QC): 9 Stairs Level Of Assist: 5 Picking up an Object (QC): 5 PT Plan Problem List Problem List: Activity Tolerance, Functional Strength, Safety, Balance, Gait, Transfer, Bed Mobility Treatment/Plan Treatment Plan: Continue Plan of Care Treatment Plan: Bed Mobility, Education, Functional Activity Luci, Functional Strength, Group Therapy, Gait, Safety, Therapeutic Exercise, Transfers Treatment Duration: Nov 24, 2017 Frequency: At least 5 of 7 days/Wk (IRF) Estimated Hrs Per Day: 1.5 hours per day Patient and/or Family Agrees t: Yes Safety Risks/Education Patient Education: Gait Training, Transfer Techniques, Correct Positioning, Safety Issues Teaching Recipient: Patient Teaching Methods: Discussion Response to Teaching: Verbalize Understanding Time/GCodes Time In: 1115 Time Out: 1200 Total Billed Treatment Time: 45 Total Billed Treatment 1, GT x2 (25m) & FA (20m) COLTON MADISON FACILITIES PLANNER Nov 07, 2017 12:56
--- NOTE | 2017-11-07 15:08 | Physical Therapy Daily Note ---
PT Daily Note-Current Subjective Patient is very confused this p.m. Pain Numeric Pain Scale: 0-No Pain Location: No Pain Reported Mental Status Patient Orientation: Confused Transfers Functional [place] Measure 0=Not Assessed/NA 4=Minimal Assistance 1=Total Assistance 5=Supervision or Setup 2=Maximal Assistance 6=Modified [place] 3=Moderate Assistance 7=Complete IndependenceIRFPAI Quality Coding Scale 6 Independent with activity with or without an assistive device 5 Patient requires set up or clean up by helper. Patient completes activity by themselves 4 Supervision or touching assist (CGA). [place] provide cues , steadying assist 3 The helper provides less than half the effort to complete the activity 2 The helper provides more than half the effort to complete the activity 1 Dependent. The helper does all the effort to complete an activity 7 Patient refused to complete or attempt activity 9 The patient did not perform the activity before the current illness or injury 88 Not attempted due to Medical conditions or safety concerns Weight Bearing Right Lower Extremity: Right Weight Bearing/Tolerated Left Lower Extremity: Left Weight Bearing/Tolerated Exercises Supine Ex: Ankle pumps, Glut sets, Heel Slides, Straight leg raise, Hip abd/add Supine Reps: 15 (3 sets AAROM with patient having difficulty with following direction) Assessment Patient is having extreme difficulty following simple direction this p.m. AAROM with all exercises. PT Senior Living Goals Tiger Machine Operator Goals PT Tiger Machine Operator Goals Time Frame: Nov 24, 2017 Transfers (B,C,W/C) (FIM): 6 Sit to Lying (QC): 6 Lying-Sitting on Side/Bed(QC): 6 Sit to Stand (QC): 6 Rollin Roll Left to Right (QC): 6 Chair/Fbs-vt-Drieo Xfer(QC): 6 Car Transfer (QC): 6 Does the Patient Walk: Yes Gait (FIM): 6 Gait distance (FIM): 3=150 ft Distance: 250' Walk 10 feet (QC): 6 Walk 10ft-Uneven Surface(QC): 6 Walk 50ft with 2 Turns (QC): 6 Walk 150 ft (QC): 6 Gait Level of Assist: 6 Gait Assistive Device: FWW Stairs (FIM): 5 # of Steps: 5 1 Step (curb) (QC): 5 4 Steps (QC): 5 12 Steps (QC): 9 Stairs Level Of Assist: 5 Picking up an Object (QC): 5 PT Plan Treatment/Plan Treatment Plan: Continue Plan of Care Treatment Plan: Bed Mobility, Education, Functional Activity Luci, Functional Strength, Group Therapy, Gait, Safety, Therapeutic Exercise, Transfers Treatment Duration: Nov 24, 2017 Frequency: At least 5 of 7 days/Wk (IRF) Estimated Hrs Per Day: 1.5 hours per day Patient and/or Family Agrees t: Yes Time/GCodes Time In: 1431 Time Out: 1501 Total Billed Treatment Time: 30 Total Billed Treatment 1 visit EX x 2 30 min SUSHANT SANCHEZ PT Nov 07, 2017 15:08
[2017-11-07] MEDS ORDERED: LEVOFLOXACIN 500 MG TAB (LEVAQUIN) PO SCH (16:15)
[2017-11-07] MEDS ORDERED: FAMO20TA5 PO (16:38)
[2017-11-07] MEDS ORDERED: LEVO750T39 PO (16:38)
[2017-11-07] MEDS ORDERED: IRBE150T26 PO (16:38)
[2017-11-07] MEDS ORDERED: AMLO10TA2 PO (16:38)
[2017-11-07] MEDS ORDERED: FLUT16SP22 NS (16:38)
[2017-11-07] MEDS ORDERED: ACET-77 PO (16:38)
[2017-11-07] MEDS ORDERED: LEVOFLOXACIN 750 MG TAB (LEVAQUIN) PO SCH (17:00)
[2017-11-07 18:23] VITALS: BP 122/63
[2017-11-07] MEDS: TOLTERODINE LA 4 MG (DETROL) CAP PO SCH (21:51)
[2017-11-07] MEDS: amLODIPine 10 MG (NORVASC) TAB PO SCH (21:51)
[2017-11-08 05:30] VITALS: BP 140/81
[2017-11-08] MEDS: VITAMIN D3 1,000 UNITS (CHOLECALCIFEROL) TABLET PO SCH (06:36)
[2017-11-08] MEDS: LEVOTHYROXINE 100 MCG (LEVOTHROID) TAB PO SCH (06:36)
[2017-11-08] MEDS: MULTIVIT W/MINERALS TAB (THERAGRAN M) PO SCH (06:36)
[2017-11-08 07:59] VITALS: BP 122/79
--- NOTE | 2017-11-08 08:31 | PM & R (SOAP) Progress Note ---
Subjective Time Seen by Provider: 07:50 Subjective/Events-last exam Patient was seen in her room this AM with Therapy Doing better Discussed case with SW yesterday Patient traveling to [place] by air today to be near her daughter.Patient will have eval with [facility] there for further eval and treatments Objective Exam Last Set of Vital Signs Vital Signs Date Time Temp Pulse Resp B/P (MAP) Pulse Ox O2 Delivery O2 Flow Rate FiO2 11/08/17 07:59 97.8 78 18 122/79 (93) 98 Room Air Capillary Refill : I&O Intake and Output 11/08/17 00:00 Intake Total 1055 ml Balance 1055 ml Intake Oral 1055 ml # Voids 7 # Bowel Movements 1 General: Alert, Cooperative HEENT: Atraumatic, PERRLA, EOMI, Mucous Memb Moist/[place] Neck: Supple, No JVD Lungs: Clear to Auscultation Heart: Regular Rate Abdomen: Normal Bowel Sounds, Soft, No Tenderness Extremities: No Edema Neuro: Other ( Confusion with rambling speech) Results Lab Laboratory Tests 11/06/17 11:36: White Blood Count 10.1, Red Blood Count 4.98, Hemoglobin 14.7, Hematocrit 44, Mean Corpuscular Volume 88, Mean Corpuscular Hemoglobin 30, Mean Corpuscular Hemoglobin Concent 34, Red Cell Distribution Width 13.2, Platelet Count 204, Mean Platelet Volume 10.1, Sodium Level 140, Potassium Level 3.9, Chloride Level 101, Carbon Dioxide Level 30, Anion Gap 9, Blood Urea Nitrogen 42H, Creatinine 1.52H, Estimat Glomerular Filtration Rate 33, BUN/Creatinine Ratio 28 , Glucose Level 104, Calcium Level 9.5, Total Bilirubin 0.7, Aspartate Amino Transf (AST/SGOT) 35H, Alanine Aminotransferase (ALT/SGPT) 30, Alkaline Phosphatase 84, Total Creatine Kinase 51, Total Protein 6.9, Albumin 4.1 11/06/17 21:05: Urine Color YELLOW, Urine Clarity CLEAR, Urine pH 6.5, Urine Specific [place] 1.015L, Urine Protein 1+H, Urine Glucose (UA) NEGATIVE, Urine Ketones NEGATIVE, Urine Nitrite NEGATIVE, Urine Bilirubin NEGATIVE, Urine Urobilinogen NORMAL, Urine Leukocyte Esterase 2+H, Urine RBC (Auto) 2+H, Urine RBC 5-10H, Urine WBC 5 -10H, Urine Squamous Epithelial Cells 0-2, Urine Crystals NONE, Urine Bacteria TRACE, Urine Casts NONE, Urine Mucus NEGATIVE, Urine Culture Indicated YES Microbiology 11/06/17 Urine Culture - Final, Complete Pseudomonas aeruginosa Escherichia coli Assessment/Plan Assessment Embolic stroke multifocal of uncertain etiology General debil s/p fall Confusion may be related to UTI-will recheck U/A and obtain MRI-See orders-TSH ordered will check UTI under treatment OA both kness Prior RT THR for OA HTN controlled Hypothyroidism on replacement Plan Current meds reviewed Discharge to [place] with daughter today with f/u care at the [facility] See orders. MARIO NGUYEN MD Nov 08, 2017 08:31
--- NOTE | 2017-11-08 08:38 | Therapy Team Discharge Summary ---
Therapy Discharge Summary Discharge Recommendations Date of Discharge Therapy D/C Recommendations: Assisted Living, Home Independently, Physical Therapy Home Care Physical Therapy Patient came to rehab following UTI and rhabdomyolysis. Upon evaluation patient performed bed mobility and transfers with mod assist, ambulated 250' with a rolling walker with CGA/Ruma, and went up and down 1 step using a rolling walker with mod assist. Patient has been performing bed mobility and transfer training, balance and endurance training, functional strengthening, stair training, gait training, and education. Patient has made poor progress and has declined and is more confused. 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 Patient now performs bed mobility and transfers with max assist, car transfer is dependent, ambulates 100' with a rolling walker with max assist ( including 50' with at least 2 turns of 90 degrees), no stairs at this time. Patient is being discharged from this facility today and will be discharged from PT at this time. Occupational Therapy Decreased Activ Tolerance, Decreased UE Strength, Dependent Transfers, Impaired Funct Balance, Impaired I ADL's, Impaired Self-Care Skills PT Test Deck Supervisor Goals Group Home Goals PT Group Home Goals Time Frame: Nov 24, 2017 Transfers (B,C,W/C) (FIM): 6 Roll Left to Right (QC): 6 Sit to Lying (QC): 6 Lying-Sitting on Side/Bed(QC): 6 Sit to Stand (QC): 6 Chair/Ydc-pr-Sznnm Xfer(QC): 6 Car Transfer (QC): 6 Does the Patient Walk: Yes Gait (FIM): 6 Gait distance (FIM): 3=150 ft Distance: 250' Walk 10 feet (QC): 6 Walk 10ft-Uneven Surface(QC): 6 Walk 50ft with 2 Turns (QC): 6 Walk 150 ft (QC): 6 Gait Level of Assist: 6 Gait Assistive Device: FWW Stairs (FIM): 5 # of Steps: 5 1 Step (curb) (QC): 5 4 Steps (QC): 5 12 Steps (QC): 9 Stairs Level Of Assist: 5 Picking up an Object (QC): 5 OT Group Home Goals Test Deck Supervisor Goals Time Frame: Nov 21, 2017 Eating (FIM): 6 (not met) Eating (QC): 6 (not met) Oral Hygiene (QC): 6 (not met) Grooming(FIM): 6 (not met) Bathing(FIM): 5 (not met) Shower/Bathe Self (QC): 5 (not et) Upper Body Dressing(FIM): 6 (not met) Upper Body Dressing (QC): 6 (not met) Lower Body Dressing(FIM): 6 (not met) Lower Body Dressing (QC): 6 (not met) On/Off Footwear (QC): 6 (not met) Toileting(FIM): 6 (not met) Toileting Hygiene (QC): 6 (not met) Toilet/Commode Transfer(FIM): 6 (not met) Toilet/Commode Transfer (QC): 6 (not met) Shower Transfer(FIM): 5 (not met) Comprehension(FIM): 4 (NOT MET) Expression (FIM): 4 (NOT MET) Social Interaction(FIM): 4 (NOT MET) Problem Solving(FIM): 3 (NOT MET) Memory(FIM): 3 (NOT MET) Additional Goals: 2-Verbalize Understanding, 3-ImproveStrength/Luci 1=Demonstrate adherence to instructed precautions during ADL tasks. 2=Patient will verbalize/demonstrate understanding of assistive devices/ modifications for ADL. 3=Patient will improve strength/tolerance for activity to enable patient to perform ADL's. Speech Group Home Goals Test Deck Supervisor Goals 1. The patient will demonstrate improved cognitive linguistic skills for increased safety and function of ADL's. Time Frame: Three Weeks Comprehension: 4 (NOT MET) Expression: 4 (NOT MET) Social Interaction: 4 (NOT MET) Problem Solvin (NOT MET) Memory: 3 (NOT MET) VERONICA VO PT Nov 08, 2017 08:38
[2017-11-08] MEDS: IRBESARTAN 150 MG (AVAPRO) TAB PO SCH (08:50)
[2017-11-08] MEDS: MELOXICAM 7.5 MG (MOBIC) TABLET PO SCH (08:51)
[2017-11-08] MEDS: BISOPROLOL/HCTZ 10/6.25 MG (ZIAC) TAB PO SCH (08:51)
[2017-11-08] MEDS: FLUTICASONE NASAL SPRAY (FLONASE) 16 GM BTL NS SCH (08:52)
[2017-11-08] MEDS ORDERED: FAMOTIDINE 20 MG (PEPCID) TABLET PO SCH (09:00)
[2017-11-08] MEDS: ACETAMINOPHEN 500 MG TAB (TYLENOL) PO PRN (11:15)
[2017-11-08 12:30] VITALS: BP 122/79
--- NOTE | 2017-11-08 14:10 | Therapy Team Discharge Summary ---
Therapy Discharge Summary Discharge Recommendations Date of Discharge Therapy D/C Recommendations: Assisted Living, Home Independently, Physical Therapy Home Care Occupational Therapy Pt admitted to ARU following acute hospitalization for UTI/rhabdomyolysis. On admission pt required mod assist with bathing, LE dressing, toileting, and shower transfer, and min assist with UE dressing, toilet transfer, and grooming. Skilled OT intervention focused on ADL training, transfers, strengthening, and safety education. Pt did not make progress and had decline in status. Pt requires more cues for sequencing and problem solving. Pt did not meet any OT LTG. At d/c pt is completing bathing, toileting, and LE dressing with mod assist; transfers, grooming, and UE dressing with minimal assistance. Pt is being transferred to SNF for continued care. D/c ARU OT at this time. Decreased Activ Tolerance, Decreased UE Strength, Dependent Transfers, Impaired Funct Balance, Impaired I ADL's, Impaired Self-Care Skills PT Care Home Goals Travel Pt Goals PT Travel Pt Goals Time Frame: Nov 24, 2017 Transfers (B,C,W/C) (FIM): 6 Roll Left to Right (QC): 6 Sit to Lying (QC): 6 Lying-Sitting on Side/Bed(QC): 6 Sit to Stand (QC): 6 Chair/Dmy-la-Tdjtv Xfer(QC): 6 Car Transfer (QC): 6 Does the Patient Walk: Yes Gait (FIM): 6 Gait distance (FIM): 3=150 ft Distance: 250' Walk 10 feet (QC): 6 Walk 10ft-Uneven Surface(QC): 6 Walk 50ft with 2 Turns (QC): 6 Walk 150 ft (QC): 6 Gait Level of Assist: 6 Gait Assistive Device: FWW Stairs (FIM): 5 # of Steps: 5 1 Step (curb) (QC): 5 4 Steps (QC): 5 12 Steps (QC): 9 Stairs Level Of Assist: 5 Picking up an Object (QC): 5 OT Care Home Goals Care Home Goals Time Frame: Nov 21, 2017 Eating (FIM): 6 (not met) Eating (QC): 6 (not met) Oral Hygiene (QC): 6 (not met) Grooming(FIM): 6 (not met) Bathing(FIM): 5 (not met) Shower/Bathe Self (QC): 5 (not et) Upper Body Dressing(FIM): 6 (not met) Upper Body Dressing (QC): 6 (not met) Lower Body Dressing(FIM): 6 (not met) Lower Body Dressing (QC): 6 (not met) On/Off Footwear (QC): 6 (not met) Toileting(FIM): 6 (not met) Toileting Hygiene (QC): 6 (not met) Toilet/Commode Transfer(FIM): 6 (not met) Toilet/Commode Transfer (QC): 6 (not met) Shower Transfer(FIM): 5 (not met) Comprehension(FIM): 4 (NOT MET) Expression (FIM): 4 (NOT MET) Social Interaction(FIM): 4 (NOT MET) Problem Solving(FIM): 3 (NOT MET) Memory(FIM): 3 (NOT MET) Additional Goals: 2-Verbalize Understanding, 3-ImproveStrength/Luci 1=Demonstrate adherence to instructed precautions during ADL tasks. 2=Patient will verbalize/demonstrate understanding of assistive devices/ modifications for ADL. 3=Patient will improve strength/tolerance for activity to enable patient to perform ADL's. Speech Care Home Goals Travel Pt Goals 1. The patient will demonstrate improved cognitive linguistic skills for increased safety and function of ADL's. Time Frame: Three Weeks Comprehension: 4 (NOT MET) Expression: 4 (NOT MET) Social Interaction: 4 (NOT MET) Problem Solvin (NOT MET) Memory: 3 (NOT MET) VIDYA KRAMER OT Nov 08, 2017 14:09
--- NOTE | 2017-11-09 08:59 | Physician Query Clarification ---
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 Please document a response below. PHYSICIAN RESPONSE Pathology Report Findings: Yes,agree w/path dx as documented Explanation of clincal finding Why would i not? I did not look at the path, this is pathology's job. I have never gotten a query like this before, am I going to start getting query's about agreement with path on all biopsys now? You can email me a response, but just curious as to why this is even asked. In responding to this query, please exercise your independent professional judgment. The purpose of this communication is to more accurately reflect the complexity of your patients condition. The fact that a question is asked does not imply that any particular answer is desired or expected. Thank you for your timely response to this clarification. Requestors name: Vivienne THIS PHYSICIAN QUERY FORM IS A PERMANENT PART OF THE MEDICAL RECORD VIVIENNE CAMARA Nov 09, 2017 08:59 JORGE HO DO Nov 09, 2017 10:15
--- NOTE | 2017-11-09 09:03 | Physician Query Clarification ---
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 Pillai. Can you specify if this condition was present on admission? Please document a response below. 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 In responding to this query, please exercise your independent professional judgment. The purpose of this communication is to more accurately reflect the complexity of your patients condition. The fact that a question is asked does not imply that any particular answer is desired or expected. Thank you for your timely response to this clarification. Requestors name: Vivienne THIS PHYSICIAN QUERY FORM IS A PERMANENT PART OF THE MEDICAL RECORD VIVIENNE CAMARA Nov 09, 2017 09:03 MARIO PILLAI MD Nov 09, 2017 20:11
== END 2017-11-08 12:30 | DRG 987 ==
PROVIDERS: ADMIT Physical Medicine & Rehabilitation; ATTEND Physical Medicine & Rehabilitation
PROC: 0UB98ZX Excision of Uterus, Via Natural or Artificial Opening Endoscopic, Diagnostic (ICD-10-PCS; principal; 2017-11-01)
DX: M62.82 Rhabdomyolysis (principal); N39.0 Urinary tract infection, site not specified; R32 Unspecified urinary incontinence; M17.0 Bilateral primary osteoarthritis of knee; E03.9 Hypothyroidism, unspecified; I10 Essential (primary) hypertension; I63.9 Cerebral infarction, unspecified; Z66 Do not resuscitate; C54.1 Malignant neoplasm of endometrium
CPT/HCPCS: 36415; 70450; 70551; 80053; 81000; 82140; 82550; 84443; 85025; 85027; 87077; 87088; 87186